=== PATIENT | female | born 1945 | race Caucasian/White ===

== ENCOUNTER 2018-07-09 11:15 | Outpatient (RCR) | payer MEDICARE, SELFPAY ==
--- NOTE | 2018-07-09 09:59 | PTTR_ITS ---
DATE: 07/09/18 OBJECTIVE: This is a co tx with PT Jose Luevano, please refer to his note for specifics. Manual therapy: ([id number]). Pt was seen by me including deep tissue mobilization and trigger point release techniques throughout (B) cervical paraspinals, (B) upper traps, (B) mid thoracic paraspinals, Rhomboids. Direct treatment time: 25 minutes Total treatment time: 25 minutes
--- NOTE | 2018-07-09 10:36 | PTTR_ITS ---
DATE: 07/09/18 SUBJECTIVE: Simi notes some mild improvements in her symptoms compared to her last visit 10-14 days ago. She is sore today because she drove to [place] yesterday so she is a little more symptomatic. She has had a massage since we last saw her and this was pretty painful throughout the trap area but following that it seemed to help her symptoms. OBJECTIVE: Therapeutic procedures ([id number]). She has been battling with the cervical spine pain for a number of months now. She has made steady progress up to 70% improved. She is sleeping through the night now but upon arising in the morning she does have some cervical spine discomfort and limitation. It takes about 1 hour to loosen up and feel more comfortable. And she does this well during the day as long as she doesn't move her head excessively into rotation and side bending. Her active cervical movements are approximately 60* and it causes some end range discomfort throughout the corresponding soft tissue structure stretch , Her side bending is 45-50*. She has some increased tone throughout the pecs as well as the thoracic paraspinals and the infraspinatus fossa. These are cleared by Puja Ibarra PTA refer to her note. I also instruct Simi in some diaphragmatic breathing. We tried some kegel exercises too but this was creating some groin discomfort and I was trying to incorporate some scap stabilization exercises too with the serratus anterior and lower trap again this created some spasms in her mid back. Direct treatment time: 30 minutes Total treatment time: 30 minutes ASSESSMENT: She has some myofascial type pain and this can be elicited into the groin and back area when performing exercises. PLAN: Have Radha try to perform her diaphragmatic breathing and see how she responds to the session with Puja Ibarra PTA today. Will discuss this earlier next week with possibility with starting on a conditioning program. Going to discuss situation with her pharmacist with possible use of magnesium sulfate to help control some of her spasms. She has a follow up appt early next week.
--- NOTE | 2018-07-20 13:06 | NT_ITS ---
07/20/18 Pt no show no called for today's PT appointment.
== END 2018-07-30 23:59 | disposition home or self-care (01) ==
LOC: PT 11:15
PROVIDERS: PCP Family Medicine; Referring Provider Family Medicine; Visit Provider Family Medicine
DX: M54.2 Cervicalgia (principal)
CPT/HCPCS: 97110; 97140

== ENCOUNTER → 2018-08-09 09:53 | Outpatient (BNVA) | payer MEDICARE, SELFPAY | PROVIDERS: PCP Family Medicine; Visit Provider Student in an Organized Health Care Education/Training Program | DX: M16.12 Unilateral primary osteoarthritis, left hip (principal); M25.552 Pain in left hip | CPT/HCPCS: 99213 ==

== ENCOUNTER 2018-08-09 10:30 | Outpatient (CLI) | payer MEDICARE, SELFPAY ==
--- NOTE | 2018-08-09 09:48 | DI.RAD_ITS ---
SYMPTOM/DIAGNOSIS: LEFT HIP PAIN PELVIS AND LEFT HIP: Comparison is made with 11 Aug 2017, The hip joint spaces are well maintained. The SI joints and pubic symphysis are unremarkable. IMPRESSION: Negative pelvis and left hip.
== END 2018-08-09 10:50 ==
PROVIDERS: PCP Family Medicine; Visit Provider Student in an Organized Health Care Education/Training Program
DX: M25.552 Pain in left hip (principal)
CPT/HCPCS: 99213; 73502

== ENCOUNTER 2018-08-12 02:21 | Outpatient (CLI) | payer MEDICARE, SELFPAY ==
[2018-08-12 10:45] LABS: HCT 34.1 % (36.0-46.0); HGB 10.5 g/dL (12.0-15.5); Mean Corp. HGB Concentration 30.8 g/dL (32.0-36.0); Mean Corpuscular Hemoglobin 28.3 pg (27.0-33.0); Mean Corpuscular Volume 91.9 fL (80-95); Mean Platelet Volume 10.6 fL (8.0-11.0); Platelet Count 301 x1000/uL (130-400); RBC 3.71 m/cumm (4.00-5.20); RBC Distribution Width 14.3 % (11.7-14.6)
[2018-08-12 11:20] LABS: COMMENT (LAB VIEW ONLY) 84.55 mg/dL
[2018-08-12 11:26] LABS: ALT 45 U/L (12-78); AST 46 U/L (15-37); Albumin 3.4 g/dL (3.4-5.0); Alkaline Phosphatase 110 U/L (46-116); Anion Gap 9.9 mmol/L (3-11); BUN 21 mg/dL (7-18); Bilirubin, Total 0.3 mg/dL (0.2-1.0); CO2 29.1 mmol/L (21.0-32.0); CREATININE 0.98 mg/dL (0.55-1.02); Calcium 8.5 mg/dL (8.5-10.1); Chloride 103 mmol/L (98-107); Estimated GFR 55.63 (mL/min/1.73m2); Glucose 157 mg/dL (70-100); Potassium 4.6 mmol/L (3.5-5.1); Sodium 142 mmol/L (136-145); TSH (W/Ref FT4) 1.73 uIU/mL (0.358-3.74); Total Protein 6.8 g/dL (6.4-8.2)
[2018-08-12 12:43] LABS: Hemoglobin A1C 7.6 % (4.5-6.2)
== END 2018-08-12 02:41 ==
PROVIDERS: PCP Family Medicine; Visit Provider Family Medicine
DX: E11.9 Type 2 diabetes mellitus without complications (principal); E78.5 Hyperlipidemia, unspecified; E11.8 Type 2 diabetes mellitus with unspecified complications; E55.9 Vitamin D deficiency, unspecified; D64.9 Anemia, unspecified
CPT/HCPCS: 36415; 80053; 85027; 82043; 82570; 83036; 84443

== ENCOUNTER 2018-08-24 09:58 | Outpatient (CLI) | payer MEDICARE, SELFPAY ==
[2018-08-24 11:37] LABS: HCT 34.7 % (36.0-46.0); Mean Corp. HGB Concentration 31.7 g/dL (32.0-36.0); Mean Corpuscular Hemoglobin 28.7 pg (27.0-33.0); Mean Corpuscular Volume 90.6 fL (80-95); Mean Platelet Volume 10.4 fL (8.0-11.0); Platelet Count 333 x1000/uL (130-400); RBC 3.83 m/cumm (4.00-5.20); RBC Distribution Width 14.2 % (11.7-14.6)
[2018-08-24 11:45] LABS: Bilirubin Negative (Negative); Blood Negative (Negative); Clarity Clear; Glucose Negative (Negative); Ketones Negative (Negative); Leukocyte Esterase Negative (Negative); Nitrite Negative (Negative); Specific Gravity 1.015 (1.005-1.025); Urobilinogen 0.2 EU/dL (Up TO 0.2)
[2018-08-24 11:57] LABS: RBC 0-2 (0-2)
[2018-08-24 11:58] LABS: Bacteria Few HPF (Negative); C & S Indicated? No; Casts Negative LPF (Negative); Crystals Negative HPF (Negative); Epithelial Cells Few HPF (Negative); Mucus Negative (Negative)
[2018-08-24 12:17] LABS: Hemoglobin A1C 7.7 % (4.5-6.2)
[2018-08-24 12:18] LABS: Anion Gap 9.6 mmol/L (3-11); BUN 18 mg/dL (7-18); CO2 29.4 mmol/L (21.0-32.0); CREATININE 0.94 mg/dL (0.55-1.02); Calcium 9.4 mg/dL (8.5-10.1); Chloride 100 mmol/L (98-107); Estimated GFR 58.37 (mL/min/1.73m2); Glucose 133 mg/dL (70-100); Potassium 4.3 mmol/L (3.5-5.1); Sodium 139 mmol/L (136-145)
== END 2018-08-24 10:18 ==
PROVIDERS: PCP Family Medicine; Visit Provider Student in an Organized Health Care Education/Training Program
DX: M25.552 Pain in left hip (principal); M16.12 Unilateral primary osteoarthritis, left hip; I25.10 Atherosclerotic heart disease of native coronary artery without angina pectoris; I10 Essential (primary) hypertension; E11.9 Type 2 diabetes mellitus without complications; K21.9 Gastro-esophageal reflux disease without esophagitis; J44.9 Chronic obstructive pulmonary disease, unspecified; Z01.818 Encounter for other preprocedural examination
CPT/HCPCS: 36415; 80048; 85027; 86850; 86900; 86901; 81003; 81015; 83036

== ENCOUNTER 2018-08-31 07:14 | Inpatient (IN) | payer MEDICARE, SELFPAY ==
[2018-08-31] VITALS (18 sets, daily range): BP systolic 60–174; BP diastolic 20–78; PULSE 68–88; RESP 13–21; TEMP 36.1–37.1; O2SAT 92–97
[2018-08-31] MEDS: Acetaminophen 500 MG TAB 1000 MG PO ×4 (06:44→21:50)
[2018-08-31] MEDS: Celecoxib 200 MG CAP 400 MG PO (06:44)
--- NOTE | 2018-08-31 06:45 | DI.RAD_ITS ---
SYMPTOM/DIAGNOSIS: OSTEOARTHRITIS LEFT HIP C-ARM FLUOROSCOPY : 08/31 Fluoroscopy Time: 38 sec C-arm fluoroscopy was utilized by Dr. Burns during placement of left total hip joint replacement. Hard copies show femoral and acetabular components in place.
[2018-08-31] MEDS: Lactated Ringers 1,000 ML 80 ML IV ×3 (07:38→13:28)
[2018-08-31] MEDS: Bupivacaine 0.25% Pres-Free 10 ML VIAL 50 ML IJ (09:36)
[2018-08-31] MEDS: Normal Saline 50 ML (09:36)
[2018-08-31] MEDS: Ketorolac 30 MG/ML VIAL (09:36)
--- NOTE | 2018-08-31 10:47 | DI.RAD_ITS ---
SYMPTOM/DIAGNOSIS: S/P LT NAS PORTABLE PELVIS: 08/31 AP view of the pelvis was obtained and shows placement of total hip joint replacement on the left. The components appear well seated. No other bony abnormality seen.
[2018-08-31] MEDS: fentaNYL 100 MCG/2 ML VIAL IVP ×2 (11:17→11:49)
[2018-08-31] MEDS: Insulin Aspart 300 UNITS/3 ML PEN SC ×2 (13:27→17:00)
[2018-08-31] MEDS: Escitalopram 20 MG TAB PO (13:27)
[2018-08-31] MEDS: traMADol 50 MG TAB PO (14:19)
--- NOTE | 2018-08-31 14:25 | PT.INIE ---
Date of service: 08/31/18 Time of Service: 14:21 PT Notes Inpatient Physical Therapy Evaluation Date: 08/31/18 Referring Doctor: David Burns PT Orders: PT CONSULT: s/p anterior L NAS Precautions: WBAT L LE Patient Profile/Admitting Diagnosis: Pt is a 73yr old female s/p left anterior total hip arthroplasty by Dr. Burns 08/31/18 PMHX: bilateral trochanteric bursitis, osteoporosis, chronic low back pain facet arthropathy L5-S1, obesity, diabetes mellitus, anxiety, vertigo, asthma, hypertension, vitamin D deficiency, gastroesophageal reflux disease, Barretts Esophagus, cataracts, hiatal hernia, hyperlipidemia, breast reduction, Oumar fundoplication, tubal ligation Social History/Home Situation: Lives in a house, 4 steps with railing to enter, flight of steps with railing to 2nd floor, states she can stay on first floor initially. Baseline mobility independent gait no device, independent with ADLS. Has built in seats in the shower with grab bars. Equipment Owned/DME: [facility] [employer] Subjective: Pt lying in bed visiting with family in room. Agreeable to therapy session. Reports her cuello catheter is burning and she is wondering when it can come out. Reports burning/pulling sensation in anterior left hip, nursing notified of patient's complaints. Objective: General Observation: L UE IV, cuello catheter, 2 lites 02 NC, Ice pack L anterior hip Mental Status: A& O x3 Pain: c/o burning pain at catheter site and left anterior hip, not rated. RN notified Bed Mobility/Transfers: Supine-sit: HOB 35 degrees, Laura For L LE Sit-stand: CGA with FWW Stand-sit: SBA Sit-supine: HOB flat Laura for L LE Gait: CGA with FWW 20ftx2 WBAT L LE, slow step to gait pattern with instructions for sequencing. Pt reports burning sensation right anterior hip. Pt returned to bed after gait completed, ice applied to left hip. Therex: Initiated ankle pumps, quad sets, glute sets x 20 reps. Instructed to perform every 2 hours this evening. Pt has issued home exercise program handouts. Balance: Static Sitting: normal Dynamic Sitting: normal Static Standing: fair Dynamic Standing: fair Special Tests: Mobility Limitations Standardized Measure [facility] 6 clicks Basic Mobility Inpatient Short Form: Raw Score: 18 Standardized Score: 43.63 CMS Score: 46.58% CMS Modifier: CK Informed Consent/Education: Patient instructed in purpose of PT consult and plan of care. Assessment: Pt is a 73yr old female s/p left anterior total hip arthroplasty by Dr. Burns 08/31/18 in setting of bilateral trochanteric bursitis, osteoporosis, chronic low back pain facet arthropathy L5-S1, obesity, diabetes mellitus, anxiety, vertigo, asthma. Patient presents with clinical signs and symptoms consistent with diagnosis, as demonstrated by the following impairment level findings: pain left anterior hip, decreased strength left hip, decreased strength and mobility with bed transfers, standing transfers and gait requiring one person assist and FWW for gait stability post operatively, pt with decreased static and dynamic standing balance. Pt would bbenefit from skilled therapy intervention, antipcate return to home setting once goals met. Impairments are contributing to the following functional limitations: AMPAC score CMS Score: 46.58% Patient is assessed as a Moderate 02602 complexity based on the following: History: see above Examination: see above Presentation: evolving Decision Making: AMPAC score CMS Score: 46.58% Goals: Goals X1 week 1. Supine-Sit SBA 2. Sit-Supine SBA 3. Sit-Stand SBA with FWW 4. Stand-Sit supervision 5. Bed-Chair SBA with FWW 6. Chair-Bed SBA with FWW 7. Gait SBA with FWW 50ftx2 WBAT L LE 8. Stairs up/down 4 steps with railing, WBAT L LE, SBA Plan of Care/Treatment Plan: 1-2x/day, 7 days/week x 1 week. Plan of care has been reviewed with the STEEL DIE PRINTER providing the service under Physical Therapy direction. Initiate Physical Therapy intervention for strengthening, bed mobility, transfers, gait, stairs, balance training, use of assistive device. DISCHARGE RECOMMENDATIONS: Home, pt has all DME TREATMENT CODE/TIME: 30 IE 1420 G Codes in the area mobility of walking and moving around: current status [id number] CK; projected status GP [id number]. Discharge status (if discharging) GP [id number] CK based on AMPAC score CMS Score: 46.58% Yessi Linares PT.
--- NOTE | 2018-08-31 14:41 | IN_ITS ---
Date of service: 08/31/18 Time of Service: 14:21 PT Notes Inpatient Physical Therapy Evaluation Date: 08/31/18 Referring Doctor: David Burns PT Orders: PT CONSULT: s/p anterior L NAS Precautions: WBAT L LE Patient Profile/Admitting Diagnosis: Pt is a 73yr old female s/p left anterior total hip arthroplasty by Dr. Burns 08/31/18 PMHX: bilateral trochanteric bursitis, osteoporosis, chronic low back pain facet arthropathy L5-S1, obesity, diabetes mellitus, anxiety, vertigo, asthma, hypertension, vitamin D deficiency, gastroesophageal reflux disease, Barretts Esophagus, cataracts, hiatal hernia, hyperlipidemia, breast reduction, Oumar fundoplication, tubal ligation Social History/Home Situation: Lives in a house, 4 steps with railing to enter, flight of steps with railing to 2nd floor, states she can stay on first floor initially. Baseline mobility independent gait no device, independent with ADLS. Has built in seats in the shower with grab bars. Equipment Owned/DME: ru [employer] Subjective: Pt lying in bed visiting with family in room. Agreeable to therapy session. Reports her cuello catheter is burning and she is wondering when it can come out. Reports burning/pulling sensation in anterior left hip, nursing notified of patient's complaints. Objective: General Observation: L UE IV, cuello catheter, 2 lites 02 NC, Ice pack L anterior hip Mental Status: A& O x3 Pain: c/o burning pain at catheter site and left anterior hip, not rated. RN notified Bed Mobility/Transfers: Supine-sit: HOB 35 degrees, Laura For L LE Sit-stand: CGA with FWW Stand-sit: SBA Sit-supine: HOB flat Laura for L LE Gait: CGA with FWW 20ftx2 WBAT L LE, slow step to gait pattern with instructions for sequencing. Pt reports burning sensation right anterior hip. Pt returned to bed after gait completed, ice applied to left hip. Therex: Initiated ankle pumps, quad sets, glute sets x 20 reps. Instructed to perform every 2 hours this evening. Pt has issued home exercise program handouts. Balance: Static Sitting: normal Dynamic Sitting: normal Static Standing: fair Dynamic Standing: fair Special Tests: Mobility Limitations Standardized Measure [facility] 6 clicks Basic Mobility Inpatient Short Form: Raw Score: 18 Standardized Score: 43.63 CMS Score: 46.58% CMS Modifier: CK Informed Consent/Education: Patient instructed in purpose of PT consult and plan of care. Assessment: Pt is a 73yr old female s/p left anterior total hip arthroplasty by Dr. Burns 08/31/18 in setting of bilateral trochanteric bursitis, osteoporosis, chronic low back pain facet arthropathy L5-S1, obesity, diabetes mellitus, anxiety, vertigo, asthma. Patient presents with clinical signs and symptoms consistent with diagnosis, as demonstrated by the following impairment level findings: pain left anterior hip , decreased strength left hip, decreased strength and mobility with bed transfers, standing transfers and gait requiring one person assist and FWW for gait stability post operatively, pt with decreased static and dynamic standing balance. Pt would bbenefit from skilled therapy intervention, antipcate return to home setting once goals met. Impairments are contributing to the following functional limitations: AMPAC score CMS Score: 46.58% Patient is assessed as a Moderate 85802 complexity based on the following: History: see above Examination: see above Presentation: evolving Decision Making: AMPAC score CMS Score: 46.58% Goals: Goals X1 week 1. Supine-Sit SBA 2. Sit-Supine SBA 3. Sit-Stand SBA with FWW 4. Stand-Sit supervision 5. Bed-Chair SBA with FWW 6. Chair-Bed SBA with FWW 7. Gait SBA with FWW 50ftx2 WBAT L LE 8. Stairs up/down 4 steps with railing, WBAT L LE, SBA Plan of Care/Treatment Plan: 1-2x/day, 7 days/week x 1 week. Plan of care has been reviewed with the PIN MACHINE OPERATOR providing the service under Physical Therapy direction. Initiate Physical Therapy intervention for strengthening, bed mobility, transfers, gait, stairs, balance training, use of assistive device. DISCHARGE RECOMMENDATIONS: Home, pt has all DME TREATMENT CODE/TIME: 30 IE 1420 G Codes in the area mobility of walking and moving around: current status [id number] CK; projected status GP [id number]. Discharge status (if discharging) GP [id number] CK based on AMPAC score CMS Score: 46.58% Yessi Linares PT.
--- NOTE | 2018-08-31 15:00 | CHAPLAIN ---
I checked in with Mitzi shortly after she was in her room following surgery. She was having lunch, and said she is feeling fine. Her Marcelo, is a strong support for her, and has been waiting for her to come out of surgery. Mitzi is an active member of [employer]
--- NOTE | 2018-08-31 16:19 | HOME_ITS ---
Home Ventilator Equipment Home care company [employer] Reason: Obstructive Sleep Apnea Make: ResMed Model: REMStar Mask type: Nasal pillows Mask size: Small Mode: CPAP Settings: AUTO MIN 11 MAX 16 Oxygen bleed in (lpm): 0 Condition: Good Date last checked: 08/31/18 Year of last sleep study: Compliance Comments:
[2018-08-31] MEDS: HYDROmorphone 2 MG TAB PO ×2 (16:59→21:50)
[2018-08-31] MEDS: Insulin Aspart 300 UNITS/3 ML PEN 18 UNITS SC (16:59)
[2018-08-31] MEDS: Esomeprazole 40 MG CAPCR PO (19:52)
[2018-08-31] MEDS: Celecoxib 100 MG CAP 200 MG PO (19:52)
[2018-08-31] MEDS: Budesonide/Formoterol 160/4.5 6 GM 60 PUFF INH IH (19:52)
[2018-08-31] MEDS: Rosuvastatin 10 MG TAB PO (21:50)
[2018-08-31] MEDS: Insulin Glargine 300 UNITS/3 ML PEN 40 UNITS SC (21:52)
[2018-08-31] MEDS: Normal Saline Flush 10 ML SYR IV (21:53)
[2018-09-01 00:07] VITALS: BP 99/61; PULSE 87; RESP 18; TEMP 37.1; O2SAT 93
[2018-09-01] MEDS: HYDROmorphone 2 MG TAB PO ×4 (00:48→11:54)
[2018-09-01] MEDS: Lactated Ringers 1,000 ML 80 ML IV (02:38)
[2018-09-01 03:25] VITALS: BP 104/62; PULSE 82; RESP 18; TEMP 36.6; O2SAT 93
[2018-09-01] MEDS: Albuterol/Ipratropium 3 ML UPD VIAL (03:30)
--- NOTE | 2018-09-01 07:04 | ROE_ITS ---
Date of service: 08/31/18 Time of Service: 09:58 Operative Note DATE OF PROCEDURE: 08/31/18 PRE-OP DIAGNOSIS: Left Hip avascular necrosis POST-OP DIAGNOSIS: same PROCEDURE: Left Anterior Total Hip Arthroplasty SURGEON: David Burns TIMBER WATCHMAN: Neri Cancino ANESTHESIA: spinal ESTIMATED BLOOD LOSS: 400 PATHOLOGY: none sent COMPLICATIONS: None Patient was transported to: PACU Patient's condition: stable Implants: 1. Depuy [place] Acetabular Component, 48 mm 2. Depuy Acetabular Liner, 48x32 mm 3. Depuy Corail coxa vara femoral Stem, Size 12 4. Depuy Altrx Ceramic Femoral Head, Size 32+1 mm Indications: I have seen Yas in clinic for symptoms of focal hip arthritis , confirmed with intra-articular injections. She has exhausted nonoperative methods and was having significant limitations in daily function and desired better function and less pain. I discussed the technical details of a hip replacement. I explained the risks of the procedure to include, but not limited to, bleeding, infection, pain, stiffness, fracture, damage to nerves and vessels, damage to muscles and tendons, loosening, instability, leg length inequality, need for repeat procedure, blood clot and cardiopulmonary demise. Despite these risks, she elected to proceed. Findings: Overall cartilage was maintained throughout the majority of the hip except for an area approximately 1/2 cm x 1 cm over the superior lateral aspect of the femoral head. This area had undermining of the cartilage with loose cartilage flaps and a clear area of avascular necrosis to the superior portion of the femoral head. Procedure Description: Simi was greeted in the preoperative holding area where the correct side was identified and marked. The consent was reviewed with the patient and signed. The history and physical was updated. All questions were answered. She was taken back to the operating room. A spinal anesthestic was then administered. The patient was placed into the supine position on the operating room table. The patient was then positioned onto the ARCH table. Both feet were wrapped with [place]br[place] cotton wrap along with Coban. The feet were placed in specialized boots for the ARCH table, well seated within the boot and secured. SCDs were applied. The patient was then slid down onto a peroneal post and the nonoperative leg was secured in a leg finch attached to the table. The operative side was placed into the ARCH table attachment and bed height and positioning was secured. A preoperative AP pelvis was obtained to serve as a reference for determining leg lengths. Prophylactic antibiotics in the form of cefazolin were administered. 1g of Tranxemic Acid was given intravenously within 30 minutes of incision. The left leg was then prepped with Chloraprep and draped in a standard fashion with a large shower-curtain type drape with Iodine impregnated skin protection. A timeout to confirm correct identity, side and site, procedure, allergies, anesthesia, and medical concerns was performed. An obliquely oriented incision was made starting lateral to the ASIS and running distal over the Tensor Fascia Jaimee (TFL) muscle belly toward the fibular head, approximately 10cm. The skin and soft tissue was dissected sharply, through Luis?s fascia, and to the fascia of the TFL. With the fascia and superior border of the IT band identified, the fascia was incised with a new knife just above any perforators from the IT band. The TFL muscle belly was bluntly dissected away from the fascia and moved laterally. The fat between TFL and rectus was identified to ensure the dissection was not within the TFL. Blunt dissection created space between abductors and the capsule and retractor was placed over the lateral femoral neck. The fibers of the rectus femoris tendon were identified and these were freed from the anterior capsule. A second cobra retractor was placed around the medial femoral neck. The TFL was further retracted laterally to show the deep fascia. Careful dissection through this layer identified three main crossing vessels of the lateral femoral circumflex. These were cauterized in multiple locations and then cut without any noticeable bleeding. The TFL was further released bluntly from the deep fascia to expose anterior hip capsule and fat the Michael orthopaedic retractor was then placed beneath the TFL and against sartorius and medial soft tissues to protect and retract the soft tissues. A T-capsulotomy was then performed starting at the superior lateral acetabulum and moving distally to the intertrochanteric ridge. These capsular flaps were tagged with a No. 1 Ethibond and elevated from within. The capsular flaps were released to the shoulder of the lateral neck and to the lesser trochanter to give excellent visualization of the proximal femur. A neck osteotomy was performed using an oscillating saw based on preoperative templates. This cut started in the shoulder and of the lateral neck and exited medially. The saw was at all times directed medially to avoid injury to the greater trochanter. 6cm of traction was applied to the leg and the osteotomy opened. The femoral head was removed with a corkscrew, making sure to protect the TFL on its exit. The femoral head was inspected and it showed an area of avascular necrosis over the superior lateral aspect of the head. The cartilage was undermined and unstable and the subchondral bone was absent for an area of about 1-1/2 x 1 cm. The femoral head size was measured on the back table to determine the starting reamer size. Portions of the rectus obscuring visualization were minimally elevated off the superior acetabulum. An anterior retractor was placed over the anterior wall between capsule and labrum. A posterior retractor was placed similarly. This provided excellent visualization. The contents of the cotyloid fossa were removed with electrocautery and the labrum was removed with a knife. Acetabular reaming began with a 43 mm reamer. This first reaming was directed anterior to posterior and medial to get down to the true floor. This was inspected and reamed until the true floor was reached. I then reamed sequentially up to a 47 mm reamer where good fit was obtained. The larger reamers were oriented based on anatomical reference of the anterior and lateral vasquez to ensure proper abduction and anteversion. Positioning and size was confirmed with the fluoroscopy. A 48 mm Depuy [place] acetabular component was selected. The acetabulum was reamed around the periphery with the selected acetabular size to prevent a rim fit. The deep tissues were irrigated. The acetabular component was then impacted in a position of about 40-45 degrees of abduction and 15-20 degrees of anteversion, using the patient?s anatomy as the ultimate landmark. Fluoroscopy was used to confirm this. There was excellent linux programmer of the acetabular component and the inserting handle was removed. A primary acetabular screw was placed into the ilium by drilling through one of the holes in the acetabular component. This was measured and an approrpriately sized screw was placed with excellent purchase. It was checked not to be proud. The acetabular liner, Depuy 48x32 mm polyethylene liner, was inserted and lined up with the tines of the acetabular component. There was no soft tissue interposition. The liner was then impacted into position and confirmed to be well-seated. A portion of the cuauhtemoc-articular cocktail was then injected around the acetabulum into the capsule and periosteum. This cocktail consisted of 50cc of 0.25% Bupivicaine and 20cc of Exparel, expanded to a total of 120cc. Traction was released from the femur. The leg was rotated to 120 degrees. Any remaining medial capsule was released until the lesser trochanter was easily palpable. A Street retractor was placed medially. The lateral capsule was further released into the shoulder to allow access to the greater trochanter. A Street retractor was placed over the greater trochanter which allowed the trochanter to flip in front of the capsule for excellent exposure. The leg was brought down into maximal extension and 20 degrees of adduction while ensuring there was no impingement on the acetabulum. Any remnant capsule within the trochanter was released. Piriformis and obturator externis were identified and protected. There was excellent access to the proximal femur. The lateral neck remnant was removed with a rongeur. A blunt canal probe was used to identify the canal and trajectory for later broaching. A box osteotome initiated the broach course. A small curved rasp and a curved curette were used to work laterally. Broaching then began with a size 8 Corail broach. This was inserted manually around the trochanter and into the canal before mallet blows. The broach was seated to the neck cut level based on the neck cut and the preoperative template. Sequential broaching was continued until a tight fit was obtained with good rotational control of the femur. A trial coxa vara neck was inserted along with a +1 trial head. The leg was brought out of extension and adduction and then reduced with traction and internal rotation. The leg was stable anteriorly in a position of 30 degrees of extension and 90 degrees of external rotation. Fluoroscopy was used to ensure there was no fracture and the stem was seated well. Leg lengths were checked with an AP pelvis and pelvic reference points. Once content with the desired offset and leg lengths, the leg was brought back into extension, external rotation and adduction. The periosteum and surrounding tissue was injected with remaining portion of the cuauhtemoc-articular cocktail. The proximal femur was irrigated as well as the deep tissues. The Depuy Corail coxa vara stem, size 12, was then manually inserted into the proximal femur making sure to control rotation. It was then malleted into position with light blows, giving breaks to allow bone expansion and decrease risk of fracture. The selected Depuy Altrx Ceramic Head, size 32+ 1 mm, was then placed onto the clean and dry trunnion and secured with impaction onto the tapered fit. The leg was brought back out of extension and adduction and reduced with traction and internal rotation. Stability was confirmed with no shuck at 90 degrees of external rotation and 30 degrees of extension. No impingement through range of motion arc. Final x-ray images were obtained with fluoroscopy to confirm adequate positioning and no intraoperative fracture. The deep tissues were thoroughly irrigated with a pulse lavage. The second dose of TXA 1g was administered intravenously. The capsule was then reapproximated with the previously placed Ethibond sutures. The TFL fascia was finally closed with a No. 2 Stratafix, barbed suture. Deep tissues were then reapproximated with 0 Vicryl and a running 2-0 Vicryl. The skin was closed with a running 4-0 Monocryl in a subcuticular fashion. This was reinforced with skin glue. A Mepilex silver dressing was applied. At the end of the case, all counts were correct. Simi was transferred to the hospital bed without difficulty and suffering no apparent complication. She has a good prognosis. Physical therapy will start today and without restrictions, weight-bearing as tolerated. Aspirin 81mg BID will be used for DVT prophylaxis.
[2018-09-01 07:23] LABS: HCT 28.1 % (36.0-46.0); HGB 8.7 g/dL (12.0-15.5); Mean Corpuscular Hemoglobin 28.3 pg (27.0-33.0); Mean Corpuscular Volume 91.5 fL (80-95); Mean Platelet Volume 11.1 fL (8.0-11.0); Platelet Count 295 x1000/uL (130-400); RBC 3.07 m/cumm (4.00-5.20); RBC Distribution Width 14.2 % (11.7-14.6); White Blood Cell Count 7.75 k/cumm (4.4-10.8)
[2018-09-01 07:30] VITALS: BP 119/67; PULSE 86; RESP 18; TEMP 36.9; O2SAT 92
[2018-09-01 07:32] LABS: Anion Gap 6.9 mmol/L (3-11); BUN 31 mg/dL (7-18); CO2 31.1 mmol/L (21.0-32.0); CREATININE 1.19 mg/dL (0.55-1.02); Calcium 8.5 mg/dL (8.5-10.1); Chloride 97 mmol/L (98-107); Estimated GFR 44.46 (mL/min/1.73m2); Glucose 149 mg/dL (70-100); Potassium 4.3 mmol/L (3.5-5.1); Sodium 135 mmol/L (136-145)
[2018-09-01] MEDS: Budesonide/Formoterol 160/4.5 6 GM 60 PUFF INH IH (07:36)
[2018-09-01 07:39] VITALS: O2SAT 92
[2018-09-01] MEDS: Celecoxib 100 MG CAP 200 MG PO (08:06)
[2018-09-01] MEDS: Losartan 50 MG TAB 100 MG PO (08:07)
[2018-09-01] MEDS: Hydrochlorothiazide 25 MG TAB PO (08:07)
[2018-09-01] MEDS: Acetaminophen 500 MG TAB 1000 MG PO (08:07)
[2018-09-01] MEDS: Calcium 600mg/Vit D 200U TAB 1 TAB PO (08:07)
[2018-09-01] MEDS: Esomeprazole 40 MG CAPCR PO (08:07)
[2018-09-01] MEDS: Insulin Aspart 300 UNITS/3 ML PEN 18 UNITS SC ×2 (08:07→11:50)
[2018-09-01] MEDS: Insulin Aspart 300 UNITS/3 ML PEN SC ×2 (08:08→11:50)
[2018-09-01] MEDS: Aspirin E.C. 81 MG TABEC PO (08:25)
--- NOTE | 2018-09-01 09:13 | PDOC.CMIN ---
- If Service Date Differs Date of service: 09/01/18 Time of Service: 09:14 Care Management Initial Assess PAST MEDICAL HISTORY/PAST SURGICAL HISTORY:: Type II diabetes, Tubular adenoma, Primary osteoarthritis of (L) hip, Malignant melanoma of skin, Dysphagia, Chronic gastritis, Anemia, Adrenal cyst, ASCVD, Chest pain, Anxiety, Asthma, Barretts esophagus, GERD, Cataract, Hyperlipidemia, Hypertension, Osteoporosis, Vitamin D Deficiency, Hiatal hernia, H/O surgical procedure, Osteoarthritis of (L) hip PREVIOUS FUNCTIONAL STATUS/SOCIAL/FAMILY SUPPORTS:: Simi resides with her Inderjit in [place] ADVANCE DIRECTIVES:: None on file Has patient been provided with information about the portal?: Yes CODE STATUS:: Full Code INSURANCE COVERAGE / FINANCIAL ISSUES:: Medicare, AARP CURRENT HOME/COMMUNITY SERVICES/EQUIPMENT:: Currently Simi has no services in the community. She has a Cane and FWW at home. PRIMARY CARE PHYSICIAN:: Dr. Chand POTENTIAL DISCHARGE NEEDS:: F/U appointment with Dr. Burns PATIENT/FAMILY EDUCATION NEEDS:: Review DC instructions, any limitations, and ongoing DC planning discussion. Discuss Ask Me Three ANTICIPATED BARRIERS TO DISCHARGE:: None identified at this time. TRANSPORTATION:: Via private vehicle with family PLAN:: Simi will return home with no anticipated services. She will F/U with Dr. Burns and plan of care as prescribed. Simi's family will transport when ready.
--- NOTE | 2018-09-01 10:08 | PT.INDS ---
Date of service: 09/01/18 Time of Service: 09:30 PT Notes Inpatient Physical Therapy Discharge Summary Date: 09/01/18 Dates of Service: 08/31/18-09/01/18 SUBJECTIVE: Pt sitting in chair, just finished breakfast, agreeable to PT session. States she would like to be able to go home today to be with her . OBJECTIVE: Bed Mobility/Transfers: Sit-stand: independent with FWW Stand-sit: independent Bed-chair: independent with FWW Chair-bed: independent with FWW Gait: independent with FWW 275ft, WBAT L LE, step through gait with decreased stride length Stairs: instructed in up/down 5 steps with railing WBAT LLE, pt independent in step to step sequence Therex: pt instructed in home exercise handout and program, independent with ankle pumps, quad sets and glute sets x 20 reps Balance: Static Sitting: normal Dynamic Sitting: normal Static Standing: fair Dynamic Standing: fair Assessment: Pt is a 73yr old female s/p left anterior total hip arthroplasty by Dr. Burns 08/31/18 in setting of bilateral trochanteric bursitis, osteoporosis, chronic low back pain facet arthropathy L5-S1, obesity, diabetes mellitus, anxiety, vertigo, asthma. Patient was seen for 2 PT visits. Progressed from CGA standing transfers to independent, from CGA gait with FWW 20ftx2 to independent gait with FWW 275ft, able to ascend/descend 5 steps with railing independent. Pt is at functional level to be able to return to home setting, when medically cleared by MD. Goals: Goals X1 week 1. Supine-Sit SBA 2. Sit-Supine SBA 3. Sit-Stand SBA with FWW 4. Stand-Sit supervision 5. Bed-Chair SBA with FWW 6. Chair-Bed SBA with FWW 7. Gait SBA with FWW 50ftx2 WBAT L LE 8. Stairs up/down 4 steps with railing, WBAT L LE, SBA Pt met goals #3-8 DISCHARGE RECOMMENDATIONS: Home, pt has all DME TREATMENT CODE/TIME: 27min Tax1 TPx1 9:30 G Codes in the area mobility of walking and moving around: projected status GP [id number]. Discharge status (if discharging) GP [id number] CK Yessi Linares PT.
[2018-09-01 11:32] VITALS: BP 110/60; PULSE 90; RESP 22; TEMP 35.9; O2SAT 92
[2018-09-01] MEDS: Metoprolol CR 100 MG TABCR PO (11:50)
[2018-09-01] MEDS: Escitalopram 20 MG TAB PO (11:50)
--- NOTE | 2018-09-01 12:00 | DSE_ITS ---
Date of service: 09/01/18 Time of Service: 11:58 DS: Diagnosis Discharge Diagnosis (1) Primary osteoarthritis of left hip: Status: Acute Discharge Plan Disposition Patient Disposition: HOME Condition: Good Discharge Details Reason For Visit: (L) HIP DJD Admit Date/Time: 08/31/18 06:00 Admit Provider: David Burns Attending Provider: David Burns Primary Care Provider: Janessa Chand [facility] Hospital Course Hospital Course: Patient was admitted to the medical/surgical floor following the procedure. It was tolerated well without any notable medical, surgical, or anesthetic complications. Mobilization began postoperatively. The cuello catheter was removed and voiding spontaneously. Vitals were stable. Physical therapy worked with the patient and was cleared for discharge home. No acute medical issues. Home Meds and New Rx's Prescriptions: New aspirin 81 mg Tablet,Delayed Release (Dr/Ec) 81 mg PO BID Qty: 80 RF: 0 acetaminophen [Mapap Extra Strength] 500 mg Tablet 1,000 mg PO TID Qty: 90 RF: 3 albuterol sulfate [Ventolin HFA] 90 mcg/actuation Hfa Aerosol Inhaler 2 puff Inhalation Q4H PRN PRNQty: 0 RF: 0 budesonide-formoterol [Symbicort] 160-4.5 mcg/actuation Hfa Aerosol Inhaler 2 puff Inhalation BID Qty: 0 RF: 0 calcium carbonate-vitamin D3 [Calcium 600 + D(3)] 600 mg(1,500mg) -200 unit Tablet 1 tab PO DAILY Qty: 0 RF: 0 docusate sodium [Colace] 100 mg Capsule 100 mg PO BID PRN PRN (Reason: Constipation) Qty: 0 RF: 0 escitalopram oxalate [Lexapro] 20 mg Tablet 20 mg PO DAILY@1200 Qty: 0 RF: 0 esomeprazole magnesium [Nexium] 40 mg Capsule,Delayed Release(Dr/Ec) 40 mg PO BID@0730,1999 Qty: 0 RF: 0 losartan 50 mg Tablet 100 mg PO DAILY Qty: 0 RF: 0 metoprolol succinate 100 mg Tablet Extended Release 24 Hr 100 mg PO DAILY@1200 Qty: 0 RF: 0 hydromorphone 2 mg Tablet 2 mg PO Q4H PRN PRNQty: 15 RF: 0 nitroglycerin [Nitrostat] 0.4 mg Tablet, Sublingual 0.4 mg Sublingual Q5 MIN PRN X3 PRNQty: 0 RF: 0 hydrochlorothiazide 25 mg Tablet 25 mg PO QAM Qty: 0 RF: 0 metformin 500 mg Tablet Extended Release 24 Hr 500 mg PO HS Qty: 0 RF: 0 insulin aspart U-100 [Novolog Flexpen U-100 Insulin] 100 unit/mL Insulin Pen 18 units subcut AC Qty: 0 RF: 0 insulin aspart U-100 [Novolog Flexpen U-100 Insulin] 100 unit/mL Insulin Pen subcut 0800,1200,1700 Qty: 0 RF: 0 metformin 750 mg Tablet Extended Release 24 Hr 750 mg PO BID Qty: 0 RF: 0 insulin glargine [Lantus Solostar U-100 Insulin] 100 unit/mL (3 mL) Insulin Pen 40 units subcut HS Qty: 0 RF: 0 polyethylene glycol 3350 17 gram Powder In Packet 17 g PO BID PRN PRN (Reason: Constipation) Qty: 0 RF: 0 rosuvastatin [Crestor] 10 mg Tablet 10 mg PO HS Qty: 0 RF: 0 tiotropium bromide [Spiriva with HandiHaler] 18 mcg Capsule, W/Inhalation Device 1 cap Inhalation DAILY@1600 Qty: 0 RF: 0 cholecalciferol (vitamin D3) 1,000 unit Tablet 1,000 units PO DAILY Qty: 0 RF: 0 ibuprofen 600 mg tablet 600 mg PO TID PRNQty: 90 RF: 3 No Action calcium carbonate-vitamin D3 [Caltrate with Vitamin D3] 1 EACH tablet 1 ea PO DAILY RF: 0 blood-glucose meter 1 EACH misc 1 ea Miscellaneous DAILY Qty: 90 RF: 12 cholecalciferol (vitamin D3) [Vitamin D3] 1,000 UNIT capsule 1,000 unit PO DAILY RF: 0 ACCU-CHEK COMPACT PLUS STRIPS 1 EACH strip 1 strip Miscellaneous TID Qty: 300 RF: 12 esomeprazole magnesium [Nexium] 40 MG capsule,delayed release(DR/EC) 1 tab PO BID Qty: 180 RF: 4 nitroglycerin [Nitrostat] 0.4 MG tablet, sublingual 0.4 mg Sublingual Q5 MIN PRN X3 PRNQty: 25 RF: 0 metformin [Glucophage XR] 500 MG tablet extended release 24 hr 1 tab PO DAILY Qty: 90 RF: 4 insulin lispro [Humalog KwikPen Insulin] 100 UNIT/1 ML insulin pen 18 u Sub-Q AC Qty: 6 RF: 4 pen needle, diabetic [Pen Needle] 1 EACH needle 1 ea Miscellaneous HS Qty: 100 RF: 4 metformin [Glucophage XR] 750 MG tablet extended release 24 hr 1 tab PO BID Qty: 180 RF: 4 pen needle, diabetic [BD Ultra-Fine Amira Pen Needle] 1 EACH needle 1 ea Miscellaneous QID Qty: 4 RF: 3 fluticasone-salmeterol [Advair Diskus] 1 EACH blister with device 1 puff Inhalation BID Qty: 3 RF: 12 metformin 750 mg tablet extended release 24 hr 750 mg PO BID Qty: 180 RF: 5 losartan-hydrochlorothiazide 100-25 mg tablet 1 tab PO DAILY Qty: 90 RF: 5 ibuprofen [Advil Liqui-Gel] 200 MG capsule 600 mg PO BID PRNRF: 0 tiotropium bromide [Spiriva with HandiHaler] 30 CAP/INH capsule, w/inhalation device 2 puffs Inhalation .AFTERNOON RF: 0 metoprolol succinate 100 mg tablet extended release 24 hr 100 mg PO .NOON RF: 0 albuterol sulfate [ProAir HFA] 8.5 GM HFA aerosol inhaler 2 puff Inhalation Q4H PRN PRNRF: 0 metformin 500 mg tablet extended release 24 hr 500 mg PO HS RF: 0 escitalopram oxalate [Lexapro] 20 MG tablet 1 tab PO .NOON RF: 0 rosuvastatin [Crestor] 10 MG tablet 1 tab PO HS RF: 0 insulin glargine [Lantus Solostar U-100 Insulin] 100 UNIT/1 ML insulin pen 40 units SQ HS RF: 0 Discharge Instructions Additional Instructions: Dr. Burns?s Total Hip Discharge Instructions Activity: The most important activity is to walk. You should try to take short walks a few times a day. You have no restrictions on movement or positioning, but do not try to force what you do. You will find some stiffness and weakness with hip flexion (lifting your knee). Do not try to strengthen this too early, continue to practice walking and stairs and this will come. - Outpatient physical therapy can be helpful to help return you to a normal gait and improve your flexibility and strength. This can start around 2 weeks. For some patients, it?s not necessary. Usually this is determined at the time of discharge or at the first post-operative visit. - You should wear the YAMEL hose on both legs for 4 weeks. Dressing: Keep the surgical dressing in place for at least one week. After the first week it may be removed and replace with light gauze and tape or nothing. It may get wet after 3 days but avoid soaking the dressing. If it gets wet, just lightly pat dry. It is important to always keep some gauze between skin folds, especially when you are sitting. Spend some time with the wound exposed when you are lying flat as the incision does wrinkle onto itself. Medications: - You should take Tylenol and an anti-inflammatory Celebrex as your primary pain control medications - You have been prescribed a stronger pain medication hydromorphone for breakthrough pain, take as needed as prescribed. - You should continue your stomach acid reduction agent esomeprazole to help reduce stomach acid and reflux. - You will be taking aspirin 81mg twice a day for DVT prevention unless instructed otherwise. - If you have constipation you should take Colace or Miralax (both over-the- counter). It takes most people 3-4 days to have a bowel movement. Follow-up: 2 weeks Referrals: David Burns MD [ [facility] STAFF PHYSICIAN] - 09/15/18 11:15 am Activity:: Activity as Tolerated Equipment/Supplies:: Walker Diet:: Carb Counting Discharge Orders Discharge Orders: Discharge Order (Routine); Ordered 09/01/18 Ordered By: David Burns DS: Data Vitals/I&O Vitals and I&O: Vital Signs Temperature 35.9 C L 09/01/18 11:32 Temperature Source Temporal Artery Scan 09/01/18 11:32 Pulse 90 09/01/18 11:32 Pulse Rhythm Regular 09/01/18 08:10 Respiratory Rate 22 09/01/18 11:32 Respiratory Effort Non-Labored 09/01/18 08:10 Respiratory Depth Normal 09/01/18 08:10 Respiratory Pattern Normal 09/01/18 08:10 Blood Pressure 110/60 09/01/18 11:32 Pulse Oximetry 92 L 09/01/18 11:32 Oxygen Delivery Method Room Air 09/01/18 11:32 Oxygen Flow Rate 0 09/01/18 11:32 Pain Level 5 09/01/18 11:54 Comment 09/01/18 03:25 Intake & Output 08/31/18 08/31/18 09/01/18 11:59 23:59 11:59 Intake Total 633.445 / 923.649 3863.333 / 0939.468 9230.667 / 1580.667 Output Total 600 / 600 400 / 400 450 / 450 Balance 33.445 / 33.445 821.333 / 855.761 3339.667 / 1130.667 Weight 97.8 kg Intake: IV 633.445 / 633.445 881.333 / 148.652 2994.667 / 1380.667 Oral 340 / 340 200 / 200 Output: Urine 250 / 250 400 / 400 450 / 450 Emesis 0 / 0 0 / 0 Estimated Blood Loss 350 / 350 Other: Urine Color Yellow Yellow Yellow Light Isabela Urine Appearance Clear Clear Clear Urine Odor Normal Comment PACU. Pt void in toilet x1, missed hat. Emesis Description None None Voiding Methods Toilet Toilet Pending studies at discharge: ANAL/PERIAN DX PROC NEC (09/14/02) CARDIAC STRESS TEST NEC (07/08/07) COLONOSCOPY (09/16/06) ELECTROCARDIOGRAM (07/26/03) ENDOSC POLYPECTOMY OF LG INTEST (09/14/02) ESOPHAGEAL DILATION (05/28/00) Endoscopic polypectomy of large intestine (05/07/11) Esophagogastroduodenoscopy [EGD] with closed biopsy (08/22/13) OTHER ENDOSCOPY OF SM INTEST (09/16/06) OTHER NONOP RESPIRATORY MEASURE (03/25/06) UMBIL HERNIA REPAIR NEC (08/01/03) Vital capacity determination (02/26/11) WBC 7.75 k/cumm (4.4-10.8) 09/01/18 06:30 RBC 3.07 m/cumm (4.00-5.20) L 09/01/18 06:30 Hgb 8.7 g/dL (12.0-15.5) L 09/01/18 06:30 Hct 28.1 % (36.0-46.0) L 09/01/18 06:30 MCV 91.5 fL (80-95) 09/01/18 06:30 MCH 28.3 pg (27.0-33.0) 09/01/18 06:30 MCHC 31.0 g/dL (32.0-36.0) L 09/01/18 06:30 RDW 14.2 % (11.7-14.6) 09/01/18 06:30 Plt Count 295 x1000/uL (130-400) 09/01/18 06:30 MPV 11.1 fL (8.0-11.0) H 09/01/18 06:30 Sodium 135 mmol/L (136-145) L 09/01/18 06:30 Potassium 4.3 mmol/L (3.5-5.1) 09/01/18 06:30 Chloride 97 mmol/L (98-107) L 09/01/18 06:30 Carbon Dioxide 31.1 mmol/L (21.0-32.0) 09/01/18 06:30 Anion Gap 6.9 mmol/L (3-11) 09/01/18 06:30 BUN 31 mg/dL (7-18) H 09/01/18 06:30 Creatinine 1.19 mg/dL (0.55-1.02) H 09/01/18 06:30 Estimated GFR/1.73 m2 44.46 (mL/min/1.73m2) 09/01/18 06:30 Glucose 149 mg/dL (70-100) H 09/01/18 06:30 Calcium 8.5 mg/dL (8.5-10.1) 09/01/18 06:30 Labs on day of discharge: Labs from last 24 hours 09/01/18 09/01/18 06:30 06:30 WBC 7.75 RBC 3.07 L Hgb 8.7 L Hct 28.1 L MCV 91.5 MCH 28.3 MCHC 31.0 L RDW 14.2 Plt Count 295 MPV 11.1 H Sodium 135 L Potassium 4.3 Chloride 97 L Carbon Dioxide 31.1 Anion Gap 6.9 BUN 31 H Creatinine 1.19 H Estimated GFR/1.73 m2 44.46 Glucose 149 H Calcium 8.5
--- NOTE | 2018-09-01 12:42 | PDOC.CMDIS ---
- If Service Date Differs Date of service: 09/01/18 Time of Service: 12:42 LACE Index Scoring Tool - Questions: Acuity (Admit via E.D.?): No Care Management Discharge Reason for Hospitalization: Left Hip DJD. Discharge Plan: Simi will discharge home when medically ready per MD. Anticipate patient will discharge with no services and follow up with MD. Simi will transport via private vehicle with family. Patient/Family Education Needs: Discharge education, any limitations and follow up plan of care. Ask Me Three discussion.
== END 2018-09-01 13:18 | disposition home or self-care (01) | DRG 470 ==
LOC: PDS 10:02 → MS 09-01 09:16 → PDS 09-01 14:35
PROVIDERS: Admitting Provider Student in an Organized Health Care Education/Training Program; PCP Family Medicine; Visit Provider Student in an Organized Health Care Education/Training Program
PROC: 0SRB04A Replacement of Left Hip Joint with Ceramic on Polyethylene Synthetic Substitute, Uncemented, Open Approach (ICD-10-PCS; CPT 27130; principal; 2018-08-31 07:30)
DX: M16.12 Unilateral primary osteoarthritis, left hip (principal); M87.9 Osteonecrosis, unspecified; Z96.642 Presence of left artificial hip joint; E11.9 Type 2 diabetes mellitus without complications; E78.5 Hyperlipidemia, unspecified; I10 Essential (primary) hypertension; M81.0 Age-related osteoporosis without current pathological fracture
CPT/HCPCS: 27130; 36415; 80048; 85027; 94640; 97110; 97162; 97530; NC; 72170; 73501; J0690; J1100; J1885; J2250; J2370; J2405; J3010; J7620

== ENCOUNTER → 2018-08-31 07:45 | Outpatient (BNVA) | payer MEDICARE, SELFPAY | PROVIDERS: Visit Provider Student in an Organized Health Care Education/Training Program | DX: R69 Illness, unspecified (principal) ==

== ENCOUNTER 2018-09-15 11:26 | Outpatient (CLI) | payer MEDICARE, SELFPAY ==
--- NOTE | 2018-09-15 11:14 | DI.RAD_ITS ---
SYMPTOM/DIAGNOSIS: POST OP LT NAS LEFT HIP: The patient is status post THR. The prosthesis in good position. Surrounding bone intact with no interval change when compared with prior images.
== END 2018-09-15 11:46 ==
PROVIDERS: PCP Family Medicine; Referring Provider Family Medicine; Visit Provider Student in an Organized Health Care Education/Training Program
DX: Z96.642 Presence of left artificial hip joint (principal); Z47.1 Aftercare following joint replacement surgery; E11.9 Type 2 diabetes mellitus without complications; I10 Essential (primary) hypertension; Z79.4 Long term (current) use of insulin
CPT/HCPCS: 73502

== ENCOUNTER → 2018-10-18 13:43 | Outpatient (BNVA) | payer MEDICARE, SELFPAY | PROVIDERS: PCP Family Medicine; Referring Provider Family Medicine; Visit Provider Student in an Organized Health Care Education/Training Program | DX: Z96.642 Presence of left artificial hip joint (principal); Z47.1 Aftercare following joint replacement surgery; I10 Essential (primary) hypertension; E11.9 Type 2 diabetes mellitus without complications; Z79.4 Long term (current) use of insulin ==

== ENCOUNTER 2018-11-10 10:26 | Outpatient (CLI) | payer MEDICARE, SELFPAY ==
[2018-11-10 12:06] LABS: Hemoglobin A1C 7.7 % (4.5-6.2)
== END 2018-11-10 10:46 ==
PROVIDERS: PCP Family Medicine; Visit Provider Family Medicine
DX: E11.8 Type 2 diabetes mellitus with unspecified complications (principal)
CPT/HCPCS: 36415; 83036

== ENCOUNTER 2018-12-13 13:07 | Outpatient (CLI) | payer MEDICARE, SELFPAY ==
--- NOTE | 2018-12-13 11:30 | DI.RAD_ITS ---
SYMPTOM/DIAGNOSIS: PNEUMONIA, URI, COPD J06.9, J44.9 PA AND LATERAL CHEST: Comparison is made with 24 Apr 2015. The heart size is at the upper limits of normal. There are mildly increased interstitial markings throughout. No focal infiltrate, effusion or pulmonary edema is seen. IMPRESSION: No acute abnormality.
== END 2018-12-13 13:27 ==
PROVIDERS: PCP Family Medicine; Visit Provider Family Medicine
DX: J06.9 Acute upper respiratory infection, unspecified (principal); J44.9 Chronic obstructive pulmonary disease, unspecified; J18.9 Pneumonia, unspecified organism
CPT/HCPCS: 71046

== ENCOUNTER 2019-02-24 08:44 | Outpatient (CLI) | payer MEDICARE, SELFPAY ==
[2019-02-24 16:31] LABS: Hemoglobin A1C 7.1 % (4.5-6.2)
== END 2019-02-24 09:04 ==
PROVIDERS: PCP Family Medicine; Visit Provider Family Medicine
DX: E11.9 Type 2 diabetes mellitus without complications (principal)
CPT/HCPCS: 36415; 83036

== ENCOUNTER 2019-03-02 03:41 | Outpatient (CLI) | payer MEDICARE, SELFPAY ==
[2019-03-02] MEDS: Barium Sulfate 60% W/V 355 ML BTL PO (09:29)
--- NOTE | 2019-03-02 09:43 | DI.RAD_ITS ---
SYMPTOM/DIAGNOSIS: DYSPHAGIA, R13.10 BARIUM SWALLOW: A preliminary PA and lateral examination of the chest and a soft tissue lateral of the neck are unremarkable. The patient swallowed barium without difficulty. No abnormality involving the janeen or hypopharynx is seen. The esophagus is unremarkable. Note is made of a small axial hiatus hernia beneath a non obstructing lower esophageal ring. There is no evidence of gastroesophageal reflux. SUMMARY: The study is unremarkable save for the presence of a small axial hiatus hernia beneath a non obstructing lower esophageal ring.
== END 2019-03-02 04:01 ==
PROVIDERS: PCP Family Medicine; Visit Provider Family Medicine
DX: R13.10 Dysphagia, unspecified (principal); K44.9 Diaphragmatic hernia without obstruction or gangrene
CPT/HCPCS: 74220; J3490

== ENCOUNTER 2019-03-28 01:52 | Outpatient (CLI) | payer MEDICARE, SELFPAY ==
[2019-03-28 07:48] LABS: HCT 31.4 % (36.0-46.0); HGB 9.6 g/dL (12.0-15.5); Mean Corp. HGB Concentration 30.6 g/dL (32.0-36.0); Mean Corpuscular Hemoglobin 27.4 pg (27.0-33.0); Mean Corpuscular Volume 89.7 fL (80-95); Mean Platelet Volume 10.6 fL (8.0-11.0); Platelet Count 392 x1000/uL (130-400); White Blood Cell Count 7.49 k/cumm (4.4-10.8)
[2019-03-28 08:35] LABS: ALT 20 U/L (12-78); AST 19 U/L (15-37); Albumin 3.4 g/dL (3.4-5.0); Alkaline Phosphatase 88 U/L (46-116); Anion Gap 9.1 mmol/L (3-11); BUN 21 mg/dL (7-18); Bilirubin, Total 0.3 mg/dL (0.2-1.0); CO2 29.9 mmol/L (21.0-32.0); CREATININE 0.89 mg/dL (0.55-1.02); Calcium 9.5 mg/dL (8.5-10.1); Chloride 103 mmol/L (98-107); Cholesterol 140 mg/dL (50-200); Glucose 112 mg/dL (70-100); HDL Cholesterol 45 mg/dL (40-60); LDL CHOLESTEROL 67 mg/dL (<100); Potassium 4.4 mmol/L (3.5-5.1); Sodium 142 mmol/L (136-145); Total Protein 6.5 g/dL (6.4-8.2); Triglyceride 187 mg/dL (30-150)
== END 2019-03-28 02:12 ==
PROVIDERS: PCP Family Medicine; Visit Provider Family Medicine
DX: D64.9 Anemia, unspecified (principal); E11.65 Type 2 diabetes mellitus with hyperglycemia
CPT/HCPCS: 36415; 80053; 80061; 83721; 85027

== ENCOUNTER 2019-04-18 03:11 | Outpatient (CLI) | payer MEDICARE, SELFPAY | END 2019-04-18 03:31 | PROVIDERS: PCP Family Medicine | DX: R13.12 Dysphagia, oropharyngeal phase (principal) | CPT/HCPCS: 92610 ==

== ENCOUNTER 2019-08-16 01:22 | Outpatient (CLI) | payer MEDICARE, SELFPAY ==
[2019-08-16 12:02] LABS: HCT 34.6 % (36.0-46.0); HGB 10.3 g/dL (12.0-15.5); Mean Corp. HGB Concentration 29.8 g/dL (32.0-36.0); Mean Corpuscular Hemoglobin 24.8 pg (27.0-33.0); Mean Corpuscular Volume 83.2 fL (80-95); Mean Platelet Volume 9.9 fL (8.0-11.0); Platelet Count 372 x1000/uL (130-400); RBC 4.16 m/cumm (4.00-5.20); RBC Distribution Width 15.8 % (11.7-14.6); White Blood Cell Count 7.41 k/cumm (4.4-10.8)
[2019-08-16 13:26] LABS: ALT 26 U/L (14-59); AST 28 U/L (15-37); Albumin 3.6 g/dL (3.4-5.0); Alkaline Phosphatase 98 U/L (46-116); Anion Gap 7.2 mmol/L (3-11); BUN 21 mg/dL (7-18); Bilirubin, Total 0.4 mg/dL (0.2-1.0); CO2 29.8 mmol/L (21.0-32.0); CREATININE 0.93 mg/dL (0.55-1.02); Calcium 9.1 mg/dL (8.5-10.1); Chloride 102 mmol/L (98-107); Estimated GFR 58.93 (mL/min/1.73m2); Glucose 135 mg/dL (70-100); Potassium 4.4 mmol/L (3.5-5.1); Sodium 139 mmol/L (136-145); Total Protein 6.9 g/dL (6.4-8.2)
[2019-08-16 16:18] LABS: COMMENT (LAB VIEW ONLY) 118.57 mg/dL
[2019-08-16 16:22] LABS: Calculated LDL 55 mg/dL; Cholesterol 163 mg/dL (50-200); HDL Cholesterol 46 mg/dL (40-60); Triglyceride 314 mg/dL (30-150)
[2019-08-17 11:18] LABS: Hemoglobin A1C 6.7 % (4.5-6.2)
== END 2019-08-16 01:42 ==
PROVIDERS: Visit Provider Family Medicine
DX: D64.9 Anemia, unspecified (principal); E11.65 Type 2 diabetes mellitus with hyperglycemia; I10 Essential (primary) hypertension
CPT/HCPCS: 36415; 80053; 80061; 85027; 82043; 82570; 83036

== ENCOUNTER 2019-08-25 01:42 | Outpatient (CLI) | payer MEDICARE, SELFPAY ==
--- NOTE | 2019-08-25 09:35 | MERGE_ITS ---
*[facility]* *[facility]* [address] [place] [address] Date of study: 08/25/2019 Transthoracic Echocardiography M-mode, complete 2D, complete spectral Doppler, and color Doppler *STUDY CONCLUSIONS* Summary: 1. Left ventricle: The cavity size was normal. Systolic function was normal. The estimated ejection fraction was 60-65%. Diastolic parameters were normal. There was no evidence of elevated ventricular filling pressure by Doppler parameters. 2. Right ventricle: The cavity size was normal. Wall thickness was normal. Systolic function was normal. 3. Atrial septum: No defect or patent foramen ovale was identified. 4. Pulmonary arteries: Pulmonary systolic pressure was in the range of 25mm Hg to 35mm Hg. 5. Inferior vena cava: The vessel was normal in size. The respirophasic diameter changes were in the normal range (greater than or equal to 50%), consistent with normal central venous pressure. *PATIENT PRESENTATION* Height: 160cm (63in ) S/D Pressure: 145 / 72 Weight: 89.4kg (196.6lb ) BSA: 2.03m^2 Test start time: 09:35 AM. Test stop time: 10:30 AM. CONSULTING Janessa Chand ORDERING Janessa Chand REFERRING Janessa Chand PERFORMING [facility] SAWMILL SUPERVISOR Jena Mckeon *PROCEDURE DATA* Procedure information: This study was interpreted by [facility]. Pertinent images and digital data are archived for permanent storage and are available for subsequent review. No prior study was available for comparison. Study status: Routine. Transthoracic echocardiography. M-mode, complete 2D, complete spectral Doppler, and color Doppler. A Transthoracic Echocardiogram was performed. Scanning was performed from the parasternal, apical, subcostal, and suprasternal notch acoustic windows. Images were obtained using an [employer] SC 2000 cardiac ultrasound machine. Image quality was adequate. Study completion: The patient tolerated the procedure well. History: PMH: Chest pain, Chronic Cough. *CARDIAC ANATOMY* Left ventricle: The cavity size was normal. Systolic function was normal. The estimated ejection fraction was 60-65%. The tissue Doppler parameters were normal. Diastolic parameters were normal. There was no evidence of elevated ventricular filling pressure by Doppler parameters. Aortic valve: Probably trileaflet. Doppler: There was no stenosis. There was no regurgitation. VTI ratio of LVOT to aortic valve: 0.69. Valve area (VTI): 1.8cm^2. Indexed valve area (VTI): 0.9cm^2/m^2. Peak velocity ratio of LVOT to aortic valve: 0.61. Valve area (Vmax): 1.6cm^2. Indexed valve area (Vmax): 0.8cm^2/m^2. Mean velocity ratio of LVOT to aortic valve: 0.53. Valve area (Vmean): 1.4cm^2. Indexed valve area (Vmean): 0.7cm^2/m^2. Mean gradient (S): 5.7mm Hg. Peak gradient (S): 9.3mm Hg. Aorta: Aortic root: The aortic root was normal in size. Ascending aorta: The ascending aorta was normal in size. Mitral valve: Doppler: There was no evidence for stenosis. There was no significant regurgitation. Valve area by pressure half-time: 3.4cm^2. Indexed valve area by pressure half-time: 1.7cm^2/m^2. Peak gradient (D): 2.6mm Hg. Left atrium: The atrium was normal in size. Atrial septum: No defect or patent foramen ovale was identified. Right ventricle: The cavity size was normal. Wall thickness was normal. Systolic function was normal. Pulmonic valve: Doppler: There was no evidence for stenosis. There was no significant regurgitation. Tricuspid valve: Doppler: There was mild regurgitation. Pulmonary artery: Poorly visualized. Pulmonary systolic pressure was in the range of 25mm Hg to 35mm Hg. Right atrium: The atrium was normal in size. Pericardium: There was no pericardial effusion. Systemic veins: Inferior vena cava: The vessel was normal in size. The respirophasic diameter changes were in the normal range (greater than or equal to 50%), consistent with normal central venous pressure. Measurements Left ventricle Value Reference LV ID, ED, PLAX 4.8 cm 3.5 - 6.0 LV ID, ES, PLAX 3.3 cm 2.1 - 4.0 LV PW thickness, ED, PLAX 0.9 cm LV end-diastolic volume, 1-p A2C 78 ml LV ejection fraction, 1-p A2C 51 % LV end-diastolic volume, 1-p A4C 140 ml LV ejection fraction, 1-p A4C 57 % LV e', lateral 0.097 m/sec LV E/e', lateral 8 LV e', medial 0.09 m/sec LV E/e', medial 9 LV e', average 0.093 m/sec LV E/e', average 9 Ventricular septum Value Reference IVS thickness, ED, PLAX 0.9 cm LVOT Value Reference LVOT ID, A-P 1.8 cm LVOT area 2.7 cm^2 LVOT peak velocity, S 0.94 m/sec LVOT mean velocity, S 0.6 m/sec LVOT VTI, S 21.9 cm LVOT peak gradient, S 3.5 mm Hg LVOT mean gradient, S 1.7 mm Hg Stroke volume (SV), LVOT DP 59 ml Stroke index (SV/bsa), LVOT DP 29 ml/m^2 Aortic valve Value Reference Aortic valve peak velocity, S 1.5 m/sec Aortic valve mean velocity, S 1.1 m/sec Aortic valve VTI, S 32.0 cm Aortic mean gradient, S 5.7 mm Hg Aortic peak gradient, S 9.3 mm Hg VTI ratio, LVOT/AV 0.69 Aortic valve area, VTI 1.8 cm^2 Velocity ratio, peak, LVOT/AV 0.61 Aortic valve area, peak velocity 1.6 cm^2 Velocity ratio, mean, LVOT/AV 0.53 Aortic valve area, mean velocity 1.4 cm^2 Aortic valve area/bsa, mean velocity 0.7 cm^2/m^2 Aorta Value Reference Aortic root ID, ED 2.8 cm Ascending aorta ID, A-P, S 3.0 cm Left atrium Value Reference LA ID, A-P, ES 3.6 cm LA ID/bsa, A-P 1.8 cm/m^2 <=2.2 LA volume, ES, 2-p 47 ml LA volume/bsa, ES, 2-p 23 ml/m^2 LA/aortic root ratio 1.32 Mitral valve Value Reference Mitral E-wave peak velocity 0.8 m/sec Mitral A-wave peak velocity 0.97 m/sec Mitral deceleration time 224 ms 150 - 230 Mitral pressure half-time 65 ms Mitral peak gradient, D 2.6 mm Hg Mitral E/A ratio, peak 0.82 Mitral valve area, PHT, DP 3.4 cm^2 Tricuspid valve Value Reference Tricuspid regurg peak velocity 2.7 m/sec Tricuspid peak RV-RA gradient 28.2 mm Hg Right atrium Value Reference RA area, ES, A4C 13.4 cm^2 8.3 - 19.5 Legend: (L) and (H) yenni values outside specified reference range. I have personally reviewed the images and have reviewed and edited the reported findings. Electronically signed by Sacha Tapia MD 08/25/2019 12:22
== END 2019-08-25 02:02 ==
PROVIDERS: Visit Provider Family Medicine
DX: R07.9 Chest pain, unspecified (principal); R05 Cough; I10 Essential (primary) hypertension
CPT/HCPCS: 93306

== ENCOUNTER 2019-09-15 10:38 | Outpatient (CLI) | payer MEDICARE, SELFPAY ==
--- NOTE | 2019-09-15 09:54 | DI.RAD_ITS ---
EXAM: XR HIP LT COMPLETE AP PELVIS INDICATION: ANNUAL F/U LEFT NAS. COMPARISON: XR hip LT complete AP pelvis from 09/15/2018 TECHNIQUE: 2D digital imaging was performed. FINDINGS: There has been no change in the appearance of the left total hip prosthesis or surrounding bone. Th e right hip is unremarkable. IMPRESSION:
== END 2019-09-15 10:58 ==
PROVIDERS: PCP Family Medicine; Referring Provider Family Medicine; Visit Provider Student in an Organized Health Care Education/Training Program
DX: Z96.642 Presence of left artificial hip joint (principal); Z47.1 Aftercare following joint replacement surgery; I10 Essential (primary) hypertension; E11.9 Type 2 diabetes mellitus without complications; Z79.4 Long term (current) use of insulin; S76.912A Strain of unspecified muscles, fascia and tendons at thigh level, left thigh, initial encounter; X58.XXXA Exposure to other specified factors, initial encounter
CPT/HCPCS: 99213; 73502

== ENCOUNTER 2020-02-27 11:27 | Outpatient (CLI) | payer MEDICARE, SELFPAY ==
[2020-02-29 19:13] LABS: SARS-CoV-2 RNA Undetected (Undetected); SARS-CoV-2 Specimen Source Nasopharynx
== END 2020-02-27 11:47 ==
PROVIDERS: PCP Family Medicine; Visit Provider Family Medicine
DX: Z20.828 Contact with and (suspected) exposure to other viral communicable diseases (principal); Z11.59 Encounter for screening for other viral diseases; R50.9 Fever, unspecified
CPT/HCPCS: 87449; U0003

== ENCOUNTER 2020-08-21 01:49 | Outpatient (CLI) | payer MEDICARE, SELFPAY ==
[2020-08-21 09:24] LABS: ALT 30 U/L (14-59); AST 27 U/L (15-37); Albumin 3.5 g/dL (3.4-5.0); Alkaline Phosphatase 84 U/L (46-116); Anion Gap 6.6 mmol/L (3-11); BUN 16 mg/dL (7-18); Bilirubin, Total 0.3 mg/dL (0.2-1.0); CO2 32.4 mmol/L (21.0-32.0); CREATININE 0.97 mg/dL (0.55-1.02); Calculated LDL 57 mg/dL (<100); Chloride 102 mmol/L (98-107); Cholesterol 159 mg/dL (<200); Estimated GFR 55.98 (mL/min/1.73m2); Glucose 151 mg/dL (74-106); HDL Cholesterol 53 mg/dL (40-60); Potassium 4.2 mmol/L (3.5-5.1); Sodium 141 mmol/L (136-145); TSH (W/Ref FT4) 3.66 uIU/mL (0.36-3.74); Total Protein 6.7 g/dL (6.4-8.2); Triglyceride 245 mg/dL (<150)
== END 2020-08-21 02:09 ==
PROVIDERS: PCP Family Medicine; Visit Provider Family Medicine
DX: E11.9 Type 2 diabetes mellitus without complications (principal); I25.10 Atherosclerotic heart disease of native coronary artery without angina pectoris
CPT/HCPCS: 36415; 80053; 80061; 83036; 84443

== ENCOUNTER → 2020-11-02 09:53 | Outpatient (BNVA) | payer MEDICARE, SELFPAY | PROVIDERS: PCP Family Medicine; Referring Provider Family Medicine; Visit Provider Physical Therapy Assistant | DX: K22.70 Barrett's esophagus without dysplasia (principal); Z86.010 Personal history of colon polyps; E11.9 Type 2 diabetes mellitus without complications; Z79.84 Long term (current) use of oral hypoglycemic drugs; I10 Essential (primary) hypertension; Z80.0 Family history of malignant neoplasm of digestive organs | CPT/HCPCS: 99213 ==

== ENCOUNTER 2020-11-09 03:33 | Outpatient (CLI) | payer MEDICARE, SELFPAY ==
[2020-11-11 16:52] LABS: COVID-19 RT-PCR Result NEGATIVE (Negative)
== END 2020-11-09 03:53 ==
PROVIDERS: PCP Family Medicine; Visit Provider Surgery
DX: Z11.59 Encounter for screening for other viral diseases (principal); Z01.818 Encounter for other preprocedural examination
CPT/HCPCS: U0003

== ENCOUNTER 2020-11-14 09:13 | Day surgery (SDC) | payer MEDICARE, SELFPAY ==
--- NOTE | 2020-11-14 07:13 | ENDO_ITS ---
Date of service: 11/14/20 Time of Service: 13:52 Endoscopy Report DATE OF PROCEDURE: 11/14/20 PRE-OP DIAGNOSIS: Barretts esophagus and Hx of adenomatous colon polyps POST-OP DIAGNOSIS: same (polyps and inflammation) PROCEDURE: 1. EGD with biopsies 2. Colonoscopy with polypectomy SURGEON: Sugar Rojo ANESTHESIA: other (General/ASA 2/Horacio Bowden, JUWAN) ESTIMATED BLOOD LOSS: 5 PATHOLOGY: other (Pylorus, antrum and GE junction bx, Ascending, sigmoid and rectal polyps) COMPLICATIONS: None DISPOSITION: same day INDICATIONS: The patient is here for Colonoscopy pre-op. Her last screening was in 2014 and was remarkable for tubular adenomatous polyps. She has a family history of colon cancer in her paternal grandfather. She has not had any bowel habit changes. -Discussed colonoscopy bowel prep as well as the procedure. Discussed possible complications of the procedure to include bleeding, pain, perforation, missed small lesion/polyp, sore throat, aspiration and adverse reaction to the medications. Questions were answered to patient?s satisfaction. No guarantees were implied or given. History of Baretts esophagus without dysplasia. EGDs performed in 2017 and 2014. -Discussed Upper endoscopy procedure and the need to be NPO after midnight the night prior. Discussed possible complications of the procedure to include bleeding, pain, perforation, missed small lesion/polyp/ulcers, sore throat, aspiration and adverse reaction to the medications or sedation. Questions were answered to patient?s satisfaction. No guarantees were implied or given. PREP: Miralax/Dulcolax PROCEDURE START TIME: 13:52 PROCEDURE END TIME: 14:51 FINDINGS: Chronic inflammation of the stomach and esophagus multiple small polyps throughout the colon PROCEDURE DESCRIPTION: After informed consent was obtained the patient was take to the procedure room and placed in a supine position. Monitors were applied and a time out was done. The patients name, date of , procedure type, allergies to medications and metal in their body was reviewed. A bite block was placed and the patient was sedated. Once sedated and comfortable the gastroscope was advanced through the oropharynx which was grossly normal into the esophagus. The proximal and mid- esophagus were normal. In the distal esophagus there was mild inflammation noted. The scope was advanced into the stomach and through the pylorus into the 3rd portion of the duodenum. The duodenum was noted to be normal. The scope was retracted back into the stomach. There was chronic inflammation noted. Biopsies were done to rule out H. pylori. There were no ulcers. The scope was retro-flexed. The cardia and fundus were noted to be normal. There no hiatal hernia noted. The scope was retracted back into the esophagus and biopsies were done of the GE junction for surveillance of her Sanches's. The Z line was regular. The GE junction was at 35 cm. While the patient was still sedated they were placed in a left decubitous position. A rectal exam was done. External exam was normal. Internal exam revealed a normal sphincter tone and no palpable masses. The scope was then introduced and retro-flexed. No internal hemorrhoids were identified. The scope was then advanced to the cecum with difficulty. The ileocecal valve and appendiceal orifice were identified. The prep was adequate. The scope was then slowly retracted over > 6 minutes back into the rectum. Polyps were removed with cold forceps in the ascending colon x2, sigmoid colon x5 and rectum x1. The scope was removed and the patient was woken up and taken back to Same day surgery in stable condition. The patient tolerated the procedure well and there were no immediate complications. Follow up: 3-5 years
--- NOTE | 2020-11-14 07:15 | PDOC.DSDIS_ITS ---
Discharge Plan Disposition Patient Disposition: HOME Condition: Good Discharge Details Reason For Visit: colonoscopy and EGD Attending Provider: Sugar Rojo Primary Care Provider: Janessa Chand Home Meds and New Rx's Prescriptions: Continued calcium carbonate-vitamin D3 [Calcium 600 + D(3)] 600 mg(1,500mg) -200 unit tablet 1 tab PO DAILY RF: 0 cholecalciferol (vitamin D3) 1,000 unit tablet 1,000 unit PO DAILY RF: 0 amlodipine 10 mg tablet 10 mg PO DAILY Qty: 90 RF: 4 escitalopram oxalate [Lexapro] 20 mg tablet 20 mg PO DAILY@1200 Qty: 90 RF: 4 esomeprazole magnesium [Nexium] 40 mg capsule,delayed release(DR/EC) 40 mg PO BID@729,1999 Qty: 180 RF: 5 Trelegy Ellipta 100-62.5-25 mcg blister with device 1 inh IH DAILY Qty: 90 RF: 4 hydrochlorothiazide 25 mg tablet 25 mg PO QAM Qty: 90 RF: 4 insulin lispro [Humalog KwikPen Insulin] 100 unit/mL insulin pen 18 unit Sub-Q AC Qty: 60 RF: 5 metoprolol succinate 100 mg tablet extended release 24 hr 100 mg PO DAILY@1200 Qty: 90 RF: 5 rosuvastatin [Crestor] 10 mg tablet 10 mg PO HS Qty: 90 RF: 4 (DME) blood-glucose meter 1 EACH misc 1 ea Miscellaneous DAILY Qty: 90 RF: 12 (DME) pen needle, diabetic [Pen Needle] 31 gauge x 5/16 needle 1 ea Miscellaneous HS Qty: 100 RF: 4 (DME) pen needle, diabetic [BD Ultra-Fine Amira Pen Needle] 32 gauge x 5/32 needle 1 ea Miscellaneous QID Qty: 400 RF: 3 albuterol sulfate [ProAir HFA] 90 mcg/actuation HFA aerosol inhaler 2 puff Inhalation Q4H PRN PRN (Reason: bronchospasm) Qty: 25.5 RF: 6 (DME) Blood Glucose Test Strip See Dose Instructions .ROUTE .MEDSUPPLY Qty: 400 RF: 5 ibuprofen 600 mg tablet 600 mg PO TID PRN (Reason: pain) Qty: 90 RF: 3 Lantus Solostar U-100 Insulin 100 unit/mL (3 mL) insulin pen 40 unit subcut HS Qty: 15 RF: 6 metformin 500 mg tablet 500 mg PO BID Qty: 180 RF: 5 Discontinued polyethylene glycol 3350 17 gram/dose powder 238 g PO ONCE Qty: 238 RF: 0 bisacodyl [Dulcolax (bisacodyl)] 5 mg tablet,delayed release (DR/EC) 5 mg PO ONCE Qty: 4 RF: 0 Discharge Instructions Additional Instructions: Findings: polyps Follow up: 3-5 years Please call if you develop: fevers >101.5 Nausea or Vomiting Abdominal pain that is not transient DAY SURGERY UNIT POST ENDOSCOPY INSTRUCTIONS 1. Because there will be medication in your system for the next 24 hours, you may feel a little sleepy. Your coordination will be affected. Therefore: a. Do not drive or operate dangerous equipment for 24 hours. b. Do not drink alcohol beverages for 24 hours (not even beer). c. Plan to go home and rest for the day. 2. Generally there are no restrictions on your activity after a day or so has gone by, but you may feel a bit fatigued for a few days. 3 After you arrive home you may have a light meal and return to a normal diet as you can tolerate it without feeling sick to your stomach. 4. After surgery, you may feel pain or discomfort. This should be only transien t, but if it persists please contact your doctor. 5. If there are any questions regarding the findings of your procedure, please feel free to contact your doctor. 6. If you are unable to contact your doctor with a problem, contact the hospital at [phone]. 7. Continue all your regular medications unless directed otherwise. I understand the above instructions and have no questions. Signature of Patient or Responsible Adult Escort Date/Time Name of Responsible Adult Escort Signature of Nurse Date/Time Referrals: Sugar Rojo MD [ [facility] STAFF PHYSICIAN] - 12/07/20 8:30 am Activity:: Activity as Tolerated Diet:: As Tolerated Discharge Orders Discharge Orders: Discharge Order (Routine); Ordered 11/14/20 Ordered By: Sugar Rojo
[2020-11-14 09:39] VITALS: BP 147/69; PULSE 77; RESP 16; TEMP 36.5; O2SAT 96
[2020-11-14] MEDS: Lactated Ringers 1,000 ML 80 ML IV (10:07)
--- NOTE | 2020-11-14 13:52 | STOM_PTH ---
PATIENT: Simi العلي LOC: [facility] U#:[id number] AGE/SX: 75/F ROOM: RE11/14/[address]: Sugar Rojo MD : 1945 BED: DIS: 11/14/2020 SPEC #: [id number] RECD: 11/14/20 15:33 STATUS: COLTEN RE #: [id number] BETH: 11/14/20 13:[address]: Sugar Rojo DEPT: Surgical Specimen RECD BY: Harleen Baum ENTERED: 11/14/20 15:35 SP TYPE: STOMACH OTHR DR: Janessa Chand MD, [place] Tissues: 1 - STOMACH BIOPSY 2 - STOMACH BIOPSY 3 - ESOPHAGUS BIOPSY 4 - BIOPSY BOWEL 5 - BIOPSY BOWEL 6 - BIOPSY BOWEL Procedures: GROSS AND MICRO LEVEL 4 Comments: [id number]
[2020-11-14 15:29] VITALS: BP 135/67; PULSE 93; RESP 16; TEMP 36.5; O2SAT 94
== END 2020-11-14 15:50 | disposition home or self-care (01) ==
LOC: SUR 09:14
PROVIDERS: PCP Family Medicine; Visit Provider Surgery
PROC: (CPT 45380; principal; 2020-11-14 10:45)
DX: Z12.11 Encounter for screening for malignant neoplasm of colon (principal); Z87.19 Personal history of other diseases of the digestive system; K31.89 Other diseases of stomach and duodenum; D12.2 Benign neoplasm of ascending colon; K62.1 Rectal polyp; Z86.010 Personal history of colon polyps; Z80.0 Family history of malignant neoplasm of digestive organs; K29.50 Unspecified chronic gastritis without bleeding; K21.00 Gastro-esophageal reflux disease with esophagitis, without bleeding; E11.9 Type 2 diabetes mellitus without complications; Z79.4 Long term (current) use of insulin; I10 Essential (primary) hypertension
CPT/HCPCS: 45380; 43239; 88305; J2001; J2704

== ENCOUNTER 2020-11-29 03:39 | Outpatient (CLI) | payer MEDICARE, SELFPAY ==
[2020-11-29 09:41] LABS: COMMENT (LAB VIEW ONLY) 43.79 mg/dL
[2020-11-29 09:59] LABS: Hemoglobin A1C 7.4 % (<5.7)
[2020-11-29 10:00] LABS: ALT 28 U/L (14-59); AST 28 U/L (15-37); Albumin 3.5 g/dL (3.4-5.0); Alkaline Phosphatase 97 U/L (46-116); Anion Gap 5.8 mmol/L (3-11); BUN 18 mg/dL (7-18); Bilirubin, Total 0.3 mg/dL (0.2-1.0); CO2 32.2 mmol/L (21.0-32.0); CREATININE 1.09 mg/dL (0.55-1.02); Calcium 9.2 mg/dL (8.5-10.1); Calculated LDL 64 mg/dL (<100); Chloride 102 mmol/L (98-107); Cholesterol 166 mg/dL (<200); Estimated GFR 48.93 (mL/min/1.73m2); Glucose 133 mg/dL (74-106); HDL Cholesterol 52 mg/dL (40-60); Magnesium 1.6 mg/dL (1.8-2.4); Potassium 4.1 mmol/L (3.5-5.1); Sodium 140 mmol/L (136-145); TSH (W/Ref FT4) 3.11 uIU/mL (0.36-3.74); Total Protein 7.1 g/dL (6.4-8.2); Triglyceride 254 mg/dL (<150)
== END 2020-11-29 03:59 ==
PROVIDERS: PCP Family Medicine; Visit Provider Family Medicine
DX: E11.8 Type 2 diabetes mellitus with unspecified complications (principal); I25.10 Atherosclerotic heart disease of native coronary artery without angina pectoris; I10 Essential (primary) hypertension; R53.83 Other fatigue
CPT/HCPCS: 36415; 80053; 80061; 82043; 82570; 83036; 83735; 84443

== ENCOUNTER → 2020-12-07 08:25 | Outpatient (BNVA) | payer MEDICARE, SELFPAY | PROVIDERS: PCP Family Medicine; Referring Provider Family Medicine; Visit Provider Surgery | DX: K63.5 Polyp of colon (principal); K29.50 Unspecified chronic gastritis without bleeding; K31.89 Other diseases of stomach and duodenum | CPT/HCPCS: 99212 ==

== ENCOUNTER 2021-04-19 03:09 | Outpatient (CLI) | payer MEDICARE, SELFPAY ==
[2021-04-19 09:08] LABS: Hemoglobin A1C 7.6 % (<5.7)
[2021-04-19 10:45] LABS: ALT 26 U/L (14-59); AST 30 U/L (15-37); Albumin 3.4 g/dL (3.4-5.0); Alkaline Phosphatase 101 U/L (46-116); Anion Gap 9.9 mmol/L (3-11); BUN 24 mg/dL (7-18); Bilirubin, Total 0.3 mg/dL (0.2-1.0); CO2 30.1 mmol/L (21.0-32.0); CREATININE 1.2 mg/dL (0.55-1.02); Chloride 102 mmol/L (98-107); Glucose 139 mg/dL (74-106); Potassium 4.2 mmol/L (3.5-5.1); Sodium 142 mmol/L (136-145)
== END 2021-04-19 03:10 | disposition home or self-care (01) ==
LOC: LBO 03:09
PROVIDERS: PCP Family Medicine; Visit Provider Family Medicine
DX: E11.8 Type 2 diabetes mellitus with unspecified complications (principal)
CPT/HCPCS: 36415; 80053; 83036

== ENCOUNTER 2021-06-21 12:13 | Outpatient (CLI) | payer MEDICARE, SELFPAY ==
--- NOTE | 2021-06-21 11:45 | DI.RAD_ITS ---
Exam(s) XR KNEE LT 4V AP,LAT,DRE,PAT XR KNEE RT 4V AP,LAT,DRE,PAT EXAM: XR KNEE RT 4V AP,LAT,DRE,PAT CLINICAL HISTORY: right knee pain. TECHNIQUE: 2D digital imaging was performed. COMPARISON: CR XR KNEE LT 4V AP,LAT,DRE,PAT from 06/21/2021 FINDINGS: BONES: No acute fracture is present. No bony destructive lesion is seen. JOINTS: The knee is normally aligned. No joint effusion is seen. Mild spurring at the patellofemoral joints. Mild narrowing of left medial femoral tibial joint. The left femoral tibial joints are well maintained. SOFT TISSUE: Normal. IMPRESSION: Mild degenerative changes of both patellofemoral joints. Moderate degenerative changes of the left m edial to femoral tibial joint. DATA REPOSITORY: RADIATION DOSE DELIVERED:
== END 2021-06-21 12:14 | disposition home or self-care (01) ==
LOC: DIORS 12:13
PROVIDERS: PCP Family Medicine; Referring Provider Family Medicine; Visit Provider Student in an Organized Health Care Education/Training Program
DX: M25.561 Pain in right knee (principal); M25.562 Pain in left knee; M23.91 Unspecified internal derangement of right knee; M17.12 Unilateral primary osteoarthritis, left knee
CPT/HCPCS: 20610; 99213; 73564; J1040

== ENCOUNTER 2021-08-25 11:45 | Emergency (ER) | payer MEDICARE, SELFPAY ==
[2021-08-25 12:03] VITALS: BP 141/55; PULSE 78; RESP 16; TEMP 36.7; O2SAT 95
--- NOTE | 2021-08-25 12:39 | ED.GENADUL_ITS ---
Discharge Plan Disposition Patient Disposition: HOME Condition: Stable Discharge Details Clinical Impression: Parotid sialolithiasis Primary Care Provider: Janessa Chand ED Provider: Lissett Renteria Home Meds and New Rx's Prescriptions: New cephalexin 500 mg capsule 500 mg PO QID 10 Days Qty: 40 RF: 0 Continued calcium carbonate-vitamin D3 [Calcium 600 + D(3)] 600 mg(1,500mg) -200 unit tablet 1 tab PO DAILY RF: 0 cholecalciferol (vitamin D3) 1,000 unit tablet 1,000 unit PO DAILY RF: 0 escitalopram oxalate [Lexapro] 20 mg tablet 20 mg PO DAILY@1200 Qty: 90 RF: 4 hydrochlorothiazide 25 mg tablet 25 mg PO QAM Qty: 90 RF: 4 insulin lispro [Humalog KwikPen Insulin] 100 unit/mL insulin pen 18 unit Sub-Q AC Qty: 60 RF: 5 metoprolol succinate 100 mg tablet extended release 24 hr 100 mg PO DAILY@1200 Qty: 90 RF: 5 rosuvastatin [Crestor] 10 mg tablet 10 mg PO HS Qty: 90 RF: 4 (DME) blood-glucose meter 1 EACH misc 1 ea Miscellaneous DAILY Qty: 90 RF: 12 (DME) Blood Glucose Test Strip See Dose Instructions .ROUTE .MEDSUPPLY Qty: 400 RF: 5 Lantus Solostar U-100 Insulin 100 unit/mL (3 mL) insulin pen 40 unit subcut HS Qty: 15 RF: 6 (DME) pen needle, diabetic [Pen Needle] 31 gauge x 5/16 needle 1 ea Miscellaneous HS Qty: 100 RF: 4 (DME) pen needle, diabetic [BD Ultra-Fine Amira Pen Needle] 32 gauge x 5/32 needle 1 ea Miscellaneous QID Qty: 400 RF: 3 albuterol sulfate [ProAir HFA] 90 mcg/actuation HFA aerosol inhaler 2 puff Inhalation Q4H PRN PRN (Reason: bronchospasm) Qty: 25.5 RF: 6 esomeprazole magnesium [Nexium] 40 mg capsule,delayed release(DR/EC) 40 mg PO BID@0730,2000 Qty: 180 RF: 5 Trelegy Ellipta 100-62.5-25 mcg blister with device 1 inh IH DAILY Qty: 90 RF: 4 amlodipine 10 mg tablet 10 mg PO DAILY Qty: 90 RF: 4 ibuprofen 600 mg tablet 600 mg PO PRN PRN (Reason: pain) RF: 0 No Action metformin 750 mg tablet extended release 24 hr 750 mg PO BID Qty: 180 RF: 5 metformin 500 mg tablet 500 mg PO DAILY Qty: 90 RF: 5 Discharge Instructions Instructions: Parotid Duct Obstruction (ED) Additional Instructions: Your exam here today is most consistent with recurrence of your blocked parotid gland. Please continue with warm compresses and massage. Encourage hydration. Please use sour candies such as lemon drops with her food such as pickles to help increase salivation do not. Please discuss recurrence with your primary care, call tomorrow to schedule follow-up appointment. If you begin having increased comfort or symptoms are not resolving the next 24 hours, please begin the antibiotics as prescribed. If you begin the antibiotic, please take the entire course. If you develop Fever/chills or other new/worsening symptoms please seek care urgently once again. Referrals: Janessa Chand [place], [place] [Primary Care Provider] - Discharge Data Discharge Date/Time-TO BE ENTERED AT DEPARTURE: 08/25/21 13:15 Medical Decision Making Patient is a pleasant 76-year-old female presents today with complaint of right sided facial swelling. She reports this began yesterday. Describes being very similar when she had swollen parotid gland last year. States that she was seen by her primary care and was started on antibiotics with good resolution. She states that the pain and swelling has been intermittent. She denies any fevers or chills. No pain in the ear. No difficulty swallowing, no distress. Reviewed patient's chart. Patient was diagnosed with parotid sialolithiasis in September 2019. At that time, she was treated with clindamycin and Cipro. Was using warm compresses. She states that she did use a warm compress yesterday which helped with discomfort. Exam is most consistent with recurrent parotid swelling, likely associated with stone blockage. I. do not see evidence of infection at this time. Appears systemically well and comfortable. She and I discussed treatment options. As I do not see evidence of infection, will.begin with conservative approach. and have her continue with warm compresses, hydration and sour candy. I will prescribe abx with watch and wait approach. Advised f/u. with PCP for reevalua tion. I did review her meds, I do not know why she has recurrence of this issue, she may benefit from evaluation by ENT. Discussed when to start abx. Discussed return precautions. All of her questions and concerns were addressed, she is in agreement with this plan. HPI General Mode of arrival: ambulatory . Date/Time Provider Initiated Documentation: 08/25/21 12:38 . Limitations to Documentation: no limitations . Information obtained by: patient, RN notes reviewed and old records reviewed . History of Present Illness 76 year old F presents to the emergency department with the chief complaint of right sided facial swelling and discomfort, described as moderate and similar to prior episodes (had same swelling in the past ), with intensity rated at 6. Quality is described as aching, and is localized to the face. Patient reports no radiation. Patient started exper iencing this day(s) (1) and it has been constant. other things that improve symptom(s), (warm compress) No exacerbating factors reported . Patient notes denies chest pain, cough, fever/chills, headaches, loss of appetite, nausea/vomiting, rash, shortness of breath and weakness. Patient did receive the following treatments prior to arrival, other (warm compress) Related Data Home Medications Medication Instructions Recorded Confirmed blood-glucose meter #90 ea 08/21/14 08/27/21 calcium carbonate 600 mg (1,500 1 tab PO DAILY tab 02/28/19 08/27/21 mg)-vitamin D3 200 unit tablet cholecalciferol (vitamin D3) 25 1,000 unit PO DAILY tab 02/28/19 08/27/21 mcg (1,000 unit) tablet blood sugar diagnostic #400 each 03/02/20 08/27/21 escitalopram oxalate 20 mg tablet 20 mg PO DAILY@1200 #90 tab 08/27/20 08/27/21 hydrochlorothiazide 25 mg tablet 25 mg PO QAM #90 tab 08/27/20 08/27/21 insulin lispro 100 unit/mL 18 unit SUB-Q AC #60 ml 08/27/20 08/27/21 subcutaneous pen metoprolol succinate 100 mg 100 mg PO DAILY@1200 #90 tab 08/27/20 08/27/21 tablet,extended release 24 hr rosuvastatin 10 mg tablet 10 mg PO HS #90 tab 08/27/20 08/27/21 insulin glargine 100 unit/mL (3 40 unit SUBCUT HS #15 ml 10/11/20 08/27/21 mL) subcutaneous pen pen needle, diabetic 31 gauge x #100 ndl 12/11/20 08/27/2104/14 pen needle, diabetic 32 gauge x #400 each 12/11/20 08/27/21 albuterol sulfate 90 mcg/actuation 2 puff INHALATION Q4H PRN PRN 03/16/21 08/27/21 aerosol inhaler #25.5 gm esomeprazole magnesium 40 mg 40 mg PO BID@0730,1999 #180 cap 03/16/21 08/27/21 capsule,delayed release fluticasone fur. 100 mcg-umeclid 1 inh IH DAILY #90 each 03/16/21 08/27/21 62.5 mcg-vilant 25 mcg inhalat.powder amlodipine 10 mg tablet 10 mg PO DAILY #90 tab 05/24/21 08/27/21 cephalexin 500 mg PO QID 10 Days #40 cap 08/25/21 08/27/21 ibuprofen 600 mg PO PRN PRN 08/25/21 08/27/21 metformin 500 mg tablet 500 mg PO DAILY #90 tab 08/26/21 08/27/21 metformin 750 mg tablet,extended 750 mg PO BID #180 tab 08/26/21 08/27/21 release 24 hr Previous Rx's Medication Instructions Recorded blood sugar diagnostic #400 each 03/02/20 escitalopram oxalate 20 mg tablet 20 mg PO DAILY@1200 #90 tab 08/27/20 hydrochlorothiazide 25 mg tablet 25 mg PO QAM #90 tab 08/27/20 insulin lispro 100 unit/mL 18 unit SUB-Q AC #60 ml 08/27/20 subcutaneous pen metoprolol succinate 100 mg 100 mg PO DAILY@1200 #90 tab 08/27/20 tablet,extended release 24 hr rosuvastatin 10 mg tablet 10 mg PO HS #90 tab 08/27/20 insulin glargine 100 unit/mL (3 40 unit SUBCUT HS #15 ml 10/11/20 mL) subcutaneous pen pen needle, diabetic 31 gauge x #100 ndl 12/11/2004/14 pen needle, diabetic 32 gauge x #400 each 12/11/20 albuterol sulfate 90 mcg/actuation 2 puff INHALATION Q4H PRN PRN 03/16/21 aerosol inhaler #25.5 gm esomeprazole magnesium 40 mg 40 mg PO BID@ #180 cap 03/16/21 capsule,delayed release fluticasone fur. 100 mcg-umeclid 1 inh IH DAILY #90 each 03/16/21 62.5 mcg-vilant 25 mcg inhalat.powder amlodipine 10 mg tablet 10 mg PO DAILY #90 tab 05/24/21 cephalexin 500 mg PO QID 10 Days #40 cap 08/25/21 metformin 500 mg tablet 500 mg PO DAILY #90 tab 08/26/21 metformin 750 mg tablet,extended 750 mg PO BID #180 tab 08/26/21 release 24 hr Allergies Allergy/AdvReac Type Severity Reaction Status Date / Time Penicillins Allergy yeast Verified 08/27/21 10:01 infection all over. oxycodone [From Percocet] AdvReac Intermediate Jittery, Verified 08/27/21 10:01 heart races amoxicillin trihydrate AdvReac YEAST Verified 08/27/21 10:01 [From Augmentin] INFECTION ALL OVER codeine AdvReac JITTERY Verified 08/27/21 10:01 milk AdvReac BRONCHITIS Verified 08/27/21 10:01 potassium clavulanate AdvReac YEAST Verified 08/27/21 10:01 [From Augmentin] INFECTION ALL OVER tramadol AdvReac Abnormal Verified 08/27/21 10:01 pulse and nausea General Stated Complaint: FacialProb RADHA: 3 Review of Systems Constitutional Constitutional: Reports as per HPI, Denies chills, Denies fever(s) and Denies headache(s) Eyes Eyes: Reports as per HPI, Denies eye discharge and Denies irritation ENT Ears, Nose, Mouth, and Throat: Reports as per HPI and Denies headache(s) Cardiovascular Cardiovascular: Reports as per HPI, Denies chest pain and Denies dyspnea Respiratory Respiratory: Reports as per HPI and Denies dyspnea Integumentary/Breasts Skin/Breast: Reports as per HPI and Denies rash Neurologic Neurologic: Reports as per HPI and Denies headache(s) [facility] Medical History (Updated 08/27/21 @ 12:58 by Janessa Chand MD, [place]) Adrenal cyst Adrenal cyst (11/16/14) Denies having. Anemia Anemia (05/26/15) Anxiety Anxiety ASCVD (arteriosclerotic cardiovascular disease) ASCVD (arteriosclerotic cardiovascular disease) (03/15/09) NEG. STRESS TEST 2003 ECHO shows a PA pressure of 29% MPI shows positive ischemia; Cardiac Cath shows normal coronaries w/ an ejection fraction of 65% 09/25/14; NEG MPI Asthma Asthma Barretts esophagus Barretts esophagus Calculus of kidney (11/16/14) Cataract Cataract Cataract Chest pain (09/22/14) Cholelithiasis Denies having. Chronic gastritis (07/17/15) Diabetes Dysphagia, unspecified - CXR; - barium swallow (except @ fundiplication) GERD (gastroesophageal reflux disease) Hiatal hernia Hiatal hernia Hip pain History of shingles Hyperlipidemia Hyperlipidemia Hyperplastic colon polyp Hypertension Hypertension Internal derangement of right knee Injection: 06/21/2021 Jaw pain 03/19/16 Jaw pain (03/19/16) Left knee DJD Lumbago Malignant melanoma of skin (10/29/06) melanoma in situ left lateral foot; S/P excision Osteoarthritis of left hip Osteoporosis Denies having. Osteoporosis Renal calculus Smoker Smoker Strain of iliopsoas muscle Tubular adenoma 07/16/15; DR. SWAN Type II diabetes mellitus with complication, uncontrolled (10/02/14) URI (upper respiratory infection) Vertigo 10/29/04 Vertigo (10/29/04) Vitamin D deficiency Vitamin D deficiency Surgical History (Updated 11/14/20 @ 09:31 by Berny Sandoval) Arthroplasty fifth right toe-07/24/16 EGD - MAC (05/17/18) Extraction of cataract 05/15/15 DR. YEPEZ; LEFT EYE 05/26/16 DR. YEPEZ; RIGHT EYE H/O cataract removal with insertion of prosthetic lens H/O surgical procedure a. breast reduction b. Oumar fundoplication c. tubal ligation History of appendectomy History of bilateral ligation of fallopian tubes History of bilateral tubal ligation History of cataract removal with insertion of prosthetic lens History of reduction mammoplasty History of surgical procedure History of tonsillectomy History of total left hip replacement 08/31/2018 Ligation of fallopian tube Oumar Fundoplication (~1994) Reduction mammoplasty S/P total hip arthroplasty 08/31/18 DR. GALLO (LEFT ANTERIOR) Status post Oumar fundoplication 11/30/94 tarsel tunnel release B/L Family History (Updated 07/04/21 @ 10:37 by Rebeca Olmstead) Mother , AGE 71 Heart disease Myocardial infarction Father , AGE 73 Asthma COPD (chronic obstructive pulmonary disease) Sister Essential hypertension Alcohol abuse Breast cancer Brother Essential hypertension Alcohol abuse Maternal Grandfather , age 76 Heart disease Diabetes Paternal Grandfather , AGE 88 Stroke Colon cancer Maternal Grandmother , AGE 71 Heart disease Paternal Grandmother , AGE 54 Diabetes Heart disease Son No problems noted. Daughter No problems noted. Daughter No problems noted. Social History Smoking/Tobacco Use Status: Former Tobacco Use Quit Date: 11/30/02 Tobacco: How many years used: 16 Second Hand Exposure: Yes Smoking risk assessment performed?: Yes Alcohol Intake: current Alcohol Intake frequency: 0-2 drinks per day Alcohol type: wine Drug use: Never Substance use type: does not use Caregiver/Support person: Yes Household members: spouse and other Details: 2 Housing: house Communication Needs: Hard of Hearing Do you need help understanding health information?: Rarely Pets and animals: No Sexually active: No Do you think of yourself as: straight/heterosexual Current gender identity: female What is your relationship status?: How often do you talk on the phone with friends or family?: three or more times per week How often do you get together with friends or relatives?: once per week How often do you attend quaker or taoism services?: 1-3 times per year Do you belong to any clubs or organized social groups?: yes Panel score (0-1 are the most socially isolated patients): 3 What type of physical activity do you participate in: walking Duration: 15-30 minutes/day Frequency: daily Jessica/Restorationist: Mormonism Special jessica needs: No Seatbelt use: always Drive intox or ride w/intox power screwdriver operator: No Do you feel safe at home: Yes Do you feel safe in your relationship?: Yes Exam Const General: cooperative, healthy appearing, comfortable, no acute distress, well developed and well groomed Nutritional Appearance: well nourished and overweight Orientation: alert and awake HENMN Head: normal to inspection, normocephalic and atraumatic Ears: hearing grossly normal bilaterally, external ears normal and TM's normal bilaterally General nose exam: external nose normal and nares normal Face and sinus: sinuses nontender and no fluctuance Face images: 1. Area of swelling. No erythema, warmth. Consistent with parotid gland enlargement. No purulent drainage into mouth. She has area of scaring in the mouth. No stone visualized at ductal opening. No fluctuance. No lymphadenopathy. Mouth: oral mucosae normal, lip normal, tongue normal, oropharynx normal and moist mucous membranes Teeth and gingiva: dentition normal Throat: posterior oropharynx normal, tonsils normal and uvula midline Eyes General: appearance normal, both eyes and all related structures Neck Neck: normal visual inspection, full ROM, no lymphadenopathy and no meningeal signs Resp Effort & Inspection: normal respiratory effort, able to speak in complete sentences and no respiratory distress Auscultation: clear to auscultation bilaterally, no rales, no rhonchi and no wheezes Cardio Rate: regular rate Rhythm: regular rhythm Heart Sounds: S1 normal and S2 normal Skin General skin exam: no rashes or lesions noted Neuro General: patient alert and patient awake Cognition: normal cognition Speech: speech normal Gait: normal gait Psych Appearance: grossly normal and well kempt Mental Status: mental status grossly normal Speech and Movement: speech and movement normal Course Vital Signs Vital signs: Vital Signs Temperature 36.7 C 08/25/21 12:03 Pulse 78 08/25/21 12:03 Respiratory Rate 16 08/25/21 12:03 Blood Pressure 141/55 H 08/25/21 12:03 Pulse Oximetry 95 08/25/21 12:03 Temperature 36.7 C 08/25/21 12:03 Temperature Source Skin 08/25/21 12:03 Pulse 78 08/25/21 12:03 Respiratory Rate 16 08/25/21 12:03 Respiratory Effort 08/25/21 12:27 Blood Pressure 141/55 H 08/25/21 12:03 Pulse Oximetry 95 08/25/21 12:03 Oxygen Delivery Method Room Air 08/25/21 12:03 Oxygen Flow Rate 0 08/25/21 12:03 Pain Level 6 08/25/21 12:03 Comment hot compress last evening 08/25/21 12:03
== END 2021-08-25 13:15 | disposition home or self-care (01) ==
PROVIDERS: Emergency Provider Physician Assistant; PCP Family Medicine
DX: K11.21 Acute sialoadenitis (principal)
CPT/HCPCS: 99283

== ENCOUNTER 2021-08-27 04:28 | Outpatient (CLI) | payer MEDICARE, SELFPAY ==
[2021-08-27 09:28] LABS: HCT 32.2 % (36.0-46.0); HGB 9.7 g/dL (11.2-15.7); MCH 25.7 pg (27.0-33.0); MCHC 30.1 % (32.0-36.0); MCV 85.4 fL (80-95); MPV 10.1 fL (8.0-11.0); Platelet Count 329 10^3/uL (130-400); RBC 3.77 10^6/uL (3.93-5.22); RDW 15.9 % (11.7-14.6); RDW-SD 49.4 fL; WBC 6.75 10^3/uL (4.4-10.8)
[2021-08-27 09:35] LABS: Hemoglobin A1C 7.3 % (<5.7)
[2021-08-27 10:30] LABS: ALT 30 U/L (14-59); AST 34 U/L (15-37); Albumin 3.5 g/dL (3.4-5.0); Alkaline Phosphatase 100 U/L (46-116); Anion Gap 8.2 mmol/L (3-11); BUN 24 mg/dL (7-18); Bilirubin, Total 0.4 mg/dL (0.2-1.0); CO2 30.8 mmol/L (21.0-32.0); CREATININE 1.2 mg/dL (0.55-1.02); Calculated LDL 58 mg/dL (<100); Chloride 102 mmol/L (98-107); Cholesterol 144 mg/dL (<200); Estimated GFR 43.68 (mL/min/1.73m2); Glucose 135 mg/dL (74-106); HDL Cholesterol 45 mg/dL (40-60); Magnesium 1.7 mg/dL (1.8-2.4); Potassium 4.6 mmol/L (3.5-5.1); Sodium 141 mmol/L (136-145); Triglyceride 205 mg/dL (<150)
[2021-08-27 10:31] LABS: COMMENT (LAB VIEW ONLY) 98.46 mg/dL
[2021-08-27 10:32] LABS: Microalb ug/mg Crea 679.1 ug/mg Cr
== END 2021-08-27 04:29 | disposition home or self-care (01) ==
LOC: LBO 04:28
PROVIDERS: PCP Family Medicine; Visit Provider Family Medicine
DX: E11.65 Type 2 diabetes mellitus with hyperglycemia; E78.5 Hyperlipidemia, unspecified; I10 Essential (primary) hypertension; K22.70 Barrett's esophagus without dysplasia; I25.10 Atherosclerotic heart disease of native coronary artery without angina pectoris; D64.9 Anemia, unspecified
CPT/HCPCS: 36415; 80053; 80061; 85027; 82043; 82570; 83036; 83735; 84443

== ENCOUNTER 2021-10-09 02:37 | Outpatient (CLI) | payer MEDICARE, SELFPAY ==
[2021-10-09 10:58] LABS: HCT 34.6 % (36.0-46.0); HGB 10.6 g/dL (11.2-15.7); MCH 26.2 pg (27.0-33.0); MCHC 30.6 % (32.0-36.0); MCV 85.6 fL (80-95); MPV 10.2 fL (8.0-11.0); Platelet Count 417 10^3/uL (130-400); RBC 4.04 10^6/uL (3.93-5.22); RDW 15.8 % (11.7-14.6); RDW-SD 49.3 fL; WBC 7.13 10^3/uL (4.4-10.8)
[2021-10-09 11:11] LABS: Bilirubin Negative (Negative); Blood Negative (Negative); Clarity Clear (Clear); Glucose Negative (Negative); Ketones Negative (Negative); Leukocyte Esterase Trace (Negative); Nitrite Negative (Negative); Specific Gravity >= 1.030 (1.005-1.025); Urobilinogen 0.2 EU/dL (Up TO 0.2); pH 5.5 (5-8)
[2021-10-09 11:12] LABS: Bacteria Moderate HPF (Negative); C & S Indicated? Yes; Crystals Negative HPF (Negative); Epithelial Cells Few HPF (Negative); Mucus Moderate (Negative); Other Cells Few Transitional (Negative)
[2021-10-09 11:14] LABS: Albumin 3.5 g/dL (3.4-5.0); BUN 19 mg/dL (7-18); CREATININE 1.2 mg/dL (0.55-1.02); Estimated GFR 43.68 (mL/min/1.73m2); Glucose 192 mg/dL (74-106); Total Protein 7.7 g/dL (6.4-8.2)
[2021-10-09 11:15] LABS: ALT 66 U/L (14-59); AST 74 U/L (15-37); Alkaline Phosphatase 149 U/L (46-116); Bilirubin, Total 0.4 mg/dL (0.2-1.0); Chloride 100 mmol/L (98-107); Potassium 3.4 mmol/L (3.5-5.1); Sodium 140 mmol/L (136-145)
[2021-10-09 12:49] LABS: ESR 45 mm/hr (0-30)
== END 2021-10-09 02:38 | disposition home or self-care (01) ==
LOC: LBO 02:37
PROVIDERS: PCP Family Medicine; Visit Provider Family Medicine
DX: N28.9 Disorder of kidney and ureter, unspecified (principal); R31.9 Hematuria, unspecified
CPT/HCPCS: 36415; 80053; 85027; 85652; 81003; 81015; 87086

== ENCOUNTER 2021-10-22 04:15 | Outpatient (CLI) | payer MEDICARE, SELFPAY ==
[2021-10-22 09:01] LABS: ESR 20 mm/hr (0-30); HCT 33.4 % (36.0-46.0); HGB 10.1 g/dL (11.2-15.7); MCH 25.9 pg (27.0-33.0); MCHC 30.2 % (32.0-36.0); MCV 85.6 fL (80-95); MPV 10.1 fL (8.0-11.0); Platelet Count 358 10^3/uL (130-400); RDW 15.4 % (11.7-14.6); RDW-SD 48.3 fL
[2021-10-22 10:52] LABS: ALT 31 U/L (14-59); AST 43 U/L (15-37); Albumin 3.6 g/dL (3.4-5.0); Alkaline Phosphatase 99 U/L (46-116); Anion Gap 5.4 mmol/L (3-11); BUN 21 mg/dL (7-18); Bilirubin, Total 0.4 mg/dL (0.2-1.0); CO2 33.6 mmol/L (21.0-32.0); CREATININE 1.1 mg/dL (0.55-1.02); Calcium 9.1 mg/dL (8.5-10.1); Chloride 102 mmol/L (98-107); Estimated GFR 48.29 (mL/min/1.73m2); Glucose 120 mg/dL (74-106); Potassium 4.1 mmol/L (3.5-5.1); Sodium 141 mmol/L (136-145)
== END 2021-10-22 04:16 | disposition home or self-care (01) ==
LOC: LBO 04:15
PROVIDERS: PCP Family Medicine; Visit Provider Family Medicine
DX: E11.29 Type 2 diabetes mellitus with other diabetic kidney complication; N28.9 Disorder of kidney and ureter, unspecified; R79.89 Other specified abnormal findings of blood chemistry; R80.9 Proteinuria, unspecified
CPT/HCPCS: 36415; 80053; 85027; 85652

== ENCOUNTER 2021-12-09 02:53 | Outpatient (CLI) | payer MEDICARE, SELFPAY ==
[2021-12-09 12:43] VITALS: BP 150/70; PULSE 73; RESP 18; TEMP 35.6; O2SAT 95
[2021-12-09 13:20] VITALS: BP 127/73; PULSE 75; RESP 18; TEMP 36.9; O2SAT 95
[2021-12-09 13:43] VITALS: BP 118/72; PULSE 76; RESP 18; TEMP 36; O2SAT 97
[2021-12-09 14:40] VITALS: BP 116/70; PULSE 73; RESP 18; TEMP 36.2; O2SAT 96
== END 2021-12-09 02:54 | disposition home or self-care (01) ==
LOC: INF 02:53
PROVIDERS: PCP Family Medicine; Visit Provider Family Medicine
DX: U07.1 COVID-19 (principal)
CPT/HCPCS: 96365; Q0047

== ENCOUNTER 2021-12-18 03:06 | Outpatient (CLI) | payer MEDICARE, SELFPAY ==
[2021-12-18 11:45] LABS: HCT 31.7 % (36.0-46.0); HGB 9.6 g/dL (11.2-15.7); MCH 25.9 pg (27.0-33.0); MCHC 30.3 % (32.0-36.0); MCV 85.7 fL (80-95); MPV 9.8 fL (8.0-11.0); Platelet Count 303 10^3/uL (130-400); RDW 15.2 % (11.7-14.6); WBC 10.07 10^3/uL (4.4-10.8)
[2021-12-18 13:27] LABS: ALT 26 U/L (14-59); AST 21 U/L (15-37); Albumin 3.4 g/dL (3.4-5.0); Alkaline Phosphatase 90 U/L (46-116); Anion Gap 8.2 mmol/L (3-11); BUN 15 mg/dL (7-18); Bilirubin, Total 0.7 mg/dL (0.2-1.0); CO2 28.8 mmol/L (21.0-32.0); CREATININE 1.2 mg/dL (0.55-1.02); Calcium 8.8 mg/dL (8.5-10.1); Chloride 101 mmol/L (98-107); Estimated GFR 43.68 (mL/min/1.73m2); Glucose 198 mg/dL (74-106); Potassium 4.4 mmol/L (3.5-5.1); Sodium 138 mmol/L (136-145); Total Protein 6.6 g/dL (6.4-8.2)
== END 2021-12-18 03:07 | disposition home or self-care (01) ==
LOC: LBO 03:06
PROVIDERS: PCP Family Medicine; Visit Provider Family Medicine
DX: D64.9 Anemia, unspecified (principal); E11.9 Type 2 diabetes mellitus without complications
CPT/HCPCS: 36415; 80053; 85027; 83036

== ENCOUNTER 2022-05-16 01:51 | Outpatient (CLI) | payer MEDICARE, SELFPAY ==
[2022-05-16 14:00] LABS: HGB 10.9 g/dL (11.2-15.7); MCH 28.3 pg (27.0-33.0); MCHC 32.1 % (32.0-36.0); MCV 88 fL (80-95); MPV 10.3 fL (8.0-11.0); Platelet Count 289 10^3/uL (130-400); RBC 3.85 10^6/uL (3.93-5.22); RDW-SD 48.3 fL; WBC 6.09 10^3/uL (4.4-10.8)
[2022-05-16 14:24] LABS: ALT 37 U/L (14-59); AST 35 U/L (15-37); Albumin 3.6 g/dL (3.4-5.0); Alkaline Phosphatase 120 U/L (46-116); Anion Gap 10.4 mmol/L (3-11); BUN 31 mg/dL (7-18); Bilirubin, Total 0.3 mg/dL (0.2-1.0); CO2 28.6 mmol/L (21.0-32.0); CREATININE 1.4 mg/dL (0.55-1.02); Calcium 9.1 mg/dL (8.5-10.1); Chloride 102 mmol/L (98-107); Estimated GFR 36.56 (mL/min/1.73m2); Glucose 119 mg/dL (74-106); Hemoglobin A1C 7.3 % (<5.7); Potassium 3.5 mmol/L (3.5-5.1); Sodium 141 mmol/L (136-145); Total Protein 7.3 g/dL (6.4-8.2)
== END 2022-05-16 01:52 | disposition home or self-care (01) ==
PROVIDERS: PCP Family Medicine; Visit Provider Family Medicine
DX: E11.9 Type 2 diabetes mellitus without complications (principal); D64.9 Anemia, unspecified
CPT/HCPCS: 36415; 80053; 85027; 83036

== ENCOUNTER 2022-10-28 04:03 | Outpatient (CLI) | payer MEDICARE, SELFPAY ==
[2022-10-28 12:47] LABS: Hemoglobin A1C 6.5 % (<5.7)
[2022-10-28 12:49] LABS: ALT 28 U/L (14-59); AST 36 U/L (15-37); Albumin 3.6 g/dL (3.4-5.0); Alkaline Phosphatase 116 U/L (46-116); Anion Gap 8.6 mmol/L (3-11); BUN 20 mg/dL (7-18); Bilirubin, Total 0.6 mg/dL (0.2-1.0); CO2 28.4 mmol/L (21.0-32.0); CREATININE 1.3 mg/dL (0.55-1.02); Calcium 9.2 mg/dL (8.5-10.1); Chloride 99 mmol/L (98-107); Estimated GFR 42.35 (mL/min/1.73m2); Glucose 137 mg/dL (74-106); Potassium 4.2 mmol/L (3.5-5.1); Sodium 136 mmol/L (136-145); Total Protein 7.4 g/dL (6.4-8.2)
== END 2022-10-28 04:04 | disposition home or self-care (01) ==
LOC: LOS 04:03
PROVIDERS: PCP Family Medicine; Visit Provider Family Medicine
DX: E11.65 Type 2 diabetes mellitus with hyperglycemia (principal); E11.8 Type 2 diabetes mellitus with unspecified complications; N28.9 Disorder of kidney and ureter, unspecified; R79.89 Other specified abnormal findings of blood chemistry
CPT/HCPCS: 36415; 80053; 83036

== ENCOUNTER 2022-11-17 13:41 | Outpatient (CLI) | payer MEDICARE, SELFPAY ==
--- NOTE | 2022-11-17 13:15 | DI.RAD_ITS ---
Exam(s) XR HIP RT COMPLETE AP PELVIS EXAM: XR HIP RT COMPLETE AP PELVIS INDICATION: eval R hip pain. COMPARISON: CR XR HIP LT COMPLETE AP PELVIS from 09/15/2019 TECHNIQUE: 2D digital imaging was performed. Two views. FINDINGS: Stable appearance of left hip prosthesis. No abnormal surrounding bony lucencies. Right hip joint s pace is maintained. Minimal periarticular spurring. Minimal SI joint degenerative changes. IMPRESSION: Minimal degenerative changes of the right hip. Unremarkable left hip prosthesis DATA REPOSITORY: RADIATION DOSE DELIVERED:
== END 2022-11-17 13:42 | disposition home or self-care (01) ==
LOC: DIORS 13:41
PROVIDERS: PCP Family Medicine; Referring Provider Family Medicine; Visit Provider Student in an Organized Health Care Education/Training Program
DX: M16.11 Unilateral primary osteoarthritis, right hip (principal)
CPT/HCPCS: 99213; 73502

== ENCOUNTER 2022-12-04 01:03 | Outpatient (CLI) | payer MEDICARE, SELFPAY ==
--- NOTE | 2022-12-04 07:35 | DI.RAD_ITS ---
Exam(s) RF JOINT INJECTION FLUORO GUID EXAM: RF JOINT INJECTION FLUORO GUID CLINICAL HISTORY: R HIP INJ UNDER FLUORO,arthritis rt hip, m16.11 TECHNIQUE: Fluoroscopy provided. Radiologist not present. CONTRAST MATERIAL: None COMPARISON: No exams were available for comparison FINDINGS: Fluoroscopy was provided for Dr. Burns during hip injection.. Submitted image(s) reveal Please refer to the procedure report for complete details. Cumulative Dose: Ka,r=1.57 mGy IMPRESSION: RADIATION DOSE DELIVERED:
[2022-12-04] MEDS: Omnipaque 300 MG/ML 10 ML BTL IJ (13:37)
[2022-12-04] MEDS: Bupivacaine 0.5% Pres-Free 10 ML VIAL 6 ML IJ (13:38)
[2022-12-04] MEDS: Barium Sulfate 98% W/W 140 ML BTL PO (13:38)
--- NOTE | 2022-12-05 13:46 | W.PROCNOTE ---
Date of service: 12/04/22 Time of Service: 14:20 Procedure Note Date of procedure: 12/04/22 Procedure: Right Hip Injection with Fluoroscopic Guidance Surgeon/Proceduralist/Physician: David Burns Procedure Diagnosis: Right Hip Osteoarthritis Procedure Indications: Mitzi has had persistent pain of the RIGHT hip and groin. Noninvasive measures have been tried. To serve as both diagnostic and therapeutic, an injection under fluoroscopy was recommended. I had discussed the risks of the procedure and the patient elected to proceed. Procedure Description: Mitzi was greeted in the flouroscopy room. The correct side was identified and the consent was reviewed with the patient and signed. The patient was then placed in the supine position on the fluoroscopy table. The RIGHT hip was then prepped with Chloraprep. The anterolateral injection starting point was identiifed by bony landmarks and fluoroscopy. The skin and soft tissue in the tract of the injection was anesthetized with 1% Lidocaine. A spinal needle was then inserted deep into the hip joint at the level of the lateral femoral neck under fluoroscopic guidance. A small amount of Omnipaque solution was injected to confirm intraarticular placement. Once confirmed, the hip was injected with 5cc of 0.5% Bupivicaine and 80mg of Depo-Medrol. A bandaid was placed on the injection site. The patient tolerated the procedure well and noted improvement in pre-injection pain.
== END 2022-12-04 01:23 ==
LOC: DI 01:03
PROVIDERS: PCP Family Medicine; Visit Provider Student in an Organized Health Care Education/Training Program
DX: M16.11 Unilateral primary osteoarthritis, right hip (principal); M25.551 Pain in right hip
CPT/HCPCS: 20610; 20611; 77002; J3490

== ENCOUNTER 2022-12-22 11:29 | Outpatient (REF) | payer MEDICARE, SELFPAY ==
[2022-12-22 12:34] LABS: Abs Immature Grans 0.05 10^3/uL (0.0-0.06); Absolute Basophil Count 0.03 10^3/uL (0.0-0.2); Absolute Eosinophil Count 0.24 10^3/uL (0.0-0.7); Absolute Lymphocyte Count 2.17 10^3/uL (1.2-3.4); Absolute Monocyte Count 0.57 10^3/uL (0.1-0.8); Absolute Neutrophil Count 6.44 10^3/uL (1.2-6.7); Basophils % 0.3; Eosinophils % 2.5; HCT 40.4 % (36.0-46.0); HGB 13.5 g/dL (11.2-15.7); Immature Grans % 0.5; Lymphocytes % 22.8; MCH 31.3 pg (27.0-33.0); MCHC 33.4 % (32.0-36.0); MCV 94 fL (80-95); MPV 11.2 fL (8.0-11.0); Neutrophils % 67.9; Platelet Count 284 10^3/uL (130-400); RBC 4.31 10^6/uL (3.93-5.22); RDW 12.6 % (11.7-14.6); RDW-SD 43.8 fL
== END 2022-12-22 11:30 | disposition home or self-care (01) ==
LOC: LBN 11:29
PROVIDERS: PCP Family Medicine; Visit Provider Physician Assistant Surgical
DX: I10 Essential (primary) hypertension (principal)
CPT/HCPCS: 85025

== ENCOUNTER 2022-12-24 11:42 | Outpatient (CLI) | payer MEDICARE, SELFPAY ==
--- NOTE | 2022-12-24 08:45 | DI.RAD_ITS ---
Exam(s) XR CHEST 2V PA LATERAL EXAM: XR CHEST 2V PA LATERAL CLINICAL HISTORY: worsening symptoms, URI, COPD, J06.9, J44.9 TECHNIQUE: 2D digital imaging was performed. COMPARISON: CR,RF RF barium swallow from 03/02/2019 FINDINGS: HEART: Normal size. Aorta: Not dilated. Calcification at arch. PULMONARY VASCULATURE: Normal. LUNGS: Clear. PLEURAL SPACE: No pleural effusion or pneumothorax. BONE:Unremarkable for age. IMPRESSION: No acute abnormality. DATA REPOSITORY: RADIATION DOSE DELIVERED:
== END 2022-12-24 12:02 ==
LOC: DI 11:42
PROVIDERS: PCP Family Medicine; Visit Provider Physician Assistant Surgical
DX: J06.9 Acute upper respiratory infection, unspecified (principal); J44.9 Chronic obstructive pulmonary disease, unspecified
CPT/HCPCS: 71046

== ENCOUNTER 2023-04-30 03:00 | Outpatient (CLI) | payer MEDICARE, SELFPAY ==
--- NOTE | 2023-04-30 08:45 | DI.RAD_ITS ---
Exam(s) RF JOINT INJECTION FLUORO GUID EXAM: RF JOINT INJECTION FLUORO GUID CLINICAL HISTORY: RIGHT HIP ARTHRITIS,M16.11,FLUORO GUIDED INJECTION TECHNIQUE: Fluoroscopy provided. Radiologist not present. CONTRAST MATERIAL: None COMPARISON: No exams were available for comparison FINDINGS: Fluoroscopy was provided for right hip joint injection Please refer to the procedure report for complete details. Cumulative Dose: Ka,r=0.629 mGy IMPRESSION: RADIATION DOSE DELIVERED:
[2023-04-30] MEDS: Bupivacaine 0.5% Pres-Free 10 ML VIAL 5 ML IJ (14:38)
[2023-04-30] MEDS: methylPREDNISolone ACETATE 80 MG/ML VIAL IM (14:40)
[2023-04-30] MEDS: Omnipaque 300 MG/ML 10 ML BTL 5 ML IJ (14:40)
--- NOTE | 2023-04-30 15:17 | OPPNE_ITS ---
Date of service: 04/30/23 Time of Service: 14:20 Procedure Note Date of procedure: 04/30/23 Procedure: Right Hip Injection with Fluoroscopic Guidance Surgeon/Proceduralist/Physician: David Burns Procedure Diagnosis: Right Hip Osteoarthritis Procedure Indications: Mitzi has had persistent pain of the RIGHT hip and groin. Noninvasive measures have been tried. She had a successful previous injection; therefore , an injection under fluoroscopy was recommended. I had discussed the risks of the procedure and the patient elected to proceed. Procedure Description: Mitzi was greeted in the flouroscopy room. The correct side was identified and the consent was reviewed with the patient and signed. The patient was then zeyad clarissa in the supine position on the fluoroscopy table. The RIGHT hip was then prepped with Chloraprep. The anterolateral injection starting point was identiifed by bony landmarks and fluoroscopy. The skin and soft tissue in the tract of the injection was anesthetized with 1% Lidocaine. A spinal needle was then inserted deep into the hip joint at the level of the lateral femoral neck under fluoroscopic guidance. A small amount of Omnipaque solution was injected to confirm intraarticular placement. Once confirmed, the hip was injected with 5cc of 0.5% Bupivicaine and 80mg of Depo-Medrol. A bandaid was placed on the injection site. The patient tolerated the procedure well and noted improvement in pre-injection pain.
== END 2023-04-30 03:20 ==
LOC: DI 03:01
PROVIDERS: PCP Family Medicine; Visit Provider Student in an Organized Health Care Education/Training Program
DX: M16.11 Unilateral primary osteoarthritis, right hip (principal)
CPT/HCPCS: 20610; 77002; J1040

== ENCOUNTER 2023-05-20 09:20 | Outpatient (CLI) | payer MEDICARE, SELFPAY ==
--- NOTE | 2023-05-20 08:45 | DI.RAD_ITS ---
Exam(s) XR WRIST RT COMPLETE EXAM: XR WRIST RT COMPLETE CLINICAL HISTORY: right wrist pain. TECHNIQUE: 2D digital imaging was performed of the right wrist. Three views were obtained. PA, lat eral and oblique views were obtained. COMPARISON: No exams were available for comparison FINDINGS: BONES: No acute fracture is present. No bony destructive lesion is seen. JOINTS: The carpal bones are normally aligned. There is mild spurring at the 1st CMC joint. The join t spaces are otherwise well maintained. SOFT TISSUE: Normal. 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 Otherwise unremarkable examination. DATA REPOSITORY: RADIATION DOSE DELIVERED:
== END 2023-05-20 09:21 | disposition home or self-care (01) ==
LOC: DIORS 09:20
PROVIDERS: PCP Family Medicine; Referring Provider Family Medicine; Visit Provider Physician Assistant
DX: M65.4 Radial styloid tenosynovitis [de Quervain]
CPT/HCPCS: 99213; 73110

== ENCOUNTER 2023-06-16 03:28 | Outpatient (CLI) | payer MEDICARE, SELFPAY ==
[2023-06-16 12:29] LABS: ALT 34 U/L (14-59); AST 29 U/L (15-37); Albumin 3.4 g/dL (3.4-5.0); Alkaline Phosphatase 109 U/L (46-116); Anion Gap 8.4 mmol/L (3-11); BUN 26 mg/dL (7-18); Bilirubin, Total 0.5 mg/dL (0.2-1.0); CO2 29.6 mmol/L (21.0-32.0); CREATININE 1.2 mg/dL (0.55-1.02); Calcium 9.2 mg/dL (8.5-10.1); Calculated LDL 57 mg/dL (<100); Chloride 103 mmol/L (98-107); Cholesterol 185 mg/dL (<200); Estimated GFR 46.62 (mL/min/1.73m2); Glucose 131 mg/dL (74-106); HDL Cholesterol 55 mg/dL (40-60); Potassium 4.1 mmol/L (3.5-5.1); Sodium 141 mmol/L (136-145); Total Protein 7.2 g/dL (6.4-8.2); Triglyceride 367 mg/dL (<150)
[2023-06-16 12:37] LABS: Hemoglobin A1C 6.8 % (<5.7)
== END 2023-06-16 03:29 | disposition home or self-care (01) ==
LOC: LOS 03:30
PROVIDERS: PCP Family Medicine; Visit Provider Family Medicine
DX: I10 Essential (primary) hypertension (principal); E78.5 Hyperlipidemia, unspecified; E11.65 Type 2 diabetes mellitus with hyperglycemia; D64.9 Anemia, unspecified; F41.8 Other specified anxiety disorders; R79.89 Other specified abnormal findings of blood chemistry
CPT/HCPCS: 36415; 80053; 80061; 83036

== ENCOUNTER → 2023-06-29 08:49 | Outpatient (BNVA) | payer MEDICARE, SELFPAY | PROVIDERS: PCP Family Medicine; Referring Provider Family Medicine; Visit Provider Student in an Organized Health Care Education/Training Program | DX: M65.4 Radial styloid tenosynovitis [de Quervain] (principal); M16.11 Unilateral primary osteoarthritis, right hip | CPT/HCPCS: 20550; J1030 ==

== ENCOUNTER → 2023-08-06 02:13 | Outpatient (CLI) | payer MEDICARE, SELFPAY ==
--- NOTE | 2023-08-06 13:23 | DI.RAD_ITS ---
Exam(s) RF JOINT INJECTION FLUORO GUID EXAM: RF JOINT INJECTION FLUORO GUID CLINICAL HISTORY: R HIP PAIN,fluoro guided injection,arthritis, m16.11 TECHNIQUE: 2D and realtime digital imaging was performed. CONTRAST MATERIAL: Refer to procedure report. COMPARISON: No exams were available for comparison FINDINGS: Fluoroscopy was provided for Dr. Burns during the performance of a right hip injection. Please r efer to the procedure report for complete details. Ka,r=0.42 mGy IMPRESSION: RADIATION DOSE DELIVERED:
[2023-08-06] MEDS: methylPREDNISolone ACETATE 80 MG/ML VIAL IM (14:47)
[2023-08-06] MEDS: Omnipaque 300 MG/ML 10 ML BTL IJ (14:48)
[2023-08-06] MEDS: Bupivacaine 0.5% Pres-Free 10 ML VIAL 5 ML IJ (14:50)
--- NOTE | 2023-08-07 07:41 | W.PROCNOTE ---
Date of service: 08/06/23 Time of Service: 13:10 Procedure Note Procedure: Right Hip Injection with Fluoroscopic Guidance Surgeon/Proceduralist/Physician: David Burns Procedure Diagnosis: Right Hip Osteoarthritis Procedure Indications: Mitzi has had persistent pain of the RIGHT hip and groin. Noninvasive measures have been tried. She had success with previous hip injection. Thus, an injection under fluoroscopy was recommended. I had discussed the risks of the procedure and the patient elected to proceed. Procedure Description: Mitzi was greeted in the flouroscopy room. The correct side was identified and the consent was reviewed with the patient and signed. The patient was then placed in the supine position on the fluoroscopy table. The RIGHT hip was then prepped with Chloraprep. The anterolateral injection starting point was identiifed by bony landmarks and fluoroscopy. The skin and soft tissue in the tract of the injection was anesthetized with 1% Lidocaine. A spinal needle was then inserted deep into the hip joint at the level of the lateral femoral neck under fluoroscopic guidance. A small amount of Omnipaque solution was injected to confirm intraarticular placement. Once confirmed, the hip was injected with 5cc of 0.5% Bupivicaine and 80mg of Depo-Medrol. A bandaid was placed on the injection site. The patient tolerated the procedure well and noted improvement in pre-injection pain.
== END ==
PROVIDERS: PCP Family Medicine; Visit Provider Student in an Organized Health Care Education/Training Program
DX: M16.11 Unilateral primary osteoarthritis, right hip (principal); M25.551 Pain in right hip
CPT/HCPCS: 20610; 77002; J1040

== ENCOUNTER 2023-11-22 14:06 | Emergency (ER) | payer MEDICARE, SELFPAY ==
[2023-11-22 14:12] VITALS: BP 154/65; PULSE 87; RESP 20; TEMP 36.8; O2SAT 96
[2023-11-22 14:28] VITALS: BP 154/65; PULSE 87; RESP 20; TEMP 36.8; O2SAT 96
--- NOTE | 2023-11-22 14:29 | ED.GENADUL_ITS ---
Discharge Plan Disposition Patient Disposition: Home Discharge Details Chief Complaint: RespSymp Clinical Impression: COVID-19, Abnormal kidney function Primary Care Provider: Janessa Chand ED Provider: Sara Stewart Home Meds and New Rx's Prescriptions: No Action triamcinolone acetonide 0.1 % cream 1 applic topical BID Qty: 80 0RF Rx Instructions: apply to foot Saccharomyces boulardii [Daily Probiotic (S. boulardii)] 250 mg capsule 250 mg PO BID Qty: 14 0RF cromolyn 4 % drops 1 drp ophthalmic (eye) QID Qty: 10 0RF calcium carbonate-vitamin D3 [Calcium 600 + D(3)] 600 mg(1,500mg) -200 unit tablet 1 tab PO DAILY Patient Comments: 02/28/19- Per patient, takes occasionally. aj cholecalciferol (vitamin D3) 1,000 unit tablet 1,000 unit PO DAILY Patient Comments: 02/28/19- Per patient, she takes this only while in [place]. aj ofloxacin [Ocuflox] 0.3 % drops 2 drp ophthalmic (eye) QID Qty: 10 0RF (DME) blood-glucose meter 1 EACH misc 1 ea Miscellaneous DAILY Qty: 90 Rx Instructions: METER TYPE ACCU-CHECK COMPACT PLUS DIAGNOSIS CODE 250.02 (DME) Blood Glucose Test Strip See Dose Instructions .ROUTE .MEDSUPPLY Qty: 400 5RF Dose Instruction: AC and HS Rx Instructions: AC and HS. Accucheck test strips.E11.65 (DME) pen needle, diabetic [Pen Needle] 31 gauge x 5/16 needle 1 ea Miscellaneous HS Qty: 100 4RF Rx Instructions: 31G 5mm pen needles Dx E11.6 albuterol sulfate [ProAir HFA] 90 mcg/actuation HFA aerosol inhaler 2 puff Inhalation Q4H PRN PRN (Reason: bronchospasm) Qty: 25.5 6RF esomeprazole magnesium [Nexium] 40 mg capsule,delayed release(DR/EC) 40 mg PO BID@729,1999 Qty: 180 5RF metformin 500 mg tablet 500 mg PO DAILY Qty: 90 5RF Rx Instructions: evening with 750mg (DME) pen needle, diabetic [BD Ultra-Fine Amira Pen Needle] 32 gauge x 5/32 needle 1 ea Miscellaneous QID Qty: 400 3RF Rx Instructions: 31g 5mm . E10.65 ultra fine pen needles AC and HS escitalopram oxalate [Lexapro] 20 mg tablet 20 mg PO DAILY@1200 Qty: 90 4RF metoprolol succinate 100 mg tablet extended release 24 hr 100 mg PO DAILY@1200 Qty: 90 5RF insulin lispro [Humalog KwikPen Insulin] 100 unit/mL insulin pen 18 unit Sub-Q AC Qty: 60 5RF hydrocodone-homatropine [Hydromet] 5-1.5 mg/5 mL syrup 5 ml PO Q6H MDD 25 PRN (Reason: cough) Qty: 473 0RF insulin glargine [Lantus Solostar U-100 Insulin] 100 unit/mL (3 mL) insulin pen 40 unit subcut HS Qty: 45 5RF Trelegy Ellipta 100-62.5-25 mcg blister with device 1 inh IH DAILY Qty: 90 4RF rosuvastatin 20 mg tablet 20 mg PO HS Qty: 90 4RF amlodipine 10 mg tablet 10 mg PO DAILY Qty: 90 4RF Ozempic 0.25 mg or 0.5 mg (2 mg/3 mL) pen injector 0.25 mg subcut QWEEK Qty: 9 5RF Rx Instructions: for 4 weeks then increase to 0.5 mg prednisone 20 mg tablet See Rx Instructions PO DAILY Qty: 11 0RF Rx Instructions: 2 tabs daily for 3 days; 1 tab daily for 3 days; 0.5 tab daily for 4 days doxycycline hyclate 100 mg tablet 100 mg PO BID Qty: 14 0RF hydrochlorothiazide 12.5 mg tablet 12.5 mg PO QAM Qty: 90 4RF losartan 100 mg tablet 100 mg PO DAILY Qty: 90 4RF ibuprofen 600 mg tablet 600 mg PO PRN PRN (Reason: pain) Discharge Instructions Instructions: Viral Syndrome (ED) Additional Instructions: 1. Start Paxlovid the lower dose 1 tablet twice a day for 5 days. Do not take your statin or your cough medicine with homatropine/hydrocodone in it while on Paxlovid. 2. Take your albuterol inhaler with spacer, 1 to 3 puffs 5 minutes apart, every 4 hours as needed for cough, wheezing or shortness of breath. 3. Call your primary care provider on November 24 for follow-up appointment to recheck your kidney function and return to the emergency department for any new or worrisome symptoms. Discharge Data Discharge Physician: Sara Stewart Medical Decision Making This is a 78-year-old female with history of COPD who has been vaccinated against COVID who tested positive today after 1 week of a viral syndrome. When I explained that Paxlovid should be given within 5 days she changed her history and told me that she has only had symptoms for 3 days. She is already on doxycycline and prednisone. At home she had a low O2 sat but here her O2 sat is 96% and she does not appear dyspneic at rest able to speak in full sentences. I will check her renal function before prescribing Paxlovid. I do not see any indication for a chest x-ray since her lungs reveal occasional end expiratory wheezing with a slight prolongation of her expiratory phase but no rhonchi retractions or nasal flaring. I will order a DuoNeb and we will likely discharge her home with outpatient follow-up. Differential Diagnosis Differential Diagnosis: COVID, bronchospasm, diabetes Medical Records Medical records reviewed: Yes I reviewed the patient's medical records. Lab Data Lab results reviewed: Yes I reviewed the patient's lab results. HPI General Mode of arrival: ambulatory . Date/Time Provider Initiated Documentation: 11/22/23 14:29 . Limitations to Documentation: no limitations . Information obtained by: patient, family (Has been) and old records reviewed . HPI Narrative: Time seen was 1430 in the 5. The patient is a 78-year-old female with history of bronchospasm/COPD who gallops frequent URIs, usually treated with antibiotics and steroids by her primary care provider. Initially seen her told me that she had been sick for a week but tested positive for COVID today and came in because her O2 sat at home was 90. Patient does have an albuterol MDI plus spacer at home but has not tried it for her shortness of breath. Initially she told me she had been sick for a week but then when I told her that Paxlovid would only be effective if taking within 5 days she is stated that she has only been symptomatic for 3 days. She is complaining of a mild sore throat and feeling yucky.. She has had a nonproductive cough. A slight sore throat but no fever. She has been fully immunized against COVID and has had a 3 times in the past. She has been taking an antibiotic which she believes is doxycycline plus prednisone for her symptoms. She denies any chest pain or fever. She does have a history of insulin-dependent diabetes. Her shortness of breath is worse with exertion. Related Data Home Medications Medication Instructions Recorded Confirmed blood-glucose meter #90 ea 08/21/14 11/11/23 calcium carbonate 600 mg-vitamin 1 tab PO DAILY 02/28/19 11/22/23 D3 5 mcg (200 unit) tablet (Calcium 600 + D(3)) cholecalciferol (vitamin D3) 25 1,000 unit PO DAILY 02/28/19 11/22/23 mcg (1,000 unit) tablet blood sugar diagnostic (Blood #400 ea 03/02/20 11/11/23 Glucose Test strips) pen needle, diabetic 31 gauge x ##100 12/11/20 11/11/2304/14 (Pen Needle) albuterol sulfate 90 mcg/actuation 2 puff inhalation Q4H PRN PRN 03/16/21 11/22/23 aerosol inhaler (ProAir HFA) bronchospasm #25.5 grams esomeprazole magnesium 40 mg 40 mg PO BID@0730,2000 #180 caps 03/16/21 11/22/23 capsule,delayed release (Nexium) ibuprofen 600 mg tablet 600 mg PO PRN PRN pain 08/25/21 11/22/23 triamcinolone acetonide 0.1 % 1 applic topical BID #80 grams 10/08/21 11/22/23 topical cream metformin 500 mg tablet 500 mg PO DAILY #90 tabs 10/06/22 11/22/23 escitalopram oxalate 20 mg tablet 20 mg PO DAILY@1200 #90 tabs 10/27/22 11/22/23 (Lexapro) insulin lispro 100 unit/mL 18 unit (0.18 mL) subcut AC #60 mL 10/27/22 11/22/23 subcutaneous pen (Humalog KwikPen (U-100) Insulin) metoprolol succinate 100 mg 100 mg PO DAILY@1200 #90 tabs 10/27/22 11/22/23 tablet,extended release 24 hr pen needle, diabetic 32 gauge x #400 ea 10/27/22 11/11/23 (BD Ultra-Fine Amira Pen Needle) Saccharomyces boulardii 250 mg 250 mg PO BID #14 caps 12/22/22 11/22/23 capsule (Daily Probiotic (S. boulardii)) hydrocodone-homatropine 5 mg-1.5 5 ml PO Q6H PRN cough #473 mL 12/23/22 11/22/23 mg/5 mL oral syrup (Hydromet) insulin glargine 100 unit/mL (3 40 unit (0.4 mL) subcut HS #45 mL 04/21/23 11/22/23 mL) subcutaneous pen (Lantus Solostar U-100 Insulin) fluticasone fur. 100 mcg-umeclid 1 inh inhalation DAILY #90 ea 04/28/23 11/22/23 62.5 mcg-vilant 25 mcg inhalat.powder (Trelegy Ellipta) cromolyn 4 % eye drops 1 drp ophthalmic (eye) QID #10 mL 06/08/23 11/22/23 rosuvastatin 20 mg tablet 20 mg PO HS #90 tabs 07/01/23 11/22/23 amlodipine 10 mg tablet 10 mg PO DAILY #90 tabs 07/22/23 11/22/23 ofloxacin 0.3 % eye drops (Ocuflox) 2 drp ophthalmic (eye) QID #10 mL 08/04/23 11/22/23 semaglutide 0.25 mg or 0.5 mg (2 0.25 mg (0.368 mL) subcut QWEEK #9 10/12/23 11/22/23 mg/3 mL) subcutaneous pen injector mL (Ozempic) doxycycline hyclate 100 mg tablet 100 mg PO BID #14 tabs 11/18/23 11/22/23 prednisone 20 mg tablet See Rx Instructions PO DAILY #11 11/18/23 11/22/23 tabs hydrochlorothiazide 12.5 mg tablet 12.5 mg PO QAM #90 tabs 11/19/23 11/22/23 losartan 100 mg tablet 100 mg PO DAILY #90 tabs 11/19/23 11/22/23 nirmatrelvir 300 mg (150 mg See Rx Instructions PO PER PKG DIR 11/22/23 x2)-ritonavir 100 mg tablet,dose #1 pkg pack (Paxlovid) Previous Rx's Medication Instructions Recorded blood sugar diagnostic (Blood #400 ea 03/02/20 Glucose Test strips) pen needle, diabetic 31 gauge x ##100 12/11/2004/14 (Pen Needle) albuterol sulfate 90 mcg/actuation 2 puff inhalation Q4H PRN PRN 03/16/21 aerosol inhaler (ProAir HFA) bronchospasm #25.5 grams esomeprazole magnesium 40 mg 40 mg PO BID@0730,2000 #180 caps 03/16/21 capsule,delayed release (Nexium) triamcinolone acetonide 0.1 % 1 applic topical BID #80 grams 10/08/21 topical cream metformin 500 mg tablet 500 mg PO DAILY #90 tabs 10/06/22 escitalopram oxalate 20 mg tablet 20 mg PO DAILY@1200 #90 tabs 10/27/22 (Lexapro) insulin lispro 100 unit/mL 18 unit (0.18 mL) subcut AC #60 mL 10/27/22 subcutaneous pen (Humalog KwikPen (U-100) Insulin) metoprolol succinate 100 mg 100 mg PO DAILY@1200 #90 tabs 10/27/22 tablet,extended release 24 hr pen needle, diabetic 32 gauge x #400 ea 10/27/22 (BD Ultra-Fine Amira Pen Needle) Saccharomyces boulardii 250 mg 250 mg PO BID #14 caps 12/22/22 capsule (Daily Probiotic (S. boulardii)) hydrocodone-homatropine 5 mg-1.5 5 ml PO Q6H PRN cough #473 mL 12/23/22 mg/5 mL oral syrup (Hydromet) insulin glargine 100 unit/mL (3 40 unit (0.4 mL) subcut HS #45 mL 04/21/23 mL) subcutaneous pen (Lantus Solostar U-100 Insulin) fluticasone fur. 100 mcg-umeclid 1 inh inhalation DAILY #90 ea 04/28/23 62.5 mcg-vilant 25 mcg inhalat.powder (Trelegy Ellipta) cromolyn 4 % eye drops 1 drp ophthalmic (eye) QID #10 mL 06/08/23 rosuvastatin 20 mg tablet 20 mg PO HS #90 tabs 07/01/23 amlodipine 10 mg tablet 10 mg PO DAILY #90 tabs 07/22/23 ofloxacin 0.3 % eye drops (Ocuflox) 2 drp ophthalmic (eye) QID #10 mL 08/04/23 semaglutide 0.25 mg or 0.5 mg (2 0.25 mg (0.368 mL) subcut QWEEK #9 10/12/23 mg/3 mL) subcutaneous pen injector mL (Ozempic) doxycycline hyclate 100 mg tablet 100 mg PO BID #14 tabs 11/18/23 prednisone 20 mg tablet See Rx Instructions PO DAILY #11 11/18/23 tabs hydrochlorothiazide 12.5 mg tablet 12.5 mg PO QAM #90 tabs 11/19/23 losartan 100 mg tablet 100 mg PO DAILY #90 tabs 11/19/23 nirmatrelvir 300 mg (150 mg See Rx Instructions PO PER PKG DIR 11/22/23 x2)-ritonavir 100 mg tablet,dose #1 pkg pack (Paxlovid) Allergies Allergy/AdvReac Type Severity Reaction Status Date / Time Penicillins Allergy yeast Verified 11/22/23 14:17 infection all over. oxycodone [From Percocet] AdvReac Intermediate Jittery, Verified 11/22/23 14:17 heart races amoxicillin trihydrate AdvReac YEAST Verified 11/22/23 14:17 [From Augmentin] INFECTION ALL OVER codeine AdvReac JITTERY Verified 11/22/23 14:17 milk AdvReac BRONCHITIS Verified 11/22/23 14:17 potassium clavulanate AdvReac YEAST Verified 11/22/23 14:17 [From Augmentin] INFECTION ALL OVER tramadol AdvReac Abnormal Verified 11/22/23 14:17 pulse and nausea General Stated Complaint: RespSymp RADHA: 3 Review of Systems Narrative: see hpi PFSH All Active Problems (Updated 11/22/23 @ 16:17 by Sara Stewart MD) Abnormal kidney function (Acute) Impacted cerumen, right ear (Acute) De Quervain's tenosynovitis, right (Acute) Injection: 06/29/2023 Impacted cerumen, bilateral (Acute) Anterior epistaxis (Acute) Anxiety (Chronic) Barretts esophagus (Chronic) Cataract (Chronic) Hyperlipidemia (Chronic) Hypertension (Chronic) Osteoporosis (Chronic) Denies having. Vitamin D deficiency (Chronic) Hiatal hernia (Chronic) H/O surgical procedure (Chronic) a. breast reduction b. Oumar fundoplication c. tubal ligation ASCVD (arteriosclerotic cardiovascular disease) (Chronic 03/15/09) NEG. STRESS TEST 2003 ECHO shows a PA pressure of 29% MPI shows positive ischemia; Cardiac Cath shows normal coronaries w/ an ejection fraction of 65% 09/25/14; NEG MPI Adrenal cyst (Chronic 11/16/14) Denies having. Anemia (Chronic 04/24/15) Chronic gastritis (Chronic 07/17/15) Dysphagia, unspecified (Chronic) - CXR; - barium swallow (except @ fundiplication) Malignant melanoma of skin (Chronic 10/29/06) melanoma in situ left lateral foot; S/P excision Tubular adenoma (Chronic) 07/16/15; DR. SWAN Type II diabetes mellitus with complication, uncontrolled (Chronic 10/02/14) History of total left hip replacement (Chronic) 08/31/2018 Hearing loss (Acute) Asymmetrical sensorineural hearing loss (Chronic) Status post Oumar fundoplication (Acute) Conductive hearing loss, external ear (Acute) Fatigue (Acute) Tubular adenoma (Acute ~06/2015) Sanches's esophagus (Acute ~04/2018) Tubular adenoma of colon (Acute) Right knee pain (Acute) Internal derangement of right knee (Acute) Injection: 06/21/2021 Left knee DJD (Acute) Sleep apnea, obstructive (Chronic) Restless legs syndrome (Acute) COPD (chronic obstructive pulmonary disease) (Chronic) Parotid sialolithiasis (Acute) Proteinuria due to type 2 diabetes mellitus (Acute) Renal insufficiency (Chronic) URI (upper respiratory infection) (Acute) Hematuria (Acute) Elevated LFTs (Acute) COVID-19 (Acute) 12/04/21 Impacted cerumen, left ear (Acute) Skin lesions (Acute) Arthritis of right hip (Acute) Medical History Hyperplastic colon polyp Strain of iliopsoas muscle Calculus of kidney (11/16/14) Cataract Jaw pain (03/19/16) Smoker Vertigo (10/29/04) History of shingles URI (upper respiratory infection) Smoker Vertigo 10/29/04 Jaw pain 03/19/16 Osteoarthritis of left hip Cholelithiasis Denies having. Hiatal hernia Vitamin D deficiency Hypertension Cataract Barretts esophagus GERD (gastroesophageal reflux disease) Hip pain Adrenal cyst Renal calculus Hyperlipidemia ASCVD (arteriosclerotic cardiovascular disease) Anxiety Anemia Osteoporosis Diabetes Lumbago Chest pain (09/22/14) Surgical History History of cholecystectomy History of tonsillectomy History of appendectomy History of bilateral ligation of fallopian tubes History of cataract removal with insertion of prosthetic lens History of reduction mammoplasty History of surgical procedure H/O cataract removal with insertion of prosthetic lens History of bilateral tubal ligation Status post Oumar fundoplication 11/30/94 S/P total hip arthroplasty 08/31/18 DR. GALLO (LEFT ANTERIOR) tarsel tunnel release B/L Ligation of fallopian tube Oumar Fundoplication (~1994) EGD - MAC (05/17/18) Extraction of cataract 05/15/15 DR. YEPEZ; LEFT EYE 05/26/16 DR. YEPEZ; RIGHT EYE Reduction mammoplasty Arthroplasty fifth right toe-07/24/16 Family History Mother , AGE 71 Heart disease Myocardial infarction Father , AGE 73 Asthma COPD (chronic obstructive pulmonary disease) Sister Essential hypertension Alcohol abuse Breast cancer Brother Essential hypertension Alcohol abuse Maternal Grandfather , age 76 Heart disease Diabetes Paternal Grandfather , AGE 88 Stroke Colon cancer Maternal Grandmother , AGE 71 Heart disease Paternal Grandmother , AGE 54 Diabetes Heart disease Son No problems noted. Daughter No problems noted. Daughter No problems noted. Social History Smoking/Tobacco Use Status: Former Tobacco Use tobacco type: cigarettes Quit Date: 11/30/02 Tobacco: How many years used: 42 Second Hand Exposure: Yes Smoking risk assessment performed?: Yes Alcohol Intake: current Alcohol Intake frequency: 0-2 drinks per day Alcohol type: wine Drug use: Never Substance use type: does not use Caregiver/Support person: Yes Household members: spouse and other Details: 2 Housing: house Communication Needs: None Do you need help understanding health information?: Rarely Pets and animals: No Do you think of yourself as: straight/heterosexual Current gender identity: female What is your relationship status?: How often do you talk on the phone with friends or family?: three or more times per week How often do you get together with friends or relatives?: once per week How often do you attend zoroastrianism or hinduism services?: 1-3 times per year Do you belong to any clubs or organized social groups?: yes Panel score (0-1 are the most socially isolated patients): 3 What type of physical activity do you participate in: walking and other Details: stairs Duration: 30-45 minutes/day Frequency: daily Special emmett needs: No Seatbelt use: always Drive intox or ride w/intox sweeper driver: No Do you feel safe at home: Yes Do you feel safe in your relationship?: Yes Exam Narrative Exam Narrative: The patient is well-developed well-nourished female who is alert and oriented in no acute distress. She is mildly hypertensive with a blood pressure 154/65. She is not tachycardic tachypneic or febrile. Room air O2 sat is normal at 96%. She is able to speak in full sentences and does not appear in any respiratory distress Const General: cooperative, healthy appearing, comfortable, no acute distress, well developed, well groomed and well hydrated Nutritional Appearance: well nourished and overweight Orientation: alert, awake and oriented x3 HENMT Head: normal to inspection, normocephalic and atraumatic Ears: hearing grossly normal bilaterally and external ears normal General nose exam: external nose normal, nares normal and no nasal discharge Face and sinus: normal facial exam, sinuses nontender and face symmetric Mouth: oral mucosae normal, lip normal, tongue normal, oropharynx normal, moist mucous membranes and other (Normal phonation. The patient is handling secretions.) Throat: posterior oropharynx normal and uvula midline Eyes General: appearance normal, both eyes and all related structures Eyelids: eyelids normal Conjunctivae: conjunctivae normal Sclera: sclerae normal Cornea: corneas normal Pupils: PERRL EOM: EOM intact bilaterally and No nystagmus Neck Neck: normal visual inspection, full ROM, no lymphadenopathy, no meningeal signs, trachea midline and supple Lymphatic: no lymphadenopathy noted Chest Chest: normal inspection of the chest Other: No retractions Resp Effort & Inspection: normal respiratory effort, able to speak in complete sente nces, no audible wheezes, no nasal flaring, no respiratory distress, no retractions, no stridor, not tachypneic, no tracheal deviation, no use of accessory muscles and other (Normal inspiratory to expiratory ratio.) Auscultation: clear to auscultation bilaterally, no rales and no rhonchi Other: Slight prolongation of the respiratory phase. Occasional end expiratory wheezing. No nasal flaring or retractions. Cardio Jugular venous pressure: no JVD Palpation: normal PMI Rate: regular rate Rhythm: regular rhythm Heart Sounds: S1 normal, S2 normal, no gallops, no murmurs and no rubs GI Inspection: normal to inspection and non-distended Palpation: soft, no hepatosplenomegaly, no guarding and nontender Percussion: normal to percussion Auscultation: normal bowel sounds General: No CVA tenderness Back/Spine/Pelvis Back: no CVA tenderness and No back tenderness Cervical Spine: normal cervical lordosis, cervical ROM normal, No cervical muscular tenderness, No pain with cervical ROM, No cervical spinal tenderness and No step off deformity Thoracic/Lumbar Spine: thoracic and lumbar spine normal to inspection, No thoracic spinal tenderness and No lumbar spinal tenderness Skin General skin exam: no rashes or lesions noted, turgor normal, no petechiae, no p urpura and other (Skin is normal for ethnicity.) Lesions: no lesions Rashes: no rashes Trauma: no lacerations or abrasions Neuro General: patient alert, patient awake, patient oriented x3, moves all extremities, no meningeal signs, no focal motor deficits and CN's II-XI intact b ilaterally Cranial Nerves: CN's II-XI intact bilaterally, PERRL, accommodation normal, EOM intact bilaterally, no nystagmus, facial strength normal, tongue midline, hearing normal and no nystagmus Cognition: normal cognition Speech: speech normal Gait: normal gait Motor: muscle tone normal throughout and strength 5/5 throughout Sensory Exam: no sensory deficits noted Pupils: Normal pupillary reactivity/response: bilateral Extrem General: normal to inspection, full ROM, capillary refill normal, no clubbing, cyanosis or edema and no calf tenderness Psych Appearance: grossly normal Affect: normal affect Attitude: cooperative Thought Process: normal Thought Content: normal Insight: insight good Judgment: judgment good Other: The patient appears to have capacity make medical decisions. Course 1455 PM. I have explained to the patient that antibiotics do not help with viral infections and there are side effects including possible allergic reactions, GI side effects and resistance to antibiotics. 16:19 PM I have notified the patient of her mild renal insufficiency and at the lower dose of Paxlovid. I have advised her not to take her cough medicine with homatropine for her statin while on Paxlovid. I have advised her to follow-up with her primary care provider next week and to use her albuterol MDI plus spacer. I have advised her to return here for any new or worrisome symptoms. The patient voiced understanding and agreement with the discharge plan. All her questions and concerns were addressed prior to discharge Vital Signs Vital signs: Vital Signs Temperature 36.8 C 11/22/23 14:12 Pulse 87 11/22/23 14:12 Respiratory Rate 20 11/22/23 14:12 Blood Pressure 154/65 H 11/22/23 14:12 Pulse Oximetry 96 11/22/23 14:12 Temperature 36.8 C 11/22/23 14:12 Temperature Source Temporal Artery Scan 11/22/23 14:12 Pulse 87 11/22/23 14:12 Respiratory Rate 20 11/22/23 14:12 Respiratory Effort Short of Breath 11/22/23 14:19 Blood Pressure 154/65 H 11/22/23 14:12 Blood Pressure Position Sitting 11/22/23 14:12 Pulse Oximetry 96 11/22/23 14:12 Oxygen Delivery Method Room Air 11/22/23 14:12 Oxygen Flow Rate 0 11/22/23 14:12 Lab/Test Results Lab/Test Results: Mild renal insufficiency with a GFR of 32.8 and a creatinine of 1.6. Blood sugar is elevated at 368. Critical Care Time Critical Care Time Critical Care Time: Yes Total Critical Care Time: 42 Attestation: This includes time at the bedside, review of patient's lab work, review of drug interactions and reevaluation. PAWSS Have you Been Recently Intoxicated or Drunk Within the Last 30 days?: No Have you Ever Experienced Previous Episodes of Alcohol Withdrawal?: No Have you ever Experienced Withdrawal Seizures?: No Have you ever Experienced Delirium Tremens(DT)s?: No Have you ever undergone Alcohol Rehabilitation Treatment (i.e, inpt ot outpatient treatment programs)?: No Have you ever Experienced Blackouts?: No Have you ever Combined Alcohol with other Downers within the last 90 days?: No Have you ever Combined Alcohol with any other Substance of Abuse during the last 90 days?: No Positive Blood Alcohol level on Presentation? [PCS.BAL]: No Evidence of Increased Autonomic Activity (i.e. HR>120, tremor, sweating, agitation, nausea)?: No Result: 0
[2023-11-22] MEDS: Albuterol/Ipratropium 3 ML UPD VIAL UPD (14:58)
[2023-11-22 14:59] LABS: Abs Immature Grans 0.05 10^3/uL (0.0-0.06); Absolute Basophil Count 0.04 10^3/uL (0.0-0.2); Absolute Eosinophil Count 0.01 10^3/uL (0.0-0.7); Absolute Lymphocyte Count 0.96 10^3/uL (1.2-3.4); Absolute Monocyte Count 0.16 10^3/uL (0.1-0.8); Absolute Neutrophil Count 6.24 10^3/uL (1.2-6.7); Basophils % 0.5; Eosinophils % 0.1; HCT 36.6 % (36.0-46.0); HGB 12.2 g/dL (11.2-15.7); Immature Grans % 0.7; Lymphocytes % 12.9; MCH 31.2 pg (27.0-33.0); MCHC 33.3 % (32.0-36.0); MCV 94 fL (80-95); MPV 9.8 fL (8.0-11.0); Monocytes % 2.1; Neutrophils % 83.7; Platelet Count 258 10^3/uL (130-400); RBC 3.91 10^6/uL (3.93-5.22); RDW 12.4 % (11.7-14.6); RDW-SD 42.5 fL; WBC 7.46 10^3/uL (4.4-10.8)
[2023-11-22 15:12] LABS: Anion Gap 10.5 mmol/L (3-11); BUN 44 mg/dL (7-18); CO2 25.5 mmol/L (21.0-32.0); CREATININE 1.6 mg/dL (0.55-1.02); Calcium 9.3 mg/dL (8.5-10.1); Chloride 101 mmol/L (98-107); Estimated GFR 32.81 (mL/min/1.73m2); Glucose 368 mg/dL (74-106); Potassium 4.3 mmol/L (3.5-5.1); Sodium 137 mmol/L (136-145)
[2023-11-22 16:34] VITALS: BP 126/54; PULSE 78; RESP 18; O2SAT 95
== END 2023-11-22 16:36 | disposition home or self-care (01) ==
PROVIDERS: Emergency Provider Emergency Medicine Emergency Medical Services; PCP Family Medicine
DX: U07.1 COVID-19 (principal); R94.4 Abnormal results of kidney function studies; I10 Essential (primary) hypertension; E11.9 Type 2 diabetes mellitus without complications; J44.9 Chronic obstructive pulmonary disease, unspecified; I25.10 Atherosclerotic heart disease of native coronary artery without angina pectoris; E78.5 Hyperlipidemia, unspecified; Z79.4 Long term (current) use of insulin; Z87.891 Personal history of nicotine dependence
CPT/HCPCS: 80048; 99283; 85025; J7620

== ENCOUNTER 2023-12-10 03:51 | Outpatient (CLI) | payer MEDICARE, SELFPAY ==
[2023-12-10 11:26] LABS: Anion Gap 7.2 mmol/L (3-11); BUN 20 mg/dL (7-18); CO2 29.8 mmol/L (21.0-32.0); CREATININE 1.5 mg/dL (0.55-1.02); Calcium 9.4 mg/dL (8.5-10.1); Chloride 103 mmol/L (98-107); Estimated GFR 35.45 (mL/min/1.73m2); Glucose 137 mg/dL (74-106); Potassium 3.8 mmol/L (3.5-5.1); Sodium 140 mmol/L (136-145)
[2023-12-10 11:46] LABS: Hemoglobin A1C 6.4 % (<5.7)
== END 2023-12-10 03:52 | disposition home or self-care (01) ==
LOC: LBO 03:52
PROVIDERS: PCP Family Medicine; Visit Provider Family Medicine
DX: E11.9 Type 2 diabetes mellitus without complications (principal); N28.9 Disorder of kidney and ureter, unspecified
CPT/HCPCS: 36415; 80048; 83036

== ENCOUNTER 2023-12-28 18:10 | Outpatient (REF) | payer MEDICARE, SELFPAY ==
[2023-12-28 22:25] LABS: COMMENT (LAB VIEW ONLY) 77.82 mg/dL
[2023-12-28 22:27] LABS: Microalb ug/mg Crea 895.8 ug/mg Cr
== END 2023-12-28 18:11 | disposition home or self-care (01) ==
LOC: LBN 18:10
PROVIDERS: PCP Family Medicine; Visit Provider Family Medicine
DX: E11.9 Type 2 diabetes mellitus without complications (principal)
CPT/HCPCS: 82043; 82570

== ENCOUNTER → 2023-12-30 00:20 | Outpatient (CLI) | payer MEDICARE, SELFPAY ==
--- NOTE | 2023-12-30 07:30 | DI.RAD_ITS ---
Exam(s) XR HAND RT COMPLETE EXAM: XR HAND RT COMPLETE CLINICAL HISTORY: hand pain,m79.641. TECHNIQUE: 2D digital imaging was performed of the right hand. Three images were obtained. AP, late ral and oblique views were obtained. COMPARISON: No exams were available for comparison FINDINGS: BONES: No acute fracture is present. No bony destructive lesion is seen. JOINTS: No dislocation present. Mild degenerative changes are seen in the interphalangeal joints of t he hand. SOFT TISSUE: Normal. IMPRESSION: Mild degenerative changes of the right hand. DATA REPOSITORY: RADIATION DOSE DELIVERED:
--- NOTE | 2023-12-30 07:30 | DI.RAD_ITS ---
Exam(s) XR HAND LT COMPLETE EXAM: XR HAND LT COMPLETE CLINICAL HISTORY: hand pain,m79.642. TECHNIQUE: 2D digital imaging was performed of the left hand. Three views were obtained. AP, later al and oblique views were obtained. COMPARISON: No exams were available for comparison FINDINGS: BONES: No acute fracture is present. No bony destructive lesion is seen. JOINTS: No dislocation present. There are mild degenerative changes seen in the hand characterized by joint space narrowing and osteophytes. The findings can be seen at the 1st CMC joint and the interp halangeal joints of the fingers, particularly the thumb. SOFT TISSUE: Normal. IMPRESSION: Degenerative changes of the left hand. DATA REPOSITORY: RADIATION DOSE DELIVERED:
== END ==
PROVIDERS: PCP Family Medicine; Visit Provider Family Medicine
DX: M18.0 Bilateral primary osteoarthritis of first carpometacarpal joints (principal)
CPT/HCPCS: 73130

== ENCOUNTER 2024-02-07 14:59 | Emergency (ER) | payer MEDICARE, SELFPAY ==
[2024-02-07 15:07] VITALS: BP 135/60; PULSE 86; RESP 16; TEMP 36.5; O2SAT 97
--- NOTE | 2024-02-07 15:19 | ED.GENADUL_ITS ---
Discharge Plan Disposition Patient Disposition: Home Condition: Stable Discharge Details Clinical Impression: Diabetic foot ulcer, Sialoadenitis Primary Care Provider: Janessa Chand ED Provider: Nuno Gilbert Home Meds and New Rx's Prescriptions: New clindamycin HCl 150 mg capsule 450 mg PO TID 10 Days Qty: 90 0RF No Action triamcinolone acetonide 0.1 % cream 1 applic topical BID Qty: 80 0RF Rx Instructions: apply to foot Saccharomyces boulardii [Daily Probiotic (S. boulardii)] 250 mg capsule 250 mg PO BID Qty: 14 0RF calcium carbonate-vitamin D3 [Calcium 600 + D(3)] 600 mg(1,500mg) -200 unit tablet 1 tab PO DAILY Patient Comments: 02/28/19- Per patient, takes occasionally. aj cholecalciferol (vitamin D3) 1,000 unit tablet 1,000 unit PO DAILY Patient Comments: 02/28/19- Per patient, she takes this only while in [place]. aj escitalopram oxalate [Lexapro] 20 mg tablet 20 mg PO DAILY@1200 Qty: 90 4RF insulin lispro [Humalog KwikPen Insulin] 100 unit/mL insulin pen 18 unit Sub-Q AC Qty: 60 5RF metformin 500 mg tablet 500 mg PO DAILY Qty: 90 5RF Rx Instructions: evening with 750mg metoprolol succinate 100 mg tablet extended release 24 hr 100 mg PO DAILY@1200 Qty: 90 5RF (DME) blood-glucose meter 1 EACH misc 1 ea Miscellaneous DAILY Qty: 90 Rx Instructions: METER TYPE ACCU-CHECK COMPACT PLUS DIAGNOSIS CODE 250.02 (DME) Blood Glucose Test Strip See Dose Instructions .ROUTE .MEDSUPPLY Qty: 400 5RF Dose Instruction: AC and HS Rx Instructions: AC and HS. Accucheck test strips.E11.65 (DME) pen needle, diabetic [Pen Needle] 31 gauge x 5/16 needle 1 ea Miscellaneous HS Qty: 100 4RF Rx Instructions: 31G 5mm pen needles Dx E11.6 albuterol sulfate [ProAir HFA] 90 mcg/actuation HFA aerosol inhaler 2 puff Inhalation Q4H PRN PRN (Reason: bronchospasm) Qty: 25.5 6RF esomeprazole magnesium [Nexium] 40 mg capsule,delayed release(DR/EC) 40 mg PO BID@ Qty: 180 5RF (DME) pen needle, diabetic [BD Ultra-Fine Amira Pen Needle] 32 gauge x 5/32 needle 1 ea Miscellaneous QID Qty: 400 3RF Rx Instructions: 31g 5mm . E10.65 ultra fine pen needles AC and HS hydrocodone-homatropine [Hydromet] 5-1.5 mg/5 mL syrup 5 ml PO Q6H MDD 25 PRN (Reason: cough) Qty: 473 0RF insulin glargine [Lantus Solostar U-100 Insulin] 100 unit/mL (3 mL) insulin pen 40 unit subcut HS Qty: 45 5RF Trelegy Ellipta 100-62.5-25 mcg blister with device 1 inh IH DAILY Qty: 90 4RF rosuvastatin 20 mg tablet 20 mg PO HS Qty: 90 4RF amlodipine 10 mg tablet 10 mg PO DAILY Qty: 90 4RF Ozempic 0.25 mg or 0.5 mg (2 mg/3 mL) pen injector 0.25 mg subcut QWEEK Qty: 9 5RF Rx Instructions: for 4 weeks then increase to 0.5 mg hydrochlorothiazide 12.5 mg tablet 12.5 mg PO QAM Qty: 90 4RF losartan 100 mg tablet 100 mg PO DAILY Qty: 90 4RF ibuprofen 600 mg tablet 600 mg PO PRN PRN (Reason: pain) Discharge Instructions Instructions: Diabetic Foot Ulcers (ED), Sialoadenitis (ED) Additional Instructions: You were seen in the emergency department for your very superficial and shallow mild diabetic foot ulcer of the left great toe. We provided you with a topical antibiotic ointment and a new dressing, you also have a submandibular right- sided salivary gland infection seen on CT without any evidence of parotid gland stone. This should be treated also with the same antibiotic that will cover any foot infection, clindamycin sent to [facility] in [place]. Please take Tylenol and ibuprofen as needed for pain, continue to take sialagogues like lemon head candies, pickles other things to help clear the salivary gland, continue salivary massage. Please return to the ED for any severe increase in pain in your foot, fever, inability to open or move your jaw, vocal changes. Follow-up with podiatry and ENT for each of your complaints today. Referrals: [facility] [Provider Group] [facility] [Provider Group] Janessa Chand MD, [place] [Primary Care Provider] - [facility] General Date/Time Provider Initiated Documentation: 02/07/24 15:01 . [facility] Narrative: 78 year-old female presents to ED today by POV/ambulating with a chief complaint of diabetic foot ulcer to L great toe plantar aspect, and R parotid swelling she believes is a salivary stone as she has had them before with onset of ulcer >1 week, salivary swelling about one week, progressing. Quality described as tenderness over parotid area, and some serous/pus-like drainage from toe ulcer, no radiation to fever, dysphagia, vocal changes, excessive drooling, abdominal pain, nausea/vomiting, headache, facial paralysis. Severity is described as 5- 6/10. Palliating factors include has been using sialogues, and simple dressings to toe. Provoking factors include nothing specific. Patient not anticoagulated. Related Data Home Medications Medication Instructions Recorded Confirmed blood-glucose meter #90 ea 08/21/14 12/28/23 calcium carbonate 600 mg-vitamin 1 tab PO DAILY 02/28/19 12/28/23 D3 5 mcg (200 unit) tablet (Calcium 600 + D(3)) cholecalciferol (vitamin D3) 25 1,000 unit PO DAILY 02/28/19 12/28/23 mcg (1,000 unit) tablet blood sugar diagnostic (Blood #400 ea 03/02/20 12/28/23 Glucose Test strips) pen needle, diabetic 31 gauge x ##100 12/11/20 12/28/23/16 (Pen Needle) albuterol sulfate 90 mcg/actuation 2 puff inhalation Q4H PRN PRN 03/16/21 12/28/23 aerosol inhaler (ProAir HFA) bronchospasm #25.5 grams esomeprazole magnesium 40 mg 40 mg PO BID@0730,2000 #180 caps 03/16/21 12/28/23 capsule,delayed release (Nexium) ibuprofen 600 mg tablet 600 mg PO PRN PRN pain 08/25/21 12/28/23 triamcinolone acetonide 0.1 % 1 applic topical BID #80 grams 10/08/21 12/28/23 topical cream pen needle, diabetic 32 gauge x #400 ea 10/27/22 12/28/23 5/32 (BD Ultra-Fine Amira Pen Needle) Saccharomyces boulardii 250 mg 250 mg PO BID #14 caps 12/22/22 12/28/23 capsule (Daily Probiotic (S. boulardii)) hydrocodone-homatropine 5 mg-1.5 5 ml PO Q6H PRN cough #473 mL 12/23/22 12/28/23 mg/5 mL oral syrup (Hydromet) insulin glargine 100 unit/mL (3 40 unit (0.4 mL) subcut HS #45 mL 04/21/23 12/28/23 mL) subcutaneous pen (Lantus Solostar U-100 Insulin) fluticasone fur. 100 mcg-umeclid 1 inh inhalation DAILY #90 ea 04/28/23 12/28/23 62.5 mcg-vilant 25 mcg inhalat.powder (Trelegy Ellipta) rosuvastatin 20 mg tablet 20 mg PO HS #90 tabs 07/01/23 12/28/23 amlodipine 10 mg tablet 10 mg PO DAILY #90 tabs 07/22/23 12/28/23 semaglutide 0.25 mg or 0.5 mg (2 0.25 mg (0.368 mL) subcut QWEEK #9 10/12/23 12/28/23 mg/3 mL) subcutaneous pen injector mL (Ozempic) hydrochlorothiazide 12.5 mg tablet 12.5 mg PO QAM #90 tabs 11/19/23 12/28/23 losartan 100 mg tablet 100 mg PO DAILY #90 tabs 11/19/23 12/28/23 escitalopram oxalate 20 mg tablet 20 mg PO DAILY@1200 #90 tabs 12/28/23 12/28/23 (Lexapro) insulin lispro 100 unit/mL 18 unit (0.18 mL) subcut AC #60 mL 12/28/23 12/28/23 subcutaneous pen (Humalog KwikPen (U-100) Insulin) metformin 500 mg tablet 500 mg PO DAILY #90 tabs 12/28/23 12/28/23 metoprolol succinate 100 mg 100 mg PO DAILY@1200 #90 tabs 12/28/23 12/28/23 tablet,extended release 24 hr clindamycin HCl 150 mg capsule 450 mg (3 x 150 mg) PO TID 10 days 02/07/24 #90 caps Previous Rx's Medication Instructions Recorded blood sugar diagnostic (Blood #400 ea 03/02/20 Glucose Test strips) pen needle, diabetic 31 gauge x ##100 12/11/2004/14 (Pen Needle) albuterol sulfate 90 mcg/actuation 2 puff inhalation Q4H PRN PRN 03/16/21 aerosol inhaler (ProAir HFA) bronchospasm #25.5 grams esomeprazole magnesium 40 mg 40 mg PO BID@0730,1999 #180 caps 03/16/21 capsule,delayed release (Nexium) triamcinolone acetonide 0.1 % 1 applic topical BID #80 grams 10/08/21 topical cream pen needle, diabetic 32 gauge x #400 ea 10/27/22 (BD Ultra-Fine Amira Pen Needle) Saccharomyces boulardii 250 mg 250 mg PO BID #14 caps 12/22/22 capsule (Daily Probiotic (S. boulardii)) hydrocodone-homatropine 5 mg-1.5 5 ml PO Q6H PRN cough #473 mL 12/23/22 mg/5 mL oral syrup (Hydromet) insulin glargine 100 unit/mL (3 40 unit (0.4 mL) subcut HS #45 mL 04/21/23 mL) subcutaneous pen (Lantus Solostar U-100 Insulin) fluticasone fur. 100 mcg-umeclid 1 inh inhalation DAILY #90 ea 04/28/23 62.5 mcg-vilant 25 mcg inhalat.powder (Trelegy Ellipta) rosuvastatin 20 mg tablet 20 mg PO HS #90 tabs 07/01/23 amlodipine 10 mg tablet 10 mg PO DAILY #90 tabs 07/22/23 semaglutide 0.25 mg or 0.5 mg (2 0.25 mg (0.368 mL) subcut QWEEK #9 10/12/23 mg/3 mL) subcutaneous pen injector mL (Ozempic) hydrochlorothiazide 12.5 mg tablet 12.5 mg PO QAM #90 tabs 11/19/23 losartan 100 mg tablet 100 mg PO DAILY #90 tabs 11/19/23 escitalopram oxalate 20 mg tablet 20 mg PO DAILY@1200 #90 tabs 01/29/24 (Lexapro) insulin lispro 100 unit/mL 18 unit (0.18 mL) subcut AC #60 mL 12/28/23 subcutaneous pen (Humalog KwikPen (U-100) Insulin) metformin 500 mg tablet 500 mg PO DAILY #90 tabs 12/28/23 metoprolol succinate 100 mg 100 mg PO DAILY@1200 #90 tabs 12/28/23 tablet,extended release 24 hr clindamycin HCl 150 mg capsule 450 mg (3 x 150 mg) PO TID 10 days 02/07/24 #90 caps Allergies Allergy/AdvReac Type Severity Reaction Status Date / Time Penicillins Allergy yeast Verified 02/07/24 15:07 infection all over. oxycodone [From Percocet] AdvReac Intermediate Jittery, Verified 02/07/24 15:07 heart races amoxicillin trihydrate AdvReac YEAST Verified 02/07/24 15:07 [From Augmentin] INFECTION ALL OVER codeine AdvReac JITTERY Verified 02/07/24 15:07 milk AdvReac BRONCHITIS Verified 02/07/24 15:07 potassium clavulanate AdvReac YEAST Verified 02/07/24 15:07 [From Augmentin] INFECTION ALL OVER tramadol AdvReac Abnormal Verified 02/07/24 15:07 pulse and nausea General Stated Complaint: GenMedical RADHA: 3 Review of Systems All systems reviewed & are unremarkable except as noted in HPI and below Exam Narrative Exam Narrative: GENERAL APPEARANCE: Well-nourished, non-toxic, awake and alert, atraumatic, no acute distress. SKIN: Warm, pink, dry, shallow superficial plantar L great toe ulcer <0.5cm, no active drainage of purulent material, mild erythema, no abscess, no visible deep structures HEAD: Normocephalic, atraumatic, normal hair distribution for gender/age. EYES: Pupils PERRLA, EOMs intact without nystagmus, normal conjunctiva, no exudates on lids/lashes. ENT: Nares patent, no circumoral cyanosis, R parotid/tonsillar swelling & lymphadenopathy, no palpable salivary stone, uvula midline, no trismus, no vocal changes NECK: Supple, trachea midline, painless cervical ROM. LUNGS/CHEST: Non-labored respirations, normal A/P diameter, symmetrical expansion, no chest wall deformity HEART (CV/PV): Regular rate, L dorsalis pedis 2+, no peripheral edema, no JVD. ABDOMEN: Soft, non-distended, no guarding. MSK: Normal ROM, no swelling/deformity to bilateral UEs or LEs, moving all extremities without weakness, no cyanosis, spine midline without tenderness, normal curvature. NEURO: Mental Status AAOx4 - alert to person, place, time, events No facial droop, no forehead involvement. Motor: No focal weakness - strength 5/5 in bilateral UEs and LEs, proximal and distal, symmetric. Sensory: sensation intact to light touch globally. Gait normal: patient ambulated without ataxia into ED room. PSYCH: euthymic, cooperative, pleasant, appropriate speech Course Vital Signs Vital signs: Vital Signs Temperature 36.5 C 02/07/24 15:07 Pulse 86 02/07/24 15:07 Respiratory Rate 16 02/07/24 15:07 Blood Pressure 135/60 02/07/24 15:07 Pulse Oximetry 97 02/07/24 15:07 Temperature 36.5 C 02/07/24 15:07 Temperature Source Temporal Artery Scan 02/07/24 15:07 Pulse 86 02/07/24 15:07 Respiratory Rate 16 02/07/24 15:07 Respiratory Effort Normal, Non-Labored 02/07/24 15:09 Blood Pressure 135/60 02/07/24 15:07 Blood Pressure Position Sitting 02/07/24 15:07 Pulse Oximetry 97 02/07/24 15:07 Oxygen Delivery Method Room Air 02/07/24 15:07 Oxygen Flow Rate 0 02/07/24 15:07 Pain Level 5 02/07/24 15:07 Comment right neck 02/07/24 15:07 Medical Decision Making This dictation utilizes [id number] dictation software and may contain unedited grammatical errors. 78 y/o F presents to ED today with a chief complaint of L great toe diabetic foot ulcer, and salivary gland stone on R. Patient has been using sialogues without relief, denies trismus, vocal changes, inability to swallow, excessive drooling. Denies fever. Endorses some yellowish liquid drainage from toe ulcer on simple bandage. Patients' medical history: History of shingles, tobacco use, Sanches's esophagus, GERD, hyperlipidemia, type 2 diabetes, CKD, peripheral neuropathy, anemia, status post Oumar fundoplication, COPD, parotid sialolithiasis. Family and social history: lives independently with . Pertinent exam findings / vital signs include R tonsillar/parotid lymph adenopathy, L superficial great toe ulcer without purulent drainage, NV intact, nontoxic vitals. Differential / pathologies of concern include sialoadenitis, salivary stone/obstruction, cellultis, diabetic foot ulcer, unlikely sepsis. Diagnostic studies of: -CBC, CMP, Lactate, Procalcitonin, CT Neck w Contrast -CBC no leukocytosis -Lactate & procal negative -CMP benign Interventions of: -Mupirocin & Clindamycin for cellulitis/foot ulcer, clindamycin dual coverage for possible bacterial sialoadenitis. ED Course/Assessment/Plan: 78-year-old female has a minor left great toe diabetic foot ulceration as well as likely recurrence of sialoadenitis. There is no stone visualized on CT I am starting empiric antibiotics, recommend she follow-up with podiatry and ENT, she is already performing sialagogues, recommend strict return criteria for trismus or vocal changes or failure to improve, recommend therapeutic dosing of Tylenol and ibuprofen. 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 Disposition of Diabetic Foot Ulcer, Sialoadenitis. Patient verbalized understanding of the plan and return to ED criteria and engaged in shared decision making. Medical Records Medical records reviewed: Yes I reviewed the patient's medical records. Imaging Data Radiologic Study: Attestation: I personally reviewed and interpreted this imaging study as follows: Imaging: CT Scan Radiologist's impression: Addendum created by Oliverio Laurent MD on 02/07/2024 5:46:41 PM EDT: ADDENDUM: There is enlargement of the right submandibular gland measuring 3.3 x 2.7 cm, with surrounding fat stranding. No submandibular gland stone or submandibular duct stone. No collections. Impression: Findings consistent with right submandibular gland sialoadenitis. No abscess formation. THIS REPORT CONTAINS FINDINGS THAT MAY BE CRITICAL TO PATIENT CARE. The findings were verbally communicated via telephone conference with NUNO EUGENE at 5:45 PM EDT on 02/07/2024. The findings were acknowledged and understood. Initial report created on 02/07/2024 5:26:06 PM EDT: PROCEDURE INFORMATION: Exam: CT Neck With Contrast Exam date and time: 02/07/2024 4:23 PM Age: 78 years old Clinical indication: Mass, lump, or swelling in neck; Right; Patient HX: R tonsillar/parotid swelling; Per PT: About 4 days TECHNIQUE: Imaging protocol: Computed tomography of the neck with contrast. COMPARISON: CR CERV SP.WITH OBL OR FLEX/EXT 04/01/2018 10:55 AM FINDINGS: Orbital cavities: Post bilateral cataract surgery. Pharynx: Unremarkable. No significant tonsillar enlargement. Larynx: Unremarkable. Epiglottis is normal. Prevertebral and retropharyngeal spaces: Unremarkable. Salivary glands: Normal. Glands are normal in size. Thyroid: Normal. No enlarged or calcified nodules. Lymph nodes: Unremarkable. No lymphadenopathy. Trachea: Visualized trachea is unremarkable. Lungs: Mild fibrotic changes of both lung apices. Bones/joints: Straightening of the cervical lordosis. Mild anterolisthesis of C3 over and over C5. Mild multilevel degenerative disease of the visualized spine. Vasculature: Aortic arch calcifications. Bilateral carotid calcifications. Soft tissues: Unremarkable. No significant soft tissue swelling. Other findings: Moderate coronary calcifications. IMPRESSION: No neck mass or abscess formation. Dictated and Authenticated by: Oliverio Laurent MD. Ordering:MARBELLA Reina MD Lab Data Lab results reviewed: Yes I reviewed the patient's lab results. Labs: Laboratory Tests Range/Units 02/07/24 15:42 WBC (4.4-10.8) 10^3/uL 8.95 RBC (3.93-5.22) 10^6/uL 3.78 L Hgb (11.2-15.7) g/dL 12.2 Hct (36.0-46.0) % 35.8 L MCV (80-95) fL 95 MCH (27.0-33.0) pg 32.3 MCHC (32.0-36.0) % 34.1 RDW (11.7-14.6) % 12.5 Plt Count (130-400) 10^3/uL 257 MPV (8.0-11.0) fL 10.3 Immature Gran % 0.3 Neutrophils % 63.5 Lymphocytes % 23.7 Monocytes % 8.0 Eosinophils % 3.8 Basophils % 0.7 Nucleated RBC % (0.0-0.3) % 0.0 Absolute Neutrophils (1.2-6.7) 10^3/uL 5.68 Absolute Lymphocytes (1.2-3.4) 10^3/uL 2.12 Absolute Monocytes (0.1-0.8) 10^3/uL 0.72 Absolute Eosinophils (0.0-0.7) 10^3/uL 0.34 Absolute Basophils (0.0-0.2) 10^3/uL 0.06 VBG Lactate (0.6-1.4) mmol/L 0.9 Sodium (136-145) mmol/L 141 Potassium (3.5-5.1) mmol/L 4.3 Chloride (98-107) mmol/L 100 Carbon Dioxide (21.0-32.0) mmol/L 30.3 Anion Gap (3-11) mmol/L 10.7 BUN (7-18) mg/dL 26 H Creatinine (0.55-1.02) mg/dL 1.3 H Est GFR (CKD-EPI 2020) (mL/min/1.73m2) 42.09 Glucose (74-106) mg/dL 146 H Calcium (8.5-10.1) mg/dL 9.5 Total Bilirubin (0.2-1.0) mg/dL 0.6 AST (15-37) U/L 18 ALT (14-59) U/L 21 Alkaline Phosphatase (46-116) U/L 116 Total Protein (6.4-8.2) g/dL 7.8 Albumin (3.4-5.0) g/dL 3.4 Procalcitonin ng/mL < 0.1 Quality:SDOH Health Related Social Needs: No Data to Display PFSH All Active Problems (Updated 02/07/24 @ 17:50 by RJ Zhou) Sialoadenitis (Acute) Diabetic foot ulcer (Acute) CKD stage G3b/A2, GFR 30-44 and albumin creatinine ratio 30-299 mg/g (Acute) Peripheral neuropathy (Acute) Bilateral hand pain (Acute) Impacted cerumen, right ear (Acute) De Quervain's tenosynovitis, right (Acute) Injection: 06/29/2023 Impacted cerumen, bilateral (Acute) Anterior epistaxis (Acute) Anxiety (Chronic) Barretts esophagus (Chronic) Cataract (Chronic) Hyperlipidemia (Chronic) Hypertension (Chronic) Osteoporosis (Chronic) Denies having. Vitamin D deficiency (Chronic) Hiatal hernia (Chronic) H/O surgical procedure (Chronic) a. breast reduction b. Oumar fundoplication c. tubal ligation ASCVD (arteriosclerotic cardiovascular disease) (Chronic 03/15/09) NEG. STRESS TEST 2003 ECHO shows a PA pressure of 29% MPI shows positive ischemia; Cardiac Cath shows normal coronaries w/ an ejection fraction of 65% 09/25/14; NEG MPI Adrenal cyst (Chronic 11/16/14) Denies having. Anemia (Chronic 04/24/15) Chronic gastritis (Chronic 07/17/15) Dysphagia, unspecified (Chronic) - CXR; - barium swallow (except @ fundiplication) Malignant melanoma of skin (Chronic 10/29/06) melanoma in situ left lateral foot; S/P excision Tubular adenoma (Chronic) 07/16/15; DR. SWAN Type II diabetes mellitus with complication, uncontrolled (Chronic 10/02/14) History of total left hip replacement (Chronic) 08/31/2018 Hearing loss (Acute) Asymmetrical sensorineural hearing loss (Chronic) Status post Oumar fundoplication (Acute) Conductive hearing loss, external ear (Acute) Fatigue (Acute) Tubular adenoma (Acute ~06/2015) Sanches's esophagus (Acute ~04/2018) Tubular adenoma of colon (Acute) Right knee pain (Acute) Internal derangement of right knee (Acute) Injection: 06/21/2021 Left knee DJD (Acute) Sleep apnea, obstructive (Chronic) Restless legs syndrome (Acute) COPD (chronic obstructive pulmonary disease) (Chronic) Parotid sialolithiasis (Acute) Proteinuria due to type 2 diabetes mellitus (Acute) Renal insufficiency (Chronic) URI (upper respiratory infection) (Acute) Hematuria (Acute) Elevated LFTs (Acute) COVID-19 (Acute) 12/04/21 Impacted cerumen, left ear (Acute) Skin lesions (Acute) Arthritis of right hip (Acute) Medical History Hyperplastic colon polyp Strain of iliopsoas muscle Calculus of kidney (11/16/14) Cataract Jaw pain (03/19/16) Smoker Vertigo (10/29/04) History of shingles URI (upper respiratory infection) Smoker Vertigo 10/29/04 Jaw pain 03/19/16 Osteoarthritis of left hip Cholelithiasis Denies having. Hiatal hernia Vitamin D deficiency Hypertension Cataract Barretts esophagus GERD (gastroesophageal reflux disease) Hip pain Adrenal cyst Renal calculus Hyperlipidemia ASCVD (arteriosclerotic cardiovascular disease) Anxiety Anemia Osteoporosis Diabetes Lumbago Chest pain (09/22/14) Surgical History History of cholecystectomy History of tonsillectomy History of appendectomy History of bilateral ligation of fallopian tubes History of cataract removal with insertion of prosthetic lens History of reduction mammoplasty History of surgical procedure H/O cataract removal with insertion of prosthetic lens History of bilateral tubal ligation Status post Oumar fundoplication 11/30/94 S/P total hip arthroplasty 08/31/18 DR. GALLO (LEFT ANTERIOR) tarsel tunnel release B/L Ligation of fallopian tube Oumar Fundoplication (~1994) EGD - MAC (05/17/18) Extraction of cataract 05/15/15 DR. YEPEZ; LEFT EYE 05/26/16 DR. YEPEZ; RIGHT EYE Reduction mammoplasty Arthroplasty fifth right toe-07/24/16 Family History Mother , AGE 71 Heart disease Myocardial infarction Father , AGE 73 Asthma COPD (chronic obstructive pulmonary disease) Sister Essential hypertension Alcohol abuse Breast cancer Brother Essential hypertension Alcohol abuse Maternal Grandfather , age 76 Heart disease Diabetes Paternal Grandfather , AGE 88 Stroke Colon cancer Maternal Grandmother , AGE 71 Heart disease Paternal Grandmother , AGE 54 Diabetes Heart disease Son No problems noted. Daughter No problems noted. Daughter No problems noted. Social History Smoking/Tobacco Use Status: Former Tobacco Use tobacco type: cigarettes Quit Date: 11/30/02 Tobacco: How many years used: 42 Second Hand Exposure: Yes Smoking risk assessment performed?: Yes Alcohol Intake: current Alcohol Intake frequency: 0-2 drinks per day Alcohol type: wine Drug use: Never Substance use type: does not use Caregiver/Support person: Yes Household members: spouse and other Details: 2 Housing: house Communication Needs: None Do you need help understanding health information?: Rarely Pets and animals: No Do you think of yourself as: straight/heterosexual Current gender identity: female What is your relationship status?: How often do you talk on the phone with friends or family?: three or more times per week How often do you get together with friends or relatives?: once per week How often do you attend buddhist or gnosticist services?: 1-3 times per year Do you belong to any clubs or organized social groups?: yes Panel score (0-1 are the most socially isolated patients): 3 What type of physical activity do you participate in: walking and other Details: stairs Duration: 30-45 minutes/day Frequency: daily Special emmett needs: No Seatbelt use: always Drive intox or ride w/intox utility driver: No Do you feel safe at home: Yes Do you feel safe in your relationship?: Yes
[2024-02-07 15:51] LABS: Lactate 0.9 mmol/L (0.6-1.4)
[2024-02-07 15:52] LABS: Abs Immature Grans 0.03 10^3/uL (0.0-0.06); Absolute Basophil Count 0.06 10^3/uL (0.0-0.2); Absolute Eosinophil Count 0.34 10^3/uL (0.0-0.7); Absolute Lymphocyte Count 2.12 10^3/uL (1.2-3.4); Absolute Monocyte Count 0.72 10^3/uL (0.1-0.8); Absolute Neutrophil Count 5.68 10^3/uL (1.2-6.7); Basophils % 0.7; Eosinophils % 3.8; HCT 35.8 % (36.0-46.0); HGB 12.2 g/dL (11.2-15.7); Immature Grans % 0.3; Lymphocytes % 23.7; MCH 32.3 pg (27.0-33.0); MCHC 34.1 % (32.0-36.0); MCV 95 fL (80-95); MPV 10.3 fL (8.0-11.0); Neutrophils % 63.5; Platelet Count 257 10^3/uL (130-400); RBC 3.78 10^6/uL (3.93-5.22); RDW 12.5 % (11.7-14.6); RDW-SD 43.5 fL; WBC 8.95 10^3/uL (4.4-10.8)
--- NOTE | 2024-02-07 16:00 | DI.CT_ITS ---
Exam(s) CT NECK W EXAM: CT NECK W CLINICAL HISTORY: R tonsillar/parotid swelling. TECHNIQUE: Imaging Protocol: Axial computed tomography images with coronal and sagittal reformatted images were created and reviewed. CONTRAST MATERIAL: Intravenous: Omnipaque 350 Contrast volume:100mL COMPARISON: No exams were available for comparison FINDINGS: Orbits and orbital soft tissues: Within normal limits. Visualized paranasal sinuses: Within normal limits. Nasopharynx: Within normal limits. Oropharynx: Within normal limits. Hypopharynx: Within normal limits. Larynx: Within normal limits. Retropharyngeal space: Within normal limits. Parotids/submandibular: The right submandibular gland is enlarged relative to the left submandibular gland. There is also mild stranding around the right submandibular gland. No calcification is seen associated with the gland. The parotid glands and left submandibular gland are unremarkable. Thyroid gland: Within normal limits. Lymphadenopathy: There is scattered lymph nodes seen along the level one to level three all measurin g less than 8 mm in short axis diameter which are physiologic in nature. There are mild reactive lymp h nodes seen in the right submandibular region. Trachea: Within normal limits. Lung apices: Within normal limits. Bones: Within normal limits for the patient's age. There is straightening of the normal cervical blaine dosis. Age-appropriate degenerative changes are present. Carotids/Jugular: Within normal limits. Soft tissues: No focal fluid collection is seen to suggest an abscess. There is mild infiltration in the soft tissues of the right submandibular region. IMPRESSION: Enlargement of the right submandibular gland with reactive mildly enlarged lymph nodes and infiltrati on of the surrounding soft tissues concerning for sialoadenitis. No abscess or calcification is seen . RADIATION DOSE DELIVERED: Total DLP Total DLP DATA REPOSITORY: All CT scans at this facility are submitted to the National Radiology Data Registry (NRDR) Dose Index Registry (DIR) with the [employer] (A[employer]). RADIATION OPTIMIZATION: All CT scans at this facility use at least one of these dose optimization te chniques: automated exposure control; mA and/or kV adjustment per patient size (includes targeted exa ms where dose is matched to clinical indication); or iterative reconstruction.
[2024-02-07 16:08] LABS: ALT 21 U/L (14-59); AST 18 U/L (15-37); Albumin 3.4 g/dL (3.4-5.0); Alkaline Phosphatase 116 U/L (46-116); Anion Gap 10.7 mmol/L (3-11); BUN 26 mg/dL (7-18); Bilirubin, Total 0.6 mg/dL (0.2-1.0); CO2 30.3 mmol/L (21.0-32.0); CREATININE 1.3 mg/dL (0.55-1.02); Calcium 9.5 mg/dL (8.5-10.1); Chloride 100 mmol/L (98-107); Estimated GFR 42.09 (mL/min/1.73m2); Glucose 146 mg/dL (74-106); Potassium 4.3 mmol/L (3.5-5.1); Sodium 141 mmol/L (136-145); Total Protein 7.8 g/dL (6.4-8.2)
[2024-02-07] MEDS: Omnipaque 350 MG/ML 100 ML BTL IJ (16:24)
[2024-02-07] MEDS: Normal Saline - Diluent 50 ML VIAL IJ (16:25)
[2024-02-07 16:28] LABS: Procalcitonin < 0.1 ng/mL
--- NOTE | 2024-02-07 17:26 | DI.VRAD_ITS ---
Addendum created by Oliverio Laurent MD on 02/07/2024 5:46:41 PM EDT: ADDENDUM: There is enlargement of the right submandibular gland measuring 3.3 x 2.7 cm, with surrounding fat stranding. No submandibular gland stone or submandibular duct stone. No collections. Impression: Findings consistent with right submandibular gland sialoadenitis. No abscess formation. THIS REPORT CONTAINS FINDINGS THAT MAY BE CRITICAL TO PATIENT CARE. The findings were verbally communicated via telephone conference with GOGO EUGENE at 5:45 PM EDT on 02/07/2024. The findings were acknowledged and understood. Initial report created on 02/07/2024 5:26:06 PM EDT: PROCEDURE INFORMATION: Exam: CT Neck With Contrast Exam date and time: 02/07/2024 4:23 PM Age: 78 years old Clinical indication: Mass, lump, or swelling in neck; Right; Patient HX: R tonsillar/parotid swelling; Per PT: About 4 days TECHNIQUE: Imaging protocol: Computed tomography of the neck with contrast. COMPARISON: CR CERV SP.WITH OBL OR FLEX/EXT 04/01/2018 10:55 AM FINDINGS: Orbital cavities: Post bilateral cataract surgery. Pharynx: Unremarkable. No significant tonsillar enlargement. Larynx: Unremarkable. Epiglottis is normal. Prevertebral and retropharyngeal spaces: Unremarkable. Salivary glands: Normal. Glands are normal in size. Thyroid: Normal. No enlarged or calcified nodules. Lymph nodes: Unremarkable. No lymphadenopathy. Trachea: Visualized trachea is unremarkable. Lungs: Mild fibrotic changes of both lung apices. Bones/joints: Straightening of the cervical lordosis. Mild anterolisthesis of C3 over and over C5. Mild multilevel degenerative disease of the visualized spine. Vasculature: Aortic arch calcifications. Bilateral carotid calcifications. Soft tissues: Unremarkable. No significant soft tissue swelling. Other findings: Moderate coronary calcifications. IMPRESSION: No neck mass or abscess formation. Dictated and Authenticated by: Oliverio Laurent MD. Ordering:MARBELLA Reina MD
[2024-02-07] MEDS: Mupirocin 2% Oint. 22 GM TUBE TP (18:19)
[2024-02-07] MEDS: Clindamycin 150 MG CAP, 12 CAPS/BTL 450 MG PO (18:20)
== END 2024-02-07 18:19 | disposition home or self-care (01) ==
PROVIDERS: Emergency Provider Physician Assistant; PCP Family Medicine
DX: E11.621 Type 2 diabetes mellitus with foot ulcer (principal); L97.528 Non-pressure chronic ulcer of other part of left foot with other specified severity; K11.20 Sialoadenitis, unspecified; I12.9 Hypertensive chronic kidney disease with stage 1 through stage 4 chronic kidney disease, or unspecified chronic kidney disease; E11.22 Type 2 diabetes mellitus with diabetic chronic kidney disease; N18.32 Chronic kidney disease, stage 3b; E78.5 Hyperlipidemia, unspecified; Z79.4 Long term (current) use of insulin; Z87.891 Personal history of nicotine dependence
CPT/HCPCS: 70491; 80053; 84145; 99284; 83605; 85025; J3490

== ENCOUNTER → 2024-02-22 10:01 | Outpatient (BNVA) | payer MEDICARE, SELFPAY | PROVIDERS: PCP Family Medicine; Referring Provider Family Medicine; Visit Provider Student in an Organized Health Care Education/Training Program | DX: J44.9 Chronic obstructive pulmonary disease, unspecified (principal); G47.33 Obstructive sleep apnea (adult) (pediatric) | CPT/HCPCS: 99214 ==

== ENCOUNTER → 2024-03-07 09:31 | Outpatient (BNVA) | payer MEDICARE, SELFPAY | PROVIDERS: PCP Family Medicine; Referring Provider Family Medicine; Visit Provider Student in an Organized Health Care Education/Training Program | DX: M65.4 Radial styloid tenosynovitis [de Quervain] (principal); M16.11 Unilateral primary osteoarthritis, right hip | CPT/HCPCS: 99213 ==

== ENCOUNTER 2024-04-05 08:55 | Day surgery (SDC) | payer MEDICARE, SELFPAY ==
--- NOTE | 2024-04-05 07:25 | W.PM.DSUDISC ---
Date of service: 04/05/24 Time of Service: 07:26 Discharge Plan Disposition Patient Disposition: Home Condition: Good Discharge Details Reason For Visit: Prater's Kraig R Attending Provider: David Burns Primary Care Provider: Janessa Chand Home Meds and New Rx's Prescriptions: New hydrocodone-acetaminophen 5-325 mg tablet 1 tab PO Q6H PRN (Reason: pain) Qty: 6 0RF acetaminophen 500 mg tablet 1,000 mg PO TID Qty: 90 0RF ibuprofen 600 mg tablet 600 mg PO TID PRN (Reason: pain) Qty: 90 0RF Continued calcium carbonate-vitamin D3 [Calcium 600 + D(3)] 600 mg(1,500mg) -200 unit tablet 1 tab PO DAILY Patient Comments: 02/28/19- Per patient, takes occasionally. aj cholecalciferol (vitamin D3) 1,000 unit tablet 1,000 unit PO DAILY Patient Comments: 02/28/19- Per patient, she takes this only while in [place]. aj escitalopram oxalate [Lexapro] 20 mg tablet 20 mg PO DAILY@1200 Qty: 90 4RF insulin lispro [Humalog KwikPen Insulin] 100 unit/mL insulin pen 18 unit Sub-Q AC Qty: 60 5RF metformin 500 mg tablet 500 mg PO DAILY Qty: 90 5RF Rx Instructions: evening with 750mg metoprolol succinate 100 mg tablet extended release 24 hr 100 mg PO DAILY@1200 Qty: 90 5RF (DME) blood-glucose meter 1 EACH misc 1 ea Miscellaneous DAILY Qty: 90 Rx Instructions: METER TYPE ACCU-CHECK COMPACT PLUS DIAGNOSIS CODE 250.02 (DME) Blood Glucose Test Strip See Dose Instructions .ROUTE .MEDSUPPLY Qty: 400 5RF Dose Instruction: AC and HS Rx Instructions: AC and HS. Accucheck test strips.E11.65 (DME) pen needle, diabetic [Pen Needle] 31 gauge x 5/16 needle 1 ea Miscellaneous HS Qty: 100 4RF Rx Instructions: 31G 5mm pen needles Dx E11.6 albuterol sulfate [ProAir HFA] 90 mcg/actuation HFA aerosol inhaler 2 puff Inhalation Q4H PRN PRN (Reason: bronchospasm) Qty: 25.5 6RF esomeprazole magnesium [Nexium] 40 mg capsule,delayed release(DR/EC) 40 mg PO BID@ Qty: 180 5RF (DME) pen needle, diabetic [BD Ultra-Fine Amira Pen Needle] 32 gauge x 5/32 needle 1 ea Miscellaneous QID Qty: 400 3RF Rx Instructions: 31g 5mm . E10.65 ultra fine pen needles AC and HS insulin glargine [Lantus Solostar U-100 Insulin] 100 unit/mL (3 mL) insulin pen 40 unit subcut HS Qty: 45 5RF Trelegy Ellipta 100-62.5-25 mcg blister with device 1 inh IH DAILY Qty: 90 4RF rosuvastatin 20 mg tablet 20 mg PO HS Qty: 90 4RF Ozempic 0.25 mg or 0.5 mg (2 mg/3 mL) pen injector 0.25 mg subcut QWEEK Qty: 9 5RF Rx Instructions: for 4 weeks then increase to 0.5 mg hydrochlorothiazide 12.5 mg tablet 12.5 mg PO QAM Qty: 90 4RF losartan 100 mg tablet 100 mg PO DAILY Qty: 90 4RF Discharge Instructions Additional Instructions: Vinicio's Discharge Instructions Activity: You should keep the hand elevated as much as possible for the first few days. You may use the other fingers as tolerated but avoid trying to do too much too soon. You may perform light activities with the splint in place. Dressing/Cast: Your splint should stay in place at all times. Do NOT get it wet. You may loosen the RAI wrap if you feel it is too tight and then rewrap more loosely. Medications: - You should take Tylenol and Ibuprofen for baseline pain control. - You have Hydrocodone for breakthrough pain. - You may apply ice over the thumb. Follow-up: 7-10 days Referrals: David Burns MD [ [facility] STAFF PHYSICIAN] - Activity:: Elevate Remove Dressings/Wound Care:: Do Not Remove Shower/Bathe:: Cover Diet:: As Tolerated Discharge Orders Discharge Orders: Discharge Order (Routine); Ordered 04/05/24 Ordered By: Neri Cancino DS: Diagnosis Discharge Diagnosis (1) De Quervain's tenosynovitis, right: Status: Acute
[2024-04-05 09:02] VITALS: BP 140/60; PULSE 84; RESP 20; TEMP 36.5; O2SAT 94
--- NOTE | 2024-04-05 09:07 | W.ANESPRE ---
General Info Date of Service Date Performed: 04/05/24 Height: 5 ft 3.5 in Weight: 93.894 kg Body Mass Index (BMI): 36.1 Surgical Procedure: Operation Date: 04/05/24 10:55 Proposed Procedure Side Surgeon p Wrist Dequervains Release Right David Burns MD Meds Allergies and Home Medications Allergies Allergy/AdvReac Type Severity Reaction Status Date / Time Penicillins Allergy yeast Verified 04/05/24 09:33 infection all over. oxycodone [From Percocet] AdvReac Intermediate Jittery, Verified 04/05/24 09:33 heart races amoxicillin trihydrate AdvReac YEAST Verified 04/05/24 09:33 [From Augmentin] INFECTION ALL OVER codeine AdvReac JITTERY Verified 04/05/24 09:33 milk AdvReac BRONCHITIS Verified 04/05/24 09:33 potassium clavulanate AdvReac YEAST Verified 04/05/24 09:33 [From Augmentin] INFECTION ALL OVER tramadol AdvReac Abnormal Verified 04/05/24 09:33 pulse and nausea Home Medication Medication Instructions Recorded blood-glucose meter #90 ea 08/21/14 calcium carbonate 600 mg-vitamin 1 tab PO DAILY 02/28/19 D3 5 mcg (200 unit) tablet (Calcium 600 + D(3)) cholecalciferol (vitamin D3) 25 1,000 unit PO DAILY 02/28/19 mcg (1,000 unit) tablet blood sugar diagnostic (Blood #400 ea 03/02/20 Glucose Test strips) pen needle, diabetic 31 gauge x ##100 12/11/2004/14 (Pen Needle) albuterol sulfate 90 mcg/actuation 2 puff inhalation Q4H PRN PRN 03/16/21 aerosol inhaler (ProAir HFA) bronchospasm #25.5 grams esomeprazole magnesium 40 mg 40 mg PO BID@ #180 caps 03/16/21 capsule,delayed release (Nexium) pen needle, diabetic 32 gauge x #400 ea 10/27/22 (BD Ultra-Fine Amira Pen Needle) insulin glargine 100 unit/mL (3 40 unit (0.4 mL) subcut HS #45 mL 04/21/23 mL) subcutaneous pen (Lantus Solostar U-100 Insulin) fluticasone fur. 100 mcg-umeclid 1 inh inhalation DAILY #90 ea 04/28/23 62.5 mcg-vilant 25 mcg inhalat.powder (Trelegy Ellipta) rosuvastatin 20 mg tablet 20 mg PO HS #90 tabs 07/01/23 semaglutide 0.25 mg or 0.5 mg (2 0.25 mg (0.368 mL) subcut QWEEK #9 10/12/23 mg/3 mL) subcutaneous pen injector mL (Ozempic) losartan 100 mg tablet 100 mg PO DAILY #90 tabs 11/19/23 escitalopram oxalate 20 mg tablet 20 mg PO DAILY@1200 #90 tabs 12/28/23 (Lexapro) insulin lispro 100 unit/mL 18 unit (0.18 mL) subcut AC #60 mL 12/28/23 subcutaneous pen (Humalog KwikPen (U-100) Insulin) metoprolol succinate 100 mg 100 mg PO DAILY@1200 #90 tabs 12/28/23 tablet,extended release 24 hr acetaminophen 500 mg tablet 1,000 mg (2 x 500 mg) PO TID #90 04/05/24 tabs amlodipine 10 mg tablet 10 mg PO QAM 04/05/24 hydrochlorothiazide 12.5 mg tablet 25 mg PO .noon 04/05/24 hydrocodone 5 mg-acetaminophen 325 1 tab PO Q6H PRN pain #6 tabs 04/05/24 mg tablet ibuprofen 600 mg tablet 600 mg PO TID PRN pain #90 tabs 04/05/24 metformin 500 mg tablet 500 mg PO DAILY 04/05/24 Current Visit Medications: Current Medications Generic Name Dose Route Start Last Admin Trade Name Freq PRN Reason Stop Dose Admin Acetaminophen 650 mg 04/05/24 07:23 Acetaminophen 325 Mg Tab PO 05/05/24 07:22 Q4H PRN PRN Hydrocodone Bitart/Acetaminophen 0 tab 04/05/24 07:23 Hydrocodone 5/Acetaminophen 325 Tab PO 05/05/24 07:22 Q3H PRN PRN Pain Ringer's Solution 1,000 mls @ 80 mls/hr 04/05/24 06:00 IV 05/04/24 23:59 INFUSION DAYSI Cefazolin Sodium/Dextrose 2 gm in 50 mls @ 100 mls/hr 04/05/24 06:00 Ancef Duplex IVPB 04/05/24 16:00 PREOP DAYSI IV Miscellaneous Supplies 1 each 04/05/24 06:00 Iv Access IV 05/04/24 23:59 DIRECTED DAYSI Sodium Chloride 0 ml 04/05/24 06:00 Normal Saline Flush 10 Ml Syr IV 05/04/24 23:59 PRN PRN Sodium Chloride 0 ml 04/05/24 06:00 Normal Saline 10 Ml Vial IJ 05/04/24 23:59 DIRECTED PRN Sterile Water 0 ml 04/05/24 06:00 Water,Injection,Sterile 10 Ml Vial IJ 05/04/24 23:59 DIRECTED PRN PFSH Active Problems Active Problems: Problem Status Onset Code CKD stage G3b/A2, GFR 30-44 and albumin creatinine ratio 30-299 mg/g N18.32 Peripheral neuropathy G62.9 Bilateral hand pain M79.641, M79.642 Impacted cerumen, right ear H61.21 De Quervain's tenosynovitis, right M65.4 Impacted cerumen, bilateral H61.23 Anterior epistaxis R04.0 Arthritis of right hip M16.11 Skin lesions L98.9 Impacted cerumen, left ear H61.22 COVID-19 U07.1 Elevated LFTs R79.89 Hematuria R31.9 URI (upper respiratory infection) J06.9 Renal insufficiency N28.9 Proteinuria due to type 2 diabetes mellitus E11.29, R80.9 Parotid sialolithiasis K11.5 COPD (chronic obstructive pulmonary disease) J44.9 Restless legs syndrome G25.81 Sleep apnea, obstructive G47.33 Left knee DJD M17.12 Internal derangement of right knee M23.91 Right knee pain M25.561 Tubular adenoma of colon D12.6 Sanches's esophagus ~04/2018 K22.70 Tubular adenoma ~06/2015 D36.9 Fatigue R53.83 Conductive hearing loss, external ear H90.2 Status post Oumar fundoplication Z98.890 Asymmetrical sensorineural hearing loss H90.5 Hearing loss H91.90 History of total left hip replacement Z96.642 Type II diabetes mellitus with complication, uncontrolled 10/02/14 E11.8, E11.65 Tubular adenoma D36.9 Malignant melanoma of skin 10/29/06 C43.9 Dysphagia, unspecified R13.10 Chronic gastritis 08/18/15 K29.50 Anemia 04/24/15 D64.9 Adrenal cyst 11/16/14 E27.8 ASCVD (arteriosclerotic cardiovascular disease) 03/15/09 I25.10 H/O surgical procedure Z98.89 Hiatal hernia K44.9 Vitamin D deficiency E55.9 Osteoporosis M81.0 Hypertension I10 Hyperlipidemia E78.5 Cataract H26.9 Barretts esophagus K22.70 Anxiety F41.9 Medical History Medical History Hyperplastic colon polyp Strain of iliopsoas muscle Calculus of kidney (11/16/14) Cataract Jaw pain (03/19/16) Smoker Vertigo (10/29/04) History of shingles URI (upper respiratory infection) Smoker Vertigo 10/29/04 Jaw pain 03/19/16 Osteoarthritis of left hip Cholelithiasis Denies having. Hiatal hernia Vitamin D deficiency Hypertension Cataract Barretts esophagus GERD (gastroesophageal reflux disease) Hip pain Adrenal cyst Renal calculus Hyperlipidemia ASCVD (arteriosclerotic cardiovascular disease) Anxiety Anemia Osteoporosis Diabetes Lumbago Chest pain (09/22/14) Pt. states she does not have any issues with her heart Surgical History Surgical History History of cholecystectomy History of tonsillectomy History of appendectomy History of bilateral ligation of fallopian tubes History of cataract removal with insertion of prosthetic lens History of reduction mammoplasty History of surgical procedure H/O cataract removal with insertion of prosthetic lens History of bilateral tubal ligation Status post Oumar fundoplication 11/30/94 S/P total hip arthroplasty 08/31/18 DR. BURNS (LEFT ANTERIOR) tarsel tunnel release B/L Ligation of fallopian tube Oumar Fundoplication (~1994) EGD - MAC (05/17/18) Extraction of cataract 05/15/15 DR. YEPEZ; LEFT EYE 05/26/16 DR. YEPEZ; RIGHT EYE Reduction mammoplasty Arthroplasty fifth right toe-07/24/16 Tobacco Smoking/Tobacco Use Status: Former Tobacco Use Passive smoking exposure: Yes Second hand exposure: Yes Alcohol Alcohol Intake: current Alcohol intake frequency: 0-2 drinks per day Alcohol type: wine Substance Use Substance use: Never Substance use type: does not use Vital Signs and Lab Results Lab Results Blood Type / Crossmatch: No Data to Display Complete Blood Count: No Data to Display Complete Metabolic Panel: No Data to Display Liver Function Panel: No Data to Display Coagulation Panel: No Data to Display Cardiac Panel: No Data to Display Arterial Blood Gas: No Data to Display Venous Blood Gas: No Data to Display Pancreas Panel: No Data to Display Thyroid Panel: No Data to Display Infectious Disease: No Data to Display Blood Cultures: No Data to Display Toxicology Panel: No Data to Display Anesthesia Assessment and Plan Anesthesia History Personal History: No History of Anesthesia Complications Family History: No Family History of Anesthesia Complications Exercise Tolerance Exercise Tolerance: Metabolic Equivalents>4 Pertinent Negatives Pertinent Negatives: No Symptoms of GERD Cardiac & Pulmonary Exam Cardiac Exam: Normal S1/S2 Heart Sounds Pulmonary Exam: Clear Bilateral Breath Sounds Implantable Cardiac Device Does patient have a Pacemaker or an ICD?: No Airway Exam Known Difficult Airway: No Mallampati Class: 3 Mouth Opening: Normal (> 3cm) Thyromental Distance: Greater than 3 cm Neck Range of Motion: Full ROM Neck Circumference: Thick Teeth Condition: Normal Dentition ASA Classification ASA Score: ASA 3 Emergency Case?: No NPO Status NPO Status: NPO Clears >2 hours, Solids >8 hours Anesthesia Plan Resuscitation Status: Full Code Anesthesia Technique: MAC Anesthesia Airway Planned: Natural Airway Monitors Used: Standard Monitors Preoperative Comments:: Patient Name: TAMARA GARCES Unit #: [id number] Loc: DI Ordering Provider: Janessa Chand M.D., DC Status: REG CLI Primary Care Provider: Date of Exam: 08/25/19 Sex: F : 1945 Age: 74 Exam(s) a US:US echocardiogram *[facility]* *[facility]* [address] [place] [address] Date of study: 08/25/2019 Transthoracic Echocardiography M-mode, complete 2D, complete spectral Doppler, and color Doppler *STUDY CONCLUSIONS* Summary: 1. Left ventricle: The cavity size was normal. Systolic function was normal. The estimated ejection fraction was 60-65%. Diastolic parameters were normal. There was no evidence of elevated ventricular filling pressure by Doppler parameters. 2. Right ventricle: The cavity size was normal. Wall thickness was normal. Systolic function was normal. 3. Atrial septum: No defect or patent foramen ovale was identified. 4. Pulmonary arteries: Pulmonary systolic pressure was in the range of 25mm Hg to 35mm Hg. 5. Inferior vena cava: The vessel was normal in size. The respirophasic diameter changes were in the normal range (greater than or equal to 50%), consistent with normal central venous pressure. *PATIENT PRESENTATION* Height: 160cm (63in ) S/D Pressure: 145 / 72 Weight: 89.4kg (196.6lb ) BSA: 2.03m^2 Test start time: 09:35 AM. Test stop time: 10:30 AM. CONSULTING Janessa Chand ORDERING Janessa Chand REFERRING Janessa Chand PERFORMING [facility] [employer] TECHNICIAN Jena Mckeon *PROCEDURE DATA* Procedure information: This study was interpreted by [facility]. Pertinent images and digital data are archived for permanent storage and are available for subsequent review. No prior study was available for comparison. Study status: Routine. Transthoracic echocardiography. M-mode, complete 2D, complete spectral Doppler, and color Doppler. A Transthoracic Echocardiogram was performed. Scanning was performed from the parasternal, apical, subcostal, and suprasternal notch acoustic windows. Images were obtained using an [employer] SC 2000 cardiac ultrasound machine. Image quality was adequate. Study completion: The patient tolerated the procedure well. History: PMH: Chest pain, Chronic Cough. *CARDIAC ANATOMY* Left ventricle: The cavity size was normal. Systolic function was normal. The estimated ejection fraction was 60-65%. The tissue Doppler parameters were normal. Diastolic parameters were normal. There was no evidence of elevated ventricular filling pressure by Doppler parameters. Aortic valve: Probably trileaflet. Doppler: There was no stenosis. There was no regurgitation. VTI ratio of LVOT to aortic valve: 0.69. Valve area (VTI): 1.8cm^2. Indexed valve area (VTI): 0.9cm^2/m^2. Peak velocity ratio of LVOT to aortic valve: 0.61. Valve area (Vmax): 1.6cm^2. Indexed valve area (Vmax): 0.8cm^2/m^2. Mean velocity ratio of LVOT to aortic valve: 0.53. Valve area (Vmean): 1.4cm^2. Indexed valve area (Vmean): 0.7cm^2/m^2. Mean gradient (S): 5.7mm Hg. Peak gradient (S): 9.3mm Hg. Aorta: Aortic root: The aortic root was normal in size. Ascending aorta: The ascending aorta was normal in size. Mitral valve: Doppler: There was no evidence for stenosis. There was no significant regurgitation. Valve area by pressure half-time: 3.4cm^2. Indexed valve area by pressure half-time: 1.7cm^2/m^2. Peak gradient (D): 2.6mm Hg. Left atrium: The atrium was normal in size. Atrial septum: No defect or patent foramen ovale was identified. Right ventricle: The cavity size was normal. Wall thickness was normal. Systolic function was normal. Pulmonic valve: Doppler: There was no evidence for stenosis. There was no significant regurgitation. Tricuspid valve: Doppler: There was mild regurgitation. Pulmonary artery: Poorly visualized. Pulmonary systolic pressure was in the range of 25mm Hg to 35mm Hg. Right atrium: The atrium was normal in size. Pericardium: There was no pericardial effusion. Systemic veins: Inferior vena cava: The vessel was normal in size. The respirophasic diameter changes were in the normal range (greater than or equal to 50%), consistent with normal central venous pressure. Measurements Left ventricle Value Reference LV ID, ED, PLAX 4.8 cm 3.5 - 6.0 LV ID, ES, PLAX 3.3 cm 2.1 - 4.0 LV PW thickness, ED, PLAX 0.9 cm LV end-diastolic volume, 1-p A2C 78 ml LV ejection fraction, 1-p A2C 51 % LV end-diastolic volume, 1-p A4C 140 ml LV ejection fraction, 1-p A4C 57 % LV e', lateral 0.097 m/sec LV E/e', lateral 8 LV e', medial 0.09 m/sec LV E/e', medial 9 LV e', average 0.093 m/sec LV E/e', average 9 Ventricular septum Value Reference IVS thickness, ED, PLAX 0.9 cm LVOT Value Reference LVOT ID, A-P 1.8 cm LVOT area 2.7 cm^2 LVOT peak velocity, S 0.94 m/sec LVOT mean velocity, S 0.6 m/sec LVOT VTI, S 21.9 cm LVOT peak gradient, S 3.5 mm Hg LVOT mean gradient, S 1.7 mm Hg Stroke volume (SV), LVOT DP 59 ml Stroke index (SV/bsa), LVOT DP 29 ml/m^2 Aortic valve Value Reference Aortic valve peak velocity, S 1.5 m/sec Aortic valve mean velocity, S 1.1 m/sec Aortic valve VTI, S 32.0 cm Aortic mean gradient, S 5.7 mm Hg Aortic peak gradient, S 9.3 mm Hg VTI ratio, LVOT/AV 0.69 Aortic valve area, VTI 1.8 cm^2 Velocity ratio, peak, LVOT/AV 0.61 Aortic valve area, peak velocity 1.6 cm^2 Velocity ratio, mean, LVOT/AV 0.53 Aortic valve area, mean velocity 1.4 cm^2 Aortic valve area/bsa, mean velocity 0.7 cm^2/m^2 Aorta Value Reference Aortic root ID, ED 2.8 cm Ascending aorta ID, A-P, S 3.0 cm Left atrium Value Reference LA ID, A-P, ES 3.6 cm LA ID/bsa, A-P 1.8 cm/m^2 <=2.2 LA volume, ES, 2-p 47 ml LA volume/bsa, ES, 2-p 23 ml/m^2 LA/aortic root ratio
[2024-04-05] MEDS: Lactated Ringers 1,000 ML 80 ML IV (10:17)
[2024-04-05 10:25] VITALS: BMI 36.1
[2024-04-05] MEDS: ceFAZolin 2 GM/50 ML BAG IVPB (10:40)
[2024-04-05] MEDS: Sodium Bicarbonate 50 MEQ/50 ML VIAL (10:53)
[2024-04-05] MEDS: Lidocaine 1% Pres-Free 30 ML VIAL (10:53)
[2024-04-05 11:30] VITALS: BP 143/77; PULSE 93; RESP 20; TEMP 36.4; O2SAT 96
[2024-04-05 12:05] VITALS: BP 144/70; PULSE 90; RESP 18; TEMP 36.4; O2SAT 95
--- NOTE | 2024-04-05 12:19 | W.PM.OP ---
Date of service: 04/05/24 Time of Service: 10:45 Operative Note Operative Note DATE OF PROCEDURE: 04/05/24 PRE-OP DIAGNOSIS: Right Dequervain's Tenosynovitis POST-OP DIAGNOSIS: same PROCEDURE: Right First Extensor Compartment Release SURGEON: David Burns ANESTHESIA TYPE: General:No Airway Refer to Anesthesia Record ESTIMATED BLOOD LOSS: 0 PATHOLOGY: none sent TOURNIQUET TIME: 0 COMPLICATIONS: None Patient was transported to: same day Patient's condition: stable Indications: Mitzi is a 78 year old female who has had symptoms of Dequervain's tenosynovitis. Nonoperative treatment options had been trialed. Given their failure, I offered operative intervention. I reviewed the technical details of a first extensor compartment release. I reviewed the risk of the procedure to include bleeding, infection, pain, stiffness, tendon instability, damage to the superficial radial nerve, and complete release. Despite these risks, the patient elected to proceed. Findings: There was a tightened first excessive compartment. No subcompartments were seen encasing the EPB tendon. There was significant inflammatory changes. Procedure Description: Mitzi was greeted in the preoperative holding area. Name and surgical site were confirmed. The history and physical was completed. The consent was reviewed the patient and signed. She was taken back to the operating room. The patient was placed in the supine position and monitored anesthesia care was initiated. The right was then prepped with ChloraPrep and draped in a standard fashion after a nonsterile tourniquet was placed high up onto the arm. Prophylactic antibiotics in the form of cefazolin were administered. A timeout was performed for safe surgery. The surgical site was drawn on the skin. The planned surgical field was anesthetized with 0.25% bupivacaine with epinephrine. A 2 cm incision was made longitudinally over the radial styloid. The skin was incised only. The deep tissue subcutaneous fat was dissected with a tenotomy scissors trying to protect bridge of the superficial radial nerve. Any branches that were identified were retracted out of the way. The first compartment extensor tendons were then identified. The distal aspect of the first compartment was noted and were released. This release was performed more on the dorsal side to prevent tendon subluxation. The entirety of the first extensor compartment was then released. The slips of the abductor pollicis longus tendon were inspected. They removed to confirm the appropriate motion of the thumb. The extensor pollicis brevis tendon was then identified. No subcompartments were identified. Traction on the tendon was also used to confirm appropriate extension of the thumb confirming the release of the appropriate tendon. The dorsal radial surface of the radius was once again inspected to make sure there is no other sub-compartments or other restrictions to tendon motion. The wound was then thoroughly irrigated. The deep tissue was closed with a 3-0 Vicryl. The skin was closed with a running subcuticular 4-0 Monocryl. Skin glue was applied. The tourniquet is released without significant bleeding. The hand was dressed with 4 x 4's, Kerlix and RAI wrap into a soft thumb spica splint. All counts were correct. Patient was transferred back to same day surgery area in stable condition.
--- NOTE | 2024-04-05 12:34 | W.ANESPOSTOP ---
Postoperative Evaluation Date, Time and Location Date Performed: 04/05/24 Time Performed: 12:34 Patient Location: Day Surgery Unit Vital Signs Most Recent Imported Vital Signs: Most Recent Vital Signs Temp Pulse Resp BP Pulse Ox 36.4 C L 90 18 144/70 H 95 04/05/24 12:05 04/05/24 12:05 04/05/24 12:05 04/05/24 12:05 04/05/24 12:05 Pain Score Most Recent Pain Score: Most Recent Pain Score Pain Level 0 04/05/24 12:05 Assessment Mental Status: Awake (Alert & Oriented to Patient Baseline) Airway and Respiratory Function: Patent airway with normal (patient baseline) respiratory exam Cardiovascular Function: Hemodynamically Stable Hydration Status: Adequately Hydrated Nausea & Vomiting: No Nausea or Vomiting Pain: Pt. Denies Any Pain Peripheral Nerve Block: Patient did not receive a nerve block
== END 2024-04-05 12:45 | disposition home or self-care (01) ==
LOC: SUR 08:55
PROVIDERS: PCP Family Medicine; Visit Provider Student in an Organized Health Care Education/Training Program
PROC: (CPT 25000; principal; 2024-04-05 10:45)
DX: M65.4 Radial styloid tenosynovitis [de Quervain] (principal)
CPT/HCPCS: 25000; J0690; J1100; J2001; J2405; J2704

== ENCOUNTER → 2024-04-15 10:11 | Outpatient (BNVA) | payer MEDICARE, SELFPAY | PROVIDERS: PCP Family Medicine; Referring Provider Family Medicine | DX: Z47.89 Encounter for other orthopedic aftercare (principal); M65.4 Radial styloid tenosynovitis [de Quervain] ==

== ENCOUNTER → 2024-05-09 09:59 | Outpatient (BNVA) | payer MEDICARE, SELFPAY | PROVIDERS: PCP Family Medicine; Visit Provider Student in an Organized Health Care Education/Training Program | DX: Z47.89 Encounter for other orthopedic aftercare (principal); M65.4 Radial styloid tenosynovitis [de Quervain] ==

== ENCOUNTER 2024-06-06 12:50 | Outpatient (CLI) | payer MEDICARE, SELFPAY ==
--- NOTE | 2024-06-06 10:00 | DI.RAD_ITS ---
Exam(s) XR WRIST RT COMPLETE EXAM: XR WRIST RT COMPLETE CLINICAL HISTORY: R arm injury. TECHNIQUE: 2D digital imaging was performed of the right wrist. Three views were obtained. PA, lat eral and oblique views were obtained. COMPARISON: CR XR WRIST RT COMPLETE from 05/20/2023 CR XR HAND RT COMPLETE from 12/30/2023 FINDINGS: BONES: No acute fracture is present. No bony destructive lesion is seen. JOINTS: The carpal bones are normally aligned. The joint spaces are well maintained. SOFT TISSUE: Normal. IMPRESSION: No acute abnormality. DATA REPOSITORY: RADIATION DOSE DELIVERED:
--- NOTE | 2024-06-06 10:00 | DI.RAD_ITS ---
Exam(s) XR ELBOW RT COMPLETE EXAM: XR ELBOW RT COMPLETE CLINICAL HISTORY: R arm injury. TECHNIQUE: 2D digital imaging was performed. Three views. COMPARISON: No exams were available for comparison FINDINGS: BONES: No acute fracture is present. No bony destructive lesion is seen. JOINTS: The elbow is normally aligned. No joint effusion is seen. Joint spaces are maintained. SOFT TISSUE: Normal. IMPRESSION: Unremarkable radiographs of the right elbow. DATA REPOSITORY: RADIATION DOSE DELIVERED:
== END 2024-06-06 12:51 | disposition home or self-care (01) ==
LOC: DIORS 12:53
PROVIDERS: PCP Family Medicine; Visit Provider Student in an Organized Health Care Education/Training Program
DX: S69.91XA Unspecified injury of right wrist, hand and finger(s), initial encounter; W19.XXXA Unspecified fall, initial encounter
CPT/HCPCS: 99213; 73080; 73110

== ENCOUNTER → 2024-07-04 09:30 | Outpatient (BNVA) | payer MEDICARE, SELFPAY | PROVIDERS: PCP Family Medicine; Referring Provider Family Medicine; Visit Provider Student in an Organized Health Care Education/Training Program | DX: M18.11 Unilateral primary osteoarthritis of first carpometacarpal joint, right hand (principal) | CPT/HCPCS: 20600; J1010 ==

== ENCOUNTER 2024-08-04 03:24 | Outpatient (CLI) | payer MEDICARE, SELFPAY ==
[2024-08-04 12:24] LABS: HCT 36.2 % (36.0-46.0); HGB 12.2 g/dL (11.2-15.7); MCH 32.4 pg (27.0-33.0); MCHC 33.7 % (32.0-36.0); MCV 96 fL (80-95); MPV 10.5 fL (8.0-11.0); Platelet Count 284 10^3/uL (130-400); RBC 3.76 10^6/uL (3.93-5.22); RDW 12.8 % (11.7-14.6); RDW-SD 45.1 fL; WBC 6.13 10^3/uL (4.4-10.8)
[2024-08-04 12:38] LABS: Anion Gap 7.8 mmol/L (3-11); BUN 26 mg/dL (7-18); CO2 30.2 mmol/L (21.0-32.0); CREATININE 1.1 mg/dL (0.55-1.02); Chloride 101 mmol/L (98-107); Estimated GFR 51.11 (mL/min/1.73m2); Glucose 144 mg/dL (74-106); Potassium 4.3 mmol/L (3.5-5.1); Sodium 139 mmol/L (136-145)
== END 2024-08-04 03:25 | disposition home or self-care (01) ==
LOC: LBO 03:24
PROVIDERS: PCP Family Medicine; Visit Provider Student in an Organized Health Care Education/Training Program
DX: M16.11 Unilateral primary osteoarthritis, right hip (principal)
CPT/HCPCS: 36415; 80048; 85027; 99024

== ENCOUNTER 2024-08-04 15:51 | Outpatient (CLI) | payer MEDICARE, SELFPAY ==
--- NOTE | 2024-08-04 11:00 | DI.RAD_ITS ---
Exam(s) XR PELVIS AP EXAM: XR PELVIS AP CLINICAL HISTORY: OA R HIP--PRE OP. TECHNIQUE: 2D digital imaging was performed.One images were obtained. COMPARISON: CR XR pelvis AP from 08/31/2018 CR XR HIP RT COMPLETE AP PELVIS from 11/17/2022 FINDINGS: BONES: No acute fracture is present. No bony destructive lesion is seen. JOINTS: No dislocation present. The patient has a left total hip replacement which appears unremarkab le on the single image. There is mild narrowing of the right hip joint space which is otherwise well maintained. SOFT TISSUE: Normal. IMPRESSION: Mild narrowing of the right hip joint. DATA REPOSITORY: RADIATION DOSE DELIVERED:
== END 2024-08-04 15:52 | disposition home or self-care (01) ==
LOC: DIORS 15:51
PROVIDERS: PCP Family Medicine; Visit Provider Physician Assistant
DX: M16.11 Unilateral primary osteoarthritis, right hip (principal); Z01.818 Encounter for other preprocedural examination
CPT/HCPCS: 36415; 80048; 85027; 99024; 72170

== ENCOUNTER 2024-08-17 07:58 | Day surgery (SDC) | payer MEDICARE, SELFPAY ==
[2024-08-17] VITALS (22 sets, daily range): BP systolic 105–171; BP diastolic 40–74; PULSE 72–85; RESP 9–26; TEMP 36–36.5; O2SAT 91–97; BMI 35.9
[2024-08-17] MEDS: Lactated Ringers 1,000 ML 80 ML IV (08:35)
[2024-08-17] MEDS: Acetaminophen 500 MG TAB 1000 MG PO (08:43)
[2024-08-17] MEDS: Gabapentin 300 MG CAP PO (08:44)
[2024-08-17] MEDS: Celecoxib 200 MG CAP 400 MG PO (08:44)
--- NOTE | 2024-08-17 09:23 | PDOC.DSDIS_ITS ---
Date of service: 08/17/24 Time of Service: 09:23 Discharge Plan Disposition Patient Disposition: Home Condition: Good Discharge Details Reason For Visit: R THR Attending Provider: David Burns Primary Care Provider: Janessa Chand Home Meds and New Rx's Prescriptions: New acetaminophen 500 mg tablet 1,000 mg PO TID Qty: 90 3RF aspirin 81 mg tablet,delayed release (DR/EC) 81 mg PO BID Qty: 60 0RF celecoxib 200 mg capsule 200 mg PO BID Qty: 60 0RF hydromorphone 2 mg tablet 2 mg PO Q4H PRN (Reason: pain) Qty: 20 0RF dexamethasone 4 mg tablet 4 mg PO DAILY Qty: 2 0RF Continued calcium carbonate-vitamin D3 [Calcium 600 + D(3)] 600 mg(1,500mg) -200 unit tablet 1 tab PO DAILY Patient Comments: 02/28/19- Per patient, takes occasionally. aj cholecalciferol (vitamin D3) 1,000 unit tablet 1,000 unit PO DAILY Patient Comments: 02/28/19- Per patient, she takes this only while in [place]. aj escitalopram oxalate [Lexapro] 20 mg tablet 20 mg PO DAILY@1200 Qty: 90 4RF insulin lispro [Humalog KwikPen Insulin] 100 unit/mL insulin pen 18 unit Sub-Q AC Qty: 60 5RF metoprolol succinate 100 mg tablet extended release 24 hr 100 mg PO DAILY@1200 Qty: 90 5RF (DME) blood-glucose meter 1 EACH misc 1 ea Miscellaneous DAILY Qty: 90 Rx Instructions: METER TYPE ACCU-CHECK COMPACT PLUS DIAGNOSIS CODE 250.02 (DME) pen needle, diabetic [Pen Needle] 31 gauge x 5/16 needle 1 ea Miscellaneous HS Qty: 100 4RF Rx Instructions: 31G 5mm pen needles Dx E11.6 albuterol sulfate [ProAir HFA] 90 mcg/actuation HFA aerosol inhaler 2 puff Inhalation Q4H PRN PRN (Reason: bronchospasm) Qty: 25.5 6RF esomeprazole magnesium [Nexium] 40 mg capsule,delayed release(DR/EC) 40 mg PO BID@0730,1999 Qty: 180 5RF Ozempic 0.25 mg or 0.5 mg (2 mg/3 mL) pen injector 0.25 mg subcut QWEEK Qty: 9 5RF Rx Instructions: for 4 weeks then increase to 0.5 mg losartan 100 mg tablet 100 mg PO DAILY Qty: 90 4RF (DME) pen needle, diabetic [BD Ultra-Fine Amira Pen Needle] 32 gauge x 5/32 needle See Rx Instructions .ROUTE .COMPLEX Qty: 360 3RF Dose Instruction: USE BEFORE MEALS AND AT BEDTIME Rx Instructions: USE BEFORE MEALS AND AT BEDTIME (DME) Blood Glucose Test Strip See Dose Instructions .ROUTE .MEDSUPPLY Qty: 400 5RF Dose Instruction: AC and HS Rx Instructions: AC and HS. Accucheck test strips.E11.65/E11.8. 4 times day testing insulin glargine [Lantus Solostar U-100 Insulin] 100 unit/mL (3 mL) insulin pen 40 unit subcut HS Qty: 45 5RF Patient Comments: 30 mg HS Trelegy Ellipta 100-62.5-25 mcg blister with device 1 inh IH DAILY Qty: 90 4RF rosuvastatin 20 mg tablet 20 mg PO HS Qty: 90 4RF amlodipine 10 mg tablet 10 mg PO QAM Qty: 90 4RF metformin 500 mg tablet 500 mg PO DAILY hydrochlorothiazide 12.5 mg tablet 25 mg PO .noon Discharge Instructions Additional Instructions: Total Hip Discharge Instructions Activity: The most important activity is to walk. You should try to take short walks a few times a day. You have no restrictions on movement or positioning, but do not try to force what you do. You will find some stiffness and weakness with hip flexion (lifting your knee). Do not try to strengthen this too early, continue to practice walking and stairs and this will come. - Outpatient physical therapy can be helpful to help return you to a normal gait and improve your flexibility and strength. This can start around 2 weeks. For some patients, it?s not necessary. Usually this is determined at the time of discharge or at the first post-operative visit. - You should wear the YAMEL hose on both legs for 2 weeks. Dressing: Keep the surgical dressing in place for at least one week. After the first week it may be removed and replace with light gauze and tape or nothing. It may get wet after 3 days but avoid soaking the dressing. If it gets wet, just lightly pat dry. It is important to always keep some gauze between skin folds, especially when you are sitting. Spend some time with the wound exposed when you are lying flat as the incision does wrinkle onto itself. Medications: - You should take Tylenol and an anti-inflammatory Celebrex as your primary pain control medications. If the Celebrex is too expensive or not covered, please call the office for another alternative (Advil/Ibuprofen or Naproxen/Aleve). - You have been prescribed a stronger pain medication hydromorphone for breakthrough pain, take as needed as prescribed. - You will continue your Nexium to help reduce stomach acid and reflux. - You have also been prescribed Decadron to help with post-operative nausea and pain. You will take this for two days starting tomorrow. - You will be taking Aspirin 81mg twice a day for DVT prevention unless instructed otherwise. - If you have constipation you should take Colace or Miralax (both [id number]). It takes most people 3-4 days to have a bowel movement. Follow-up: 2 weeks If you have any acute concerns or questions, please do not hesitate to contact the office at [phone]. You may contact Dr. Burns with any questions after hours through the hospital at [phone] or on his cell phone at [phone]. Stand Alone Forms: Anesthesia Discharge Inst., Adama Dick ([facility]) Referrals: David Burns MD [ [facility]] - 09/01/24 10:00 am Equipment/Supplies: Walker Activity:: Activity as Tolerated Shower/Bathe:: 72 hours Diet:: As Tolerated Discharge Orders Discharge Orders: Discharge Order (Routine); Ordered 08/17/24 Ordered By: Neri Cancino DS: Diagnosis Discharge Diagnosis (1) Arthritis of right hip: Status: Acute
--- NOTE | 2024-08-17 09:31 | W.ANESPRE ---
General Info Date of Service Date Performed: 08/17/24 Height: 5 ft 3 in Weight: 92.079 kg Body Mass Index (BMI): 35.9 Surgical Procedure: Operation Date: 08/17/24 10:20 Proposed Procedure Side Surgeon p Hip Total Hip Anterior, ACTIS Right David Burns MD Meds Allergies and Home Medications Allergies Allergy/AdvReac Type Severity Reaction Status Date / Time Penicillins Allergy yeast Verified 08/17/24 08:34 infection all over. oxycodone (From Percocet) AdvReac Intermediate Jittery, Verified 08/17/24 08:34 heart races amoxicillin trihydrate (From AdvReac YEAST Verified 08/17/24 08:34 Augmentin) INFECTION ALL OVER codeine AdvReac JITTERY Verified 08/17/24 08:34 milk AdvReac BRONCHITIS Verified 08/17/24 08:34 potassium clavulanate (From AdvReac YEAST Verified 08/17/24 08:34 Augmentin) INFECTION ALL OVER tramadol AdvReac Abnormal Verified 08/17/24 08:34 pulse and nausea Home Medication ?Medication ?Instructions ?Recorded blood-glucose meter #90 ea 08/21/14 calcium carbonate 600 mg-vitamin 1 tab PO DAILY 02/28/19 D3 5 mcg (200 unit) tablet (Calcium 600 + D(3)) cholecalciferol (vitamin D3) 25 1,000 unit PO DAILY 02/28/19 mcg (1,000 unit) tablet pen needle, diabetic 31 gauge x ##100 12/11/20 5/16 (Pen Needle) albuterol sulfate 90 mcg/actuation 2 puff inhalation Q4H PRN PRN 03/16/21 aerosol inhaler (ProAir HFA) bronchospasm #25.5 grams esomeprazole magnesium 40 mg 40 mg PO BID@0730,2000 #180 caps 03/16/21 capsule,delayed release (Nexium) semaglutide 0.25 mg or 0.5 mg (2 0.25 mg (0.368 mL) subcut QWEEK #9 10/12/23 mg/3 mL) subcutaneous pen injector mL (Ozempic) losartan 100 mg tablet 100 mg PO DAILY #90 tabs 11/19/23 escitalopram oxalate 20 mg tablet 20 mg PO DAILY@1200 #90 tabs 12/28/23 (Lexapro) insulin lispro 100 unit/mL 18 unit (0.18 mL) subcut AC #60 mL 12/28/23 subcutaneous pen (Humalog KwikPen (U-100) Insulin) metoprolol succinate 100 mg 100 mg PO DAILY@1200 #90 tabs 12/28/23 tablet,extended release 24 hr hydrochlorothiazide 12.5 mg tablet 25 mg PO .noon 04/05/24 metformin 500 mg tablet 500 mg PO DAILY 04/05/24 pen needle, diabetic 32 gauge x #360 ea 04/19/24 (BD Ultra-Fine Amira Pen Needle) blood sugar diagnostic (Blood #400 ea 04/20/24 Glucose Test strips) fluticasone fur. 100 mcg-umeclid 1 inh inhalation DAILY #90 ea 06/14/24 62.5 mcg-vilant 25 mcg inhalat.powder (Trelegy Ellipta) insulin glargine 100 unit/mL (3 40 unit (0.4 mL) subcut HS #45 mL 06/14/24 mL) subcutaneous pen (Lantus Solostar U-100 Insulin) rosuvastatin 20 mg tablet 20 mg PO HS #90 tabs 06/14/24 amlodipine 10 mg tablet 10 mg PO QAM #90 tabs 07/23/24 acetaminophen 500 mg tablet 1,000 mg (2 x 500 mg) PO TID #90 08/17/24 tabs aspirin 81 mg tablet,delayed 81 mg PO BID #60 tabs 08/17/24 release celecoxib 200 mg capsule 200 mg PO BID #60 caps 08/17/24 dexamethasone 4 mg tablet 4 mg PO DAILY #2 tabs 08/17/24 hydromorphone 2 mg tablet 2 mg PO Q4H PRN pain #20 tabs 08/17/24 Current Visit Medications: Current Medications Generic Name Dose Route Start Last Admin Trade Name Freq PRN Reason Stop Dose Admin Acetaminophen 1,000 mg 08/17/24 06:00 08/17/24 08:43 Acetaminophen 500 Mg Tab PO 08/17/24 23:59 1,000 mg PREOP DAYSI Administration Acetaminophen 1,000 mg 08/17/24 09:19 Acetaminophen 500 Mg Tab PO 09/16/24 13:59 TID PRN Analgesia Celecoxib 400 mg 08/17/24 06:00 08/17/24 08:44 Celecoxib 200 Mg Cap PO 08/17/24 23:59 400 mg PREOP DAYSI Administration Docusate Sodium 100 mg 08/17/24 09:19 Docusate Sodium 100 Mg Cap PO 09/16/24 09:18 BID PRN PRN Constipation Droperidol 0.625 mg 08/17/24 08:31 Droperidol 5 Mg/2 Ml Vial IVP 09/16/24 08:30 DIRECTED PRN Nausea Ephedrine Sulfate 0 mg 08/17/24 08:31 Ephedrine 25 Mg/5 Ml Syringe IVP 09/16/24 08:30 DIRECTED PRN Fentanyl 0 mcg 08/17/24 08:31 Fentanyl 100 Mcg/2 Ml Vial IVP 09/16/24 08:30 DIRECTED PRN Gabapentin 300 mg 08/17/24 06:00 08/17/24 08:44 Gabapentin 300 Mg Cap PO 08/17/24 23:59 300 mg PREOP DAYSI Administration Hydromorphone HCl 0 mg 08/17/24 08:31 Hydromorphone 2 Mg/Ml Syr IVP 09/16/24 08:30 DIRECTED PRN Hydromorphone HCl 0 mg 08/17/24 09:19 Hydromorphone 2 Mg Tab PO 09/16/24 09:18 Q3H PRN PRN Pain Ringer's Solution 1,000 mls @ 80 mls/hr 08/17/24 06:00 08/17/24 08:35 IV 08/17/24 23:59 80 mls/hr INFUSION DAYSI Administration Cefazolin Sodium/Dextrose 2 gm in 50 mls @ 100 mls/hr 08/17/24 06:00 Ancef Duplex IVPB 08/17/24 23:59 PREOP DAYSI Tranexamic Acid/Sodium Chloride 1,000 mg in 100 mls @ 600 mls/hr 08/17/24 06:00 IVPB 08/17/24 23:59 PREOP DAYSI IV Miscellaneous Supplies 1 each 08/17/24 06:00 Iv Access IV 08/17/24 23:59 DIRECTED DAYSI Naloxone HCl 0 mg 08/17/24 08:31 Naloxone 0.4 Mg/Ml Vial IVP 09/16/24 08:30 PRN PRN Polyethylene Glycol 17 gm 08/17/24 09:19 Polyethylene Glycol 3350 17 Gm Packet PO 10/18/24 09:18 BID PRN PRN Constipation Sodium Chloride 0 ml 08/17/24 06:00 Normal Saline Flush 10 Ml Syr IV 08/17/24 23:59 PRN PRN Sodium Chloride 0 ml 08/17/24 06:00 Normal Saline 10 Ml Vial IJ 08/17/24 23:59 DIRECTED PRN Sterile Water 0 ml 08/17/24 06:00 Water,Injection,Sterile 10 Ml Vial IJ 08/17/24 23:59 DIRECTED PRN PFSH Active Problems Active Problems: Problem Status Onset Code Osteoarthritis of carpometacarpal (CMC) joint of right thumb Acute M18.11 Sleep apnea Acute G47.30 Right wrist injury Acute S69.91XA CKD stage G3b/A2, GFR 30-44 and albumin creatinine ratio 30-299 mg/g Acute N18.32 Peripheral neuropathy Acute G62.9 Bilateral hand pain Acute M79.641, M79.642 Impacted cerumen, right ear Acute H61.21 Impacted cerumen, bilateral Acute H61.23 Anterior epistaxis Acute R04.0 Arthritis of right hip Acute M16.11 Skin lesions Acute L98.9 Impacted cerumen, left ear Acute H61.22 COVID-19 Acute U07.1 Elevated LFTs Acute R79.89 Hematuria Acute R31.9 URI (upper respiratory infection) Acute J06.9 Renal insufficiency Chronic N28.9 Proteinuria due to type 2 diabetes mellitus Acute E11.29, R80.9 Parotid sialolithiasis Acute K11.5 COPD (chronic obstructive pulmonary disease) Chronic J44.9 Restless legs syndrome Acute G25.81 Sleep apnea, obstructive Chronic G47.33 Left knee DJD Acute M17.12 Internal derangement of right knee Acute M23.91 Right knee pain Acute M25.561 Tubular adenoma of colon Acute D12.6 Sanches's esophagus Acute ~04/2018 K22.70 Tubular adenoma Acute ~06/2015 D36.9 Fatigue Acute R53.83 Conductive hearing loss, external ear Acute H90.2 Status post Oumar fundoplication Acute Z98.890 Asymmetrical sensorineural hearing loss Chronic H90.5 Hearing loss Acute H91.90 History of total left hip replacement Chronic Z96.642 Type II diabetes mellitus with complication, uncontrolled Chronic 10/02/14 E11.8, E11.65 Tubular adenoma Chronic D36.9 Malignant melanoma of skin Chronic 11/30/06 C43.9 Dysphagia, unspecified Chronic R13.10 Chronic gastritis Chronic 07/17/15 K29.50 Anemia Chronic 04/24/15 D64.9 Adrenal cyst Chronic 11/16/14 E27.8 ASCVD (arteriosclerotic cardiovascular disease) Chronic 03/15/09 I25.10 H/O surgical procedure Chronic Z98.89 Hiatal hernia Chronic K44.9 Vitamin D deficiency Chronic E55.9 Osteoporosis Chronic M81.0 Hypertension Chronic I10 Hyperlipidemia Chronic E78.5 Cataract Chronic H26.9 Barretts esophagus Chronic K22.70 Anxiety Chronic F41.9 Medical History Medical History Hyperplastic colon polyp Strain of iliopsoas muscle Calculus of kidney (11/16/14) Cataract Jaw pain (03/19/16) Smoker Vertigo (10/29/04) History of shingles URI (upper respiratory infection) Smoker Vertigo 10/29/04 Jaw pain 03/19/16 Osteoarthritis of left hip Cholelithiasis Denies having. Hiatal hernia Vitamin D deficiency Hypertension Cataract Barretts esophagus GERD (gastroesophageal reflux disease) Hip pain Adrenal cyst Renal calculus Hyperlipidemia ASCVD (arteriosclerotic cardiovascular disease) Anxiety Anemia Osteoporosis Diabetes Lumbago Chest pain (09/22/14) Pt. states she does not have any issues with her heart Surgical History Surgical History De Quervain's tenosynovitis, right Injection: 06/29/2023 S/P Release: 04/05/2024 History of cholecystectomy History of tonsillectomy History of appendectomy History of bilateral ligation of fallopian tubes History of cataract removal with insertion of prosthetic lens History of reduction mammoplasty History of surgical procedure H/O cataract removal with insertion of prosthetic lens History of bilateral tubal ligation Status post Oumar fundoplication 11/30/94 S/P total hip arthroplasty 08/31/18 DR. BURNS (LEFT ANTERIOR) tarsel tunnel release B/L Ligation of fallopian tube Oumar Fundoplication (~1994) EGD - MAC (05/17/18) Extraction of cataract 05/15/15 DR. YEPEZ; LEFT EYE 05/26/16 DR. YEPEZ; RIGHT EYE Reduction mammoplasty Arthroplasty fifth right toe-07/24/16 Tobacco Smoking/Tobacco Use Status: Former Tobacco Use Passive smoking exposure: Yes Second hand exposure: Yes Alcohol Alcohol Intake: current Alcohol intake frequency: 0-2 drinks per day Alcohol type: wine Substance Use Substance use: Daily Substance use type: marijuana Details: edible, gummie 5mg. Last ate 08/16/24 Vital Signs and Lab Results Vital Signs Most Recent Vital Signs in EMR: Most Recent Vital Signs Temp Pulse Resp BP Pulse Ox 36 C L 79 16 171/63 H 96 08/17/24 08:18 08/17/24 08:18 08/17/24 08:18 08/17/24 08:18 08/17/24 08:18 Point of Care Results Point of Care Results: Finger Stick Blood Glucose 100 08/17/24 08:23 Lab Results Blood Type / Crossmatch: No Data to Display Complete Blood Count: White Blood Count 6.13 10^3/uL (4.4-10.8) 08/04/24 11:53 Red Blood Count 3.76 10^6/uL (3.93-5.22) L 08/04/24 11:53 Hemoglobin 12.2 g/dL (11.2-15.7) 08/04/24 11:53 Hematocrit 36.2 % (36.0-46.0) 08/04/24 11:53 Platelet Count 284 10^3/uL (130-400) 08/04/24 11:53 Complete Metabolic Panel: Sodium 139 mmol/L (136-145) 08/04/24 11:53 Potassium 4.3 mmol/L (3.5-5.1) 08/04/24 11:53 Chloride 101 mmol/L (98-107) 08/04/24 11:53 Carbon Dioxide 30.2 mmol/L (21.0-32.0) 08/04/24 11:53 BUN 26 mg/dL (7-18) H 08/04/24 11:53 Creatinine 1.1 mg/dL (0.55-1.02) H 08/04/24 11:53 Est GFR (CKD-EPI 2020) 51.11 (mL/min/1.73m2) 08/04/24 11:53 Calcium 9.0 mg/dL (8.5-10.1) 08/04/24 11:53 Glucose 144 mg/dL (74-106) H 08/04/24 11:53 Hemoglobin A1c 5.6 % (4.5-5.7) 07/28/24 11:04 Liver Function Panel: No Data to Display Coagulation Panel: No Data to Display Cardiac Panel: No Data to Display Arterial Blood Gas: No Data to Display Venous Blood Gas: No Data to Display Pancreas Panel: No Data to Display Thyroid Panel: No Data to Display Infectious Disease: No Data to Display Blood Cultures: No Data to Display Toxicology Panel: No Data to Display Anesthesia Assessment and Plan Anesthesia History Personal History: No History of Anesthesia Complications Family History: No Family History of Anesthesia Complications Exercise Tolerance Exercise Tolerance: Metabolic Equivalents>4 Pertinent Negatives Pertinent Negatives: No Symptoms of GERD (RX: Nexium) Cardiac & Pulmonary Exam Cardiac Exam: Normal S1/S2 Heart Sounds Pulmonary Exam: Clear Bilateral Breath Sounds Implantable Cardiac Device Does patient have a Pacemaker or an ICD?: No Airway Exam Known Difficult Airway: No Mallampati Class: 3 Mouth Opening: Normal (> 3cm) Thyromental Distance: Greater than 3 cm Neck Range of Motion: Full ROM Neck Circumference: Thick Teeth Condition: Normal Dentition ASA Classification ASA Score: ASA 3 Emergency Case?: No NPO Status NPO Status: NPO Clears >2 hours, Solids >8 hours Anesthesia Plan Resuscitation Status: Full Code Anesthesia Technique: Spinal Anesthesia Airway Planned: Natural Airway Monitors Used: Standard Monitors
--- NOTE | 2024-08-17 10:17 | W.PM.OP ---
Date of service: 08/17/24 Time of Service: 10:17 Operative Note Operative Note DATE OF PROCEDURE: 08/17/24 PRE-OP DIAGNOSIS: Right Hip Osteoarthritis POST-OP DIAGNOSIS: same PROCEDURE: Right Anterior Total Hip Arthroplasty with Intraoperative Navigation SURGEON: David Burns NUTRITION FACULTY MEMBER: Neri Cancino ANESTHESIA TYPE: Spinal Refer to Anesthesia Record ESTIMATED BLOOD LOSS: 150 PATHOLOGY: none sent TOURNIQUET TIME: 0 COMPLICATIONS: None Patient was transported to: PACU Patient's condition: stable Implants: 1. Depuy [place] Acetabular Component, 52mm 2. Depuy Acetabular Liner, [id number] 3. Depuy Actis Standard Collared Femoral Stem, Size 5 4. Depuy Altrx Ceramic Femoral Head, Size 36+8.5mm Indications: I have seen Mitzi in clinic for symptoms of hip arthritis, confirmed with radiographic findings. Mitzi has exhausted nonoperative methods and was having significant limitations in daily function and desired better function and less pain. She had a previously successful left hip replacement. I discussed the technical details of a hip replacement. I explained the risks of the procedure to include, but not limited to, bleeding, infection, pain, stiffness, fracture, damage to nerves and vessels, damage to muscles and tendons, loosening, instability, leg length inequality, need for repeat procedure, blood clot and cardiopulmonary demise. Despite these risks, [NAME] elected to proceed. Findings: There was focal chondromalacia over the central and superior sections of the femoral head along with some chondromalacia of the superior acetabulum. Procedure Description: Mitzi was greeted in the preoperative holding area where the correct side was identified and marked. The consent was reviewed with the patient and signed. The history and physical was updated. All questions were answered. She was taken back to the operating room. A spinal anesthestic was then administered. The feet were wrapped with cast padding and Coban and then placed into the boot liners and then into the boots. Care was taken to protect the skin and make sure the heels were fully down and the boots were stable. The patient was then positioned onto the HANA table. Both legs were held in a neutral position. SCDs were applied. The patient was then slid down onto a peroneal post. Prophylactic antibiotics in the form of Cefazolin were administered. 1g of Tranxemic Acid was given intravenously within 30 minutes of incision. The right leg was then prepped with Chloraprep and draped in a standard fashion. A second prep with Chloraprep was performed prior to placement of a shower-curtain type drape with Iodine impregnated skin protection. A timeout to confirm correct identity, side and site, procedure, allergies, anesthesia, and medical concerns was performed. An obliquely oriented incision was made starting lateral to the ASIS and running distal over the Tensor Fascia Jaimee (TFL) muscle belly toward the fibular head, approximately 10cm. The skin and soft tissue was dissected sharply, through Luis?s fascia, and to the fascia of the TFL. With the fascia and superior border of the IT band identified, the fascia was incised with a new knife just above any perforators from the IT band. The TFL muscle belly was bluntly dissected away from the fascia and moved laterally. The fat between TFL and rectus was identified to ensure the dissection was not within the TFL. Blunt dissection created space between abductors and the capsule and retractor was placed over the lateral femoral neck. The fibers of the rectus femoris tendon were identified and these were freed from the anterior capsule. A second cobra retractor was placed around the medial femoral neck. The TFL was further retracted laterally to show the deep fascia. Careful dissection through this layer identified three main crossing vessels of the lateral femoral circumflex. These were cauterized in multiple locations and then cut without any noticeable bleeding. The TFL was further released bluntly from the deep fascia to expose anterior hip capsule and fat The soft tissue orthopaedic retractor was then placed beneath the TFL and against sartorius and medial soft tissues to protect and retract the soft tissues. A T-capsulotomy was then performed starting at the superior lateral acetabulum and moving distally to the intertrochanteric ridge. These capsular flaps were tagged with a No. 1 Ethibond and elevated from within. The capsular flaps were released to the shoulder of the lateral neck and to the lesser trochanter to give excellent visualization of the proximal femur. A neck osteotomy was performed using an oscillating saw based on preoperative templates. This cut started in the shoulder and of the lateral neck and exited medially. The saw was at all times directed medially to avoid injury to the greater trochanter. Gross traction was applied to the leg and the osteotomy opened. The femoral head was removed with a corkscrew, making sure to protect the TFL on its exit. Traction was released after head removal. This was measured on the back table to determine the starting reamer size. Portions of the rectus obscuring visualization were minimally elevated off the superior acetabulum. An anterior retractor was placed over the anterior wall between capsule and labrum and attached to the Gripper retraction system. The femur was rotated to 90 degrees and medial capsule was fully released until the lesser trochanter was palpable and visible; the femur was returned to 30 degrees. A posterior retractor was placed similarly between capsule and labrum. This provided excellent visualization. The contents of the cotyloid fossa were removed with electrocautery and the labrum was removed with a knife. There was a notable floor osteophyte. There was some notable chondromalacia of the superior acetabulum. Acetabular reaming began with a 46mm reamer. This first reaming was directed anterior to posterior and medial to get down to the true floor. This was inspected and reamed until the true floor was reached. The anterior retractor was then released and entry and exit was provided by traction on the capsular flaps. I then reamed sequentially up to a 52mm reamer where good fit was obtained. The larger reamers were oriented based on anatomical reference of the anterior and lateral vasquez to ensure proper abduction and anteversion. Positioning and size was confirmed with the fluoroscopy. A 52mm Depuy [place] acetabular component was selected. The acetabulum was reamed around the periphery with the selected acetabular size to prevent a rim fit. The deep tissues were irrigated. The acetabular component was then impacted in a position of about 40-45 degrees of abduction and 15-20 degrees of anteversion, using the patient?s anatomy as the ultimate landmark. Fluoroscopy was used to confirm this. There was excellent machine plaster mixer of the acetabular component and the inserting handle was removed. The acetabular liner, Depuy [id number] polyethylene liner, was inserted and lined up with the tines of the acetabular component. There was no soft tissue interposition. The liner was then impacted into position and confirmed to be well-seated. A portion of the cuauhtemoc-articular cocktail was then injected around the acetabulum into the capsule and periosteum. This cocktail consisted of 123mg of Ropivacaine, 0.25mg of Epinephrine, 0.04mg of Clonidine, and 15mg of Ketorolac, diluted to 50cc. The leg was rotated to 120 degrees. Any remaining medial capsule was released until the lesser trochanter was easily palpable. A retractor was placed medially. The lateral capsule was further released into the shoulder to allow access to the greater trochanter. A Street retractor was placed over the greater trochanter which allowed the trochanter to flip in front of the capsule for excellent exposure. The leg was brought down into maximal extension and 20 degrees of adduction while ensuring there was no impingement on the acetabulum. Any remnant capsule within the trochanter was released. Piriformis and obturator externis were identified and protected. There was excellent access to the proximal femur. The lateral neck remnant was removed with a rongeur. A blunt canal probe was used to identify the canal and trajectory for later broaching. A box osteotome initiated the broach course. A small curved rasp and a curved curette were used to work laterally. Broaching then began with a starter Actis broach. This was inserted manually around the trochanter and into the canal before mallet blows. The broach was seated to a few millimeters below the cut level based on the neck cut and the preoperative template. Sequential broaching was continued with the [employer] pneumatic broaching device until a tight fit was obtained with good rotational control of the femur. A trial standard neck was inserted along with a +5 trial head. The leg was brought out of extension and adduction and then reduced with traction and internal rotation. The leg was stable anteriorly in a position of 30 degrees of extension and 90 degrees of external rotation. Fluoroscopy was used to ensure there was no fracture and the stem was seated well. Leg lengths were checked with an AP pelvis and pelvic reference points. [employer] navigation system was used to confirm appropriate positioning and leg length and offset. There was slight under correction with leg length and offset, improved with +8.5mm head. Once content with the desired offset and leg lengths, the leg was brought back into extension, external rotation and adduction. The periosteum and surrounding tissue was injected with remaining portion of the cuauhtemoc-articular cocktail. The proximal femur was irrigated as well as the deep tissues. The [employer] Actis standard collared stem, size 5, was then manually inserted into the proximal femur making sure to control rotation. It was then malleted into position with light blows, giving breaks to allow bone expansion and decrease risk of fracture. The selected Depuy Altrx Ceramic Head, size 36+8.5mm, was then placed onto the clean and dry trunnion and secured with impaction onto the tapered fit. The leg was brought back out of extension and adduction and reduced with traction and internal rotation. Stability was confirmed with no shuck at 90 degrees of external rotation and 30 degrees of extension. No impingement through range of motion arc. Final x-ray images were obtained with fluoroscopy to confirm adequate positioning and no intraoperative fracture. The deep tissues were thoroughly irrigated with Surgiphor, betadine solution. This was allowed to sit in the wound for 3 minutes before being thoroughly irrigated out with normal saline. The capsule was then reapproximated with the previously placed Ethibond sutures. The TFL fascia was finally closed with a No. 2 Stratafix, barbed suture. Deep tissues were then reapproximated with 0 Vicryl and a running 2-0 Vicryl. The skin was closed with a running 4-0 Monocryl in a subcuticular fashion. This was reinforced with skin glue. A Mepilex silver dressing was applied. At the end of the case, all counts were correct. Mitzi was transferred to the hospital bed without difficulty and suffering no apparent complication. Mitzi has a good prognosis. Physical therapy will start today and without restrictions, weight-bearing as tolerated. Aspirin 81mg BID will be used for DVT prophylaxis.
[2024-08-17] MEDS: ceFAZolin 2 GM/50 ML BAG IVPB (10:25)
[2024-08-17] MEDS: TRANEXAMIC ACID/SOD. CHL. 1,000 MG/100 ML BAG 600 MG IVPB (10:30)
[2024-08-17] MEDS: fentaNYL 100 MCG/2 ML VIAL IVP ×2 (11:47→11:59)
--- NOTE | 2024-08-17 12:35 | DI.RAD_ITS ---
Exam(s) XR HIP RT IN OR EXAM: XR HIP RT IN OR CLINICAL HISTORY: Arthritis of right hip. TECHNIQUE: 2D and realtime digital imaging was performed. COMPARISON: No exams were available for comparison FINDINGS: Please see procedure note for details. Fluoro time: 25.7seconds RADIATION DOSE DELIVERED: ariel Murcia=6.25 mGy
[2024-08-17] MEDS: HYDROcodone 5/Acetaminophen 325 TAB PO (13:44)
--- NOTE | 2024-08-17 13:58 | IN_ITS ---
PT Notes Visit Reasons: R THR Physical Therapy Day Surgery Initial Evaluation Date: 08/17/2024 Referring Doctor: RJ Brock PT Orders: PT CONSULT: S/P Ortho Surgery Precautions: WBAT on the right LE with AD. Patient Profile/Admitting Diagnosis: This is a 79-year-old female with degenerative joint disease of the right hip and is status post anterior total hip arthroplasty on postoperative day 0. PMHX: Medical History (Updated 07/04/24 @ 10:09 by RJ Brock) Hyperplastic colon polyp Strain of iliopsoas muscle Calculus of kidney (11/16/14) Cataract Jaw pain (03/19/16) Smoker Vertigo (10/29/04) History of shingles URI (upper respiratory infection) Smoker Vertigo 10/29/04 Jaw pain 03/19/16 Osteoarthritis of left hip Cholelithiasis Denies having.Hiatal hernia Vitamin D deficiency Hypertension Cataract Barretts esophagus GERD (gastroesophageal reflux disease) Hip pain Adrenal cyst Renal calculus Hyperlipidemia ASCVD (arteriosclerotic cardiovascular disease) Anxiety Anemia Osteoporosis Diabetes Lumbago Chest pain (09/22/14) Pt. states she does not have any issues with her heart Surgical History (Updated 06/06/24 @ 10:29 by RJ Brock) De Quervain's tenosynovitis, right Injection: 06/29/2023 S/P Release: 04/05/2024 History of cholecystectomy History of tonsillectomy History of appendectomy History of bilateral ligation of fallopian tubes History of cataract removal with insertion of prosthetic lens History of reduction mammoplasty History of surgical procedure H/O cataract removal with insertion of prosthetic lens History of bilateral tubal ligation Status post Oumar fundoplication 11/30/94 S/P total hip arthroplasty 08/31/18 DR. GALLO (LEFT ANTERIOR) Tarsel tunnel release B/L Ligation of fallopian tube Oumar Fundoplication (~1994) EGD - MAC (05/17/18) Extraction of cataract 05/15/15 DR. YEPEZ; LEFT EYE 05/26/16 DR. YEPEZ; RIGHT EYE Reduction mammoplasty Arthroplasty fifth right toe-07/24/16 Social History/Home Situation: Lives with in a private home with 3 steps to enter side. Bedroom is on the second with a flight of steps has been emphasized that patient has option to stay on the main floor of the house as needed. Equipment Owned/DME: [facility] Subjective: Pain in the right hip at 2-3/10. Denied headache, chest pain, and lightheadedness throughout session. Per nurse Sarah patient received pain medication 15 minutes before PT visit.. Objective: General Observation: Cold pack to t hip. Mepilex Ag over surgical incision. TEDS to B Legs. Mental Status: A and O x 4 Pain: 2-3/10 on the r hip at rest and with movement. ROM: Right Lower Extremity: Hip flexion WFL. Hip abduction WFL. Knee flexion WFL. Ankle dorsiflexion WFL. Ankle plantarflexion WFL. Left Lower Extremity: Hip flexion WFL. Hip abduction WFL. Knee flexion WFL. Ankle dorsiflexion WFL. Ankle plantarflexion WFL. Strength: Right Lower Extremity: Hip flexors 4-/5. Hip abductors 4-/5. Knee flexors 4/5. Knee extensors 4-/5. Ankle dorsiflexors 5/5. Ankle plantarflexors 5/5. Left Lower Extremity:Hip flexors 5/5. Hip abductors 5/5. Knee flexors 5/5. Knee extensors 5/5. Ankle dorsiflexors 5/5. Ankle plantarflexors 5/5. Sensation: Intact as to pain and light pressure in bilateral lower extremities Bed Mobility/Transfers: Minimal cueing provided for use of B hands as needed for support, movement sequence, AD management, and posture to reduce fall risk and minimize pain report Sit to stand stand by assist using FWW Stand to sit stand by assist using FWW Gait: Facilitate safe and correct performance of level surface ambulation covering a distance of 150 feet using front wheeled walker with reciprocal swing through heel-toe gait pattern requiring only standby assist and minimal verbal cueing for gait sequence, AD management, posture and weight distribution. Stairs: Safe negotiation of all 3 x 4 inch steps and 2 x 6 inch steps while holding onto bilateral rails with step to pattern requiring minimal verbal cueing for safe and correct technique, hand placement, and movement sequence. Balance: Static Sitting: Normal Dynamic Sitting: Normal Static Standing: Fair Dynamic Standing: Fair Special Tests: Mobility Limitations Standardized Measure [facility] [place] 6 clicks Basic Mobility Inpatient Short Form: Raw Score: 23 CMS Score: 11% deficit Informed Consent/Education: Patient instructed in purpose of PT consult. Packet containing NAS trained patient with correct performance of exercises below to maximize motor control, joint flexibility, soft tissue extensibility of the [] hip musculature to facilitate return to independent functional mobility performance. Access Code: [email or web address] URL: [email or web address] Date: 08/18/2024 Prepared by: Mirta Pérez Exercises - Gluteal Sets - 1 x daily - 7 x weekly - 1 sets - 10 reps - 5 hold - Supine Heel Slide - 1 x daily - 7 x weekly - 1 sets - 10 reps - 5 hold - Supine Ankle Pumps - 1 x daily - 7 x weekly - 1 sets - 10 reps - 5 hold - Seated March - 1 x daily - 7 x weekly - 1 sets - 10 reps - 5 hold - Seated Long Arc Quad - 1 x daily - 7 x weekly - 1 sets - 10 reps - 5 hold exercise protocol has been given to patient. Education and training on initial set of exercises that can be done at home have been completed with patient. Assessment: Patient requires the use of front-wheeled walker for all mobility ADL performance to maximize independence and reduce fall risk. Minimal pain in the right hip did not limit mobility performance nor did it cause LOB. Patient presents with clinical signs and symptoms consistent with current/admitting diagnoses that have resulted to mobility limitations, gait instability, generalized weakness, and impairment of motor control as demonstrated by the following impairment level findings: 1. Decreased strength to right hip major muscle groups 2. Impaired standing balance Impairments are contributing to the following functional limitations: 1. Inability to safely ambulate without assistive device 2. Increase completion time for mobility ADL performance 3. Increased fall risk Patient is assessed as a 44384 moderate complexity based on the following: History: 79-year-old female with impairment level findings, functional limitations, and past medical history as indicated above Examination: Demonstrable impairment in strength, balance, and mobility level with underlying impairments and functional limitations as documented above Presentation: Evolving Decision Makin moderate complexity Goals: N/A. PT evaluation and 1-2 treatment sessions only for functional mobility training using recommended AD and for HEP instruction. Plan of Care/Treatment Plan: N/A. PT evaluation and 1-2 treatment session only for functional mobility training using recommended AD and for HEP instruction. DISCHARGE RECOMMENDATIONS: Home when medically cleared by orthopedic surgeon. Recommend outpatient PT services in order to optimize functional mobility outcomes and facilitate return to independent community ambulation without an assistive device. TREATMENT CODE/TIME: 23662 x 27 minutes for 1 unit (13:58-14:25). Thank you for the opportunity to participate in the care of this patient. Please sign an return this page within 30 days if you agree with the above POC. Thank you! Physician Signature Date [facility] Mirta Pérez PT, DPT, CLT [facility] [place], [place]
--- NOTE | 2024-08-17 14:57 | W.ANESPOSTOP ---
Postoperative Evaluation Date, Time and Location Date Performed: 08/17/24 Time Performed: 14:57 Patient Location: Day Surgery Unit Vital Signs Most Recent Imported Vital Signs: Most Recent Vital Signs Temp Pulse Resp BP Pulse Ox 36 C L 78 12 111/53 L 92 08/17/24 13:25 08/17/24 13:25 08/17/24 13:25 08/17/24 13:25 08/17/24 13:25 Pain Score Most Recent Pain Score: Most Recent Pain Score Pain Level 6 08/17/24 13:25 Assessment Mental Status: Awake (Alert & Oriented to Patient Baseline) Airway and Respiratory Function: Patent airway with normal (patient baseline) respiratory exam Cardiovascular Function: Hemodynamically Stable Hydration Status: Adequately Hydrated Nausea & Vomiting: No Nausea or Vomiting Pain: Pain is tolerable per patient (4/10) Peripheral Nerve Block: Patient did not receive a nerve block
== END 2024-08-17 14:55 | disposition home or self-care (01) ==
PROVIDERS: PCP Family Medicine; Visit Provider Student in an Organized Health Care Education/Training Program
PROC: (CPT 27130; principal; 2024-08-17 10:00)
DX: M16.11 Unilateral primary osteoarthritis, right hip (principal); E11.22 Type 2 diabetes mellitus with diabetic chronic kidney disease; E11.42 Type 2 diabetes mellitus with diabetic polyneuropathy; N18.32 Chronic kidney disease, stage 3b; J44.9 Chronic obstructive pulmonary disease, unspecified; I12.9 Hypertensive chronic kidney disease with stage 1 through stage 4 chronic kidney disease, or unspecified chronic kidney disease
CPT/HCPCS: 20985; 27130; 97162; 73501; C1776; J0690; J1100; J2250; J2371; J2401; J2405; J2704; J3010

== ENCOUNTER 2024-09-01 10:16 | Outpatient (CLI) | payer MEDICARE, SELFPAY ==
--- NOTE | 2024-09-01 09:45 | DI.RAD_ITS ---
Exam(s) XR HIP RT COMPLETE AP PELVIS EXAM: XR HIP RT COMPLETE AP PELVIS CLINICAL HISTORY: 1ST POST OP S/P R NAS. TECHNIQUE: 2D digital imaging was performed. Three images were obtained. AP pelvis and AP and later al right hip views were obtained. COMPARISON: CR XR PELVIS AP from 08/04/2024 XA XR HIP RT IN OR from 08/17/2024 FINDINGS: BONES: There are stable post operative changes of a right total hip replacement present. No fracture or dislocation. JOINTS: The orthopedic hardware is in good position. No evidence of hardware loosening. The patient had a prior left total hip replacement. SOFT TISSUE: Normal. IMPRESSION: Stable right total hip replacement. DATA REPOSITORY: RADIATION DOSE DELIVERED:
== END 2024-09-01 10:17 | disposition home or self-care (01) ==
LOC: DIORS 10:16
PROVIDERS: PCP Family Medicine; Visit Provider Student in an Organized Health Care Education/Training Program
DX: Z96.641 Presence of right artificial hip joint (principal); Z47.1 Aftercare following joint replacement surgery
CPT/HCPCS: 99024; 73502

== ENCOUNTER 2024-09-22 01:33 | Outpatient (CLI) | payer MEDICARE, SELFPAY ==
--- NOTE | 2024-09-22 07:45 | DI.DEXA_ITS ---
Exam(s) XR DEXA BONE DENSITY W/WO HE EXAM: XR DEXA BONE DENSITY W/WO HE CLINICAL HISTORY: menopausal disorder, n95.9 screening in postmenopausal woman TECHNIQUE: COMPARISON: DX DEXA BONE DENSITY WITH HE from 10/30/2009 CR LUMBAR SPINE COMPLETE from 06/30/2013 FINDINGS: Lateral Spine Image: Unremarkable. No compression deformities identified. Left forearm: Total T-Score: -2.2. This compares to -1.2 on the prior examination. Total Z-Score: 0.7 T- and Z-scores: Findings are consistent with osteopenia. There is osteoporosis in the mid left fore arm with a T-score of -2.7. Lumbar Spine: Total T-Score: -1.8. This compares to -2.3 on the prior examination. Total Z-Score: 0.9 T- and Z-scores: Findings are consistent with osteopenia. There is no evidence of osteoporosis. IMPRESSION: Osteoporosis is seen in the mid left forearm.
== END 2024-09-22 01:53 ==
LOC: DI 01:33
PROVIDERS: PCP Family Medicine; Visit Provider Family Medicine
DX: N95.9 Unspecified menopausal and perimenopausal disorder (principal); Z13.820 Encounter for screening for osteoporosis; M81.0 Age-related osteoporosis without current pathological fracture
CPT/HCPCS: 77080

== ENCOUNTER → 2024-09-29 10:02 | Outpatient (BNVA) | payer MEDICARE, SELFPAY | PROVIDERS: PCP Family Medicine; Referring Provider Family Medicine; Visit Provider Student in an Organized Health Care Education/Training Program | DX: Z47.1 Aftercare following joint replacement surgery (principal); M70.61 Trochanteric bursitis, right hip; M76.31 Iliotibial band syndrome, right leg; Z96.641 Presence of right artificial hip joint | CPT/HCPCS: 20610; J1010 ==

== ENCOUNTER 2024-10-31 16:00 | Outpatient (CLI) | payer MEDICARE, SELFPAY ==
--- NOTE | 2024-10-31 11:00 | DI.RAD_ITS ---
Exam(s) XR KNEE RT 3V AP,LAT,DRE EXAM: XR KNEE RT 3V AP,LAT,DRE CLINICAL HISTORY: right knee pain. TECHNIQUE: 2D digital imaging was performed. Three views. COMPARISON: CR XR KNEE RT 4V AP,LAT,DRE,PAT from 06/21/2021 FINDINGS: BONES: No acute fracture is present. No bony destructive lesion is seen. JOINTS: The knee is normally aligned. No joint effusion is seen. Mild narrowing at the lateral femo ral tibial joint. Minimal periarticular spurring. SOFT TISSUE: Normal. IMPRESSION: Mild degenerative changes. DATA REPOSITORY: RADIATION DOSE DELIVERED:
== END 2024-10-31 16:01 | disposition home or self-care (01) ==
LOC: DIORS 16:01
PROVIDERS: PCP Family Medicine; Visit Provider Physician Assistant
DX: M17.11 Unilateral primary osteoarthritis, right knee; M76.31 Iliotibial band syndrome, right leg; M70.61 Trochanteric bursitis, right hip; Z96.641 Presence of right artificial hip joint
CPT/HCPCS: 20610; 73562; 99213; J1010

== ENCOUNTER 2024-12-12 11:25 | Outpatient (CLI) | payer MEDICARE, SELFPAY ==
--- NOTE | 2024-12-12 10:30 | DI.RAD_ITS ---
Exam(s) XR HIP RT COMPLETE AP PELVIS EXAM: XR HIP RT COMPLETE AP PELVIS INDICATION: right hip pain. COMPARISON: No exams were available for comparison TECHNIQUE: 2D digital imaging was performed. Two views. FINDINGS: Stable alignment of bilateral hip prostheses. No abnormal bony lucencies. IMPRESSION: Stable postsurgical appearance. DATA REPOSITORY: RADIATION DOSE DELIVERED:
== END 2024-12-12 11:26 | disposition home or self-care (01) ==
LOC: DIORS 15:16
PROVIDERS: PCP Family Medicine; Referring Provider Family Medicine; Visit Provider Physician Assistant
DX: M17.11 Unilateral primary osteoarthritis, right knee (principal); M76.31 Iliotibial band syndrome, right leg; M70.61 Trochanteric bursitis, right hip; R22.41 Localized swelling, mass and lump, right lower limb; Z96.641 Presence of right artificial hip joint
CPT/HCPCS: 99214; 73502

== ENCOUNTER 2024-12-21 00:35 | Outpatient (CLI) | payer MEDICARE, SELFPAY ==
--- NOTE | 2024-12-21 08:20 | DI.MRI_ITS ---
Exam(s) MR LOWER JOINT RT WO EXAM: MR LOWER JOINT RT WO CLINICAL HISTORY: PAIN,DJD RT KNEE, OA, M17.11 TECHNIQUE: Multiplanar multisequence MRI of the knee was performed. COMPARISON: CR XR KNEE RT 3V AP,LAT,DRE from 10/31/2024 FINDINGS: EFFUSION: There is a minimal amount of increased fluid in the joint. There is no large joint effusio n. However, posteriorly there is a E slightly lobulated fluid collection intimately associated with the musculotendinous junction of the popliteus muscle, this measuring 2.5 cm craniocaudal by 1.6 cm A P by 1.5 cm wide. It is also intimately associated with the proximal tibial fibular joint. There do es not appear to be obvious degenerative change in this articulation. There is also moderate subcutaneous edema anteriorly on both sides of the knee. MARROW:There is no evidence of fracture, bone contusion, nor osteochondral defects.. There are no si gnificant osseous lesions. PATELLOFEMORAL COMPARTMENT: The quadriceps tendon is intact. The patellar ligament is intact. There is cartilage thinning of the retropatellar cartilage, more prominent over the medial facet. Th ere are also surface irregularities of the remaining cartilage over both medial and lateral facets at this level. There is no prominent intraosseous signal in the subjacent patella. There is no intrao sseous signal to suggest recent patellar dislocation. There are no patellar retinacular tears. CRUCIATE LIGAMENTS: The anterior cruciate ligament is intact.The posterior cruciate ligament is intac t. MEDIAL COMPARTMENT/MEDIAL MENISCUS: There are no tears of the medial meniscus evident.. There is mild cartilage thinning the medial femoral condyle. No large chondral defects nor osteochon dral defects. No subarticular edema in the medial femoral condyle. There are no marginal osteophyte s medial compartment. MEDIAL COLLATERAL LIGAMENT: Intact LATERAL COMPARTMENT/LATERAL MENISCUS: There is no evidence of lateral meniscal tear. Mild uniform ca rtilage thinning over the lateral condyle. There are no distinct chondral defects, osteochondral def ects, subarticular marrow edema, nor osteophytes evident. ILIOTIBIAL BAND: Intact LATERAL COLLATERAL LIGAMENT COMPLEX: The fibular collateral ligament is intact. The biceps femoris t endon is intact.The popliteus tendon component is intact but there is the above described lobular flu id collection having the appearance of an intra-articular ganglion cyst with in the popliteus muscle adjacent to the inner aspect of the tibial fibular joint. IMPRESSION: 1. No evidence of meniscal tears, cruciate ligament tears, nor medial collateral ligament tear. 2. Advanced malacia/cartilage thinning of the retropatellar cartilage, most prominent over the medial facet. No abnormal subarticular signal within the posterior patella. 3. Only minimal osteoarthritic degenerative changes in the medial lateral compartments. 4. In the posterior-lateral aspect of the knee there is a lobulated well-defined 2.5 cm by 1.6 cm x 1 .5 cm fluid collection with in the musculotendinous junction of the popliteus muscle. There is no te ar of the popliteus tendon. This finding is either secondary to prior tear in this muscle or may pos sibly represent a para-articular ganglia on from the adjacent tibiofibular articulation extending int o the popliteus. DATA REPOSITORY:
== END 2024-12-21 00:55 ==
LOC: DI 00:36
PROVIDERS: PCP Family Medicine; Visit Provider Student in an Organized Health Care Education/Training Program
DX: M17.11 Unilateral primary osteoarthritis, right knee (principal)
CPT/HCPCS: 73721

== ENCOUNTER → 2024-12-29 11:00 | Outpatient (BNVA) | payer MEDICARE, SELFPAY | PROVIDERS: PCP Family Medicine; Referring Provider Family Medicine; Visit Provider Student in an Organized Health Care Education/Training Program | DX: M17.11 Unilateral primary osteoarthritis, right knee (principal); M76.31 Iliotibial band syndrome, right leg; M70.61 Trochanteric bursitis, right hip; T84.84XA Pain due to internal orthopedic prosthetic devices, implants and grafts, initial encounter; Z96.641 Presence of right artificial hip joint | CPT/HCPCS: 20611; J1010 ==

== ENCOUNTER 2024-12-29 17:26 | Outpatient (REF) | payer MEDICARE, SELFPAY ==
[2024-12-29 14:25] LABS: Clarity Cloudy; Mononuclear Cells 27 %; Polynuclear Cells 73 %
--- OUTSIDE RECORDS SUMMARY | 2024-12-29 17:30 | XMS_ITS | Encounter Summary ---
Author Organization [facility] Address [address] [place] [address] Care Team Providers Care Meat Department Manager Name Role Phone Unavailable Primary Care Provider Unavailabl e Encounter Details Date Type Department Care Team (Late st Contact Info) Description 06/29/2000 Results Only [facility] [address] [place] [address] Aamir Grajeda MD [address] [place] [address] Social History Tobacco Use Types Packs/Day Years Used Date Smoking Tobacco: Never Assessed Comments Unknown Sex and Gender Information Value Date Recorded Sex Assigned at Not on file Legal Sex Female 17:38 EST Gender Identity Not on file Sexual Orientation Not on file documented as of this encounter Plan of Treatment Not on file documented as of this encounter Procedures Procedure Name Priority Date/Time Associated Diagnosis Comments SURGICAL PATHOLOGY Routine 06/29/2000 0:00 EDT documented in this encounter Results * SURGICAL PATHOLOGY (06/29/2000 0:00 EDT) Pathology Report: SURGICAL PATHOLOGY REPORT Reports generated via electronic interface contain original data; however they are lacking the format of the original report. Caution should be taken when reading/interpreti ng unformatted reports. Name: ? SIMI العلي ? Accession #: ? [id number] ? : ? 1945 (Age: 54) ??F ? Collect Date: ? 06/29/2000 ? Location: ? [facility] ? Receive Date: ? 07/01/2000 ? Provider: ALISTAIR GRAJEDA MD Copy to: WILLOW FREEDMAN MD ? Final Pathologic Diagnosis: A. ?Skin of face, right, excision: 1. ?Follicular cyst, infundibular type. B. ?Skin of earlobe, left, excision: 1. ?Follicular cyst, infundibular type. Document reviewed and electronically signed by: JOSIAS LAUGHLIN MD Report ??Date: 07/02/2000 20:22 By the signature above, the attending physician certifies that he/she has personally conducted a gross and/or microscopic examination of the described specimens and rendered or confirmed the above diagnosis. Specimen(s) Received: A. ?Lump right face (#1) B. ?Lump left earlobe (#2) Clinical History: ? 1 ??sourav cyst; 2 ??sourav cyst; enlarging lumps R face, L earlobe Gross Description: ? Received in formalin labelled Begin and #1 lump R face is a simmons-white cystic structure measuring 1.0 x 0.8 x 0.6 cm with an attached overlying ellipse of simmons-waite skin and subcutis measuring 1.5 x 0.4 x 0.4 cm. ??Sections through the specimen reveal a thin walled cyst filled with pasty white material. ??A single medical billing representative section is submitted as (A). Received in formalin labelled Begin and #2 lump left earlobe is a partially collapsed cystic structure measuring 1.0 x 0.7 x 0.5 cm. ??At one edge is a 0.4 cm in diameter defect. ??The cyst contents are exuding from the defect. ??The cyst is filled with a pasty yellow-white material. ??The bisected specimen is submitted entirely as (B). ??(SEUN Dennis-CHAVA)/jo End of Report [facility] 06/29/2000 07/01/2000 7:5 7 EDT us Aamir Grajeda MD PATHOLOGY ORDERABLES Final Res ult [facility] [address] [place] [address] documented in this encounter Visit Diagnoses Not on filedocumented in this encounter
--- OUTSIDE RECORDS SUMMARY | 2024-12-29 17:30 | XMS_ITS | Encounter Summary ---
Author Organization [facility] Address [address] [facility] [place] [address] Care Team Providers Care Box Worker Name Role Phone Janessa Chand MD Primary Care Provider [phone] Reason for Referral * Diagnostic Test (Routine) - Closed Specialty Diagnoses / Procedures Referred By Contac t Referred To Contact Radiology Diagnoses History of Sanches's esophagus Chronic cough Choking, initial encounter Chest pain, unspecified type Throat tightness History of pneumonia Procedures XR Fluoro Barium Swallow (Single Contrast) Kenny Regan APRN [facility] [place] [place] [address] [facility] ? Xray [address] [place] [address] [place] [address] Referral ID Status Reason Start Date Expiration Date V isits Requested Visits Authorized [id number] Closed Specialty Service Requested 01/31/2021 08/03/2022 1 1 Reason for Visit * Diagnostic Test (Routine) - Closed Specialty Diagnoses / Procedures Referred By Contac t Referred To Contact Radiology Diagnoses History of Sanches's esophagus Chronic cough Choking, initial encounter Chest pain, unspecified type Throat tightness History of pneumonia Procedures XR Fluoro Barium Swallow (Single Contrast) Kenny Regan APRN [facility] [place] [place] [address] [facility] [address] [place] [address] [place] [address] Referral ID Status Reason Start Date Expiration Date V isits Requested Visits Authorized [id number] Closed Specialty Service Requested 01/31/2021 08/03/2022 1 1 Encounter Details Date Type Department Care Team (Latest Contact Info) Description 05/13/2021 8:52 AM EDT - 05/13/2021 11:59 PM EDT Hospital Encounter XRay at [address] [place] [id number] Kenny Regan, T[employer] REFINISHER [facility] [place] [address] History of Sanches's esophagus; Chronic cough; Choking, initial encounter; Chest pain, unspecified type; Throat tightness; History of pneumonia Discharge Disposition: Home Social History Tobacco Use Types Packs/Day Years Used Date Smoking Tobacco: Former Cigarettes Q uit: 02/17/2003 Smokeless Tobacco: Never Alcohol Use Standard Drinks/Week Comments Yes 14 (1 standard drink = 0.6 oz pu re alcohol) 2 glasses of wine a night Sex and Gender Information Value Date Recorded Sex Assigned at Female 01/28/2021 8:41 AM EST Gender Identity Not on file Sexual Orientation Straight 01/28/2021 8: 41 AM EST documented as of this encounter Medications at Time of Discharge Medication Sig Dispensed Refills Start Date End Date calcium-vitamin D3 600 mg-5 mcg (200 unit) Tablet Take 1 tablet by mouth. 02/28/2019 esomeprazole (NexIUM) 40 mg Capsule, Delayed Release(E.C.) Take by mouth. 03/16/2021 ascorbic acid, Vitamin C, (Vitamin C) 500 mg Tablet Take 500 mg by mouth daily. albuterol 90 mcg/actuation HFA Aerosol Inhaler Inhale 2 puffs into the lungs as needed. 12/30/2016 cholecalciferol, Vitamin D3, 25 mcg (1,000 unit) Capsule Take 1,000 Units by mouth. TRELEGY ELLIPTA 100-62.5-25 mcg Disk with Device 09/15/2019 LANTUS SOLOSTAR U-100 INSULIN pen Inject 40 Units subcutaneously nightly. 09/15/2019 bzyrzlxt-ysklyuaor-cqja methasone (DEXACINE) 3.5 mg/g-10,000 unit/g-0.1 % Ointment APPLY A SMALL AMOUNT INTO BOTH EYES HS 1 09/29/2019 nitroGLYcerin (NITROSTAT) 0.4 mg Tablet, Sublingual 08/09/2019 SHINGRIX, PF, 50 mcg/0.5 mL Suspension for Reconstitution injection ADM 0.5ML IM UTD 0 10/25/2019 metFORMIN (GLUCOPHAGE) 500 mg tablet Take 500 mg by mouth daily. metoprolol tartrate (LOPRESSOR) 50 mg tablet Take 50 mg by mouth daily. CALCIUM CITRATE/VITAMIN D3 (CITRACAL + D ORAL) Take by mouth. ibuprofen (Advil) 200 mg Tablet Take 400 mg by mouth as needed. losartan-hydrochlorothi azide (HYZAAR) 50-12.5 mg per tablet Take by mouth. 02/19/2011 glipiZIDE (GLUCOTROL) 2.5 mg 24 hr tablet Take by mouth. 02/19/2011 Brompheniramine-Pseudoe ph-DM (Bromfed DM) 2-30-10 mg/5 mL Syrup Take 10 mLs by mouth 4 times daily as needed. 12/30/2016 4 amLODIPine (NORVASC) 10 mg Tablet TK 1 T PO D 4 09/05/2019 09/24/2023 gabapentin (NEURONTIN) 100 mg Capsule TAKE 1 CAPSULE BY MOUTH THREE TIMES A DAY IF NEEDED FOR PAIN 2 08/09/2019 2 hydroCHLOROthiazide (HYDRODIURIL) 25 mg Tablet 10/13/2019 09/24/2023 insulin lispro (HUMALOG) Solution Inject 18 Units subcutaneously 3 times daily (with meals). 06/27/2022 losartan (COZAAR) 50 mg Tablet 09/15/2019 06/27/2022 metoprolol succinate XL (TOPROL-XL) 100 mg Tablet Sustained Release 24 hr 10/13/2019 06/27/2022 predniSONE (DELTASONE) 20 mg Tablet TK 2 TS PO QD FOR 3 DAYS THEN 1 DAILY FOR 3 DAYS THEN 1/2 DAILY FOR 4 DAYS 0 09/16/2019 06/27/2022 escitalopram (LEXAPRO) 20 mg tablet Take 20 mg by mouth daily. 06/27/2022 fluticasone-salmeterol (ADVAIR) 250-50 mcg/dose diskus inhaler Inhale 1 puff into the lungs daily. 06/27/2022 aspirin (ECOTRIN LOW STRENGTH) 81 mg EC tablet 02/19/2011 06/27/2022 rosuvastatin (CRESTOR) 10 mg tablet 10mg, PO, Once daily 02/19/2011 023 esomeprazole (NEXIUM) 40 mg capsule 40M Capsule(s), PO, Twice daily 02/19/2011 06/27/2022 metFORMIN (GLUCOPHAGE-XR) 750 mg 24 hr tablet 750MG = 1 Tablet(s), PO, Twice daily 02/19/2011 06/27/2022 documented as of this encounter Plan of Treatment Upcoming Encounters Date Type Department Care Team (Late st Contact Info) Description 11/06/2025 10:30 AM EST Office Visit [facility] [place] [address] [place] [address] Ishaan Miguel MD [address], [place] [address] documented as of this encounter Procedures Procedure Name Priority Date/Time Associated Diagnosis Comments XR FLUORO BARIUM SWALLOW (5 MINUTE TIMED) Routine 05/13/2021 9:47 AM EDT History of Sanches's esophagus Chronic cough Choking, initial encounter Chest pain, unspecified type Throat tightness History of pneumonia XR FLUORO BARIUM SWALLOW (SINGLE CONTRAST) Routine 05/13/2021 9:47 AM EDT History of Sanches's esophagus Chronic cough Choking, initial encounter Chest pain, unspecified type Throat tightness History of pneumonia XR FLUORO BARIUM SWALLOW (MODIFIED/VIDEO SWALLOW PHARYNX) Routine 05/13/2021 9:47 AM EDT History of Sanches's esophagus Chronic cough Choking, initial encounter Chest pain, unspecified type Throat tightness History of pneumonia documented in this encounter Results * XR Fluoro Barium Swallow (5 Minute Timed) (05/13/2021 9:47 AM EDT) Anatomical Region Laterality Modality N/A Radio Fluoroscop y Impressions 05/13/2021 10:27 AM EDT No retained barium in the esophagus with the patient in an upright position at one minute. Thank you for letting us participate in the care of this patient. ??If you are a health care provider and have any questions regarding this report, please contact the number below. ??For patients who have questions please contact the health laboratory animal care veterinarian that requested your imaging first. ? Narrative 05/13/2021 10:27 AM EDT EXAMINATION: XR FLUORO BARIUM SWALLOW (5 MINUTE TIMED) CLINICAL HISTORY: esophagram for choking episodes, throat tightness, chest pain, h/ Oumar, requesting 5 minute timed, double contrast esophagram, and barium tablet. please change to both [id number] and [id number] (which are not visible in our system) TECHNIQUE: A five minute timed barium swallow was performed with the patient in an upright position. Fluoroscopy time: 0.3 minutes. COMPARISON: None FINDINGS: At one minute, there was no residual in the esophagus. Procedure Note Shun Vogel MD - 05/13/2021 EXAMINATION: XR FLUORO BARIUM SWALLOW (5 MINUTE TIMED) CLINICAL HISTORY: esophagram for choking episodes, throat tightness, chestpain, h/ Oumar, requesting 5 minute timed, double contrast esophagram, andbarium tablet. please change to both [id number] and [id number] (which are not visiblein our system) TECHNIQUE: A five minute timed barium swallow was performed with the patient in anupright position. Fluoroscopy time: 0.3 minutes. COMPARISON: None FINDINGS: At one minute, there was no residual in the esophagus. IMPRESSION No retained barium in the esophagus with the patient in an uprightposition at one minute. Thank you for letting us participate in the care of this patient. If youare a health care provider and have any questions regarding this report,please contact the number below. For patients who have questions please contactthe health laboratory animal care veterinarian that requested your imaging first. Kenny Regan APRN IMG FLUORO ORDERABL ES * XR Fluoro Barium Swallow (Single Contrast) (05/13/2021 9:47 AM EDT) Anatomical Region Laterality Modality N/A Radio Fluoroscop y Impressions 05/13/2021 10:34 AM EDT 1. Small hiatal hernia with gastroesophageal reflux. 2. Considerable esophageal dysmotility. The patient's symptoms seem to be arising from residual barium pooling in the esophagus. Thank you for letting us participate in the care of this patient. ??If you are a health care provider and have any questions regarding this report, please contact the number below. ??For patients who have questions please contact the health laboratory animal care veterinarian that requested your imaging first. ? Narrative 05/13/2021 10:34 AM EDT EXAMINATION: XR FLUORO BARIUM SWALLOW (SINGLE CONTRAST) CLINICAL HISTORY: esophagram for choking episodes, throat tightness, chest pain, h/ Oumar, requesting 5 minute timed, double contrast esophagram, and barium tablet. please change to both [id number] and [id number] (which are not visible in our system) TECHNIQUE: Double contrast esophagram was performed. Fluoroscopic spot films were obtained. Fluoro time: 1.7 minutes. COMPARISON: None FINDINGS: The esophagus is normal in caliber. No mucosal thickening, nodularity, mass or stricture. There is decreased primary and secondary peristalsis with poor emptying of the esophagus when the patient is recumbent. This reproduced the patient's pharyngeal symptoms even though there was no residual barium in the pharynx. There is a small hiatal hernia with the GE junction entering the hernia above the diaphragm. There was gastroesophageal reflux up to the level of the aortic arch. A 13 mm barium tablet hung up at the GE junction but passed readily into the stomach with an additional swallow of barium. Procedure Note Shun Vogel MD - 05/13/2021 EXAMINATION: XR FLUORO BARIUM SWALLOW (SINGLE CONTRAST) CLINICAL HISTORY: esophagram for choking episodes, throat tightness, chestpain, h/ Oumar, requesting 5 minute timed, double contrast esophagram, andbarium tablet. please change to both [id number] and [id number] (which are not visiblein our system) TECHNIQUE: Double contrast esophagram was performed. Fluoroscopic spot films wereobtained. Fluoro time: 1.7 minutes. COMPARISON: None FINDINGS: The esophagus is normal in caliber. No mucosal thickening, nodularity,mass or stricture. There is decreased primary and secondary peristalsis with poor emptying ofthe esophagus when the patient is recumbent. This reproduced the patient's pharyngeal symptoms even though there was no residual barium in thepharynx. There is a small hiatal hernia with the GE junction entering the herniaabove the diaphragm. There was gastroesophageal reflux up to the level of theaortic arch. A 13 mm barium tablet hung up at the GE junction but passed readily intothe stomach with an additional swallow of barium. IMPRESSION 1. Small hiatal hernia with gastroesophageal reflux. 2. Considerable esophageal dysmotility. The patient's symptoms seem naun arising from residual barium pooling in the esophagus. Thank you for letting us participate in the care of this patient. If youare a health care provider and have any questions regarding this report,please contact the number below. For patients who have questions please contactthe health laboratory animal care veterinarian that requested your imaging first. Kenny Vincent Jass ESCALERA IMG FLUORO ORDERABL ES * XR Fluoro Barium Swallow (Modified/Video Swallow Pharynx) (05/13/2021 9:47 AM EDT) Anatomical Region Laterality Modality N/A Radio Fluoroscop y Impressions 05/13/2021 10:01 AM EDT Normal modified barium swallow. Thank you for letting us participate in the care of this patient. ??If you are a health care provider and have any questions regarding this report, please contact the number below. ??For patients who have questions please contact the health laboratory animal care veterinarian that requested your imaging first. ? Narrative 05/13/2021 10:01 AM EDT EXAMINATION: XR FLUORO BARIUM SWALLOW (MODIFIED/VIDEO SWALLOW PHARYNX) CLINICAL HISTORY: Chronic cough, choking episodes, h/o pneumonia suspect oropharyngeal dysphagia TECHNIQUE: The examination was performed in conjunction with speech pathology. ??Varying consistencies of barium were administered under lateral fluoroscopic observation. Fluoro time: 0.32 minutes. COMPARISON: None FINDINGS: The swallow triggers after material has reached the vallecula which is normal for patient of this age. There is normal elevation of the larynx and normal epiglottic inversion with swallowing. No penetration of the airway or aspiration occurred with any consistency. No residual pooling within the valleculae or piriform sinuses. Procedure Note Shun Vogel MD - 05/13/2021 EXAMINATION: XR FLUORO BARIUM SWALLOW (MODIFIED/VIDEO SWALLOW PHARYNX) CLINICAL HISTORY: Chronic cough, choking episodes, h/o pneumonia suspect oropharyngeal dysphagia TECHNIQUE: The examination was performed in conjunction with speech pathology.Varying consistencies of barium were administered under lateral fluoroscopic observation. Fluoro time: 0.32 minutes. COMPARISON: None FINDINGS: The swallow triggers after material has reached the vallecula which isnormal for patient of this age. There is normal elevation of the larynx and normal epiglottic inversionwith swallowing. No penetration of the airway or aspiration occurred with anyconsistency. No residual pooling within the valleculae or piriform sinuses. IMPRESSION Normal modified barium swallow. Thank you for letting us participate in the care of this patient. If youare a health care provider and have any questions regarding this report,please contact the number below. For patients who have questions please contactthe health laboratory animal care veterinarian that requested your imaging first. Kenny Regan APRN IMG FLUORO ORDERABL ES documented in this encounter Visit Diagnoses Diagnosis History of Sanches's esophagus Chronic cough Cough Choking, initial encounter Chest pain, unspecified type Throat tightness Other symptoms involving head and neck History of pneumonia Personal history of pneumonia (recurrent) documented in this encounter Administered Medications Inactive Administered Medications - up to 3 most recent administrations Medication Order MAR Action Action Date Dose Rate Site barium sulfate (E-Z Disk) tablet 700 mg 700 mg, Oral, ONCE, 1 dose, On Thu05/13/21 at 0945, Routine Given 05/13/2021 9:45 AM EDT 700 mg barium sulfate (E-Z-HD) 98% oral liquid 140 mL 140 mL, Oral, ONCE, 1 dose, On Thu05/13/21 at 0945, Routine Given 05/13/2021 9:45 AM EDT 140 mLs barium sulfate (Ezpaque) 60% (w/v) oral liquid 355 mL 355 mL, Oral, ONCE, 1 dose, On Thu05/13/21 at 0945, Routine Given 05/13/2021 9:45 AM EDT 155 mLs barium sulfate (Varibar [place]) 40% (w/v) oral liquid 480 mL 480 mL, Oral, ONCE, 1 dose, On Thu05/13/21 at 0945, Routine Given 05/13/2021 9:45 AM EDT 240 mLs barium sulfate (VARIBAR [place]) oral paste 230 mL 230 mL, Oral, ONCE, 1 dose, On Thu05/13/21 at 0945, Routine Given 05/13/2021 9:45 AM EDT 10 mLs barium sulfate (Varibar Thin Liquid) oral powder 148 g 148 g, Oral, ONCE, 1 dose, On Thu05/13/21 at 0945, Routine Given 05/13/2021 9:45 AM EDT 20 mLs documented in this encounter Care Teams Box Worker Relationship Specialty Start Date End Date Janessa Chand MD [address] [place] [address] PCP - General 10/22/10 documented as of this encounter
--- OUTSIDE RECORDS SUMMARY | 2024-12-29 17:30 | XMS_ITS | Encounter Summary ---
Author Organization [facility] Address [address] [place] [address] Care Team Providers Care Behavioral Health Clinician Name Role Phone Janessa Chand MD Primary Care Provider [phone] Encounter Details Date Type Department Care Team (Late st Contact Info) Description 05/17/2018 Results Only [facility] [phone] Jeffrey Swan MD [address] [place] [address] [address] [place], [place] [address] Social History Tobacco Use Types Packs/Day Years [...] Date/Time Associated Diagnosis Comments SURGICAL PATHOLOGY Routine 05/17/2018 19 :33 EDT documented in this encounter Results * SURGICAL PATHOLOGY (05/17/2018 19:33 EDT) Pathology Report: SURGICAL PATHOLOGY REPORT Reports generated via electronic interface contain original data; however they are lacking the format of the original report. Caution should be taken when reading/interpretin g unformatted reports. Name: ? SIMI العلي ? Accession #: ? [id number] ? : ? 1945 (Age: 72) ??F ? Collect Date: ? 05/17/2018 ? Location: ? [facility] ? Receive Date: ? 05/17/2018 ? Provider: JEFFREY SWAN MD Copy to: JANESSA CHAND MD ? Final Pathologic Diagnosis: A. STOMACH, POLYPS, BIOPSY: - Hyperplastic polyp. - Polypoid gastric body mucosa with regenerative/repara tive change. B. STOMACH, ANTRUM, BIOPSY: - Erosive gastritis in background reactive (chemical) gastropathy. C. GASTROESOPHAGEAL JUNCTION, BIOPSY: - Squamous mucosa with mild reactive changes. - Fundic type mucosa with no specific pathologic features. - Negative for intestinal metaplasia; negative for dysplasia. ?? Document reviewed and electronically signed by: JEFFERY GALLEGOS MD Report ??Date: 05/19/2018 14:11 By the signature above, the attending physician certifies that he/she has personally conducted a gross and/or microscopic examination of the described specimens and rendered or confirmed the above diagnosis. Specimen(s) Received: A. ??Gastric polyps B. ??Antrum biopsies C. ??GE junction biopsies Clinical History: Hx of Sanches's Gross Description: A. ?Received in formalin labelled with proper patient identification (initials B, V) and gastric polyps are two light simmons biopsies measuring 0.2 x 0.2 x 0.2 cm and 0.4 x 0.3 x 0.2 cm. The specimens are submitted intact in block A1. B. ?Received in formalin labelled with proper patient identification (initials B, V) and antrum biopsies are three light simmons biopsies ranging in size from 0.2 x 0.2 x 0.1 cm up to 0.4 x 0.3 x 0.2 cm. The specimen is submitted intact in block B1. C. ?Received in formalin labelled with proper patient identification (initials B, V) and GE junction biopsies are two pink-simmons tissues (0.2 x 0.2 x 0.1 cm and 0.3 x 0.3 x 0.2 cm). Entirely submitted in block C1. RJ Gonzales (ASCP) 05/18/2018 8:08 AM End of Report [facility] 05/17/2018 19:3 3 EDT 05/17/2018 19:33 EDT us Jeffrey Swan MD PATHOLOGY ORDERABLES Fin al Result [facility] [address] [place] [address] documented in this encounter Visit Diagnoses Not on filedocumented in this encounter Care Teams Behavioral Health Clinician Relationship Specialty Start Date End Date Janessa Chand MD [address] [place] [address] [address] [place] [address] PCP - General 05/09/11 documented as of this encounter
--- OUTSIDE RECORDS SUMMARY | 2024-12-29 17:30 | XMS_ITS | Encounter Summary ---
[place] [address] Care Team Providers Care Glove Sewer Name Role Phone Janessa Chand MD Primary Care Provider [phone] Encounter Details Date Type Department Care Team (Latest Contact Info) Description 11/01/2024 Travel Social History Tobacco Use Types Packs/Day Years [...] AM EST documented as of this encounter Plan of Treatment Upcoming Encounters Date Type Department Care Team (Late st Contact Info) Description 11/06/2025 10:30 AM EST Office Visit Dermatology at [place] [address] [facility] [place] [address] Ishaan Miguel MD [address] [facility] [place] [address] documented as of this encounter Visit Diagnoses Not on filedocumented in this encounter Care Teams Glove Sewer Relationship Specialty Start Date End Date Janessa Chand MD [address] [place] [address] PCP - General 10/22/10 documented as of this encounter
--- OUTSIDE RECORDS SUMMARY | 2024-12-29 17:30 | XMS_ITS | Patient Health Record ---
Author Organization [facility] Billing Info Address [address] [place] [address] Support Name Relationship Address Phone Marcelo العيل Emergency Contact [address] [place] [address] Simi العلي Guarantor Unknown [phone] Allergies Allergen (clinical drug ingredient) Drug/Non Drug Allergy documented on EMR Reaction Allergy Type Onset Date Status amoxicillin Amoxicillin Unknown Drug Allergy Act gricelda MILK Unknown Drug Allergy Active codeine Codeine Unknown Drug Allergy Active Reason For Referral No Information Medications Medication SIG (Take, Route, Frequency, Duration) Notes Start Date End Date Status Nexium 20 MG 1 capsule Orally fou r times a day Active Calcium 1 tablet Orally Once a day Not-Taking Gabapentin 300 MG 1 capsule Orally TID for 14 day(s) 01/18/2019 Active Terconazole 0.8 % 1 applicatorful at bedtime Vaginal Once each night for 3 day(s) 01/18/2019 Active Rosuvastatin Calcium 10 MG 1 tablet Orally Once a day for 30 day(s) Active Humalog KwikPen 100 UNIT/ML 10 units every meal Subcutaneous Active Clotrimazole 10 MG 1 julia Mouth/Throa t Five times a day for 14 day(s) Active Metformin HCl 500 MG 1 tablet Orally Onc e in am Active Acyclovir 800 MG 1 tablet Orally ever y 4 hrs for 7 days Active Losartan Potassium-HCTZ 100-25 MG 1 tablet Orally Once a day Active MetFORMIN HCl ER 750 MG 1 tablet Orally twice a day Active Trelegy Ellipta 100-62.5-25 MCG/INH 1 puff Inhalation Once a day Active Escitalopram Oxalate 20 MG 1 tablet Orally Once a day Active Azithromycin 250 MG 2 tablets day 1 then 1 tablet daily for 4 days Orally Once a day for 5 day(s) 01/04/2019 Not-Taking Metoprolol Succinate ER 100 MG 1 tablet Orally Once a day Active Vitamin D 1 tablet Orally Once a day Active Lantus 100 UNIT/ML 40 units Subcutaneou s once a day Active Amlodipine Besylate 2.5 MG 1 tablet Orally Once a day for 30 day(s) 01/04/2019 Not-Taking Immunizations Vaccine Route Administration Date Status Comme nts zFLU 3V (FLUZONE HIGH DOSE), 65 YRS+, NO PRES - ALL PAYORS Unknown 08/30/2018 Administered Social History Tobacco Use: Social History Observation Description Date Details (start date - stop date) Former Smoker NA - NA Tobacco Status: Question Answer Notes Patient is a former smoker non tobacco user Problems Problem Type SNOMED Code ICD Code Onset Dates Problem Status W/U Status Risk Notes Problem 57410090 Diabetes type 2, 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 Problem 99064273 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 Problem 52316906 Hypertension, unspecified type (I10) Active confirmed Problem 90890701 Pseudophakia (Z96.1) Active confirmed Problem 354417547 Posterior vitreous detachment, unspecified laterality (H43.819) Active confirmed Plan Of Treatment No Information Insurance Providers Payer Name Payer Address Payer Phone Subscriber Number Group Number Insured Name Patient Relationship to Insured Coverage Start Date Coverage End Date MEDICARE [place] PART B [address] [facility] RJ SHAW [id number] [phone] [id number] Simi العلي Self - patient is the insured 9 9 [employer]ARP UHC MEDICARE SUPP [facility] [address] [place], [place] [id number] Simi العلي Self - patient is the insured 9 Medical (General) History Medical History History ICD Code HTN asthma sleep apnea heartburn DM type 2 neuropathy anemia Sanches's esophagus Hiatal hernia Surgical History Surgery Date(Month/Year) hip replacement cataracts breast reduction Hospitalization History Reason Date(Month/Year) [facility]- shingles in Left ear 12/2018
--- OUTSIDE RECORDS SUMMARY | 2024-12-29 17:30 | XMS_ITS | Encounter Summary ---
Author Organization [facility] [place] [address] Care Team Providers Care Gas Leak Tester Name Role Phone Janessa Chand MD Primary Care Provider [phone] Encounter Details Date Type Department Care Team (Late st Contact Info) Description 11/02/2024 Refill Dermatology at [address] [address] Nneka Travis LPN Social History Tobacco Use Types Packs/Day Years [...] AM EST documented as of this encounter Miscellaneous Notes * Telephone Encounter - Nneka Travis LPN - 11/02/2024 3:17 PM EST Pt reports applying Triamcinolone to her face twice daily. Dr. Miguel recommends stopping the Triamcinolone and start using hydrocortisone cream 2.5% 1-2 times daily applying to the face. The triamcinolone cream can thin the skin over time. Reviewed Dr. Gamble recommendation with patient. Request prescription be sent to [facility]. Encouraged her to call the pharmacy prior to leaving to get the prescription to be surethe prescription and product are available. She voiced understanding. documented in this encounter Plan of Treatment Upcoming Encounters Date Type Department Care Team (Late st Contact Info) Description 11/06/2025 10:30 AM EST Office Visit Dermatology at [place] [address] [facility] [place] [address] Ishaan Miguel MD [address] [place] [address] documented as of this encounter Visit Diagnoses Not on filedocumented in this encounter Care Teams Gas Leak Tester Relationship Specialty Start Date End Date Janessa Chand MD [address] [facility] [address] [place] [address] PCP - General 10/22/10 documented as of this encounter
--- OUTSIDE RECORDS SUMMARY | 2024-12-29 17:30 | XMS_ITS | Encounter Summary ---
[place] [address] Care Team Providers Care Internist Medical Doctor Md Name Role Phone Janessa Chand MD Primary Care Provider [phone] Reason for Visit * Reason Comments Follow-up Encounter Details Date Type Department Care Team (Late st Contact Info) Description 10/27/2023 9:45 AM EST Office Visit Dermatology at [address] [phone] Ishaan Miguel MD [address] [place] [place] [address], [facility] [place] [address] Seborrheic keratosis; Inflamed acrochordon Social History Tobacco Use Types Packs/Day Years [...] AM EST documented as of this encounter Progress Notes * Ishaan Miguel MD - 10/27/2023 9:45 AM EST Problem: 1. Follow-up 5-FU/subcu treatments 2. History of malignant melanoma in situ, left lateral foot, November 2006, status post excision with close margins treated with 3 months of Aldara therapy Mitzi follows up stating that after she used the 5-FU twice daily for 7 days to her presternal chest, she had an excessive erythematous rash with bleeding and redness. She used only 1 cycle. She wonders what can be done for the residual redness because been 3 weeks in the presternal chest sites are still red. She is pleased with the results of the LN2 therapy. Physical examination reveals patchy erythema still present on the upper presternal chest. She has good resolution of the seborrheic keratoses. Assessment plan: Status post treatment of actinic keratoses upper V of chest with twice daily applications of 5-FU x1 week, 1 course only 1. Continue to hold further use of 5-FU 2. Recommend triamcinolone 0.1% cream applying twice daily for the next 2 weeks to reddened areas of presternal chest and then may discontinue. Dispense 15 g with 0 refills. Seborrheic keratoses 1. 1 new site is pointed out to me on her left dorsal hand. Could consider LN2 for this site 2. Other treated sites from last visit have responded well CC: Janessa Chand MD documented in this encounter Plan of Treatment Upcoming Encounters Date Type Department Care Team (Late st Contact Info) Description 11/06/2025 10:30 AM EST Office Visit Dermatology at [address] [phone] Ishaan Miguel MD [address] [facility] [place] [address] documented as of this encounter Visit Diagnoses Diagnosis Seborrheic keratosis Other seborrheic keratosis Inflamed acrochordon Unspecified hypertrophic and atrophic condition of skin documented in this encounter Care Teams Internist Medical Doctor Md Relationship Specialty Start Date End Date Janessa Chand MD [address] [place] [address] PCP - General 10/22/10 documented as of this encounter
--- OUTSIDE RECORDS SUMMARY | 2024-12-29 17:30 | XMS_ITS | Encounter Summary ---
Author Organization [facility] Address [address] [place] [address] Care Team Providers Care Platen Drier Operator Name Role Phone Unavailable Primary Care Provider Unavailabl e Encounter Details Date Type Department Care Team (Late st Contact Info) Description 03/15/2009 Orders Only [facility] - [facility] ([facility]) [address] [place], [place] [id number] Janessa Chand MD [facility] [address] [place] [phone] Social History Tobacco Use Types Packs/Day Years [...] Procedure Name Priority Date/Time Associated Diagnosis Comments HPV DETECTION, HIGH RISK TYPES Routine 03/15/2009 7:15 EDT CYTOPATHOLOGY Routine 03/15/2009 0:00 EDT documented in this encounter Results * HUMAN PAPILLOMA VIRUS DNA TEST (03/15/2009 7:15 EDT) Specimen Description Cervix, ThinPrep vial [facility] Result Negative for HPV types 16, 18, 31, 33, 35, 39, 45, 51, 52, 56, 58, 59, and 68. [facility] Report Status Final 03/27/2009 [facility] 03/15/2009 7:15 EDT 03/22/2009 7:15 EDT us Janessa Chand MD MICROBIOLOGY - GENERAL [place]y QUEZADA Final Result [facility] [address] [place] [address] * CYTOPATHOLOGY (03/15/2009 0:00 EDT) Pathology Report: CYTOPATHOLOGY REPORT ? Reports generated via electronic interface contain original data; ? however they are lacking the format of the original report. ? Caution should be taken when reading/interpreti ng unformatted reports. ? Name: ? BEGIN, SIMI ? Accession #: ? [id number] ? : ? 1945 (Age: 63) ??F ?Collect Date: ? 03/15/2009 ? Location: ? [facility] ? Receive Date: ? 03/16/2009 ? Provider: ?JANESSA M DOBBERTIN MD ? Copy to: ? Specimen/Source: ?Pap Test, Endocervix, ThinPrep Imaging System with ? manual evaluation ? Last Menstrual Period: ? TRANSMITTER CHIEF ? Hormonal/Contracep tive Status: ? Yes: Vagifem PRN ? Other: ? HPVDX - HPV testing requested regardless of diagnosis on current ThinPrep Pap ?? test. ? SPECIMEN ADEQUACY ? Satisfactory for Evaluation ? - transformation zone component present ? GENERAL CATEGORIZATION ? Negative for Intraepithelial Lesion or Malignancy ? Document reviewed and electronically signed by: ? Ulises Rangel, CT(ASCP) ? Report Date: ??03/21/2009 10:41 ? End of Report ? [facility] 03/15/2009 03/16/2009 us Janessa Chand MD PATHOLOGY ORDERABLES Final Result Performing Organization Address City/State/[facility] Co de Phone Number [facility] [address] [place] [address] documented in this encounter Visit Diagnoses Not on filedocumented in this encounter
--- OUTSIDE RECORDS SUMMARY | 2024-12-29 17:30 | XMS_ITS | Encounter Summary ---
Author Organization [facility] [place] [address] Care Team Providers Care Vp Packaging Name Role Phone Janessa Chand MD Primary Care Provider [phone] Encounter Details Date Type Department Care Team (Late st Contact Info) Description 10/27/2023 Refill Dermatology at [address] [phone] Nneka Travis LPN Social History [...] 10:30 AM EST Office Visit Dermatology at [address] [phone] Ishaan Miguel MD [address] [place] [address], [facility] D[facility] [place], [place] [id number] documented as of this encounter Visit Diagnoses Not on filedocumented in this encounter Care Teams Vp Packaging Relationship Specialty Start Date End Date Janessa Chand MD [address] [facility] [address] [place] [address] PCP - General 10/22/10 documented as of this encounter
--- OUTSIDE RECORDS SUMMARY | 2024-12-29 17:30 | XMS_ITS | Encounter Summary ---
Author Organization [facility] Address [address] [place] [address] Care Team Providers Care Folding Machine Tender Name Role Phone Janessa Chand MD Primary Care Provider [phone] Encounter Details Date Type Department Care Team (Late st Contact Info) Description 02/23/2012 Results Only [facility] - [facility] ([facility]) [address] [place], [place] [address] Janessa Chand MD [facility] [address] [place] [address] Social History Tobacco Use Types Packs/Day Years [...] Procedure Name Priority Date/Time Associated Diagnosis Comments PAP TEST- RESULT ONLY Routine 02/23/2012 0:00 EDT documented in this encounter Results * PAP TEST- RESULT ONLY (02/23/2012 0:00 EDT) Pathology Report: CYTOPATHOLOGY REPORT Reports generated via electronic interface contain original data; however they are lacking the format of the original report. Caution should be taken when reading/interpreti ng unformatted reports. Name: ? SIMI العلي Himanshu ? Accession #: ? [id number] ? : ? 1945 (Age: 66) ??F ?Collect Date: ? 02/23/2012 ? Location: ? [facility] ? Receive Date: ? 02/24/2012 ? Provider: JANESSA CHAND MD Copy to: ? Final Report SPECIMEN ADEQUACY ? Satisfactory for Evaluation - assessment of transformation zone component not applicable ( e.g. atrophy, vaginal sample, hysterectomy) GENERAL CATEGORIZATION ? Negative for Intraepithelial Lesion or Malignancy ?? Menstural/Pregnanc y Status: ??Post Menopausal Specimen/Source: ??Pap Test, Cervix/Endocervix, ThinPrep Imaging System with manual evaluation Document reviewed and electronically signed by: ? FLORENTIN Wagner(ASCP) ? Report ??Date: 02/25/2012 14:48 HPV with Pap Test ? Date Ordered: ? 02/25/2012 ? Status: ?? Signed Out ?Date Complete: ? 03/01/2012 ? By: ??System Interface ? Date Reported: ? 03/01/2012 ? Interpretation RESULT: Negative for HPV types 16, 18, 31, 33, 35, 39, 45, 51, 52, 56, 58, 59, and 68. Comments Document reviewed and electronically signed by: ? System Interface ? Report date: 03/01/2012 By the signature above, the attending physician certifies that he/she has personally conducted a gross and/or microscopic examination of the described specimens and rendered or confirmed the above diagnosis. End of Report [facility] 02/23/2012 02/24/2012 us Janessa Chand MD PATHOLOGY ORDERABLES Final Result Performing Organization Address City/State/[facility] Co de Phone Number [facility] [address] [place] [address] documented in this encounter Visit Diagnoses Not on filedocumented in this encounter Care Teams Folding Machine Tender Relationship Specialty Start Date End Date Janessa Chand MD [address] [facility] [address] [place] [phone] PCP - General 05/09/11 documented as of this encounter
--- OUTSIDE RECORDS SUMMARY | 2024-12-29 17:30 | XMS_ITS | Encounter Summary ---
Author Organization [facility] Address [address] [place] [address] Care Team Providers Care Army Officer Name Role Phone Unavailable Primary Care Provider Unavailabl e Encounter Details Date Type Department Care Team (Late st Contact Info) Description 07/07/2002 Results Only [facility] [address] [place] [address] Liliana Collado, CRM DYNAMICS DEVELOPER [facility] [address] [place] [address] Social History Tobacco Use Types Packs/Day Years [...] Procedure Name Priority Date/Time Associated Diagnosis Comments CYTOPATHOLOGY Routine 07/07/2002 0:00 EDT documented in this encounter Results * CYTOPATHOLOGY (07/07/2002 0:00 EDT) Pathology Report: CYTOPATHOLOGY REPORT Reports generated via electronic interface contain original data; however they are lacking the format of the original report. Caution should be taken when reading/interpreti ng unformatted reports. Name: ? SIMI العلي ? Accession #: ? [id number] : ? 1945 (Age: 56) ??F ?Collect Date: ? 07/07/2002 Location: ? [facility] ? Receive Date: ? 07/11/2002 Provider: ?LILIANA COLLADO CRM DYNAMICS DEVELOPER Copy to: ? Specimen/Source: ?ThinPrep Pap Test, Cervix/Endocervix Last Menstrual Period: ? 4 yrs ago ? SPECIMEN ADEQUACY ? Satisfactory for Evaluation - transformation zone component present GENERAL CATEGORIZATION ? Negative for Intraepithelial Lesion or Malignancy ? Document reviewed and electronically signed by: ? FLORENTIN Giordano(ASCP) ? Report Date: ??07/12/2002 14:31 End of Report [facility] 07/07/2002 07/11/2002 us Liliana Collado NP PATHOLOGY ORDERABLES Final Result [facility] [address] [place] [address] documented in this encounter Visit Diagnoses Not on filedocumented in this encounter
--- OUTSIDE RECORDS SUMMARY | 2024-12-29 17:30 | XMS_ITS | Encounter Summary ---
[place] [address] Care Team Providers Care Customer Service Coordinator Name Role Phone Janessa Chand MD Primary Care Provider [phone] Reason for Visit * Reason Comments Skin Check * Consultation (Routine) - Closed Specialty Diagnoses / Procedures Referred By Contmichael michaud Referred To Contact Dermatology Diagnoses Disorder of the skin and subcutaneous tissue, unspecified Skin Lesion; Est. Patient-Notes Received Procedures Consult Janessa Chand MD [address] [facility] [address] [place] [address] Ishaan Miguel MD [address] [place] [address], [facility] [place] [address] Referral ID Status Reason Start Date Expiration Date Visits Re quested Visits Authorized [id number] Closed 05/22/2022 05/22/2023 1 1 Encounter Details Date Type Department Care Team (Late st Contact Info) Description 06/27/2022 3:00 PM EDT Office Visit Dermatology at [address] [address] Ishaan Miguel MD [address] [place] [address], [facility] [place], [place] [id number] Pruritus Social History Tobacco Use Types Packs/Day Years [...] Progress Notes * Ishaan Miguel MD - 06/27/2022 3:00 PM EDT Problem: 1. ??New skin lesion of concern 2. ??History of malignant melanoma in situ, left lateral foot, November 2006, status post excision with close margins, treated with 3 months of Aldara therapy Mitzi follows up because of significant itching has been a problem for a number of months. It was exacerbated by sun exposure recently at a grandsons wedding when she is outside for 3 hours. Has been present ever since the winter. She digs and scratches much of the day and is particularly bad at night. She is followed by Dr. Janessa Chand and states that she has regular lab testing done and thatotherwise she has been doing well feeling well. She denies any weight loss decrease in appetite significant change in her energy level. There is been no change in her medications. Although she has had 2 medications added following the initiation of her head itching. Physical examination reveals mild xerosis cutis diffusely and numerous small stucco keratoses and seborrheic keratoses present on the back extremities. Several areas show actual ecchymosis formation from her vigorous scratching. There is no active dermatitis. Assessment plan: Generalized pruritus in a 76-year-old woman 1. We will review recent labs, but I assume these will be normal 2. Patient asked to stop her oral Veley products and fragrance detergent shampoo etc. instead use Dove or Ivory bar soap, use fragrance free detergent fabric softener and dryer sheets. 3. I am going to discuss their progress in 2 weeks time with these changes, via a telehealth telephone visit, and if no improvement is forthcoming may suggest: 4. Consider holding hydrochlorothiazide on a trial basis. Consider chest x-ray PA and lateral. 5. Continue use of CeraVe cream on a daily basis. 6. We will call in prescription for hydroxyzine 25 mg take 1 p.o. nightly for pruritus. If no improvement with 1 may take 2 at night dispense #30 with 1 refill CC: Janessa Chand MD. documented in this encounter Plan of Treatment Upcoming Encounters Date Type Department Care Team (Late st Contact Info) Description 11/06/2025 10:30 AM EST Office Visit Dermatology at [place] [address] [facility] [place] [phone] Ishaan Miguel MD [address] [facility], [place] [address] documented as of this encounter Visit Diagnoses Diagnosis Pruritus Unspecified pruritic disorder documented in this encounter Care Teams Customer Service Coordinator Relationship Specialty Start Date End Date Janessa Chand MD [address] [place] [address] PCP - General 10/22/10 documented as of this encounter
--- OUTSIDE RECORDS SUMMARY | 2024-12-29 17:30 | XMS_ITS | Encounter Summary ---
Author Organization [facility] Address [address] [place] [address] Care Team Providers Care Orthopedic Rn Name Role Phone Unavailable Primary Care Provider Unavailabl e Encounter Details Date Type Department Care Team (Late st Contact Info) Description 05/07/2011 Results Only [facility] [place] ([facility] [address] [place], [place] [id number] Jorge Echavarria MD [address] [place], [place] [id number] Social History Tobacco Use Types Packs/Day Years [...] Date/Time Associated Diagnosis Comments SURGICAL PATHOLOGY Routine 05/07/2011 0:00 EDT documented in this encounter Results * SURGICAL PATHOLOGY (05/07/2011 0:00 EDT) Pathology Report: SURGICAL PATHOLOGY REPORT ? Reports generated via electronic interface contain original data; ? however they are lacking the format of the original report. ? Caution should be taken when reading/interpreti ng unformatted reports. ? Name: ? BEGIN, SIMI Downs ? Accession #: ? [id number] ? : ? 1945 (Age: 65) ??F ?Collect Date: ? 05/07/2011 ? Location: ? [facility] ? Receive Date: ? 05/07/2011 ? Provider: JORGE WALKO MD ? Copy to: KENDRICK M DOBBERTIN MD ? Addendum ? Date Ordered: ? 05/12/2011 ? Status: Signed Out ? Date Complete: ? 05/12/2011 ? By: Carol Ann Jaimes ? Date Reported: ? 05/12/2011 ? Addendum Comment ? This addendum is being issued to document the gross description, which was inadvertently omitted from the original report. ??The diagnosis remains ? unchanged. ??(Dr. Guillen)/jo ? Addendum Gross Description ? Received in formalin labelled Simi العلي and #1 gastric body and ?? fundic gland polyp are three light simmons biopsies which vary in size from 0.4 x ?? 0.2 x 0.2 cm up to 0.4 x 0.4 x 0.1 cm. ??The specimens are submitted intact as ?? (A). ? Received in formalin labelled Simi العلي and #2 lower esophagus, 35 cm are five light simmons biopsies which vary in size from 0.2 x 0.2 x 0.1 cm up to 0.5 x 0.4 x 0.3 cm. ??The specimens are submitted intact as (B1) and (B2). ? Received in formalin labelled Simi العلي and #3 splenic flexure ? polyp is a 0.4 x 0.2 x 0.2 cm light simmons biopsy. ??The specimen is submitted ? intact as (C). ? Received in formalin labelled Simi العلي and #4 descending/sigmoid polyps x2 are two light simmons polyps measuring 0.6 x 0.4 x 0.4 cm and 1.2 x 0.4 x 0.3 cm. ??The specimens are inked at the resection margin, sectioned, and ? submitted entirely as (D1) and (D2). ? Received in formalin labeled Simi العلي and #5 sigmoid polyps x4 ?? are four light simmons biopsies which vary in size from 0.2 x 0.2 x 0.2 cm up to 0.4 x 0.2 x 0.2 cm. ??The specimens are submitted intact as (E1) and (E2). ??(SEUN ? Tessitore)/abhijitn ? Document reviewed and electronically signed by: ? TIANA GUILLEN MD ? Report date: 05/12/2011 ? By the signature above, the attending physician certifies that he/she has ? personally conducted a gross and/or microscopic examination of the described ? specimens and rendered or confirmed the above diagnosis. ? Final Report ? Final Pathologic Diagnosis: ? A. ?Stomach, polyp and gastric body, biopsies: ? 1. ?Fundic gland polyp with focal acute and chronic inflammation. ? 2. ? Oxyntic-type mucosa with no specific pathologic features. ?3. ?No Helicobacter pylori-like microorganisms identified on ? H&E-stained sections. ? B. ?Esophagus, lower, 35 cm, biopsies: ? 1. ?Columnar mucosa with acute and chronic inflammation. ? 2. ? Negative for goblet cell metaplasia. ? 3. ? Negative for dysplasia. ? C. ?Colon, splenic flexure, polyp, biopsy: ? 1. ?Polypoid colonic mucosa with no specific pathologic features. ??See ?? comment. ? D. ?Colon, descending/sigmoid , polyps, polypectomies: ? 1. ?Tubular adenoma(s). ? E. ?Colon, sigmoid, polyps, biopsies: ? 1. ?Fragments of hyperplastic polyp(s). ? Comment: ? Deeper levels were examined on specimen (C). ??(Dr. Carrasquillo)/ljn ? Clinical History: ? GERD, H/O Sanches's esophagus, H/O colon adenoma ? Specimens Received: ? EGD ? A. Gastric body and fundic gland polyp (#1) ? B. Lower esophagus 35 cm (#2) ? Colonoscopy ? C. Splenic flexure polyp (#3) ? D. Descending/sigmoid polyps x2 (#4) ? E. Sigmoid polyps x4 (#5) ? Document reviewed and electronically signed by: ? TIANA N KALOF MD ? Report ??Date: 05/11/2011 11:27 ? By the signature above, the attending physician certifies that he/she has ? personally conducted a gross and/or microscopic examination of the described ? specimens and rendered or confirmed the above diagnosis. ? End of Report ? [facility] 05/07/2011 05/07/2011 18: 27 EDT us Jorge Echavarria MD PATHOLOGY ORDERABLES Final Resul t [facility] [address] [place] [address] documented in this encounter Visit Diagnoses Not on filedocumented in this encounter
--- OUTSIDE RECORDS SUMMARY | 2024-12-29 17:30 | XMS_ITS | Encounter Summary ---
Author Organization [facility] Address [address] [place] [address] Care Team Providers Care Pharmacist Manager Name Role Phone Unavailable Primary Care Provider Unavailabl e Encounter Details Date Type Department Care Team (Late st Contact Info) Description 10/04/2007 Results Only [facility] [address] [place] [address] Janessa Chand MD [address] [place] [phone] Social History Tobacco Use Types Packs/Day Years [...] Priority Date/Time Associated Diagnosis Comments CYTOPATHOLOGY Routine 10/04/2007 0:00 EST documented in this encounter Results * CYTOPATHOLOGY (10/04/2007 0:00 EST) Pathology Report: CYTOPATHOLOGY REPORT Reports generated via electronic interface contain original data; however they are lacking the format of the original report. Caution should be taken when reading/interpreti ng unformatted reports. Name: ? SIMI العلي ? Accession #: ? [id number] : ? 1945 (Age: 62) ??F ?Collect Date: ? 10/04/2007 Location: ? [facility] ? Receive Date: ? 10/05/2007 Provider: ?JANESSA CHAND MD Copy to: ? Specimen/Source: ?ThinPrep Pap Test, Endocervix, processed on Adstrix ThinPrep Imaging System, with manual evaluation Last Menstrual Period: ? Menstrual/Pregnanc y Status: ? Post Menopausal Hormonal/Contracep tive Status: ? Yes: Estradiol Other: ? HPVA - HPV testing requested if ASC-US on the current ThinPrep Pap test. ? SPECIMEN ADEQUACY ? Satisfactory for Evaluation - transformation zone component present GENERAL CATEGORIZATION ? Negative for Intraepithelial Lesion or Malignancy ? Document reviewed and electronically signed by: ? SIMEON Plummer(ASCP) ? Report Date: ??10/08/2007 11:29 End of Report [facility] 10/04/2007 10/05/2007 us Janessa Chand MD PATHOLOGY ORDERABLES Final Result [facility] [address] [place] [address] documented in this encounter Visit Diagnoses Not on filedocumented in this encounter
--- OUTSIDE RECORDS SUMMARY | 2024-12-29 17:30 | XMS_ITS | Clinical Summary ---
Author Organization [facility] [place] [address] Care Team Providers Care Tank Pumper Name Role Phone Janessa Chand MD Primary Care Provider [phone] Allergies Active Allergy Reactions Criticality Noted Date Comments Amoxicillin Other (See Comments) 12/30/2016 THRUSH Other Reaction(s): Unknown, YEAST INFECTION ALL OVER Clavulanic Acid 12/07/2020 Other Reaction(s): Unknown, YEAST INFECTION ALL OVER Codeine Phosphate Medium CIS - restlessness, CIS - restlessness Codeine Sulfate 09/24/2023 Other Reaction(s): Unknown Homatropine CIS - headache, CIS - headache Hydrocodone Bitartrate CIS - headache, CIS - headache Milk Medium CIS - Bronchitis, CIS - Bronchitis Milk Based Formulas Medium CIS - Bronchitis, CIS - Bronchitis Oxycodone Medium 12/07/2020 Other Reaction(s): Jittery, heart races Tramadol 12/07/2020 Other Reaction(s): Abnormal pulse and nausea Unclassified Drug Other (See Comments) 09/24/2023 Medications Medication Sig Dispensed Refills Start Date End Date Status losartan-hydrochloro thiazide (HYZAAR) 50-12.5 mg per tablet Take by mouth. 02/19/2011 Active glipiZIDE (GLUCOTROL) 2.5 mg 24 hr tablet Take by mouth. 02/19/2011 Active metFORMIN (GLUCOPHAGE) 500 mg tablet Take 500 mg by mouth daily. Active metoprolol tartrate (LOPRESSOR) 50 mg tablet Take 50 mg by mouth daily. Active CALCIUM CITRATE/VITAMIN D3 (CITRACAL + D ORAL) Take by mouth. A ctive ibuprofen (Advil) 200 mg Tablet Take 400 mg by mouth as needed. Active albuterol 90 mcg/actuation HFA Aerosol Inhaler Inhale 2 puffs into the lungs as needed. 12/30/2016 Active cholecalciferol, Vitamin D3, 25 mcg (1,000 unit) Capsule Take 1,000 Units by mouth. Active TRELEGY ELLIPTA 100-62.5-25 mcg Disk with Device 09/15/2019 Active LANTUS SOLOSTAR U-100 INSULIN pen Inject 40 Units subcutaneously nightly. 09/15/2019 Active elzvblql-dtzbylvbb-b examethasone (DEXACINE) 3.5 mg/g-10,000 unit/g-0.1 % Ointment APPLY A SMALL AMOUNT INTO BOTH EYES HS 1 09/29/2019 Active nitroGLYcerin (NITROSTAT) 0.4 mg Tablet, Sublingual 08/09/2019 Active SHINGRIX, PF, 50 mcg/0.5 mL Suspension for Reconstitution injection ADM 0.5ML IM UTD 0 10/25/2019 Active ascorbic acid, Vitamin C, (Vitamin C) 500 mg Tablet Take 500 mg by mouth daily. Active escitalopram (Lexapro) 20 mg Tablet every 24 hours. Active esomeprazole (NexIUM) 40 mg Capsule, Delayed Release(E.C.) Take by mouth. 03/16/2021 Active humaLOG KwikPen 100 unit/mL Insulin Pen 06/24/2022 Activ e hydrOXYzine (Atarax) 25 mg Tablet Take 1-2 tablets by mouth at night for pruritus 30 tablet 1 06/27/2022 Active calcium-vitamin D3 600 mg-5 mcg (200 unit) Tablet Take 1 tablet by mouth. 02/28/2019 Active levoFLOXacin (Levaquin) 750 mg tablet Take 750 mg by mouth daily. 04/17/2023 Active hydroCHLOROthiazide (Hydrodiuril) 12.5 mg tablet 09/18/2023 Active losartan (Cozaar) 100 mg tablet 09/18/2023 Active metoprolol succinate XL (Toprol-XL) 100 mg ER 24 hr tablet 09/18/2023 Active Crestor 20 mg tablet 1 tab(s) orally once a day (at bedtime) Active Ozempic 0.25 mg or 0.5 mg (2 mg/3 mL) Pen Injector INJECT 0.25MG UNDER THE SKIN ONCE WEEKLY FOR 4 WEEKS; THEN INCREASE TO 0.5MG 09/12/2023 Active amLODIPine (Norvasc) 10 mg tablet Take 1 tablet by mouth Daily at Noon. 10/19/2023 Active triamcinolone (Kenalog) 0.1 % Cream Apply twice daily for the next 2 weeks to reddened areas of presternal chest and then may discontinue 15 g 10/27/2023 Active hydrocortisone 2.5 % Cream Apply to face dermatitis 1-2 times daily, as needed 30 g 3 11/02/2024 Active Active Problems Problem Noted Date Diagnosed Date History of Sanches's esophagus 01/31/2021 Overview (01/31/2021): Added automatically from request for surgery [id number] Chronic cough 01/31/2021 Overview (01/31/2021): Added automatically from request for surgery [id number] Choking 01/31/2021 Overview (01/31/2021): Added automatically from request for surgery [id number] Chest pain 01/31/2021 Overview (01/31/2021): Added automatically from request for surgery [id number] Throat tightness 01/31/2021 Overview (01/31/2021): Added automatically from request for surgery [id number] History of pneumonia 01/31/2021 Overview (01/31/2021): Added automatically from request for surgery [id number] Seborrheic keratosis, inflamed 11/28/2013 History of malignant melanoma 03/02/2012 Seborrheic keratosis 03/02/2012 CIS - gerd, s/p eulalia 02/19/2011 CIS - hbp 02/19/2011 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 Encounters Date Type Department Care Team Description 11/02/2024 Refill Dermatology at [address] [place] [address] Nneka Travis, DAYSI 11/01/2024 10:30 AM EST Office Visit Dermatology at [address] [place] [phone] Ishaan Miguel MD Seborrheic keratosis; Inflamed acrochordon; History of malignant melanoma 11/01/2024 Travel from Last 3 Months Immunizations Name Administration Dates Next Due Influenza Vaccine, Whole 12/04/2006 Pneumococcal 23-Valent Polysaccharide (Pneumovax 23) 11/30/2004 Td Adult (not absorbed) 11/30/1999 Family History Medical History Relation Comments Celiac Disease Paternal Grandfather Colorectal Cancer Paternal Grandfather Esophageal Cancer Paternal Grandfather Inflammatory Bowel Disease Paternal Grandfather Relation Status Comments Paternal Grandfather Social History Tobacco Use Types Packs/Day Years [...] Orientation Straight 01/28/2021 8: 41 AM EST Last Filed Vital Signs Vital Sign Reading Time Taken Comments Blood Pressure 128/101 02/28/2021 11:03 AM EDT Pulse 93 02/28/2021 11:03 AM EDT Temperature 36.8 ??C (98.3 ??F) 02/28/2021 9:15 AM ED T Respiratory Rate 16 02/28/2021 11:03 AM EDT Oxygen Saturation 96% 02/28/2021 11:03 AM EDT Inhaled Oxygen Concentration - - Weight 91.6 kg (202 lb) 02/28/2021 9:15 AM EDT Height 161.3 cm (5' 3.5) 02/28/2021 9:15 AM EDT Body Mass Index 35.22 02/28/2021 9:15 AM EDT Plan of Treatment Upcoming Encounters Date Type Department Care Team (Late st Contact Info) Description 11/06/2025 10:30 AM EST Office Visit Dermatology at [address] [place] [address] Ishaan Miguel MD [address] [place] [address], [place] [address] Health Maintenance Due Date Last Done Comments Hepatitis C Screening 1963 Zoster vaccine (1 of 2) 1995 Tetanus/Diphtheria/Pertussis Vaccines (1 - Tdap) 12/0111/30/1999 Advance Directive 2000 Pneumoccocal Vaccine: 50+ (2 of 2 - PCV) 11/30/2005 11/30/2004 Bone Density Scan 2010 RSV Vaccine (1 - 1-dose 75+ series) 2020 Covid-19 Vaccine (1 - 2023- season) 2024 Influenza (Flu) vaccine (1 o f 1 - Influenza standard series) 07/31/2024 12/04/2006 Care Teams Tank Pumper Relationship Specialty Start Date End Date Janessa Chand MD [address] [place] [address] PCP - General 10/22/10
--- OUTSIDE RECORDS SUMMARY | 2024-12-29 17:30 | XMS_ITS | Encounter Summary ---
[place] [address] Care Team Providers Care Websphere Commerce Architect Name Role Phone Janessa Chand MD Primary Care Provider [phone] Encounter Details Date Type Department Care Team (Latest Contact Info) Description 09/24/2023 Travel Social History Tobacco Use Types Packs/Day [...] 10:30 AM EST Office Visit Dermatology at [place] [address] [facility] [place] [address] Ishaan Miguel MD [address] [facility], [place] [address] documented as of this encounter Visit Diagnoses Not on filedocumented in this encounter Care Teams Websphere Commerce Architect Relationship Specialty Start Date End Date Janessa Chand MD [address] [place] [address] PCP - General 10/22/10 documented as of this encounter
--- OUTSIDE RECORDS SUMMARY | 2024-12-29 17:30 | XMS_ITS | Encounter Summary ---
Author Organization [facility] [place] [address] Care Team Providers Care Crew Leader Gluing Name Role Phone Janessa Chand MD Primary Care Provider [phone] Encounter Details Date Type Department Care Team (Late Contact Info) Description 06/27/2022 Refill Dermatology at [address] [address] Nneka Travis LPN Social History [...] 10:30 AM EST Office Visit Dermatology at [address] [address] Ishaan Miguel MD [address] [place] [address], [facility] DER[facility] [place], [place] [id number] documented as of this encounter Visit Diagnoses Not on filedocumented in this encounter Care Teams Crew Leader Gluing Relationship Specialty Start Date End Date Janessa Chand MD [address] [place] [address] [place] [address] PCP - General 10/22/10 documented as of this encounter
--- OUTSIDE RECORDS SUMMARY | 2024-12-29 17:30 | XMS_ITS | Encounter Summary ---
[place] [address] Care Team Providers Care Hydraulic Rock Drill Operator Name Role Phone Janessa Chand MD Primary Care Provider [phone] Reason for Visit * Reason Comments Annual Exam Encounter Details Date Type Department Care Team (Late st Contact Info) Description 11/01/2024 10:30 AM EST Office Visit Dermatology at [address] [phone] Ishaan Miguel MD [address] [place] [address], [facility] [place] [address] Seborrheic keratosis; Inflamed acrochordon; History of malignant melanoma Social History Tobacco Use Types Packs/Day Years [...] Progress Notes * Ishaan Miguel MD - 11/01/2024 10:30 AM EST Problem: 1. Annual skin checkup 2. History of malignant melanoma in situ, left lateral foot, November 2006, status post excision with close margins treated with 3 months of Aldara therapy 2. Status post 5-FU upper V of chest once daily for 2 weeks on x 1 cycle August 2023 Mitzi follows up for an annual skin checkup. She is pleased with the results of the 5-FU therapy forher presternal chest. She has not noted any particular lesions of concern. She is using a prescription cream on an almost daily basis for seborrheic Derm on her face but is not sure of the name. Physical examination reveals a benign examination today of the head and the neck the chest the backthe hands on forearms thighs and calves. There is no evidence of recurrent malignant melanoma on the left lateral foot. She continues to have several seborrheic keratoses present on her back. She hasmild seborrheic dermatitis on the medial cheeks bilaterally. Assessment plan: Benign skin examination 1. Patient reassured about her benign skin examination 2. Recommend I see her again in a year for repeat check. Seborrheic keratoses 1. Patient reassured about benign seborrheic keratoses 2. Could consider LN2 for irritated sites Seborrheic dermatitis, facial 1. Patient will call me from home with the name of the cream that she is currently using. 2. Because she is using it on an almost daily basis she should not use triamcinolone cream for thispurpose 3. Would instead recommend 2.5% hydrocortisone cream CC: Janessa Chand MD documented in this encounter Plan of Treatment Upcoming Encounters Date Type Department Care Team (Late st Contact Info) Description 11/06/2025 10:30 AM EST Office Visit Dermatology at [place] [address] [facility] [place] [address] Ishaan Miguel MD [address] [facility], [place] [address] documented as of this encounter Visit Diagnoses Diagnosis Seborrheic keratosis Other seborrheic keratosis Inflamed acrochordon Unspecified hypertrophic and atrophic condition of skin History of malignant melanoma Personal history of malignant melanoma of skin documented in this encounter Care Teams Hydraulic Rock Drill Operator Relationship Specialty Start Date End Date Janessa Chand MD [address] [place] [address] PCP - General 10/22/10 documented as of this encounter
--- OUTSIDE RECORDS SUMMARY | 2024-12-29 17:30 | XMS_ITS | Encounter Summary ---
Author Organization [facility] Address [address] [place] [address] Care Team Providers Care Founder And Ceo Name Role Phone Janessa Chand MD Primary Care Provider [phone] Encounter Details Date Type Department Care Team (Latest Contact Info) Description 05/17/2018 11:07 EDT - 05/17/2018 23:59 EDT Hospital Encounter [address] [address] Unknown, Provider, MD Discharge Disposition: Home or Self Care Social History Tobacco Use Types Packs/Day Years Used Date Smoking Tobacco: Never Assessed Comments Unknown Sex and Gender Information Value Date Recorded Sex Assigned at Not on file Legal Sex Female 17:38 EST Gender Identity Not on file Sexual Orientation Not on file documented as of this encounter Discharge Disposition Disposition Code Departure Means Destination Home or Self Retirement documented in this encounter Plan of Treatment Not on file documented as of this encounter Visit Diagnoses Not on filedocumented in this encounter Care Teams Founder And Ceo Relationship Specialty Start Date End Date Janessa Chand MD [address] [place] [phone] PCP - General 05/09/11 documented as of this encounter
--- OUTSIDE RECORDS SUMMARY | 2024-12-29 17:30 | XMS_ITS | Encounter Summary ---
Author Organization [facility] Address [address] [place] [address] Care Team Providers Care Paper Roller Name Role Phone Unavailable Primary Care Provider Unavailabl e Encounter Details Date Type Department Care Team (Late st Contact Info) Description 09/23/2005 Results Only [facility] - Maple conversion [address] [place] [address] Puja Calvin, [facility] [address] [place] [address] [place] [address] Social History Tobacco Use Types Packs/Day Years [...] Priority Date/Time Associated Diagnosis Comments CYTOPATHOLOGY Routine 09/23/2005 0:00 EDT documented in this encounter Results * CYTOPATHOLOGY (09/23/2005 0:00 EDT) Pathology Report: CYTOPATHOLOGY REPORT Reports generated via electronic interface contain original data; however they are lacking the format of the original report. Caution should be taken when reading/interpreti ng unformatted reports. Name: ? SIMI العلي ? Accession #: ? [id number] : ? 1945 (Age: 60) ??F ?Collect Date: ? 09/23/2005 Location: ? [facility] ? Receive Date: ? 09/24/2005 Provider: ?PUJA CALVIN TOPSTITCHER ZIGZAG Copy to: ? Specimen/Source: ?ThinPrep Pap Test, Cervix/Endocervix Last Menstrual Period: ? age 53 Other: ? HPVA - HPV testing requested if ASC-US on the current ThinPrep Pap test. ? SPECIMEN ADEQUACY ? Satisfactory for Evaluation - transformation zone component present GENERAL CATEGORIZATION ? Negative for Intraepithelial Lesion or Malignancy ? Document reviewed and electronically signed by: ? FLORENTIN Wagner(ASCP) ? Report Date: ??09/26/2005 07:45 End of Report [facility] 09/23/2005 09/24/2005 us Puja Calvin TOPSTITCHER ZIGZAG PATHOLOGY ORDERABLES Final R esult [facility] [address] [place] [address] documented in this encounter Visit Diagnoses Not on filedocumented in this encounter
--- OUTSIDE RECORDS SUMMARY | 2024-12-29 17:30 | XMS_ITS | Encounter Summary ---
Author Organization [facility] Address [address] [place] [address] Care Team Providers Care Life Sciences Teacher Name Role Phone Janessa Chand MD Primary Care Provider [phone] Encounter Details Date Type Department Care Team (Latest Contact Info) Description 07/16/2015 16:51 EDT - 07/16/2015 23:59 EDT Hospital Encounter [address] [address] Unknown, Provider, MD Discharge Disposition: Home or [...] Code Departure Means Destination Home or Self Residential documented in this encounter Plan of Treatment Not on file documented as of this encounter Visit Diagnoses Not on filedocumented in this encounter Care Teams Life Sciences Teacher Relationship Specialty Start Date End Date Janessa Chand MD [address] [place] [id number] PCP - General 05/09/11 documented as of this encounter
--- OUTSIDE RECORDS SUMMARY | 2024-12-29 17:30 | XMS_ITS | Encounter Summary ---
Author Organization [facility] Address [address] [place] [address] Care Team Providers Care Hooker Inspector Name Role Phone Unavailable Primary Care Provider Unavailabl e Encounter Details Date Type Department Care Team (Late st Contact Info) Description 05/03/2003 Results Only [facility] - Maple conversion [address] [place] [address] Aamir Grajeda MD [address] [place] [address] Social History Tobacco Use Types Packs/Day Years [...] Date/Time Associated Diagnosis Comments SURGICAL PATHOLOGY Routine 05/03/2003 0:00 EDT documented in this encounter Results * SURGICAL PATHOLOGY (05/03/2003 0:00 EDT) Pathology Report: SURGICAL PATHOLOGY REPORT Reports generated via electronic interface contain original data; however they are lacking the format of the original report. Caution should be taken when reading/interpreti ng unformatted reports. Name: ? SIMI العلي ? Accession #: ? [id number] ? : ? 1945 (Age: 57) ??F ? Collect Date: ? 05/03/2003 ? Location: ? [facility] ? Receive Date: ? 05/04/2003 ? Provider: ALITSAIR GRAJEDA MD Copy to: ERICH MENDEZ MD ? Final Pathologic Diagnosis: ? Skin of arm, left, excision: 1. ?Basal cell carcinoma with aggressive growth pattern (infiltrative). ? - Margins negative for basal cell carcinoma (basal cell carcinoma present approximately 2.0 mm from closest (ulnar) margin). 2. ?Incidental seborrheic keratosis, pigmented. Document reviewed and electronically signed by: Betty Aponte MD Report ??Date: 05/05/2003 16:49 By the signature above, the attending physician certifies that he/she has personally conducted a gross and/or microscopic examination of the described specimens and rendered or confirmed the above diagnosis. Specimen(s) Received: ? Lesion left arm Clinical History: ? Lesion left forearm ??suture is proximal, R/O basal cell Gross Description: ? Received in formalin labelled Begin and lesion L arm is an oriented ellipse of skin with a suture designating the proximal aspect, which will be designated as 12 o' clock. ??The specimen measures 2.5 cm from 12 ??6 o' clock, 1.3 cm from 6 ??9 o' clock, and is excised to a depth of 0.2 cm. ??The cutaneous surface is remarkable for a central, ovoid, 0.9 x 0.6 x 0.1 cm simmons-white to simmons-light brown papule. ??The specimen is inked as follows: ??3 o' clock aspect blue and 9 o' clock aspect black. ??The specimen is serially sectioned from 12 ??6 o' clock, and entirely submitted as follows: BLOCK WATSON A1 ?12 o' clock tip, reverse en face A2 ?Central sections A3 ?6 o' clock tip, reverse en face (Dr. Amaya-EJ)/kmm ?? End of Report [facility] 05/03/2003 05/04/2003 15: 26 EDT us Aamir Grajeda MD PATHOLOGY ORDERABLES Final Res ult [facility] [address] [place] [address] documented in this encounter Visit Diagnoses Not on filedocumented in this encounter
--- OUTSIDE RECORDS SUMMARY | 2024-12-29 17:30 | XMS_ITS | Encounter Summary ---
[facility] [place] [address] Care Team Providers Care Lead Technologist In Cytogenetics Name Role Phone Janessa Chand MD Primary Care Provider [phone] Encounter Details Date Type Department Care Team (Late st Contact Info) Description 09/28/2023 Refill Dermatology at [address] [address] Mee Jeffrey RN Social History Tobacco Use Types Packs/Day Years [...] 10:30 AM EST Office Visit Dermatology at [address] [address] Ishaan Miguel MD [address] [place] [address], [facility] DERMATOLOGY [place], [place] [id number] documented as of this encounter Visit Diagnoses Not on filedocumented in this encounter Care Teams Lead Technologist In Cytogenetics Relationship Specialty Start Date End Date Janessa Chand MD [address] [place] [address] PCP - General 10/22/10 documented as of this encounter
--- OUTSIDE RECORDS SUMMARY | 2024-12-29 17:30 | XMS_ITS | Clinical Summary ---
Author Organization [facility] Address [address] [place] [address] Care Team Providers Care Rn Lactation Consultant Name Role Phone Janessa Chand MD Primary Care Provider [phone] Social History Tobacco Use Types Packs/Day Years Used Date Smoking Tobacco: Never Assessed Interpersonal Safety Answer Date Record ed Physically Hurt Never 07/01/2020 Verbally Threaten Not on file 07/01/2020 Comments Unknown Sex and Gender Information Value Date Recorded Sex Assigned at Not on file Legal Sex Female 17:38 EST Gender Identity Not on file Sexual Orientation Not on file Plan of Treatment Health Maintenance Due Date Last Done Comments Hepatitis C Screen 1945 Fall Risk Screening 2010 RSV Immunization ( o r 60+ Years) (1 - 1-dose 75+ series) 2020 COVID-19 Vaccine ( season) 20[place] [address] Care Teams Rn Lactation Consultant Relationship Specialty Start Date End Date Janessa Chand MD [address] [place] [address] [address] [place] [address] PCP - General 05/09/11
--- OUTSIDE RECORDS SUMMARY | 2024-12-29 17:30 | XMS_ITS | Encounter Summary ---
Author Organization [facility] Address [address] [place] [address] Care Team Providers Care Director Of Catering Name Role Phone Janessa Chand MD Primary Care Provider [phone] Encounter Details Date Type Department Care Team (Late st Contact Info) Description 07/16/2015 Results Only [facility] [phone] Jeffrey Swan MD [address] [place] [address] [address] [place], [place] [address] Social History Tobacco Use Types Packs/Day Years [...] Date/Time Associated Diagnosis Comments SURGICAL PATHOLOGY Routine 07/16/2015 17 :19 EDT documented in this encounter Results * SURGICAL PATHOLOGY (07/16/2015 17:19 EDT) Pathology Report: SURGICAL PATHOLOGY REPORT Reports generated via electronic interface contain original data; however they are lacking the format of the original report. Caution should be taken when reading/interpret ing unformatted reports. Name: ? SIMI العلي Himanshu ? Accession #: ? [id number] ? : ? 1945 (Age: 69) ??F ? Collect Date: ? 07/16/2015 ? Location: ? [facility] ? Receive Date: ? 07/16/2015 ? Provider: JEFFREY SWAN MD Copy to: JANESSA CHAND MD ? Final Pathologic Diagnosis: A. STOMACH, POLYP, BIOPSY: - ??Fundic gland polyp. B. STOMACH, GASTRIC ULCER, BIOPSY: - ??Gastric body/fundic mucosa with parietal cell hyperplasia. C. 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 - ??Negative for dysplasia. D.: COLON, ASCENDING, POLYP, BIOPSY: - ??Fragments of tubular adenoma(s). Document reviewed and electronically signed by: PRADEEP WHEELER MD Report ??Date: 07/18/2015 11:34 By the signature above, the attending physician certifies that he/she has personally conducted a gross and/or microscopic examination of the described specimens and rendered or confirmed the above diagnosis. Specimen(s) Received: A. ?Gastric polyp (#1) B. ? Gastric ulcer (#2) C. ? GE junction (#3) D. ? Ascending colon polyps x2 (#4) Clinical History: Anemia, GERD, h/o colon polyps, h/o Sanches's esophagus Gross Description: A. ?Received in formalin labelled with proper patient identification (initials B, V) and gastric polyp is a single pink-simmons tissue fragment (0.3 x 0.3 x 0.2 cm). Submitted intact in A1. B. ?Received in formalin labelled with proper patient identification (initials B, V) and gastric ulcer is a single pink-simmons tissue fragment (0.4 x 0.2 x 0.1 cm). Submitted intact in B1. C. ?Received in formalin labelled with proper patient identification (initials B, V) and GE junction are two yellow-white tissues (0.3 x 0.2 x 0.1 cm and 0.4 x 0.2 x 0.2 cm). Entirely submitted in C1. D. ?Received in formalin labelled with proper patient identification (initials B, V) and ascending colon polyps x2 are three pink-simmons tissues (0.2 x 0.2 x 0.1 cm to 0.3 x 0.2 x 0.2 cm). Entirely submitted in D1. Charlene Kingston 07/16/2015 9:08 PM End of Report [facility] 07/16/2015 17:1 9 EDT 07/16/2015 17:19 EDT us Jeffrey Swan MD PATHOLOGY ORDERABLES Fin al Result Performing Organization Address City/State/[facility] Co de Phone Number [facility] [address] [place] [address] documented in this encounter Visit Diagnoses Not on filedocumented in this encounter Care Teams Director Of Catering Relationship Specialty Start Date End Date Janessa Chand MD [address] [place] [address] PCP - General 05/09/11 documented as of this encounter
--- OUTSIDE RECORDS SUMMARY | 2024-12-29 17:30 | XMS_ITS | Encounter Summary ---
Author Organization [facility] Address [address] [place] [address] Care Team Providers Care Colorer Hides And Skins Name Role Phone Unavailable Primary Care Provider Unavailabl e Encounter Details Date Type Department Care Team (Late st Contact Info) Description 07/13/2001 Results Only [facility] - Maple conversion [address] [place] [address] Liliana Collado, PNEUMATIC JACK OPERATOR [facility] [address] [place] [address] Social History Tobacco Use Types [...] Priority Date/Time Associated Diagnosis Comments CYTOPATHOLOGY Routine 07/13/2001 0:00 EDT documented in this encounter Results * CYTOPATHOLOGY (07/13/2001 0:00 EDT) Pathology Report: CYTOPATHOLOGY REPORT Reports generated via electronic interface contain original data; however they are lacking the format of the original report. Caution should be taken when reading/interpreti ng unformatted reports. Name: ? SIMI العلي ? Accession #: ? [id number] : ? 1945 (Age: 55) ??F ?Collect Date: ? 07/13/2001 Location: ? [facility] ? Receive Date: ? 07/15/2001 Provider: ?LILIANA COLLADO PNEUMATIC JACK OPERATOR Copy to: ? Specimen/Source: ?ThinPrep Pap Test, Cervix/Endocervix Last Menstrual Period: ? 3 years ? SPECIMEN ADEQUACY ? Satisfactory for evaluation. GENERAL CATEGORIZATION ? Within Normal Limits ? Document reviewed and electronically signed by: ? FLORENTIN Hayes(ASCP) ? Report Date: ??07/20/2001 13:12 End of Report [facility] 07/13/2001 07/15/2001 us Liliana Collado NP PATHOLOGY ORDERABLES Final Result [facility] [address] [place] [address] documented in this encounter Visit Diagnoses Not on filedocumented in this encounter
--- OUTSIDE RECORDS SUMMARY | 2024-12-29 17:30 | XMS_ITS | Encounter Summary ---
Author Organization [facility] Address [address] [place] [address] Care Team Providers Care Mold Machine Operator Name Role Phone Janessa Chand MD Primary Care Provider [phone] Encounter Details Date Type Department Care Team (Late st Contact Info) Description 11/09/2020 Lab Requisition [facility] Pathology & Laboratory Medicine - [address] [address] Outr Resulting Lab, Provider Social History Tobacco Use Types Packs/Day Years [...] Procedure Name Priority Date/Time Associated Diagnosis Comments DO NOT ORDER STANDALONE - BROAD COVID TEST Today 11/09/2020 9:26 EST COVID-19 TESTING Routine 11/09/2020 9:26 EST documented in this encounter Results * DO NOT ORDER STANDALONE - BROAD COVID TEST (11/09/2020 9:26 EST) COVID-19 rt-PCR Result NEGATIVE Negative 11/11/2020 14:18 EST [facility] Comment: 2019-novel Coronavirus (2019-nCoV) not detected by the qRT-PCR assay. Consider testing for other respiratory viruses or re-collecting for 2019-nCoV testing. Note: Optimum timing for peak viral levels during infections caused by 2019-nCoV have not been determined. Collection of multiple specimens from the same patient may be necessary to detect the virus. Limitations Positive results are indicative of active infection with SARS-CoV-2 but do not rule out bacterial infection or co-infection with other viruses. The agent detected may not be the definite cause of disease. In addition, detection of viral RNA may not indicate the presence of infectious virus or that SARS-CoV-2 is the causative agent for clinical symptoms. Negative results do not preclude SARS-CoV-2 infection and should not be used as the sole basis for patient management decisions. Negative results must be combined with clinical observations, patient history, and epidemiological information. False negative results may also occur if amplification inhibitors are present in the specimen or if inadequate numbers of organisms are present in the specimen. Optimum specimen types and timing for peak viral levels during infections caused by SARS-CoV-2 have not been fully determined. Collection of multiple specimens (types and time points) from the same patient may be necessary to detect the virus. The test was validated for use with upper respiratory specimens obtained via nasopharyngeal or oropharyngeal swabs in VTM, UTM, M4, M5, M6, saline, and MTM media. The performance of this test has not been established for other specimens. Specimens collected using other FDA recommended Specimen Collection Materials listed in the FDA COVID-19 Diagnostic [employer] communication (February 23, 2020) are processed with the caveat that they were not all validated for use with this test and the result must be interpreted in this context. Furthermore, a false negative results may occur if a specimen is improperly collected, transported or handled. If the virus mutates in the RT-PCR target region, SARS-CoV-2 may not be detected or may be detected less predictably. Inhibitors or other types of interference may produce a false negative result. An interference study evaluating the effect of common cold medications was not performed. This test is not FDA-cleared but its performance characteristics were established by our CLIA-certified, CAP-accredited, high complexity laboratory in accordance with CLIA regulations, College [employer] (CAP) guidelines (Feb 16, 2020), and FDA guidance (Jan 28, 2020). This test is only for use under the Food and Drug Administration's Emergency Use Authorization. Swab ENTIRE NASOPHARYNX / Unknown 11/09/2020 9:26 EST 11/09/2020 16:11 EST us Provider Outr Resulting Lab MICROBIOLOGY - GENER AL ORDERABLES Final Result [facility] [place], [place] * COVID-19 TESTING (11/09/2020 9:26 EST) COVID-19 rt-PCR Result NEGATIVE Negative 11/11/2020 16:47 EST [facility] Comment: 2019-novel Coronavirus (2019-nCoV) not detected by the qRT-PCR assay. Consider testing for other respiratory viruses or re-collecting for 2019-nCoV testing. Note: Optimum timing for peak viral levels during infections caused by 2019-nCoV have not been determined. Collection of multiple specimens from the same patient may be necessary to detect the virus. Limitations Positive results are indicative of active infection with SARS-CoV-2 but do not rule out bacterial infection or co-infection with other viruses. The agent detected may not be the definite cause of disease. In addition, detection of viral RNA may not indicate the presence of infectious virus or that SARS-CoV-2 is the causative agent for clinical symptoms. Negative results do not preclude SARS-CoV-2 infection and should not be used as the sole basis for patient management decisions. Negative results must be combined with clinical observations, patient history, and epidemiological information. False negative results may also occur if amplification inhibitors are present in the specimen or if inadequate numbers of organisms are present in the specimen. Optimum specimen types and timing for peak viral levels during infections caused by SARS-CoV-2 have not been fully determined. Collection of multiple specimens (types and time points) from the same patient may be necessary to detect the virus. The test was validated for use with upper respiratory specimens obtained via nasopharyngeal or oropharyngeal swabs in VTM, UTM, M4, M5, M6, saline, and MTM media. The performance of this test has not been established for other specimens. Specimens collected using other FDA recommended Specimen Collection Materials listed in the FDA COVID-19 [employer] communication (February 23, 2020) are processed with the caveat that they were not all validated for use with this test and the result must be interpreted in this context. Furthermore, a false negative results may occur if a specimen is improperly collected, transported or handled. If the virus mutates in the RT-PCR target region, SARS-CoV-2 may not be detected or may be detected less predictably. Inhibitors or other types of interference may produce a false negative result. An interference study evaluating the effect of common cold medications was not performed. This test is not FDA-cleared but its performance characteristics were established by our CLIA-certified, CAP-accredited, high complexity laboratory in accordance with CLIA regulations, College of [employer] (CAP) guidelines (Feb 16, 2020), and FDA guidance (Jan 28, 2020). This test is only for use under the Food and Drug Administration's Emergency Use Authorization. Performing Lab [facility] 11/11/2020 16:47 EST [facility] Swab 11/09/2020 9:26 EST 11/09/2020 16:11 EST us Provider Outr Resulting Lab MICROBIOLOGY - GENER AL ORDERABLES Final Result [facility] [address] [place] [address] [facility] [place], [place] documented in this encounter Visit Diagnoses Not on filedocumented in this encounter Care Teams Mold Machine Operator Relationship Specialty Start Date End Date Janessa Chand MD [address] [place] [address] PCP - General 05/09/11 documented as of this encounter
--- OUTSIDE RECORDS SUMMARY | 2024-12-29 17:30 | XMS_ITS | Encounter Summary ---
[place] [address] Care Team Providers Care Pilot Manager Name Role Phone Janessa Chand MD Primary Care Provider [phone] Encounter Details Date Type Department Care Team (Late st Contact Info) Description 07/15/2022 8:00 AM EDT TH Visit (TeleHealth) Dermatology at [place] [address] [facility] [place] [address] Ishaan Miguel MD [address] [facility], [address] [place] [address] Pruritus Social History Tobacco Use Types Packs/Day [...] Progress Notes * Ishaan Miguel MD - 07/15/2022 8:00 AM EDT Problem: 1. Follow-up pruritus 2. History of malignant melanoma in situ, left lateral foot, November 2006, status post excision with close margins treated with 3 months of Aldara therapy 3. telehealth telephone visit Mitzi is contacted today utilizing the telehealth telephone platform. She states that her itchingwhich was 9 out of 10 previously is now down to 5 out of 10, which she has achieved with avoiding the fragranced soaps oil of Olay products detergents fabric softeners. She still has itching to some degree and notes that when she is in the sun that the sun seems to set this off as well. The bumps that she has noticed on her arms and sun exposed skin seems to be less prominent. She reminds me thatrenard has been on hydrochlorothiazide for at least 10 years. Assessment and plan: Generalized pruritus in the 76-year-old woman 1. Some improvement with avoidance of fragrance products use of Dove soap detergent fabric softener dryer sheets etc. Continue use of CeraVe cream on a daily basis 2. While this itching did begin last winter, she notices a definite worsening with sun exposure. Avoid sun and see if there is further improvement 3. Still consider holding hydrochlorothiazide if there is not further improvement. Could consider chest x-ray PA and lateral 4. Continue to consider prescriptions for antihistamines in slightly higher doses than previously, such as hydroxyzine 25 mg instead of 10 mg dosing we will not prescribe any today 5. I have asked the patient to contact me in 2 weeks with her progress. CC: Janessa Chand MD documented in this encounter Plan of Treatment Upcoming Encounters Date Type Department Care Team (Late st Contact Info) Description 11/06/2025 10:30 AM EST Office Visit Dermatology at [place] [address] [facility] [place] [id number] Ishaan Miguel MD [address], [place] [address] documented as of this encounter Visit Diagnoses Diagnosis Pruritus Unspecified pruritic disorder documented in this encounter Care Teams Pilot Manager Relationship Specialty Start Date End Date Janessa Chand MD [address] [place] [address] PCP - General 10/22/10 documented as of this encounter
--- OUTSIDE RECORDS SUMMARY | 2024-12-29 17:30 | XMS_ITS | Encounter Summary ---
[place] [address] Care Team Providers Care Game Designer Name Role Phone Janessa Chand MD Primary Care Provider [phone] Encounter Details Date Type Department Care Team (Latest Contact Info) Description 10/27/2023 Travel Social History Tobacco Use Types Packs/Day [...] 10:30 AM EST Office Visit Dermatology at [place] [address] [facility] [place] [address] Ishaan Miguel MD [address] [facility], [place] [address] documented as of this encounter Visit Diagnoses Not on filedocumented in this encounter Care Teams Game Designer Relationship Specialty Start Date End Date Janessa Chand MD [address] [place] [address] PCP - General 10/22/10 documented as of this encounter
--- OUTSIDE RECORDS SUMMARY | 2024-12-29 17:30 | XMS_ITS | Referral Summary ---
Author Organization [facility] Address [address] [place] [address] Care Team Providers Care Ground Operations Crew Member Name Role Phone Janessa Chand MD Primary Care Provider [phone] Social History Tobacco Use Types Packs/Day Years Used Date Smoking Tobacco: Never Assessed Interpersonal Safety Answer Date Record ed Physically Hurt Never 07/01/2020 Verbally Threaten Not on file 07/01/2020 Comments Unknown Sex and Gender Information Value Date Recorded Sex Assigned at Not on file Legal Sex Female 17:38 EST Gender Identity Not on file Sexual Orientation Not on file Plan of Treatment Not on file Insurance MEDICARE [employer] [place] Care Teams Ground Operations Crew Member Relationship Specialty Start Date End Date Janessa Chand MD [address] [place] [address] PCP - General 05/09/11
--- OUTSIDE RECORDS SUMMARY | 2024-12-29 17:30 | XMS_ITS | Encounter Summary ---
Author Organization [facility] Address [address] [place] [address] Care Team Providers Care Responder Name Role Phone Janessa Marquez MD Primary Care Provider [phone] Encounter Details Date Type Department Care Team (Late st Contact Info) Description 08/22/2013 Results Only [facility] Services - [facility] [address] [place], [place] [id number] [place] [address] [place] [id number] Social History Tobacco Use Types Packs/Day Years [...] Date/Time Associated Diagnosis Comments SURGICAL PATHOLOGY Routine 08/22/2013 21 :37 EDT documented in this encounter Results * SURGICAL PATHOLOGY (08/22/2013 21:37 EDT) Pathology Report: SURGICAL PATHOLOGY REPORT Reports generated via electronic interface contain original data; however they are lacking the format of the original report. Caution should be taken when reading/interpreti ng unformatted reports. Name: ? SIMI العلي ? Accession #: ? [id number] ? : ? 1945 (Age: 68) ??F ? Collect Date: ? 08/22/2013 ? Location: ? [facility] ? Receive Date: ? 08/22/2013 ? Provider: JORGE ECHAVARRIA MD Copy to: JANESSA MARQUEZ MD ? Final Pathologic Diagnosis: A. STOMACH, FUNDIC NODULE, BIOPSY: - ??Hyperplastic polyp. ?? B. ESOPHAGUS, BIOPSY: - ??Sanches's esophagus. ??Negative for dysplasia. - ??Fragments of oxyntic mucosa with focal reactive gastropathy. Comment: Deeper sections have been examined. ?? Document reviewed and electronically signed by: AARON RICHTER MD Report ??Date: 08/25/2013 16:15 By the signature above, the attending physician certifies that he/she has personally conducted a gross and/or microscopic examination of the described specimens and rendered or confirmed the above diagnosis. Specimen(s) Received: A. ??Fundic nodule (#1) B. ??? short segment Sanches's (#2) Clinical History: H/O Sanches's esophagus Gross Description: A. ? Received in formalin labelled with proper patient identification (initials B, V) and 1- fundic nodule is a single pink-simmons tissue fragment (0.3 x 0.2 x 0.1 cm). Submitted intact in A1. B. ?Received in formalin labelled with proper patient identification (initials B, V) and 2- ? short segment Sanches's are four pink-simmons tissues (0.4 x 0.2 x 0 point to 0.4 x 0.3 x 0.2 cm). Entirely submitted in B1 and B2. Maru Culver 08/23/2013 09:32 AM End of Report [facility] 08/22/2013 21:3 7 EDT 08/22/2013 21:37 EDT us Jorge Echavarria MD PATHOLOGY ORDERABLES Final Resul t [facility] [address] [place] [address] documented in this encounter Visit Diagnoses Not on filedocumented in this encounter Care Teams Responder Relationship Specialty Start Date End Date Janessa Marquez MD [address] [place] [phone] PCP - General 05/09/11 documented as of this encounter
--- OUTSIDE RECORDS SUMMARY | 2024-12-29 17:30 | XMS_ITS | Encounter Summary ---
[place] [address] Care Team Providers Care Requirements Engineer Name Role Phone Janessa Chand MD Primary Care Provider [phone] Reason for Visit * Reason Comments Skin Check Encounter Details Date Type Department Care Team (Late st Contact Info) Description 09/24/2023 4:00 PM EDT Office Visit Dermatology at [address] [address] Ishaan Miguel MD [address] [place] [address], [facility] [place] [address] [place] (actinic keratosis); Seborrheic keratosis; Inflamed acrochordon Social History Tobacco [...] Progress Notes * Ishaan Miguel MD - 09/24/2023 4:00 PM EDT Problem: 1. Skin lesions of concern 2. History of malignant melanoma in situ, left lateral foot, November 2006, status post excision with close margins treated with 3 months of Aldara therapy Mitzi follows up for a repeat skin checkup. She states that she has numerous spots that need attention. We did our last brae-cz-ddmo visit in May 2022. In June of this year we did a telephone visitfor pruritus. The pruritus has resolved. Complains of discomfort on the upper V of her chest when she rubs the area or showers. Physical examination reveals a pleasant 78-year-old woman who has 2 tags present on the anterior base of her neck. She has an actinic keratosis on the right medial canthus and a an 8 mm seborrheic keratosis on the left medial canthus. She has 2 recurrent seborrheic keratoses of the left upper forehead. She has a number of milia/cyst over the right and left nasal sidewalls. Otherwise she has a benign examination of the head and the neck the chest the back and forearms. She does have diffuse actinic damage and diffuse flat seborrheic keratoses of the upper V of her chest Assessment plan: Actinic keratoses of the upper V of her chest 1. Begin 5-fluorouracil 5% cream apply twice daily to upper V of chest for 7 days on then stop for 3 weeks. Repeat for total of 3 cycles. Dispense 40 g with 0 refills. Tags anterior base of neck 1. Today sites were anesthetized and removed with electrodesiccation Seborrheic keratoses facial sites 1. Could consider treatment of facial seborrheic keratosis of the left upper forehead/mu-ism and the left medial canthus with LN2 2. If these do not resolve return to clinic in 1 month for light C&D removal of these CC: Janessa Chand MD documented in this encounter Plan of Treatment Upcoming Encounters Date Type Department Care Team (Late st Contact Info) Description 11/06/2025 10:30 AM EST Office Visit Dermatology at [place] [address] [facility] [place] [phone] Ishaan Miguel MD [address] [facility], [place] [address] documented as of this encounter Visit Diagnoses Diagnosis AK (actinic keratosis) Actinic keratosis Seborrheic keratosis Other seborrheic keratosis Inflamed acrochordon Unspecified hypertrophic and atrophic condition of skin documented in this encounter Care Teams Requirements Engineer Relationship Specialty Start Date End Date Janessa Chand MD [address] [place] [address] PCP - General 10/22/10 documented as of this encounter
--- OUTSIDE RECORDS SUMMARY | 2024-12-29 17:30 | XMS_ITS | Encounter Summary ---
[place] [address] Care Team Providers Care Detailer Name Role Phone Janessa Chand MD Primary Care Provider [phone] Encounter Details Date Type Department Care Team (Late st Contact Info) Description 06/11/2021 Telephone [place] [address] Percy Szymanski Social History Tobacco Use Types Packs/Day Years [...] encounter Miscellaneous Notes * Telephone Encounter - Percy Szymanski - 06/11/2021 3:59 PM EDT Inbound/Outbound: Outbound Spoke to Patient/Left Message: Left message Notes: Outbound call to patient to schedule motility lab testing from referral. Left message askingfor callback to schedule. Return calls can be handled by: Motility Lab Nurse Practitioner Physicians Assistant documented in this encounter Plan of Treatment Upcoming Encounters Date Type Department Care Team (Late st Contact Info) Description 11/06/2025 10:30 AM EST Office Visit Dermatology at [place] [address] [place] [address] Ishaan Miguel MD [address] [facility] [facility] [address], [place] [address] documented as of this encounter Visit Diagnoses Not on filedocumented in this encounter Care Teams Detailer Relationship Specialty Start Date End Date Janessa Chand MD [address] [facility] 1 [place] [address] PCP - General 10/22/10 documented as of this encounter
--- OUTSIDE RECORDS SUMMARY | 2024-12-29 17:30 | XMS_ITS | Encounter Summary ---
Author Organization [facility] Address [address] [place] [address] Care Team Providers Care Prosthetic Aides Teacher Name Role Phone Unavailable Primary Care Provider Unavailabl e Encounter Details Date Type Department Care Team (Late st Contact Info) Description 09/14/2002 Results Only [facility] [address] [place] [address] Aamir Grajeda MD [address] [place] [address] Social History Tobacco Use Types Packs/Day Years [...] Date/Time Associated Diagnosis Comments SURGICAL PATHOLOGY Routine 09/14/2002 0:00 EDT documented in this encounter Results * SURGICAL PATHOLOGY (09/14/2002 0:00 EDT) Pathology Report: SURGICAL PATHOLOGY REPORT Reports generated via electronic interface contain original data; however they are lacking the format of the original report. Caution should be taken when reading/interpreti ng unformatted reports. Name: ? SIMI العلي ? Accession #: ? [id number] ? : ? 1945 (Age: 57) ??F ? Collect Date: ? 09/14/2002 ? Location: ? [facility] ? Receive Date: ? 09/14/2002 ? Provider: ALISTAIR GRAJEDA MD Copy to: ERICH MENDEZ MD ? Final Pathologic Diagnosis: ? Colon, sigmoid, 25.0 cm, polyp, biopsy: - ??Tubular adenoma. Document reviewed and electronically signed by: Iron Hamilton MD Report ??Date: 09/16/2002 15:55 By the signature above, the attending physician certifies that he/she has personally conducted a gross and/or microscopic examination of the described specimens and rendered or confirmed the above diagnosis. Specimen(s) Received: ? Polyp @ 25.0 cm (sigmoid) Clinical History: ? Screen colonoscopy, polyp @ 25.0 cm Gross Description: ? Received in Hollande's fixative labelled Begin and polyp 25.0 cm are three simmons-pink, irregular soft tissue fragments ranging from 0.2 x 0.2 x 0.2 cm to 0.6 x 0.3 x 0.2 cm. ??The specimen is entirely submitted in one cassette. ??(Lenard Sanabria)/[facility] End of Report [facility] 09/14/2002 09/14/2002 15: 02 EDT us Aamir Grajeda MD PATHOLOGY ORDERABLES Final Res ult [facility] [address] [place] [address] documented in this encounter Visit Diagnoses Not on filedocumented in this encounter
--- OUTSIDE RECORDS SUMMARY | 2024-12-29 17:30 | XMS_ITS | Encounter Summary ---
Author Organization [facility] Address [address] [place] [address] Care Team Providers Care Isotope Hydrologist Name Role Phone Janessa Chand MD Primary Care Provider [phone] Encounter Details Date Type Department Care Team (Late st Contact Info) Description 11/14/2020 Lab Requisition [facility] Pathology & Laboratory Medicine - [address] [address] Babita Rojo MD [address] [place] [address] [address] [place], [place] [address] Encounter for other general examination Social History Tobacco Use Types Packs/Day Years [...] Priority Date/Time Associated Diagnosis Comments SURGICAL PATHOLOGY Today 11/14/2020 13 :52 EST Encounter for other general examination documented in this encounter Results * SURGICAL PATHOLOGY (11/14/2020 13:52 EST) Final Diagnosis A. STOMACH, PYLORUS, BIOPSY: - Antral mucosa with reactive (chemical) gastropathy. - Focal intestinal metaplasia noted. - Negative for Helicobacter pylori on H&E stained sections. B. STOMACH, ANTRUM, BIOPSY: - Antral and fundic mucosa with reactive (chemical) gastropathy. - Negative for Helicobacter pylori on H&E stained sections. C. ESOPHAGUS, GE JUNCTION, BIOPSY: - Squamocolumnar mucosa with mild reactive changes. - Negative for intestinal metaplasia and dysplasia. D. COLON, ASCENDING, POLYPS X2, BIOPSY: - Tubular adenomas. E. COLON, SIGMOID, POLYPS X5, BIOPSY: - Hyperplastic polyps. F. RECTUM, BIOPSY: - Colonic mucosa with focal hyperplastic change. 11/15/2020 17:08 [facility] Attestation By the signature below, the attending physician certifies that they have 1) personally conducted a gross and/or microscopic examination of the described specimen(s), and/or personally interpreted the results of laboratory testing of the described specimen(s), and 2) personally rendered or confirmed the above diagnosis. 11/15/2020 17:08 [facility] at 1708 Clinical History Polyps; Sanches's esophagus 11/15/2020 17:08 [facility] Gross Description A. Received in formalin labelled with proper patient identification (initials B, V) and pylorus biopsy are 2 fragments of simmons soft tissue (each averaging 0.3 x 0.3 x 0.2 cm). The specimen is entirely submitted in A1. B. Received in formalin labelled with proper patient identification (initials B, V) and antrum Bx are 5 fragments of simmons soft tissue (ranging from 0.2 cm to 0.6 cm in greatest dimension). The specimen is entirely submitted in B1. C. Received in formalin labelled with proper patient identification (initials B, V) and GE junction are 2 fragments of simmons-blount soft tissue (each averaging 0.4 x 0.2 x 0.2 cm). The specimen is entirely submitted in C1. D. Received in formalin labelled with proper patient identification (initials B, V) and ascending colon polyp x2 are 3 fragments of simmons-yellow soft tissue (ranging from 0.2 cm to 0.4 cm in greatest dimension). The specimen is entirely submitted in D1. E. Received in formalin labelled with proper patient identification (initials B, V) and sigmoid polyp x5 are 4 fragments of simmons soft tissue (ranging from 0.2 cm to 0.4 cm in greatest dimension). The specimen is entirely submitted in E1. F. Received in formalin labelled with proper patient identification (initials B, V) and rectum is a single fragment of simmons soft tissue (0.4 x 0.3 x 0.2 cm). The specimen is entirely submitted in F1. RJ ZEPEDA(ASCP) 11/15/2020 8:04 11/15/2020 17:08 EST [facility] Performing Lab [facility] 11/15/2020 17:08 EST [facility] Scanned Images 11/15/2020 17:08 EST [facility] Tissue SPECIMEN FROM RECTUM / Unknown 11/14/2020 13:52 EST 11/14/2020 22:34 EST Tissue specimen (specimen) STOMACH STRUCTURE / Unknown 11/14/2020 13:52 EST 11/14/2020 22:34 EST Tissue specimen (specimen) ESOPHAGEAL STRUCTURE / Unknown 11/14/2020 13:52 EST 11/14/2020 22:34 EST Tissue specimen (specimen) ASCENDING COLON STRUCTURE / Unknown 11/14/2020 13:52 EST 11/14/2020 22:34 EST Tissue specimen (specimen) SIGMOID COLON STRUCTURE / Unknown 11/14/2020 13:52 EST 11/14/2020 22:34 EST Tissue specimen (specimen) SPECIMEN FROM RECTUM / Unknown 11/14/2020 13:52 EST 11/14/2020 22:34 EST us Babita Rojo MD PATHOLOGY ORDERABLES Fin al Result [facility] [address] [place] [address] documented in this encounter Visit Diagnoses Diagnosis Encounter for other general examination documented in this encounter Care Teams Isotope Hydrologist Relationship Specialty Start Date End Date Janessa Chand MD [address] [place] [address] [address] [place] [phone] PCP - General 05/09/11 documented as of this encounter
--- OUTSIDE RECORDS SUMMARY | 2024-12-29 17:31 | XMS_ITS | Encounter Summary ---
Author Organization [facility] [place] [address] Care Team Providers Care Rigger Apprentice Name Role Phone Janessa Chand MD Primary Care Provider [phone] Encounter Details Date Type Department Care Team (Late st Contact Info) Description 04/03/2021 Orders [place] [address] Sebastián Hernandez MD [facility] [place] [address] Gastritis with intestinal metaplasia of stomach Social History Tobacco Use Types Packs/Day Years [...] 10:30 AM EST Office Visit Dermatology at [place] [address] [facility] [place] [address] Ishaan Miguel MD [address] [facility], [place] [address] documented as of this encounter Visit Diagnoses Diagnosis Gastritis with intestinal metaplasia of stomach documented in this encounter Care Teams Rigger Apprentice Relationship Specialty Start Date End Date Janessa Chand MD [address] [place] [address] PCP - General 10/22/10 documented as of this encounter
--- OUTSIDE RECORDS SUMMARY | 2024-12-29 17:31 | XMS_ITS | Encounter Summary ---
[place] [address] Care Team Providers Care Gripper Machine Operator Name Role Phone Janessa Chand MD Primary Care Provider [phone] Encounter Details Date Type Department Care Team (Late st Contact Info) Description 02/15/2021 [place] [phone] Jeff Nixon Social History Tobacco Use Types Packs/Day Years [...] encounter Miscellaneous Notes * Telephone Encounter - Jeff Nixon - 02/15/2021 2:22 PM EDT Placed outgoing phone call to patient in order to schedule a procedure. Phone Call Outcome: Left voicemail asking for return call. This was the 1st attempt Time held on 02/28 @ 1015 If the call is returned, it can be handled by: [facility] Aide documented in this encounter Plan of Treatment Upcoming Encounters Date Type Department Care Team (Late st Contact Info) Description 11/06/2025 10:30 AM EST Office Visit Dermatology at [place] [address] [place] [address] Ishaan Miguel MD [address], [place] [address] documented as of this encounter Visit Diagnoses Not on filedocumented in this encounter Care Teams Gripper Machine Operator Relationship Specialty Start Date End Date Janessa Chand MD [facility] [address] [facility] 1 [place] [address] PCP - General 10/22/10 documented as of this encounter
--- OUTSIDE RECORDS SUMMARY | 2024-12-29 17:31 | XMS_ITS | Encounter Summary ---
Author Organization [facility] [place] [address] Care Team Providers Care Fire Alarm Operator Name Role Phone Janessa Chand MD Primary Care Provider [phone] Encounter Details Date Type Department Care Team (Late st Contact Info) Description 11/26/2006 Orders Only Dermatology at [address] [address] Ishaan Miguel MD [address] [place] [address], [place] [address] Social History Tobacco Use Types Packs/Day Years Used Date Smoking Tobacco: Never Assessed Sex and Gender Information Value Date Recorded Sex Assigned at Female 01/28/2021 8:41 AM EST Gender Identity Not on file Sexual Orientation Straight 01/28/2021 8: 41 AM EST documented as of this encounter Plan of Treatment Upcoming Encounters Date Type Department Care Team (Late st Contact Info) Description 11/06/2025 10:30 AM EST Office Visit Dermatology at [address] [phone] Ishaan Miguel MD [address] [place] [phone] documented as of this encounter Procedures Procedure Name Priority Date/Time Associated Diagnosis Comments SURGICAL PATHOLOGY REPORT Routine 11/26/2006 6:10 PM EST documented in this encounter Results * Surgical Pathology Report (11/26/2006 6:10 PM EST) Surgical Pathology Report [id number] ? Location: The signing pathologist has (i) examined the relevant preparation(s) for the specimen(s) and (ii) rendered or confirmed the diagnosis(es). . ?Pathology Surgical Pathology Final Report Clinical Information Specimen Submitted: A - Lt lateral foot: ??excision. Clinical History: Atypical mole. Ishaan Miguel MD, III [facility] [place], [place] [address] Clinical Diagnosis: Atypical nevus. Gross Description Labeled/Fixative: ? Left foot, formalin. Qty/Size/Weight: ?Single, 1.0 x 0.5 x 0.3 cm. Tissue Description: ?? Ellipse of simmons skin with central, pigmented macule. Sections/Processi ng: ??The specimen is inked and serially sectioned. ??The ?ends are submitted in (1); the remainder of the ?specimen submitted in (2). ??(T2) ??aje/RHB Microscopic Description Slides reviewed, microscopic description not recorded. Diagnosis Skin of left lateral foot, excision: Melanoma in situ, arising in association with a nevus. Atypical melanocytes extend within 0.5 mm of the peripheral margin. (see Comment). CR-0 12/03/06 JOANNA 12/03/06 Verified by: ? Patrizia Isaacs MD ?Dermatopatholog ist ?(Electronic Signature) The attending pathologist whose signature appears on this report has reviewed all diagnostic slides and has edited the gross and/or microscopic portion of the report in rendering the final pathologic diagnosis. Comment This lesion has a nevus component and a poorly circumscribed intra-epidermal component of single severely atypical melanocytes in a disorderly pattern. ??This intra-epidermal component is consistent with evolving melanoma in situ in a pre- existing nevus. CHAR [facility] 11/26/2006 6:10 PM EST Ishaan Miguel MD PATHOLOGY/CYTOLOGY O RDERABLES [facility] documented in this encounter Visit Diagnoses Not on filedocumented in this encounter Care Teams Fire Alarm Operator Relationship Specialty Start Date End Date Janessa Chand MD [address] [place] [address] PCP - General 10/22/10 documented as of this encounter
--- OUTSIDE RECORDS SUMMARY | 2024-12-29 17:31 | XMS_ITS | Encounter Summary ---
Author Organization [facility] [place] [address] Care Team Providers Care Surface Room Shop Optician Name Role Phone Janessa Chand MD Primary Care Provider [phone] Reason for Visit * Reason Comments Diabetes Encounter Details Date Type Department Care Team (Late st Contact Info) Description 02/18/2012 1:00 PM EDT Office Visit [place] [address] Akash Thacker MD [facility] [place] [address] Diabetes mellitus (Primary Dx); Diabetes Discharge Disposition: Home Social History Tobacco Use Types Packs/Day Years Used Date Smoking Tobacco: Former Cigarettes Q uit: 02/17/2003 Sex and Gender Information Value Date Recorded Sex Assigned at Female 01/28/2021 8:41 AM EST Gender Identity Not on file Sexual Orientation Straight 01/28/2021 8: 41 AM EST documented as of this encounter Last Filed Vital Signs Vital Sign Reading Time Taken Comments Blood Pressure 159/75 02/18/2012 1:48 PM EDT Pulse 83 02/18/2012 1:48 PM EDT Temperature - - Respiratory Rate - - Oxygen Saturation - - Inhaled Oxygen Concentration - - Weight 82.8 kg (182 lb 8 oz) 02/18/2012 1:48 PM EDT Height 161.3 cm (5' 3.5) 02/18/2012 1:48 PM EDT Body Mass Index 31.82 02/18/2012 1:48 PM EDT documented in this encounter Patient Instructions * Patient Instructions* Akash Thacker MD - 02/18/2012 2:28 PM EDT Recent Results (from the past 24 hour(s)) HEMOGLOBIN A1C Component Value Range ??? Hemoglobin A1C 6.7 (*) 4.3 - 6.1 (%) ??? Est Avg Gluc 146 (mg/dL) BUN Component Value Range ??? BUN 15 8 - 18 (mg/dL) CREATININE, SERUM Component Value Range ??? Creatinine 0.77 0.70 - 1.20 (mg/dL) ? ? Estimated GFR >60 >=60 MICROALBUMIN, URINE, RANDOM Component Value Range ??? U Creatinine 30 (mg/dL) ??? U Ran Malb Conc 45.0 (mg/L) ??? U Ran Malb Calc 150 (mcg/mg Cr) The blood sugar looks very good. The blood pressure is higher than we would like at 147/87 - I recommended increasing the losartan-hydrochlorothiazide (Hyzaar) to twice a day.. documented in this encounter Progress Notes * Akash Thacker MD - 02/18/2012 2:08 PM EDT Subjective: Patient ID: Simi العلي is a 66 y.o. female. HPI We are consulted by to evaluate and treat Regimen Oral Metformin 500 qhs, 750 bid Glipizide 2.5 hbgm fbs is often high - over 160 Hypo None severe - gets shakey at 90 Diet B wholegrain toast Sugarless jello Tomato juice Sn banana L Salad + chicken Sn D Steak Potato beans Sn Apple Exercise In [place] for 2 mo - did a lot of walking complications eyes none feet sensitive kidneys none autonomic: no gastroparesis But has heartburn bladder hypo unaware tachycardia cardiac no chest pain on exertion ++ shortness of breath on 1 flight of stairs -= history of stent cabg chf prevention: last eye exam: within the year last microalbumin : last Cr: last lipid panel: regular ui programmer: yes special shoes: flu shot : yes pneumovax: 2004, 2010 acei yes Asa Yes statin yes Review of Systems Objective: Physical Exam Appearance: looks well, relaxed wt Change No change in 1 year Skin: blanching circular lesions, 0.2 to 0.8 cm diameter, with some peeling (not scale), thin layerbelow/friable, scattered over lower legs,, arms and chest (sun areas) but not back and lower abdomen. eyes: no retinopathy seen by green light ext: no pitting edema feet: shape is normal skin is normal nails are not mycotic pulses in feet : dorsalis pedis-yes posterior tibial-yes neuro: gait is normal appreciation of 10 g of pressure is absent abd - ventral hernia on head raise in epigastrum Recent Results (from the past 24 hour(s)) HEMOGLOBIN A1C Component Value Range ??? Hemoglobin A1C 6.7 (*) 4.3 - 6.1 (%) ??? Est Avg Gluc 146 (mg/dL) BUN Component Value Range ??? BUN 15 8 - 18 (mg/dL) CREATININE, SERUM Component Value Range ??? Creatinine 0.77 0.70 - 1.20 (mg/dL) ? ? Estimated GFR >60 >=60 MICROALBUMIN, URINE, RANDOM Component Value Range ??? U Creatinine 30 (mg/dL) ??? U Ran Malb Conc 45.0 (mg/L) ??? U Ran Malb Calc 150 (mcg/mg Cr) Assessment and Plan: 1) DM2- excellent control on current regimen. Her challenge, as emphasized by her PCP, is to lose weight 2) Microalb - This is a borderline level - both here and with her PCP. Her BP is also slightly above the upper limit of desirable, so I recommended to double losartan 3) Rash- this is an unusual rash , with small (0.3-0.8 cm) round blanching thin skinned macules, with some peeling. It is generalized enough to be a drug rash - the leading offender would be HCTZ. However, it is blanching, whereas HCTZ usually causes vasculitis non blanching lesions. I recommended that she see a lockstitch cup setter. 4) HBP - needs to lose weight and I increased the losartan-hctz 5) hypertriglyceridemia - it is mildly elevated (325) And I do not think there is much evidence that there is benefit to adding a medication to control this, versus dietary effort to lose weight. 6) neuropathy - I discussed the need to examine her feet since her sense of fine pressure is diminished 7) ventral hernia- wide based No problem-specific visit notes found for this encounter. documented in this encounter Plan of Treatment Upcoming Encounters Date Type Department Care Team (Late st Contact Info) Description 11/06/2025 10:30 AM EST Office Visit Dermatology at [place] [address] [place] [id number] Ishaan Miguel MD [address], [place] [address] documented as of this encounter Procedures Procedure Name Priority Date/Time Associated Diagnosis Comments U ALBUMIN/CRE RATIO Routine 02/18/2012 1 2:47 PM EDT Diabetes CREATININE Routine 02/18/2012 12:41 PM EDT Diabetes BUN Routine 02/18/2012 12:41 PM EDT Diabetes HEMOGLOBIN A1C Routine 02/18/2012 12:41 PM EDT Diabetes documented in this encounter Results * Microalbumin, urine, random (02/18/2012 12:47 PM EDT) Creatinine, Urine 30 mg/dL CE RNER MILLENNIUM Albumin, Urine 45.0 mg/L MÓNICA Brandt MILLENNIUM Albumin / Creatinin Ratio, Urine 150 mcg/mg Cr [facility]NI[facility] Comment: Reference Range* Random collection (mcg/mg creatinine) Normal ?<30 Microalbuminuria ?? 30 - 300 Clinical Albuminuria ?? >300 *[place] [employer]. Diabetic Nephropathy. Diabetes Care 1997;(Suppl 1):S24-S27 Exercise within 24 hour, infection, fever, CHF, marked hyperglycemia, and marked hypertension may elevate urinary albumin excretion over baseline values. Urine specimen (specimen) 02/18/2012 12:47 PM EDT 02/18/2012 12:53 PM EDT Narrative Resulting Agency Comment Spec In Lab Akash Thacker MD URINE ORDERABLES Performing Organization Address [facility]/ZIP Co de Phone Number [facility] * Creatinine, serum (02/18/2012 12:41 PM EDT) Creatinine 0.77 0.70 - 1.20 mg/dL [facility] Est Glomerular Filtration Rate >60 >=60 [facility] Comment: The National Kidney Disease Education Program (NKDEP) has recommended all laboratories report estimated GFR (eGFR) along with plasma creatinine measurements to assist you with recognition of early kidney disease. Caveats: ??Plasma creatinine should be at steady-state (unchanged within the past week). For patients multiply eGFR by 1.2. The MDRD equation has not been validated for pediatric patients and is only valid for patients with age >= 18 years. At present, NKDEP does NOT recommend using the MDRD equation for drug dosing purposes and pharmacists should continue to use their current dosing methods. In addition, numerical eGFR values greater than 60 ml/min/1.73 square meters should be treated as > 60, and not an exact number due to greater inaccuracies at these higher values. Per NKDEP, they classify normal renal function as any GFR >60ml/min/1.73 square meters; chronic kidney disease when GFR <60, and renal failure when GFR <15. ??This calculation may not be valid for patients with atypical muscle mass (very lean or obese), acute renal failure, and in patients with diabetic kidney disease. References: http://nkdep.nih.gov/resources/NKDEP_Suggestn4Labs_0606_508.pdf http://www.kidney.org/professionals/kls/pdf/faq_gfr.pdf Blood specimen (specimen) 02/18/2012 12:41 PM EDT 02/18/2012 12:53 PM EDT Narrative Resulting Agency Comment Spec In Lab Akash Thacker MD CHEMISTRY ORDERABLES Performing Organization Address City/[facility]/ZIP Co de Phone Number [facility] * BUN (02/18/2012 12:41 PM EDT) Blood Urea Nitrogen 15 8 - 18 mg/dL [facility] Blood specimen (specimen) 02/18/2012 12:41 PM EDT 02/18/2012 12:53 PM EDT Narrative Resulting Agency Comment Spec In Lab Akash Thacker MD CHEMISTRY ORDERABLES [facility] * (ABNORMAL) Hemoglobin A1c (02/18/2012 12:41 PM EDT) Hemoglobin A1c 6.7(H) 4.3 - 6.1 % [facility] Estimated Average Glucose 146 mg/dL [facility] Comment: eAG equivalents for HbA1c percentages: HbA1c(%) ?eAG(mg/dL) 6.0 ?126 6.5 ?140 7.0 ?154 7.5 ?169 8.0 ?183 8.5 ?197 9.0 ?212 9.5 ?226 10.0 ? 240 Limitations: The eAG calculation has not been validated on women, individuals below 18 years old and above 70 years old, and individuals with hemoglobinopathies. Additional resources are available on the ADA website: ??http://professional.diabetes.org/glucosecalculator.aspx Reference: Abram RIOS, Staci Greco, Bethany R, et al. ??Translating the A1C assay into estimated average glucose values. ??Diabetes Care 2008:31(8):3738-6467. Blood specimen (specimen) 02/18/2012 12:41 PM EDT 02/18/2012 12:53 PM EDT Narrative Resulting Agency Comment Spec In Lab Akash Thacker MD CHEMISTRY ORDERABLES Performing Organization Address City/State/ZIP [place] Phone Number [facility] documented in this encounter Visit Diagnoses Diagnosis Diabetes mellitus- Primary Type II or unspecified type diabetes mellitus without mention of complication, not stated as uncontrolled Diabetes Type II or unspecified type diabetes mellitus without mention of complication, not stated as uncontrolled documented in this encounter Care Teams Surface Room Shop Optician Relationship Specialty Start Date End Date Janessa Chand MD [address] [place] [address] PCP - General 10/22/10 documented as of this encounter
--- OUTSIDE RECORDS SUMMARY | 2024-12-29 17:31 | XMS_ITS | Encounter Summary ---
Author Organization [facility] Address [facility] [place] [address] Care Team Providers Care Supervisor Production Name Role Phone Janessa Chand MD Primary Care Provider [phone] Encounter Details Date Type Department Care Team (Latest Contact Info) Description 02/28/2021 8:55 AM EDT - 02/28/2021 11:45 AM EDT Hospital En[place] [address] Sebastián Hernandez MD [facility] [place] [address] History of Sanches's esophagus; Chronic cough; Chest pain; Throat tightness; History of pneumonia Discharge Disposition: [...] Mass Index 35.22 02/28/2021 9:15 AM EDT documented in this encounter Discharge Instructions * Discharge Instructions* Betty Machado RN - 02/28/2021 11:06 AM EDT Upper GI Endoscopy: What to Expect at Home Your Recovery You will be able to go home after your doctor or nurse checks to make sure you are not having any problems. You may have to stay overnight if you had treatment during the test. You may have a sore throat fora day or two after the test. This care sheet gives you a general idea about what to expect after the test. How can you care for yourself at home? Activity Rest when you feel tired. ?? You can do your normal activities when it feels okay to do so. Diet ?? Follow your doctor's directions for eating. ?? Unless your doctor has told you not to, drink plenty of fluids. This helps to replace the fluidsthat were lost during the prep. ?? Do not drink alcohol. Medicines ?? Your doctor will tell you if and when you can restart your medicines. He or she will also give you instructions about taking any new medicines. ?? If you take blood thinners, such as warfarin (Coumadin), clopidogrel (Plavix), or aspirin, be sure to talk to your doctor. He or she will tell you if and when to start taking those medicines again. Make sure that you understand exactly what your doctor wants you to do. ?? If polyps were removed or a biopsy was done during the test, your doctor may tell you not to take aspirin or other anti-inflammatory medicines for a few days. These include ibuprofen (Advil, Motrin) and naproxen (Aleve). ?? If you have a sore throat the day after the procedure, use an pkqm-saa-upjhmsn spray to numb your throat. Sucking on throat lozenges and gargling with warm salt water may also help relieve your symptoms. Other instructions ?? For your safety, do not drive or operate machinery until the medicine wears off and you can think clearly. Your doctor may tell you not to drive or operate machinery until the day after your test. ?? Do not sign legal documents or make major decisions until the medicine wears off and you can think clearly. The anesthesia can make it hard for you to fully understand what you are agreeing to. Additional Information for Sedation Patients For patients who received sedation: ?? You may have received medications before and/or during your procedure which effects your judgement and reaction time. ?? Do not drive, operate machinery, drink alcoholic beverages or make important decisions for 24 hours. ?? Be careful on stairs as you may be unsteady on your feet. ?? You may eat a regular diet as tolerated. ?? Do not smoke if you are alone. ?? IV site: Slight redness or tenderness is normal, you can use a warm compress if you would like. If tenderness and/or redness increase or if foul drainage occurs, please contact your Doctor. Please call [phone] before 8pm Mon-Fri with problems, questions or concerns. If you call after 8pm or on weekends, call the Hospital at [phone] and ask to speak to the Surgical Resident email production consultant and the logging equipment operator will contact that person for you. When should you call for help? Call [phone] anytime you think you may need emergency care. For example, call if: ?? You passed out (lost consciousness). ?? You pass maroon or bloody stools. ?? You have trouble breathing. Call your doctor now or seek immediate medical care if: ?? You have pain that does not get better after you take pain medicine. ?? You are sick to your stomach or cannot drink fluids. ?? You have new or worse belly pain. ?? You have blood in your stools. ?? You have a fever. ?? You cannot pass stools or gas. Watch closely for changes in your health, and be sure to contact your doctor if you have any problems. Where can you learn more? [facility] View your After Visit Summary and more online at [email or web address] If you would like to provide feedback about your hospital experience, please call the Office of Patient and Family Relations at . If you have received this After Visit Summary in error, please immediately return it in person to the department, or notify the [facility] Privacy Office by calling toll free at between the hours of 8AM and 5PM to arrange for our retrieval of the documents at no cost to you. Content Version: 12.2 ?? 5923-7710 [employer]. Care instructions adapted under license by [facility]. If you have questions about a medical condition or this instruction, always ask your healthcare professional. [employer] disclaims any warranty or liability for your use of this information. documented in this encounter Medications at Time of Discharge Medication Sig Dispensed Refills Start Date End Date calcium-vitamin D3 600 mg-5 mcg (200 unit) Tablet Take 1 tablet by mouth. 02/28/2019 ascorbic acid, Vitamin C, (Vitamin C) 500 mg Tablet Take 500 mg by mouth daily. albuterol 90 mcg/actuation HFA Aerosol Inhaler Inhale 2 puffs into the lungs as needed. 12/30/2016 cholecalciferol, Vitamin D3, 25 mcg (1,000 unit) Capsule Take 1,000 Units by mouth. TRELEGY ELLIPTA 100-62.5-25 mcg Disk with Device 09/15/2019 LANTUS SOLOSTAR U-100 INSULIN pen Inject 40 Units subcutaneously nightly. 09/15/2019 sptdbyza-vtynacnab-brga methasone (DEXACINE) 3.5 mg/g-10,000 unit/g-0.1 % Ointment [...] DAY IF NEEDED FOR PAIN 2 08/09/2019 hydroCHLOROthiazide (HYDRODIURIL) 25 mg Tablet 10/13/2019 09/24/2023 [...] 02/19/2011 06/27/2022 documented as of this encounter H&P Notes * Hernandez, Sebastián A, MD - 02/28/2021 10:12 AM EDT Patient Name: Simi العلي Patient Age: 75 y.o. Birthdate: 1945 Admit date: 02/28/2021 Attending Physician: Sebastián Hernandez MD Gastroenterology and Hepatology Pre-Procedure History and Physical Exam Procedure: EGD: Indication: h/o Sanches's esophagus Patient Active Problem List Diagnosis Code ??? CIS - gerd, s/p eulalia ??? CIS - hbp ??? CIS - type 2 dm ??? History of malignant melanoma Z85.820 ??? Seborrheic keratosis L82.1 ??? Seborrheic keratosis, inflamed L82.0 ??? History of Sanches's esophagus Z87.19 ??? Chronic cough R05 ??? Choking T17.308A ??? Chest pain R07.9 ??? Throat tightness R68.89 ??? History of pneumonia Z87.01 EXAM: HEENT: Airway examined, oropharynx clear Mallampati Score: II (soft palate, uvula, fauces visible) LUNGS: Clear to auscultation HEART: Regular rate and rhythm, normal S1, S2 ABDOMEN: Normal bowel sounds, soft, non tender, non distended, A/P Proceed with the planned endoscopic procedure. ASA 2 - Patient with mild systemic disease with no functional limitations Sedation Plan: anesthesia Risks and benefits of the procedure explained to the patient. Consent signed. documented in this encounter Miscellaneous Notes * Op Note - Sebastián Hernandez MD - 02/28/2021 10:38 AM EDT [facility] Operative Note Patient Name: Simi العلي : [id number] MR#: [id number] Case Date: 02/28/2021 Surgeon: Surgeon(s) and Role: * Sebastián Hernandez MD - Primary Preoperative diagnosis: chronic cough, choking, chest pain, throat tightness, history of Sanches's esophagus. Please obtain biopsies for surveillance of Sanches's esophagus. (Question of intestinal metaplasia of pyloric biopsy from last EGD pathology?) Postoperative diagnosis: * No post-op diagnosis entered * Procedure(s): EGD WITH BIOPSY (WRVU 2.49) Please see Provation report for details. documented in this encounter Plan of Treatment Upcoming Encounters Date Type Department Care Team (Late st Contact Info) Description 11/06/2025 10:30 AM EST Office Visit Dermatology at [place] [address] [facility] [place] [address] Ishaan Miguel MD [address] [facility] [address] [place] [address] documented as of this encounter Procedures Procedure Name Priority Date/Time Associated Diagnosis Comments SURGICAL PATHOLOGY REPORT Routine 02/28/2021 10:56 AM EDT SPECIMEN TO PATHOLOGY Routine 02/28/2021 10:56 AM EDT SPECIMEN TO PATHOLOGY Routine 02/28/2021 10:56 AM EDT SPECIMEN TO PATHOLOGY Routine 02/28/2021 10:56 AM EDT Upper Gi Endoscopy, Biopsy ([id number]) 02/28/2021 10:22 AM EDT History of Sanches's esophagus Chronic cough Choking, initial encounter Chest pain, unspecified type Throat tightness History of pneumonia UPPER GI ENDOSCOPY Routine 02/28/2021 10 :12 AM EDT documented in this encounter Results * Surgical Pathology Report (02/28/2021 10:56 AM EDT) Final Diagnosis [id number] ? Location: 4T; EA12; A The signing pathologist has (i) examined the relevant preparation(s) for the specimen(s) and (ii) rendered or confirmed the diagnosis(es). . 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 B - Stomach, ??polypectomy: Fundic gland polyp. C - Z-line, ??biopsy: Squamocolumnar junctional mucosa (cardia type) with mild chronic inflammation. There is no evidence of intestinal metaplasia. Electronically signed by: ?Ariel WRIGHT PhD, Leena Verified: ??03/06/2021 15:19 ??Pathologist Performed at: ??-[facility] Dept. of Pathology, [place], [place] SPECIMEN(S) SUBMITTED A - pyloric biopsies, biopsy (Multiple) B - gastric polyp biopsies, biopsy (Multiple) C - z line biopsies,, biopsy (Multiple) CLINICAL INFORMATION History of chronic cough, choking, history short segment Sanches's esophagus SPECIMEN PROCESSING A - Labeled/Fixativ e: Pyloric biopsies, formalin. Quantity/Size: Three, 0.3-0.4 cm. Tissue Description: Soft, simmons-pink tissues. Sections/Proces sing: Submitted en toto ??in 1 cassette labeled A1. B - Labeled/Fixativ e: Gastric polyp biopsies, formalin. Quantity/Size: Three, averaging 0.3 cm. Tissue Description: Soft, simmons tissues. Sections/Proces sing: Submitted en toto ??in 1 cassette labeled B1. C - Labeled/Fixativ e: Z line biopsies, formalin. Quantity/Size: Four, 0.1-0.3 cm. Tissue Description: Soft, simmons-white tissues. Sections/Proces sing: Submitted en toto ??in 1 cassette labeled C1. ??sarah 03/06/2021 3:19 PM EDT [facility] GI Biopsy 02/28/2021 10:5 6 AM EDT 02/28/2021 10:56 AM EDT GI Biopsy 02/28/2021 10:5 6 AM EDT 02/28/2021 10:56 AM EDT GI Biopsy 02/28/2021 10:5 6 AM EDT 02/28/2021 10:56 AM EDT Sebastián Hernandez MD PATHOLOGY/CYTOLOGY O KELY Performing Organization Address City/[facility] [place] [address] * Specimen to Pathology (02/28/2021 10:56 AM EDT) AP Specimen 02/28/2021 10:5 6 AM EDT 02/28/2021 10:56 AM EDT Narrative [facility] - 02/28/2021 10:56 AM EDT Specimen requisition ordered. ??Separate Pathology report to follow Sebastiáneula Hernandez MD PATHOLOGY/CYTOLOGY O KELY Performing Organization Address [facility] [place] [address] * Specimen to Pathology (02/28/2021 10:56 AM EDT) AP Specimen 02/28/2021 10:5 6 AM EDT 02/28/2021 10:56 AM EDT Narrative [facility] - 02/28/2021 10:56 AM EDT Specimen requisition ordered. ??Separate Pathology report to follow Sebastián Hernandez MD PATHOLOGY/CYTOLOGY O KELY Performing Organization Address [facility] Co de Phone Number [facility] [place] [address] * Specimen to Pathology (02/28/2021 10:56 AM EDT) AP Specimen 02/28/2021 10:5 6 AM EDT 02/28/2021 10:56 AM EDT Narrative [facility] - 02/28/2021 10:56 AM EDT Specimen requisition ordered. ??Separate Pathology report to follow Sebastián Hernandez MD PATHOLOGY/CYTOLOGY O RDERALALO Performing Organization Address [facility] Co de Phone Number [facility] [place] [address] * UPPER GI ENDOSCOPY (02/28/2021 10:12 AM EDT) UPPER GI ENDOSCOPY [facility] Endoscopy Procedure Date: 02/28/2021 10:12 AM ? Patient Name: Simi Severiano ? N: [id number] ? Date of : 1945 ? Age: 75 ? Order #: [id number] ? Instrument Name: [id number] ? Procedure: ? Upper GI endoscopy Indications: ? Follow-up of Sanches's esophagus Providers: ? Sebastián Hernandez MD, Nanci Obrien ? Ammon Klein MD: ?Goyo Rojo Medicines: ? Propofol per Anesthesia Complications: ? No immediate complications. Procedure: ? The procedure, indications, benefits, ? risks and alternatives were explained ? to the patient. Specifically ? discussed were potential ? complications including, but not ? limited to, bleeding, perforation, ? infection, missing a cancer, and ? adverse medication reactions. The ? Endoscope was introduced through the ? mouth, and advanced to the third part ? of duodenum. The patient tolerated ? the procedure well. The upper GI ? endoscopy was accomplished without ? difficulty. ? Findings: ? A 3 cm hiatal hernia was present from 35cm-38cm. ? There were esophageal mucosal changes consistent with ? short-segment Sanches's esophagus present in the ? lower third of the esophagus. The maximum ? longitudinal extent of these mucosal changes was 1 cm ? in length. This was biopsied with a cold forceps for ? histology. ? The exam of the esophagus was otherwise normal. ? The pylorus appeared normal, but due to prior report ? of metaplasia, biopsies were taken. ? Polyps in the gastric body with an appearance c/w ? benign fundic gland polyps. These were biopsied. ? Otherwise normal stomach. ? The examined duodenum was normal. ? Moderate Sedation: ? Not applicable - See Anesthesia documentation Impression: ?- 3 cm hiatal hernia from 35cm-38cm. ? - Esophageal mucosal changes ? consistent with short-segment ? Sanchse's esophagus. Biopsied. ? - Gastric polyps with an appearance ? consistent wtih benign fundic gland ? polyps. ? - Normal pylorus, but biopsied with ? questionable history of metaplasia on ? prior biopsies. ? - Normal examined duodenum. Recommendation: ?- Await pathology results. ? - Return to GI motility center. for ? follow-up ? Attending Participation: ? I personally performed the entire procedure. ? _ Sebastián Hernandez MD 02/28/2021 11:09:47 AM Number of Addenda: 0 Note Initiated On: 02/28/2021 10:12 AM PROVATION 02/28/2021 10:1 2 AM EDT Goyo Velasquez MD GENERAL SURGI JAEL ORDERABLES PROVATION documented in this encounter Visit Diagnoses Diagnosis History of Sanches's esophagus Chronic cough Cough Chest pain Chest pain, unspecified Throat tightness Other symptoms involving head and neck History of pneumonia Personal history of pneumonia (recurrent) Choking Foreign body in larynx documented in this encounter Admitting Diagnoses Diagnosis History of Sanches's esophagus Chronic cough Cough Chest pain Chest pain, unspecified Throat tightness Other symptoms involving head and neck History of pneumonia Personal history of pneumonia (recurrent) documented in this encounter Administered Medications Inactive Administered Medications - up to 3 most recent administrations Medication Order MAR Action Action Date Dose Rate Site lactated ringers infusion 100 mL/hr, Intravenous, CONTINUOUS, Starting on Raquel 02/28/21 at 0930, Until Raquel 02/28/21 at 1345, Endoscopy (Day of Procedure) New Bag 02/28/2021 9:30 AM EDT 100 mL/hr 100 mL/hr documented in this encounter Active and Recently Administered Medications Times are shown in EDT. Continuous Medication Order 02/26/2021 02/27/2021 02/28/2021 lactated ringers infusion 100 mL/hr, Intravenous, CONTINUOUS, Starting on Raquel 02/28/21 at 0930, Until Raquel 02/28/21 at 1345, Endoscopy (Day of Procedure) 0930 (New Bag - Prov ider: Serene Ybarra RN) documented in this encounter Care Teams Supervisor Production Relationship Specialty Start Date End Date Janessa Chand MD [address] [facility] [place] [address] PCP - General 10/22/10 documented as of this encounter
--- OUTSIDE RECORDS SUMMARY | 2024-12-29 17:31 | XMS_ITS | Encounter Summary ---
Author Organization [place] [address] Care Team Providers Care Christian Science Practitioner Name Role Phone Janessa Chand MD Primary Care Provider [phone] Encounter Details Date Type Department Care Team (Late st Contact Info) Description 05/27/2004 Orders [place] [address] Braxton Pretty MD [facility] [place] [address] Social History Tobacco Use Types Packs/Day Years [...] 10:30 AM EST Office Visit Dermatology at [place] [address] [facility] [place] [address] Ishaan Miguel MD [address] [facility] [place] [address] documented as of this encounter Procedures Procedure Name Priority Date/Time Associated Diagnosis Comments SURGICAL PATHOLOGY REPORT Routine 05/27/2004 3:52 PM EDT documented in this encounter Results * Surgical Pathology Report (05/27/2004 3:52 PM EDT) Surgical Pathology Report [id number] ? Location: The signing pathologist has (i) examined the relevant preparation(s) for the specimen(s) and (ii) rendered or confirmed the diagnosis(es). . ?Pathology Surgical Pathology Final Report Clinical Information Specimen Submitted: A - Tissue, Z line Clinical History: Chronic GERD. Failed Oumar Fundoplication. Hiatal Hernia. Z line at 34. R/O Sanches's; GERD Gross Description Labeled/Fixative: ? Z line, formalin. Qty/Size/Weight: ?Five, averaging 0.4 x 0.2 x 0.2 cm. Tissue Description: ?? Soft, simmons-pink tissue. Sections/Processi ng: ??(T1) ??aje/SNS Microscopic Description Slides reviewed, microscopic description not recorded. Diagnosis Endoscopic biopsy - ??Squamous esophageal and specialized metaplastic columnar mucosa with chronic nonspecific inflammation, consistent with specialized Sanches metaplasia if supported by corresponding endoscopic findings. ? No dysplasia is seen. CR-0 05/29/04 AAS 05/29/04 Verified by: ? Jarocho Wong MD ?Pathologist ?(Electronic Signature) The attending pathologist whose signature appears on this report has reviewed all diagnostic slides and has edited the gross and/or microscopic portion of the report in rendering the final pathologic diagnosis. CHAR OBREGON 05/27/2004 3:52 PM EDT Braxton Pretty MD PATHOLOGY/CYTOLOGY O RDERABLES CHAR OBREGON documented in this encounter Visit Diagnoses Not on filedocumented in this encounter Care Teams Christian Science Practitioner Relationship Specialty Start Date End Date Janessa Chand MD [address] [facility] [place] [address] PCP - General 10/22/10 documented as of this encounter
--- OUTSIDE RECORDS SUMMARY | 2024-12-29 17:31 | XMS_ITS | Encounter Summary ---
[place] [address] Care Team Providers Care Statistical Engineer Name Role Phone Janessa Chand MD Primary Care Provider [phone] Reason for Visit * Reason Comments Follow-up Encounter Details Date Type Department Care Team (Late st Contact Info) Description 10/28/2016 1:45 PM EST Office Visit Dermatology at [address] [address] Ishaan Miguel MD [address] [facility] [place] [address] History of malignant melanoma; Seborrheic keratosis, inflamed Social History Tobacco Use Types Packs/Day Years Used Date Smoking Tobacco: Former Cigarettes Q uit: 02/17/2003 Sex and Gender Information Value Date Recorded Sex Assigned at Female 01/28/2021 8:41 AM EST Gender Identity Not on file Sexual Orientation Straight 01/28/2021 8: 41 AM EST documented as of this encounter Progress Notes * Ishaan Miguel MD - 10/28/2016 1:45 PM EST PROBLEM: 1. Skin checkup. 2. 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 Simi follows up and has been doing well. She has some irritated moles that she would like to have removed. Physical examination reveals a seborrheic keratosis on her back, on the left upper forehead and the right upper forehead, also some small tags/seborrheic keratoses at the base of her neck, anterior, on the left and right. ASSESSMENT/PLAN: 1. Irritated seborrheic keratoses, forehead, neck, and back. a. After obtaining informed consent, sites were treated with LN2 x2. b. Patient tolerated well. c. Return to clinic p.r.n. for new lesions/concerns. 2. History of malignant melanoma. a. No evidence of recurrence. b. Patient reassured. No new cutaneous malignancies. CC: Janessa Chand MD documented in this encounter Plan of Treatment Upcoming Encounters Date Type Department Care Team (Late st Contact Info) Description 11/06/2025 10:30 AM EST Office Visit Dermatology at [address] [place] [address] Ishaan Miguel MD [address] [facility] [address] [place] [address] documented as of this encounter Visit Diagnoses Diagnosis History of malignant melanoma Personal history of malignant melanoma of skin Seborrheic keratosis, inflamed Inflamed seborrheic keratosis documented in this encounter Care Teams Statistical Engineer Relationship Specialty Start Date End Date Janessa Chand MD [address] [facility] [place] [address] PCP - General 10/22/10 documented as of this encounter
--- OUTSIDE RECORDS SUMMARY | 2024-12-29 17:31 | XMS_ITS | Encounter Summary ---
[place] [address] Care Team Providers Care Appointment Coordinator Name Role Phone Janessa Chand MD Primary Care Provider Encounter Details Date Type Department Care Team (Late st Contact Info) Description 11/28/2013 2:00 PM EST Office Visit Dermatology at [address] [phone] Ishaan Miguel MD [address] [facility], [facility] [place] [address] Seborrheic keratosis, inflamed (Primary Dx) Social History Tobacco Use Types Packs/Day Years Used Date Smoking Tobacco: Former Cigarettes Q uit: 02/17/2003 Sex and Gender Information Value Date Recorded Sex Assigned at Female 01/28/2021 8:41 AM EST Gender Identity Not on file Sexual Orientation Straight 01/28/2021 8: 41 AM EST documented as of this encounter Progress Notes * Ishaan Miguel MD - 11/28/2013 2:44 PM EST Problem: 1. Bothersome lesion, left forehead. 2. History of malignant melanoma in situ, left lateral foot, November 2006, status post excision and close margins, treated with three months of Aldara therapy. Simi follows up and states that a lesion that I had froze with liquid nitrogen last year at her last visit has recurred. She would like to have it removed. It is often rubbed and irritated. Physical examination reveals a seborrheic keratosis of the left upper forehead. She also has some small tags/sub Ks at the base of her neck anteriorly and left and right. Assessment and Plan: 1. Irritated seborrheic keratosis, left upper forehead. a. After obtaining informed consent site was anesthetized and removed with shave biopsy. Base lightly electrodesiccated. Triple antibiotic ointment and Band-Aid placed. Patient reassured about remainder of skin lesions. Return to clinic p.r.n. for new lesions/concerns. 2. History of malignant melanoma. a. No evidence of recurrence. b. Patient reassured. COPY: Janessa Chand M.D. documented in this encounter Plan of Treatment Upcoming Encounters Date Type Department Care Team (Late st Contact Info) Description 11/06/2025 10:30 AM EST Office Visit Dermatology at [place] [address] [place] [phone] Ishaan Miguel MD [address] [facility], [place] [address] documented as of this encounter Visit Diagnoses Diagnosis Seborrheic keratosis, inflamed- Primary Inflamed seborrheic keratosis documented in this encounter Care Teams Appointment Coordinator Relationship Specialty Start Date End Date Janessa Chand MD [address] [place] [address] PCP - General 10/22/10 documented as of this encounter
--- OUTSIDE RECORDS SUMMARY | 2024-12-29 17:31 | XMS_ITS | Encounter Summary ---
[place] [address] Care Team Providers Care Vest Baster Name Role Phone Janessa Chand MD Primary Care Provider [phone] Reason for Visit * Speech Therapy - Closed Specialty Diagnoses / Procedures Referred By Contmichael michaud Referred To Contact Speech Therapy Diagnoses History of Sanches's esophagus Chronic cough Choking, initial encounter Chest pain, unspecified type Throat tightness History of pneumonia Kenny Regan, INSIDE BARREL LATHE OPERATOR [facility] [place] [address] [facility] Assistant Director [place] [address] Referral ID Status Reason Start Date Expiration Date V isits Requested Visits Authorized [id number] Closed Consult Only 01/31/2021 01/31/2022 100 100 Encounter Details Date Type Department Care Team (Late st Contact Info) Description 05/13/2021 9:15 AM EDT Office [place] [address] Iris Corbett, LOSS PREVENTION AGENT Dysphagia, unspecified type Social History Tobacco Use Types Packs/Day Years [...] as of this encounter Miscellaneous Notes * Initial Evaluation - Iris Corbett, LOSS PREVENTION AGENT - 05/13/2021 9:15 AM EDT Speech-Language Pathology OP Modified Barium Swallow Evaluation Patient Name: Simi العلي Date of : 1945 Referring Provider: Kenny Regan APRN Date Seen by Provider: 01/31/2021 Diagnosis: Dysphagia Date of Onset: 3-4 years ago Date of Evaluation: 05/13/2021 Duration of Evaluation 60 minutes Certification Period: Eval Only Total Timed Code Treatment: 0 minutes S: Pt. denies pain at this time. Pt alert and cooperative with study. O: Order received and completed with this 75 y.o. female referred by Kenny Regan APRN Chief Complaint: Simi العلي is a 75 y.o. patient referred for consultation by Dr. Rojo for choking and history of Sanches's History of Present Illness: 75 y.o. female with past medical history signifcant for anemia, anxiety, ASCVD, asthma, Barretts esophagus, kidney stone, DM type II, HLD, HTN, malignant melanoma, former smoker (quit 2002). Oumar fundoplication (1994), appendectomy, tubal ligation. Current Problem / Complaint: Coughing, scary because she can't breath, sometimes w/ water, sometimes after burping, sometimes out of the blue, when she's not eating or drinking, eats regular diet, hasn't changed anything about how she eats or what she eats, no issues w/ taking pills. Relevant Medical History: 02/28/2021 EGD done: Impression: ?- 3 cm hiatal hernia from 35cm-38cm. ?- Esophageal mucosal changes ?consistent with short-segment ?Sanches's esophagus. Biopsied. ?- Gastric polyps with an appearance ?consistent wtih benign fundic gland ?polyps. ?- Normal pylorus, but biopsied with ?questionable history of metaplasia on ?prior biopsies. Past Medical History: Diagnosis Date ??? Anemia ??? Anxiety ??? ASCVD (arteriosclerotic cardiovascular disease) ??? Sanches esophagus ??? DM (diabetes mellitus) ??? Former smoker ??? HLD (hyperlipidemia) ??? HTN (hypertension) ??? Kidney stone ??? Malignant melanoma Medications: Current Outpatient Medications Medication Sig Dispense Refill ??? ascorbic acid, Vitamin C, (vitamin C) 500 mg Tablet Take 500 mg by mouth daily. ??? albuterol 90 mcg/actuation HFA Aerosol Inhaler Inhale 2 puffs into the lungs as needed. ??? amLODIPine (NORVASC) 10 mg Tablet TK 1 T PO D 4 ??? cholecalciferol, Vitamin D3, 25 mcg (1,000 unit) Capsule Take 1,000 Units by mouth. ??? TRELEGY ELLIPTA 100-62.5-25 mcg Disk with Device ??? gabapentin (NEURONTIN) 100 mg Capsule TAKE 1 CAPSULE BY MOUTH THREE TIMES A DAY IF NEEDED FOR PAIN 2 ??? hydroCHLOROthiazide (HYDRODIURIL) 25 mg Tablet ??? LANTUS SOLOSTAR U-100 INSULIN pen Inject 40 Units subcutaneously nightly. ??? insulin lispro (HUMALOG) Solution Inject 18 Units subcutaneously 3 times daily (with meals). ??? losartan (COZAAR) 50 mg Tablet ??? metoprolol succinate XL (TOPROL-XL) 100 mg Tablet Sustained Release 24 hr ??? vgsfkmos-rqsbsixoj-zkvfqiivdgspy (DEXACINE) 3.5 mg/g-10,000 unit/g-0.1 % Ointment APPLY A SMALLAMOUNT INTO BOTH EYES HS 1 ??? nitroGLYcerin (NITROSTAT) 0.4 mg Tablet, Sublingual ??? predniSONE (DELTASONE) 20 mg Tablet TK 2 TS PO QD FOR 3 DAYS THEN 1 DAILY FOR 3 DAYS THEN 1/2 DAILY FOR 4 DAYS 0 ??? SHINGRIX, PF, 50 mcg/0.5 mL Suspension for Reconstitution injection ADM 0.5ML IM UTD 0 ??? metFORMIN (GLUCOPHAGE) 500 mg tablet Take 500 mg by mouth daily. ??? escitalopram (LEXAPRO) 20 mg tablet Take 20 mg by mouth daily. ??? metoprolol tartrate (LOPRESSOR) 50 mg tablet Take 50 mg by mouth daily. ??? CALCIUM CITRATE/VITAMIN D3 (CITRACAL + D ORAL) Take by mouth. ??? fluticasone-salmeterol (ADVAIR) 250-50 mcg/dose diskus inhaler Inhale 1 puff into the lungs daily. ??? ibuprofen (ADVIL) 200 mg tablet Take 400 mg by mouth as needed. ??? losartan-hydrochlorothiazide (HYZAAR) 50-12.5 mg per tablet 1 Tablet(s), PO, Once daily (Patient not taking: No sig reported) ??? aspirin (ECOTRIN LOW STRENGTH) 81 mg EC tablet (Patient not taking: No sig reported) ??? rosuvastatin (CRESTOR) 10 mg tablet 10mg, PO, Once daily ??? esomeprazole (NEXIUM) 40 mg capsule 40M Capsule(s), PO, Twice daily ??? glipiZIDE (GLUCOTROL) 2.5 mg 24 hr tablet 2.5MG = 1 Tablet(s), PO, AM and QHS (Patient not taking: No sig reported) ??? metFORMIN (GLUCOPHAGE-XR) 750 mg 24 hr tablet 750MG = 1 Tablet(s), PO, Twice daily (Patient taking differently: Take by mouth. 500 mg night time) No current facility-administered medications for this visit. Current Diet: regular Cognitive-Linguistic Status: alert, Ox4, able to follow directions and respond to questions Respiratory Status: pt on room air Feeding / Oral Care Status: pt independent; Seating and Positioning: pt able to stand up with head midline without assistance Oral Peripheral WFL: labial, buccal, lingual, jaw ROM, strength, agility, and sensation Velar elevation and retraction adequate Intact gag reflex Adequate laryngeal elevation, retraction to palpation Volitional swallow, throat clear, cough prompt and strong Speech and voice judged to be WNL Dentition: upper dentures, some missing teeth Bolus Presentation(s) (all consistencies are mixed with Barium) ?? Thin liquid via cup ?? Rapids thick liquid via cup, via straw ?? Thick puree via spoon ?? Soft solid via spoon ?? Hard solid ?? Pill w/ water Oral Preparatory Phase WFL; adequate lip closure, no loss from oral cavity; mildly prolonged chewing w/ some tongue pumping noted, but w/ adequate bolus cohesion and A-P propulsion, no oral residue noted. Pharyngeal Phase (Lateral View) Appears to be WFL, no aspiration or significant pharyngeal dysphagia noted during evaluation. Prompt, distinct, and coordinated pharyngeal swallow without breath or vocal quality changes Difficulties Revealed: ?? Premature spillage into valleculae / Swallow triggered at vallecular spaces (considered WFL for over 65) (AP View) ?? Appearance was symmetrical ?? Bolus transit was symmetrical ?? Vocal cord adduction appeared normal Esophageal Phase WFL during this limited evaluation, no immediate intra esophageal reflux noted, normal relaxation of upper esophageal sphincter. Pt w/ c/o globus sensation in throat that appeared related to retained barium mid-esophagus rather than any pharyngeal residue) Please see Radiology Report for detailed description Difficulties Reveled: ?? Gastroesophageal Reflux ?? Dysmotility ?? Hernia Modifications Attempted: ?? No oropharyngeal swallowing strategies were attempted / needed A: Dx: ?? No significant Oropharyngeal Dysphagia noted at this time with this study. Pt reporting globus sensation in throat unrelated to pharyngeal dysphagia, appears to be referred esophageal sensation). Dry, hacking, cough noted several minutes after end of study after pt took several sips of water to clear taste of barium. Did not appear to be cough related to airway protection or clearance. ?? Aspiration / Penetration Scale Score (RosenKori rodriguez et al. Dysphagia, 1995) ??? 1 = no material enters the airway (on any trials or consistencies) ??? 2 = material enters the airway, does not touch the vocal cords, and is completely ejected ??? 3 = material enters the airway, does not touch the vocal cords, but is not ejected ??? 4 = material enters the airway, contacts the vocal cords, but is ejected ??? 5 = material enters the airway, contacts the vocal cords, but is not ejected ??? 6 = material enters the airway, passes below the vocal cords, and is ejected ??? 7 = material passes below the vocal cords, is not ejected, but there is effort made to expel material ??? 8 = material passes below the vocal cords, and there is no attempt to eject it Recommendations: Diet: regular, no modifications needed for swallowing safety GERD Recommendations: Follow MD recommendations for use of over-the counter antacids and/or prescription medications and for treatment. Eat smaller, more frequent meals. Sit upright, stand or walk after eating to help keep stomach acid from backing up into esophagus. Raise the head of bed to at least 30 degrees at all times Don't snack within 3 hours before bedtime. Reduce consumption of fatty foods, caffeinated drinks, alcoholic beverages, tomato products, citrusjuices, spicy foods, mints and cigarettes. ?? Stay away from garments that are tight fitting around the waist. P: ?? No direct Speech Pathology intervention recommended at this time ?? F/u w/ referring provider ?? Reviewed findings and recommendations after study briefly w/ pt. ?? Pt in agreement with plan of treatment. Thank you for this consult with this patient. Please feel free to contact me with any questions or concerns. Iris Corbett MA CCC-LOSS PREVENTION AGENT [facility] OP Rehabilitation Medicine [phone] Pager:# [phone] documented in this encounter Plan of Treatment Upcoming Encounters Date Type Department Care Team (Late st Contact Info) Description 11/06/2025 10:30 AM EST Office Visit Dermatology at [place] [address] [facility] [place] [address] Ishaan Miguel MD [address], [place] [address] Scheduled Referrals Name Type Priority Associated Diagnoses Orde r Schedule Referral to Speech Therapy Outpatient Referral Routine History of Sanches's esophagus Chronic cough Choking, initial encounter Chest pain, unspecified type Throat tightness History of pneumonia Ordered: 01/31/2021 documented as of this encounter Visit Diagnoses Diagnosis Dysphagia, unspecified type documented in this encounter Care Teams Vest Baster Relationship Specialty Start Date End Date Janessa Chand MD [address] [place] [address] PCP - General 10/22/10 documented as of this encounter
--- OUTSIDE RECORDS SUMMARY | 2024-12-29 17:31 | XMS_ITS | Encounter Summary ---
Author Organization [facility] [place] [address] Care Team Providers Care Detective Name Role Phone Janessa Chand MD Primary Care Provider [phone] Reason for Visit * Reason Onset Date Comments Labs Only 07/10/2011 Encounter Details Date Type Department Care Team (Late st Contact Info) Description 07/10/2011 Telephone [place] [address] Akash Thacker MD [facility] [place] [address] Labs Only Social History Tobacco Use Types Packs/Day Years Used Date Smoking Tobacco: Never Assessed Sex and Gender Information Value Date Recorded Sex Assigned at Female 01/28/2021 8:41 AM EST Gender Identity Not on file Sexual Orientation Straight 01/28/2021 8: 41 AM EST documented as of this encounter Miscellaneous Notes * Telephone Encounter - Akash Thacker MD - 07/10/2011 4:40 PM EDT ;labs documented in this encounter Plan of Treatment Upcoming Encounters Date Type Department Care Team (Late st Contact Info) Description 11/06/2025 10:30 AM EST Office Visit Dermatology at [place] [address] [place] [address] Ishaan Miguel MD [address], [place] [address] documented as of this encounter Results * Microalbumin, urine, random (02/18/2012 12:47 PM EDT) Creatinine, Urine 30 mg/dL [facility] Albumin, Urine 45.0 mg/L CERNE R [facility] Albumin / Creatinin Ratio, Urine 150 mcg/mg Cr [facility] Comment: Reference Range* Random collection (mcg/mg creatinine) Normal ?<30 Microalbuminuria ?? 30 - 300 Clinical Albuminuria ?? >300 *[place] [employer]. Diabetic Nephropathy. Diabetes Care 1997;(Suppl 1):S24-S27 Exercise within 24 hour, infection, fever, CHF, marked hyperglycemia, and marked hypertension may elevate urinary albumin excretion over baseline values. Urine specimen (specimen) 02/18/2012 12:47 PM EDT 02/18/2012 12:53 PM EDT Narrative Resulting Agency Comment Spec In Lab Akash Thacker MD URINE ORDERABLES Performing Organization Address [facility] Co de Phone Number [facility] * BUN (02/18/2012 12:41 PM EDT) Blood Urea Nitrogen 15 8 - 18 mg/dL [facility] Blood specimen (specimen) 02/18/2012 12:41 PM EDT 02/18/2012 12:53 PM EDT Narrative Resulting Agency Comment Spec In Lab Akash Thacker MD CHEMISTRY ORDERABLES Performing Organization Address [facility] Co de Phone Number [facility] * (ABNORMAL) Hemoglobin A1c (02/18/2012 12:41 PM EDT) Hemoglobin A1c 6.7(H) 4.3 - 6.1 % [facility] Estimated Average Glucose 146 mg/dL [facility] Comment: eAG equivalents for HbA1c percentages: HbA1c(%) [...] into estimated average glucose values. ??Diabetes Care 2008:31(8):9271-0216. Blood specimen (specimen) 02/18/2012 12:41 PM EDT 02/18/2012 12:53 PM EDT Narrative Resulting Agency Comment Spec In Lab Akash Thacker MD CHEMISTRY ORDERABLES [email or web address] * Creatinine, serum (02/18/2012 12:41 PM EDT) Creatinine 0.77 0.70 - 1.20 mg/dL [facility] Est Glomerular Filtration Rate >60 >=60 [facility] Comment: The National Kidney Disease Education Program [...] CHEMISTRY ORDERABLES Performing Organization Address City/State/ZIP Co pr Phone Number [facility] documented in this encounter Visit Diagnoses Diagnosis Diabetes- Primary Type II or unspecified type diabetes mellitus without mention of complication, not stated as uncontrolled documented in this encounter Care Teams Detective Relationship Specialty Start Date End Date Janessa Chand MD [address] [facility] [place] [address] PCP - General 10/22/10 documented as of this encounter
--- OUTSIDE RECORDS SUMMARY | 2024-12-29 17:31 | XMS_ITS | Encounter Summary ---
[place] [address] Care Team Providers Care Missionary Coordinator Name Role Phone Janessa Chand MD Primary Care Provider [phone] Reason for Visit * Reason Comments Follow-up Skin Check * Consultation (Routine) - Closed Specialty Diagnoses / Procedures Referred By Foster michaud Referred To Contact Dermatology Diagnoses non healing lesions on face Janessa Chand MD [address] [facility] [place] [address] [facility] Dermatology [address] [place] [phone] Referral ID Status Reason Start Date Expiration Date V isits Requested Visits Authorized [id number] Closed Consult, Test & Treat Connection [facility] 08/24/2018 08/24/2019 1 1 Encounter Details Date Type Department Care Team (Late st Contact Info) Description 12/10/2018 1:15 PM EST Office Visit Dermatology at [address] [address] Ishaan Miguel MD [address] [facility] [place] [address] Seborrheic keratosis; Stucco keratosis; Solar lentigo; History of malignant melanoma Social History Tobacco Use Types Packs/Day Years Used Date Smoking Tobacco: Former Cigarettes Q uit: 02/17/2003 Smokeless Tobacco: Never Sex and Gender Information Value Date Recorded Sex Assigned at Female 01/28/2021 8:41 AM EST Gender Identity Not on file Sexual Orientation Straight 01/28/2021 8: 41 AM EST documented as of this encounter Progress Notes * Ishaan Miguel MD - 12/10/2018 1:15 PM EST Problem: 1. New skin lesion of concern 2. History of malignant melanoma in situ, left lateral foot, November 2006, status post excision with close margins, treated with 3 months of Aldara therapy Simi follows up and has been doing well. She has some new lesions of concern. She referred backto see me again by Dr. Janessa Chand did physical Physical examination reveals a pleasant 73-year-old woman who has an actinic keratosis on the left lower lateral lip. She has solar lentigo's on the left and right lateral cheeks. She has an irritated seborrheic keratosis of the left upper forehead and a verrucous papule within the right frontal parietal scalp. She has had several irritated seborrheic keratosis, 3 on her upper back. She has numerous stucco keratoses about her ankles and on her calves. She has a well- healed 1 cm vertically oriented scar without evidence of recurrent pigmentation on the left lateral foot at the site of her melanoma excision some 12 years ago. She has a solar lentigo on the right proximal dorsal forearm which although slightly darker in pigmentation appears to be about the same size and dimensions as the other solar lentigo's present on both dorsal forearms. Assessment plan: Irritated seborrheic keratoses back and left upper forehead 1. LN 2 x 2 applied to each of 4 sites. Actinic keratosis left lower lateral lip 1. LN 2 x 2 applied to site Solar lentigo's lateral cheeks 1. Patient reassured about benign nature of these 2. No treatment necessary Solar lentigo right proximal dorsal forearm 1. Patient also reassured about this benign lentigo. History of malignant melanoma in situ left lateral foot 1. No evidence recurrence 2. Patient reassured CC: Janessa Chand MD documented in this encounter Plan of Treatment Upcoming Encounters Date Type Department Care Team (Late st Contact Info) Description 11/06/2025 10:30 AM EST Office Visit Dermatology at [place] [address] [place] [address] Ishaan Miguel MD [address], [place] [address] documented as of this encounter Visit Diagnoses Diagnosis Seborrheic keratosis Other seborrheic keratosis Stucco keratosis Acquired keratoderma Solar lentigo Other dyschromia History of malignant melanoma Personal history of malignant melanoma of skin documented in this encounter Care Teams Missionary Coordinator Relationship Specialty Start Date End Date Janessa Chand MD [address] [facility] [place] [address] PCP - General 10/22/10 documented as of this encounter
--- OUTSIDE RECORDS SUMMARY | 2024-12-29 17:31 | XMS_ITS | Encounter Summary ---
Author Organization [facility] Address [facility] [place] [address] Care Team Providers Care Net Application Architect Name Role Phone Janessa Chand MD Primary Care Provider [phone] Encounter Details Date Type Department Care Team (Late st Contact Info) Description 02/28/2021 10:00 AM EDT - 02/28/2021 10:45 AM EDT Surgery [place] [address] Sebastián Hernandez MD [facility] [place] [address] EGD WITH BIOPSY (WRVU 2.39) Social History Tobacco Use Types Packs/Day Years [...] Sign Reading Time Taken Comments Blood Pressure 162/61 02/28/2021 9:15 AM EDT Pulse 81 02/28/2021 9:15 AM EDT Temperature 36.8 ??C (98.3 ??F) 02/28/2021 9:15 AM ED T Respiratory Rate 20 02/28/2021 9:15 AM EDT Oxygen Saturation 97% 02/28/2021 9:15 AM EDT Inhaled Oxygen Concentration - - [...] the day after the procedure, use an kgtn-ykn-pbjaurt spray to numb your throat. Sucking on [...] occurs, please contact your Doctor. Please call [phone] before 8pm Mon-Fri with problems, questions or concerns. If you call after 8pm or on weekends, call the Hospital at [phone] and ask to speak to the Php Wordpress Developer party demonstrator and the 911 operator will contact that person for you. When should you call for help? Call [phone] anytime you think you may need emergency [...] any problems. Where can you learn more? [facility] View your After Visit Summary and more online at [email or web address] If you would like to provide feedback [...] cost to you. Content Version: 12.2 ?? [id number] [employer]. Care instructions adapted under license by [facility]. If you have questions about a medical condition or this instruction, always ask your healthcare professional. [employer] disclaims any warranty or liability for your [...] pen Inject 40 Units subcutaneously nightly. 09/15/2019 xkytvqci-dfkxcxiuq-mrmw methasone (DEXACINE) 3.5 mg/g-10,000 unit/g-0.1 % Ointment [...] as of this encounter H&P Notes * Sebastián Hernandez MD - 02/28/2021 10:12 AM EDT Patient [...] Hernandez MD - 02/28/2021 10:38 AM EDT [facility] [place] Patient Name: Simi العلي : [id number] MR#: [id number] Case Date: 02/28/2021 Surgeon: Surgeon(s) and Role: [...] 10:30 AM EST Office Visit Dermatology at [place] [address] [place] [address] Ishaan Miguel MD [address], [place] [address] documented as of this encounter Procedures Procedure Name Priority Date/Time Associated Diagnosis Comments SURGICAL PATHOLOGY REPORT Routine 02/28/2021 10:56 AM EDT SPECIMEN TO PATHOLOGY Routine 02/28/2021 10:56 AM EDT SPECIMEN TO PATHOLOGY Routine 02/28/2021 10:56 AM EDT SPECIMEN TO PATHOLOGY Routine 02/28/2021 10:56 AM EDT Upper Gi Endoscopy, Biopsy ([id number]) 02/28/2021 10:22 AM EDT History of Sanches's esophagus Chronic cough Choking, initial encounter Chest pain, unspecified type Throat tightness History of pneumonia UPPER GI ENDOSCOPY Routine 02/28/2021 10 :12 AM EDT documented in this encounter Results * Surgical Pathology Report (02/28/2021 10:56 AM EDT) Final Diagnosis [id number] ? Location: 4T; [facility]; A The signing pathologist has (i) examined [...] Leena Verified: ??03/06/2021 15:19 ??Pathologist Performed at: ??[place] [place], [place], [place] SPECIMEN(S) SUBMITTED A - pyloric biopsies, [...] labeled C1. ??sarah 03/06/2021 3:19 PM EDT [facility] GI Biopsy 02/28/2021 10:5 6 AM EDT 02/28/2021 10:56 AM EDT GI Biopsy 02/28/2021 10:5 6 AM EDT 02/28/2021 10:56 AM EDT GI Biopsy 02/28/2021 10:5 6 AM EDT 02/28/2021 10:56 AM EDT Sebastián Hernandez MD PATHOLOGY/CYTOLOGY O RDULICES Performing Organization Address City/[facility]/[place] [address] * Specimen to Pathology (02/28/2021 10:56 AM EDT) AP Specimen 02/28/2021 10:5 6 AM EDT 02/28/2021 10:56 AM EDT Narrative [facility] - 02/28/2021 10:56 AM EDT Specimen requisition ordered. ??Separate Pathology report to follow Sebastián Hernandez MD PATHOLOGY/CYTOLOGY O KELY Performing Organization Address [facility] [place] [address] * Specimen to Pathology (02/28/2021 10:56 AM EDT) AP Specimen 02/28/2021 10:5 6 AM EDT 02/28/2021 10:56 AM EDT Narrative [facility] - 02/28/2021 10:56 AM EDT Specimen requisition ordered. ??Separate Pathology report to follow Sebastián Hernandez MD PATHOLOGY/CYTOLOGY O KELY Performing Organization Address City/[facility]/[place] [address] * Specimen to Pathology (02/28/2021 10:56 AM EDT) AP Specimen 02/28/2021 10:5 6 AM EDT 02/28/2021 10:56 AM EDT Narrative [facility] - 02/28/2021 10:56 AM EDT Specimen requisition ordered. ??Separate Pathology report to follow Sebastián Hernandez MD PATHOLOGY/CYTOLOGY O RDERALALO Performing Organization Address City/[facility]/ZIP Co de Phone Number [facility] [place] [address] * UPPER GI ENDOSCOPY (02/28/2021 10:12 AM EDT) Pathologist [facility] UPPER GI ENDOSCOPY [facility] Endoscopy Procedure Date: 02/28/2021 10:12 AM ? Patient Name: Simi Begin ? Date of : 1945 ? Age: 75 ? Order #: [id number] ? Instrument Name: [id number] ? Procedure: ? Upper GI endoscopy Indications: ? Follow-up of Sanches's esophagus Providers: ? Sebastián Hernandez MD, Nanci Obrien ? Ammon Klein MD: ?[facility] ? Propofol per Anesthesia Complications: ? No [...] mucosal changes ? consistent with short-segment ? Sanches's esophagus. Biopsied. ? - Gastric polyps with [...] AM PROVATION 02/28/2021 10:1 2 AM EDT Babita Velasquez MD GENERAL SURGI JAEL ORDERABLES PROVATION documented in this encounter Visit Diagnoses Diagnosis History of Sanches's esophagus Chronic cough Cough Chest pain Chest pain, unspecified Throat tightness Other symptoms involving head and neck History of pneumonia Personal history of pneumonia (recurrent) Choking Foreign body in larynx History of Sanches's esophagus Chronic cough Cough Choking, initial encounter Chest pain, unspecified type Throat tightness Other symptoms involving head and neck History of pneumonia Personal history of pneumonia (recurrent) documented in this encounter Admitting Diagnoses Diagnosis [...] RN) documented in this encounter Care Teams Net Application Architect Relationship Specialty Start Date End Date Janessa Chand MD [address] [place] [address] PCP - General 10/22/10 documented as of this encounter
--- OUTSIDE RECORDS SUMMARY | 2024-12-29 17:31 | XMS_ITS | Encounter Summary ---
Author [place] [address] Care Team Providers Care Discharging Machine Operator Name Role Phone Janessa Chnad MD Primary Care Provider [phone] Reason for Visit * Reason Onset Date Comments Reminder Appointment 01/31/2021 Encounter Details Date Type Department Care Team (Late st Contact Info) Description 01/31/2021 Telephone [place] [address] Elinor Paula CMA Reminder Appointment Social History Tobacco Use Types Packs/Day Years [...] encounter Miscellaneous Notes * Telephone Encounter - Elinor Paula CMA - 01/31/2021 8:15 AM EST Called patient to review medications and allergies for their upcoming gastroenterology Type of Appointment: Telehealth appointment. Reach Patient during MA Check: Yes Notes for the provider: Notes for the nurse: documented in this encounter Plan of Treatment Upcoming Encounters Date Type Department Care Team (Late st Contact Info) Description 11/06/2025 10:30 AM EST Office Visit Dermatology at [place] [address] [place] [address] Ishaan Miguel MD [address], [place] [address] documented as of this encounter Visit Diagnoses Not on filedocumented in this encounter Care Teams Discharging Machine Operator Relationship Specialty Start Date End Date Janessa Chand MD [facility] [address] [facility] [address] [place] [address] PCP - General 10/22/10 documented as of this encounter
--- OUTSIDE RECORDS SUMMARY | 2024-12-29 17:31 | XMS_ITS | Encounter Summary ---
Author Organization [facility] [place] [address] Care Team Providers Care Firmware Architect Name Role Phone Janessa Chand MD Primary Care Provider [phone] Encounter Details Date Type Department Care Team (Late st Contact Info) Description 02/19/2011 1:30 PM EDT Office [place] [address] Akash Thacker MD [facility] [place] [address] Discharge Disposition: Home Social History Tobacco Use [...] 10:30 AM EST Office Visit Dermatology at [place] [address] [place] [address] Ishaan Miguel MD [address] [facility] [facility] [facility] [facility] [place] [address] documented as of this encounter Visit Diagnoses Not on filedocumented in this encounter Care Teams Firmware Architect Relationship Specialty Start Date End Date Janessa Chand MD [address] [facility] [address] [place] [address] PCP - General 10/22/10 documented as of this encounter
--- OUTSIDE RECORDS SUMMARY | 2024-12-29 17:31 | XMS_ITS | Encounter Summary ---
Author Organization [facility] Address [facility] [place] [address] Care Team Providers Care Block Mechanic Name Role Phone Janessa Chand MD Primary Care Provider [phone] Encounter Details Date Type Department Care Team (Late st Contact Info) Description 02/28/2021 10:21 AM EDT Anesthesia [place] [address] Christopher Hyde MD [facility] [place] [address] Anesthesia Record Procedure Summary Procedure Name Responsible Anesthesiologist Anesthesia Start Time Anesthesia Stop Time EGD WITH BIOPSY (WRVU 2.39) (Trunk) Christopher Hyde MD 02/28/21 1021 02/28/21 1058 Events Date Time Event Comment 02/28/2021 0923 1020 AN Verify 1021 Start 1021 An Start Data 1025 An Induction 1026 Anesthesia Ready 1058 an stop data 1058 Recovery or ICU Handoff Sita ent care was transferred to the destination unit staff after review of the patient's medical history, current anesthetic/surgical status and plan, according to the Provider Handoff Checklist. 1058 Stop Meds Name Total IV Lidocaine 60 mg Propofol 50 mg Propofol INF 448.84 mg Dexmedetomidine 8 mcg Lactated Ringers 0 mL * Agents Name O2 Air N2O O2 Auxiliary Flowmeter 1 * Blood No blood administrations on file. Lines, Drains, and Airways Type Details Placement Removal (RETIRED) Peripheral IV Line - Single Lumen 02/28/21; 09; cephalic vein (lateral side of arm), right; dvvz-wwi-syoavg catheter system; Anatomical Landmarks; 22 gauge; K WILLAM Ybarra; 02/28/21; 1127 02/28/21 09 by Serene Ybarra RN 02/28/21 112 by Betty Machado RN documented in this encounter Social History Tobacco Use Types Packs/Day Years [...] AM EST documented as of this encounter OR Notes * Anesthesia Postprocedure Evaluation - Christopher Hyde MD - 02/28/2021 11:45 AM EDT Department of Anesthesiology Post-procedure Note Patient: Simi العلي Procedure Summary Date: 02/28/21 Room / Location: [facility] ENDO [facility] / [facility] Anesthesia Start: 1021 Anesthesia Stop: 1058 Procedure: EGD WITH BIOPSY (WRVU 2.49) (N/A Trunk) Diagnosis: History of Sanches's esophagus Chronic cough Choking, initial encounter Chest pain, unspecified type Throat tightness History of pneumonia (chronic cough, choking, chest pain, throat tightness, history of Sanches's esophagus. Please obtain biopsies for surveillance of Sanches's esophagus. (Question of intestinal metaplasia of pyloric biopsy from last EGD pathology?)) Surgeons: Sebastián Hernandez MD Responsible Provider: Christopher Hyde MD Anesthesia Type: general ASA Status: 3 All Anesthesia Providers: Anesthesiologist: Christopher Hyde MD COMPUTER ENGINEERING TECHNOLOGIST: Renu De Leon CRNA Vitals Value Taken Time BP 141/66 02/28/21 1110 Temp Pulse 93 02/28/21 1103 Resp 16 02/28/21 1103 SpO2 96 % 02/28/21 1120 Pain Level 0 02/28/21 1103 Vitals shown include unvalidated device data. Patient Location: PACU/SDP Level of Consciousness: Awake and Alert Pain Management: Satisfactory Analgesia PONV: None Cardiovascular Status: Hemodynamically Stable and At Baseline Respiratory Status: Stable Respiratory Status and Supplemental O2 (NC or FM) Postoperative Fluid Status: Intravascular EUvolemia Possible Anesthetic Complications: NONE apparent at time of evaluation Final Primary Anesthesia Type: MAC (The anesthetic type performed was the same as planned.) Comments: * Anesthesia Preprocedure Evaluation - Christopher Hyde MD - 02/28/2021 9:21 AM EDT Pre-Anesthesia Evaluation for: Simi Downs Begin a 75 y.o. female. Procedure(s): EGD, UPPER GI ENDOSCOPY Patient Active Problem List Diagnosis ??? History of Sanches's esophagus Added automatically from request for surgery [id number] ??? Chronic cough Added automatically from request for surgery [id number] ??? Choking Added automatically from request for surgery [id number] ??? Chest pain Added automatically from request for surgery [id number] ??? Throat tightness Added automatically from request for surgery [id number] ??? History of pneumonia Added automatically from request for surgery [id number] ??? Seborrheic keratosis, inflamed ??? History of malignant melanoma ??? Seborrheic keratosis ??? CIS - gerd, s/p eulalia ??? CIS - hbp ??? CIS - type 2 dm Past Medical History: Diagnosis Date ??? Anemia ??? Anxiety ??? ASCVD (arteriosclerotic cardiovascular disease) ??? Sanches esophagus ??? DM (diabetes mellitus) ??? Former smoker ??? HLD (hyperlipidemia) ??? HTN (hypertension) ??? Kidney stone ??? Malignant melanoma Past Surgical History: Procedure Laterality Date ??? APPENDECTOMY ??? BREAST REDUCTION SURGERY ??? FOOT SURGERY Bilateral ??? GASTRIC FUNDOPLICATION 1994 ??? TUBAL LIGATION ??? UMBILICAL HERNIA REPAIR Social History Tobacco Use ??? Smoking status: Former Smoker Quit date: 02/17/2003 Years since quittin.0 ??? Smokeless tobacco: Never Used Substance Use Topics ??? Alcohol use: Yes Alcohol/week: 14.0 standard drinks Types: 14 Glasses of wine per week Comment: 2 glasses of wine a night Social History Substance and Sexual Activity Drug Use Never Allergies Allergen Reactions ??? Codeine Phosphate CIS - restlessness, CIS - restlessness ??? Milk CIS - Bronchitis, CIS - Bronchitis ??? Milk Based Formulas CIS - Bronchitis, CIS - Bronchitis ??? Amoxicillin Other (See Comments) THRUSH ??? Homatropine CIS - headache, CIS - headache ??? Hydrocodone Bitartrate CIS - headache, CIS - headache Medications: MAR and/or home medications have been reviewed. Physical Exam: Preprocedure Vitals Current as of 02/28/21 0921 BP: 162/61 Pulse: 81 Resp: 20 SpO2: 97 Temp: 36.8 ??C (98.3 ??F) Height: 161.3 cm (5' 3.5) (02/28/21) Weight: 91.6 kg (202 lb) (02/28/21) BMI: 35.22 IBW: 53.6 kg (118 lb 1.2 oz) Last edited 02/28/21914 by SAMIRA Airway Assessment: Mallampati: II TM distance: >3 FB Neck ROM: limited Cardiovascular Assessment: Rate: normal Pulmonary Assessment: unlabored breathing Dental Assessment: (+) upper dentures and lower dentures Misc Assessment: Last Filed Perioperative Cognitive Screening None Anesthesia Plan: ASA 3 general, with a(n) intravenous induction 75 y/o woman with a PMH of HTN, HLD, DM2, obesity, CAD, prior smoking, Sanches's here for EGD. Tolerated GA and sedation in the past. NPO. Plan for MAC with propofol sedation. Region - Other Informed Consent: Anesthetic plan and risks discussed with patient. Plan discussed with COMPUTER ENGINEERING TECHNOLOGIST. PAT Clinic Note documented in this encounter Plan of Treatment Upcoming Encounters Date Type Department Care Team (Late st Contact Info) Description 11/06/2025 10:30 AM EST Office Visit Dermatology at [place] [address] [place] [address] Ishaan Miguel MD [address], [place] [address] documented as of this encounter Visit Diagnoses Not on filedocumented in this encounter Administered Medications Inactive Administered Medications - up to 3 most recent administrations Medication Order MAR Action Action Date Dose Rate Site dexmedetomidine (Precedex) (4 mcg/mL) bolus injection (Anesthsia) Intravenous, PRN, Starting on Raquel 02/28/21 at 1028, Until Raquel 02/28/21 at 1058, Anesthesia Intra-op, Routine Given 02/28/2021 10:39 AM EDT 4 mcg Given 02/28/2021 10:28 AM EDT 4 mcg lactated ringers infusion Intravenous, CONTINUOUS PRN, Starting on Raquel 02/28/21 at 1020, Until Raquel 02/28/21 at 1058, Anesthesia Intra-op New Bag 02/28/2021 10:20 AM EDT lidocaine (pf) (Xylocaine) (20 mg/mL) 2% injection syringe Intravenous, PRN, Starting on Raquel 02/28/21 at 1026, Until Raquel 02/28/21 at 1058, Anesthesia Intra-op, Routine Given 02/28/2021 10:26 AM EDT 60 mg propofoL (Diprivan) 10 mg/mL bolus injection (Anesthesia) Intravenous, PRN, Starting on Raquel 4 at 1026, Until Raquel 02/28/21 at 1058, Anesthesia Intra-op Given 02/28/2021 10:26 AM EDT 50 mg propofoL (Diprivan) infusion Intravenous, CONTINUOUS PRN, Starting on Raquel 02/28/21 at 1026, Until Raquel 02/28/21 at 1058, Anesthesia Intra-op, Routine Rate/Dose Change 02/28/2021 10:37 AM EDT 200 mcg/kg/min 109.92 mL/hr Rate/Dose Change 02/28/2021 10:35 AM EDT 175 mcg/kg/min 96 .18 mL/hr New Bag 02/28/2021 10:26 AM EDT 150 mcg/kg/min 82.44 mL /hr documented in this encounter Care Teams Block Mechanic Relationship Specialty Start Date End Date Janessa Chand MD [address] [place] [address] [address] [facility] [address] [place] [address] PCP - General 10/22/10 documented as of this encounter
--- OUTSIDE RECORDS SUMMARY | 2024-12-29 17:31 | XMS_ITS | Encounter Summary ---
Author [place] [address] Care Team Providers Care Regional Operations Director Name Role Phone Janessa Chand MD Primary Care Provider [phone] Encounter Details Date Type Department Care Team (Late st Contact Info) Description 02/18/2021 Telephone [place] [address] Nanci Parks Social History Tobacco Use Types Packs/Day Years [...] encounter Miscellaneous Notes * Telephone Encounter - Nanci Parks - 02/18/2021 9:48 AM EDT Simi العلي [id number] Diagnosis/Indication: chronic cough, choking, chest pain, throat tightness, history of Sanches's esophagus. 1. Have you ever had a/an Upper Endoscopy before? Yes: Date 08/2020 AT [facility] If yes, did you have any problems with the procedure? No What type of sedation was used: Other: UNKNOWN 2. Do you take any blood thinners or have you been diagnosed with a bleeding disorder that increases your risk of bleeding with procedures? No 3. Do you have a Pacemaker or Defibrillator device? No 4. Are you a diabetic? Yes: Controlled by diet or medication? Both 5. Do you have any Allergies to Eggs, Latex or Medications? Yes: EDH 6. Do you take any Oral Iron Supplements (Including multi-vitamins)? No 7. Do you have a history of three or more abdominal surgeries? No 8. Have you had a problem with sedation or anesthesia? No 9. Do you use a c-pap machine or oxygen tank? C-Pap 10. Do you take prescription narcotic pain medications, including suboxone or methodone? No 11. Do you have a preference regarding the gender of your provider? No Preference 12. Is there any other information you would like to us to note for the provider and nursing team who will perform your case? No 13. Say to patient: You must have a responsible libertarian who will drive you to your procedure, stay [place] for the entire duration of your procedure, and drive you home from your procedure? *Please Verify the height and weight, and adjust if height and/or weight have changed* Estimated body mass index is 34.52 kg/m?? as calculated from the following: Height as of 01/31/21: 161.3 cm (5' 3.5). Weight as of 01/31/21: 89.8 kg (198 lb). Age:75 y.o. documented in this encounter Plan of Treatment Upcoming Encounters Date Type Department Care Team (Late st Contact Info) Description 11/06/2025 10:30 AM EST Office Visit Dermatology at [place] [address] [facility] [place] [address] Ishaan Miguel MD [address] [place] [address] documented as of this encounter Visit Diagnoses Not on filedocumented in this encounter Care Teams Regional Operations Director Relationship Specialty Start Date End Date Janessa Chand MD [address] [place] [address] PCP - General 10/22/10 documented as of this encounter
--- OUTSIDE RECORDS SUMMARY | 2024-12-29 17:31 | XMS_ITS | Encounter Summary ---
Author Organization Formerly [facility] [place] [address] Care Team Providers Care Occupational Medicine Officer Name Role Phone Janessa Chand MD Primary Care Provider [phone] Reason for Referral * Diagnostic Test (Routine) - Closed Specialty Diagnoses / Procedures Referred By Contac t Referred To Contact Radiology Diagnoses History of Sanches's esophagus Chronic cough Choking, initial encounter Chest pain, unspecified type Throat tightness History of pneumonia Procedures XR Fluoro Barium Swallow (Single Contrast) Kenny Regan APRN [facility] [address] [facility] Rad Xray [address] [place] [address] [place] [address] Referral ID Status Reason Start Date Expiration Date V isits Requested Visits Authorized [id number] Closed Specialty Service Requested 01/31/2021 08/03/2022 1 1 * Speech Therapy - Closed Specialty Diagnoses / Procedures Referred By Contmichael michaud Referred To Contact Speech Therapy Diagnoses History of Sanches's esophagus Chronic cough Choking, initial encounter Chest pain, unspecified type Throat tightness History of pneumonia Kenny Regan APRN [facility] [place] [address] [facility] [facility] [address] Referral ID Status Reason Start Date Expiration Date V isits Requested Visits Authorized [id number] Closed Consult Only 01/31/2021 01/31/2022 100 100 * Consultation (Routine) - Closed Specialty Diagnoses / Procedures Referred By Foster t Referred To Contact Gastroenterology Diagnoses History of Sanches's esophagus Chronic cough Choking, initial encounter Chest pain, unspecified type Throat tightness History of pneumonia HREM/pH impedance ON PPI for choking episodes, chronic cough, h/o BE Procedures HIGH RESOLUTION ESOPHAGEAL MANOMETRY PH IMPEDANCE - 24 HOUR HREM/pH impedance ON PPI for choking episodes, chronic cough, h/o BE Kenny Regan APRN [facility] [address] [facility] [place] [address] Referral ID Status Reason Start Date Expiration Date V isits Requested Visits Authorized [id number] Closed Consult, Test & Treat 01/31/2021 01/31/2022 1 1 Reason for Visit * Consultation (Routine) - Closed Specialty Diagnoses / Procedures Referred By Contac t Referred To Contact Gastroenterology Diagnoses Chronic gastritis and esophagitis on high dose PPI Procedures Consult Babita Rojo MD [address] [place] [id number] [facility] [place] [address] Referral ID Status Reason Start Date Expiration Date Visits Re quested Visits Authorized [id number] Closed 12/14/2020 12/14/2021 1 1 Encounter Details Date Type Department Care Team (Latest Contact Info) Description 01/31/2021 9:00 AM EST TH Visit (TeleHealth) [place] [address] Kenny Regan APRN [facility] [place] [address] History of Sanches's esophagus; Chronic cough; Choking, initial encounter; Chest pain, unspecified type; Throat tightness; History of pneumonia Social History Tobacco Use Types Packs/Day Years [...] Sign Reading Time Taken Comments Blood Pressure - - Pulse - - Temperature - - Respiratory Rate - - Oxygen Saturation - - Inhaled Oxygen Concentration - - Weight 89.8 kg (198 lb) 01/31/2021 9:29 AM EST Height 161.3 cm (5' 3.5) 01/31/2021 9:29 AM EST Body Mass Index 34.52 01/31/2021 9:29 AM EST documented in this encounter Patient Instructions * Patient Instructions* Kenny Regan, JW - 01/31/2021 9:00 AM EST Dear Karmen, It was nice to meet you today. I have listed the recommendations we discussed below. Please call the Radiology department to schedule imaging tests at [phone] (option 2). GI department number [phone] -Upper endoscopy -Esophageal manometry with 24-hour pH impedance on PPI -Modified barium swallow -Barium swallow -Follow-up locally for colonoscopies as recommended by local provider Therapeutics: -PCP can consider referral to Allergy Medicine for chronic cough -PCP can consider referral to cardiology for throat tightness, chest pain, tingling in upper extremities that occurs with coughing episodes. -Continue to work with pulmonary medicine team, ENT team, and speech language pathology team for cough -Continue Nexium - discussed at length with patient her concerns over [place] [facility] PPI use and that ideally she would use it for the shortest time possible, but this may be limited by the need for her disease control. It is recommended that patients with Sanches's Esophagus us PPI [place] [facility] [place] to decrease risk of esophageal cancer. Discussed that we do not have [place] [facility] [place] data to correlate with single center studies to corroborate risks of dementia or renal failure. After extensive discussion of benefits/risks, patient chose to continue therapy. RTC in 6 months with me when testing is complete to further consolidate the GI care plan for the patient's local team. Due to the consultative nature of our practice, the patient should continue to work with Dr. Chand as the primary point of contact for urgent issues, medication refills and adjustments as needed for continuity of care purposes in between visits to our center based on the recommendations above. Per their discretion, it may be beneficial for the patient to establish with a local supervisor alteration workroom for continuity of care, so that we can co-manage on a consultative basis moreeffectively. documented in this encounter Progress Notes * Kenny Regan APRN - 01/31/2021 9:00 AM EST [facility] TELEMEDICINE PRO[facility] Chief Complaint: Simi العلي is a 75 y.o. patient referred for consultation by Dr. Alia king and history of Sanches's History of Present Illness: 75 y.o. female with past medical history signifcant for anemia, anxiety, ASCVD, asthma, Barretts esophagus, kidney stone, DM type II, HLD, HTN, malignant melanoma, former smoker (quit 2002). Oumar fundoplication (1994), appendectomy, tubal ligation. Karmen Tan's joins for appointment feels tightness and has chest pain, once a month, associated with choking. Denies SOB, palpitations, diaphoresis. Not associated with exertion. Heartburn if she doesn't take Nexium, starts immediately if she misses a dose. Endorses choking once a week, which causes a coughing attack. Can choke randomly or after eating/drinking. Taking a deep breath can start choking. Denies feeling of food getting stuck or feeling of aspirating. 1-2 nights a month she will start coughing when she goes to bed and has to sleep in a recliner. Endorses excessive belching. Usually a dry cough but can produce mucus occasionally. Whenshe coughs a lot she has pins and needles feeling in both arms. Endorses getting tired easily. Has a chronic cough. Saw speech therapy and no change. PCP has been managing cough. Feels like something is on right side of throat. Had pneumonia last winter Has BE Denies nausea, vomiting, weight loss, abdominal pain, bloating and distention. Bowel movement pattern has been her norm for the past 13 years. Occasional diarrhea began after taking Metformin, not frequent. Predates colonoscopy from fall 2019. Denies bloody stool and melena. Denies constipation. Dr. Maritza Shannon pulmonary doctor at [facility]-working her up for COPD or asthma Last EGD/Colonoscopy in the fall at [facility]. Dr. Rojo 2 tubular adenomas. Repeat in 5 years Chronic gastritis- reduced dose of nexium increases symptoms. 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 Current Regimen: Nexium 40mg BID Lifestyle NSAID: Ibuprofen once in a while. 0-1 per week Caffeine/Soda/Artificial Sugar: 1 cup of coffee daily Review of systems: 14-point review of systems reviewed and negative except as above. Medications: Outpatient Medications Prior to Visit Medication Sig Dispense Refill ??? albuterol 90 mcg/actuation HFA Aerosol Inhaler Inhale 2 puffs into the lungs. ??? amLODIPine (NORVASC) 10 mg Tablet TK [...] Tablet ??? LANTUS SOLOSTAR U-100 INSULIN pen ??? insulin lispro (HUMALOG) Solution Inject 18 Units subcutaneously. ??? losartan (COZAAR) 50 mg Tablet ??? metoprolol succinate XL (TOPROL-XL) 100 mg Tablet Sustained Release 24 hr ??? noyqsptr-cnxfopbjp-skyscuifuiivj (DEXACINE) 3.5 mg/g-10,000 unit/g-0.1 % Ointment APPLY [...] per tablet 1 Tablet(s), PO, Once daily ??? aspirin (ECOTRIN LOW STRENGTH) 81 mg EC tablet ??? rosuvastatin (CRESTOR) 10 mg tablet 10mg, PO, Once daily ??? esomeprazole (NEXIUM) 40 mg capsule 40M Capsule(s), PO, Twice daily ??? glipiZIDE (GLUCOTROL) 2.5 mg 24 hr tablet 2.5MG = 1 Tablet(s), PO, AM and QHS ??? metFORMIN (GLUCOPHAGE-XR) 750 mg 24 hr tablet 750MG = 1 Tablet(s), PO, Twice daily No facility-administered medications prior to visit. Allergies: is allergic to codeine phosphate; milk; milk based formulas; amoxicillin; homatropine; and hydrocodone bitartrate. Past Medical History: has no past medical history on file. Past Surgical History: has no past surgical history on file. Family History: family history is not on file. denies family history of colon cancer, IBD, or celiac disease in mother father or other family members Social History: reports that she quit smoking about 17 years ago. She has never used smokeless tobacco. Physical exam: Constitutional: well appearing, no apparent distress Eyes: conjunctiva clear without icterus, pallor, or injection ENT: Nose without external redness or drainage. Mouth with normal dentition; moist mucous membranes CV: No lower extremity peripheral edema or signs of cyanosis Respiratory: Breathing comfortably and speaking in full sentences without evident tachypnea or signs of respiratory distress GI: Abdomen non-distended and non-tender to self-palpation Skin: No visible rashes Psych: Appropriate affect. Intact thought and speech Neuro: Alert and oriented. Moving upper extremities appropriately Questionnaire: No flowsheet data found. Laboratory studies, imaging, and procedures (in summary of my review of prior records): None Assessment/Plan: Ms. العلي is a 75 y.o. patient with past medical history signifcant for anemia, anxiety, ASCVD, asthma, Barretts esophagus, kidney stone, DM type II, HLD, HTN, malignant melanoma, former smoker ([id number]). Oumar fundoplication (1994), appendectomy, tubal ligation. Karmen states that she was referred by the Dr. Rojo, who did her upper endoscopy and colonoscopyduring the fall 2019 at [facility], referred her because there was an abnormal finding on the upper endoscopy (report unavailable) Question of intestinal metaplasia of pyloric biopsy from last EGD pathology?. #Chronic cough #Choking #Chest pain #Throat tightnesss #History of Sanches's esophagus Karmen states that she has choking episodes that occur once a week, these episodes cause a coughingattack. She can choke randomly or after eating/drinking or after taking a deep breath. She denies feeling food gets stuck when eating or feeling of aspirating. 1-2 nights a month she will start coughing when she goes to bed and has to sleep in a recliner. The cough is dry but can produce mucus occasionally. Endorses excessive belching. She had pneumonia last winter. She has seen pulmonary medicine, ENT, and speech-language pathology at [facility] for cough and is currently being worked up for COPD or asthma. Karmen occasionally feels chest tightness and pain that is associated with the choking. This occursonce a month. Denies shortness of breath, palpitations, diaphoresis. This does not occur with exertion. Occasionally experiences tingling in upper extremities. Heartburn is well controlled on Nexium BID. Endorses heartburn if she does not take her Nexium, starts immediately if she misses a dose. Denies nausea, vomiting, weight loss, abdominal pain, bloating and distention, bloody stool, melena. Recommendations: Diagnostics: -EGD with anesthesia for chronic cough, choking, chest pain, throat tightness, history of Sanches'sesophagus. Please obtain biopsies for surveillance of Sanches's esophagus. (Question of intestinal metaplasia of pyloric biopsy from last EGD pathology?) -Esophageal manometry with 24hr pH impedence ON PPI for chronic cough, choking, chest pain, throat tightness -Modified barium swallow for chronic cough, choking episodes, history of pneumonia -Barium swallow for throat tightness, choking episodes, h/o Oumar -Obtain endoscopy reports from [facility] -Follow up locally for colonoscopies as recommended by local provider Therapeutics: -PCP can consider referral to Allergy Medicine for chronic cough -PCP can consider referral to cardiology for throat tightness, chest pain, tingling in upper extremities that occurs with coughing episodes. -Continue to work with pulmonary medicine team, ENT team, and speech language pathology team for cough -Continue Nexium - discussed at length with patient her concerns over [place] [facility] PPI use and that ideally she would use it for the shortest time possible, but this may be limited by the need for her disease control. It is recommended that patients with Sanches's Esophagus us PPI lobsterman to decrease risk of esophageal cancer. Discussed that we do not have [place] data to correlate with single center studies to corroborate risks of dementia or renal failure. After extensive discussion of benefits/risks, patient chose to continue therapy. RTC in 6 months with me when testing is complete to further consolidate the GI care plan for the patient's local team. Due to the consultative nature of our practice, the patient should continue to work with Dr. Chand as the primary point of contact for urgent issues, medication refills and adjustments as needed for continuity of care purposes in between visits to our center based on the recommendations above. Per their discretion, it may be beneficial for the patient to establish with a local supervisor alteration workroom for continuity of care, so that we can co-manage on a consultative basis moreeffectively. TIME SPENT WITH PATIENT Time spent reviewing records prior to this encounter on day of appointment: 2 minutes Time spent during encounter with patient including counselin minutes Time spent documenting encounter after office visit: 15 minutes Approximate total time devoted to this single encounter: 55 minutes Kenny Regan APRN [facility] [place] [address] documented in this encounter Plan of Treatment Upcoming Encounters Date Type Department Care Team (Late st Contact Info) Description 11/06/2025 10:30 AM EST Office Visit Dermatology at [place] [address] [facility] [place] [address] Ishaan Miguel MD [address], [place] [address] Scheduled Orders Name Type Priority Associated Diagnoses Orde r Schedule ENDOSCOPY CASE REQUEST: EGD, UPPER GI ENDOSCOPY Procedures Routine History of Sanches's esophagus Chronic cough Choking, initial encounter Chest pain, unspecified type Throat tightness History of pneumonia Ordered: 01/31/2021 Scheduled Referrals Name Type Priority Associated Diagnoses Order Schedule Referral to Gastroenterology Outpatient Referral Routine History of Sanches's esophagus Chronic cough Choking, initial encounter Chest pain, unspecified type Throat tightness History of pneumonia Ordered: 01/31/2021 Referral to Speech Therapy Outpatient Referral Routine History of Sanches's esophagus Chronic cough Choking, initial encounter Chest pain, unspecified type Throat tightness History of pneumonia Ordered: 01/31/2021 documented as of this encounter Results * XR Fluoro Barium Swallow (Single Contrast) [...] who have questions please contact the health career services representative that requested your imaging first. ? Narrative 05/13/2021 10:34 AM EDT EXAMINATION: XR FLUORO BARIUM SWALLOW (SINGLE CONTRAST) CLINICAL HISTORY: esophagram for choking episodes, throat tightness, chest pain, h/ Oumar, requesting 5 minute timed, double contrast esophagram, and barium tablet. please change to both [id number] and [id number] (which are not visible in our system) [...] esophagram, andbarium tablet. please change to both [id number] and [id number] (which are not visiblein our system) TECHNIQUE: [...] patients who have questions please contactthe health career services representative that requested your imaging first. Kenny Regan [...] who have questions please contact the health career services representative that requested your imaging first. ? Narrative [...] patients who have questions please contactthe health career services representative that requested your imaging first. Kenny Regan APRN IMG FLUORO ORDERABL ES documented in this encounter Visit Diagnoses Diagnosis History of Sanches's esophagus Chronic cough Cough Choking, initial encounter Chest pain, unspecified type Throat tightness Other symptoms involving head and neck History of pneumonia Personal history of pneumonia (recurrent) History of Sanches's esophagus Chronic cough Cough Choking, initial encounter Chest pain, unspecified type Throat tightness Other symptoms involving head and neck History of pneumonia Personal history of pneumonia (recurrent) documented in this encounter Care Teams Occupational Medicine Officer Relationship Specialty Start Date End Date Janessa Chand MD [address] [place] [address] PCP - General 10/22/10 documented as of this encounter
--- OUTSIDE RECORDS SUMMARY | 2024-12-29 17:31 | XMS_ITS | Encounter Summary ---
[place] [address] Care Team Providers Care Cerner Analyst Name Role Phone Janessa Chand MD Primary Care Provider [phone] Reason for Visit * Reason Onset Date Comments Diabetes 02/17/2012 Encounter Details Date Type Department Care Team (Late st Contact Info) Description 02/17/2012 Telephone [place] [id number] Briana Elias LPN Diabetes Social History Tobacco Use Types Packs/Day Years Used Date Smoking Tobacco: Never Assessed Sex and Gender Information Value Date Recorded Sex Assigned at Female 01/28/2021 8:41 AM EST Gender Identity Not on file Sexual Orientation Straight 01/28/2021 8: 41 AM EST documented as of this encounter Miscellaneous Notes * Telephone Encounter - Briana Elias LPN - 02/17/2012 11:34 AM EDT Returning call to patient asking what her appointment tomorrow with Dr Thacker is for. She was told that if is a one year follow up for diabetes. The appointment one hour before is to have lab work done. Patient states she will be here for both appointments. documented in this encounter Plan of Treatment Upcoming Encounters Date Type Department Care Team (Late st Contact Info) Description 11/06/2025 10:30 AM EST Office Visit Dermatology at [address] [place] [address] Ishaan Miguel MD [address] [place] [address] RD, [place] [address] documented as of this encounter Visit Diagnoses Not on filedocumented in this encounter Care Teams Cerner Analyst Relationship Specialty Start Date End Date Janessa Chand MD [address] [place] [address] PCP - General 10/22/10 documented as of this encounter
--- OUTSIDE RECORDS SUMMARY | 2024-12-29 17:31 | XMS_ITS | Encounter Summary ---
[place] [address] Care Team Providers Care Book Coverer Name Role Phone Janessa Chand MD Primary Care Provider [phone] Reason for Visit * Reason Comments Skin Check Encounter Details Date Type Department Care Team (Late st Contact Info) Description 11/08/2019 9:00 AM EST Office Visit Dermatology at [address] [address] Ishaan Miguel MD [address] [facility], [facility] [place] [address] Seborrheic keratosis; Stucco keratosis; History of malignant melanoma; AK (actinic keratosis) Social History Tobacco Use Types Packs/Day Years Used Date Smoking Tobacco: Former Cigarettes Q uit: 02/17/2003 Smokeless Tobacco: Never Sex and Gender Information Value Date Recorded Sex Assigned at Female 01/28/2021 8:41 AM EST Gender Identity Not on file Sexual Orientation Straight 01/28/2021 8: 41 AM EST documented as of this encounter Progress Notes * Ishaan Miguel MD - 11/08/2019 9:00 AM EST Problem: 1. New skin lesion of concern 2. History of malignant melanoma in situ, left lateral foot, November 2006, status post excision with close margins, treated with 3 months of Aldara therapy Simi follows up is been doing reasonably well. 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 Shestates that she had had the original zoster vaccination but some years ago. Since this episode she is now had the new Shingrix vaccination as well. Physical examination reveals a pleasant 74-year-old woman who has actinic keratoses on the foreheadand dorsal hands and forearms. A total of 5 are noted. She has a well-healed vertical oriented scarwithout evidence of recurrent pigmentation the left foot at the site of her melanoma excision some 12 years ago. She has benign examination otherwise of the head and the neck the chest the back the hands the arms of forearms. Assessment and plan: Actinic keratoses facial arms 1. LN2 x2 applied to each of 5 sites. 2. Continue our once yearly visits. 3. Continue sun avoidance precautions. History of malignant melanoma in situ left lateral foot 1. No extracranial to patient reassured Cc: Janessa Chand MD documented in this encounter Plan of Treatment Upcoming Encounters Date Type Department Care Team (Late st Contact Info) Description 11/06/2025 10:30 AM EST Office Visit Dermatology at [place] [address] [place] [address] Ishaan Miguel MD [address] [place] [address] documented as of this encounter Visit Diagnoses Diagnosis Seborrheic keratosis Other seborrheic keratosis Stucco keratosis Acquired keratoderma History of malignant melanoma Personal history of malignant melanoma of skin AK (actinic keratosis) Actinic keratosis documented in this encounter Care Teams Book Coverer Relationship Specialty Start Date End Date Janessa Chand MD [address] [place] [address] PCP - General 10/22/10 documented as of this encounter
--- OUTSIDE RECORDS SUMMARY | 2024-12-29 17:31 | XMS_ITS | Encounter Summary ---
[place] [address] Care Team Providers Care County Home Demonstration Agent Name Role Phone Janessa Chand MD Primary Care Provider [phone] Reason for Visit * Reason Comments Skin Check Encounter Details Date Type Department Care Team (Late st Contact Info) Description 03/02/2012 1:45 PM EDT Office Visit Dermatology [address] [place] [address] [address] [place], [place] [address] Ishaan Miguel MD [address] [facility] [place] [address] History of malignant melanoma (Primary Dx); Seborrheic keratosis Social History Tobacco Use Types Packs/Day Years Used Date Smoking Tobacco: Former Cigarettes Q uit: 02/17/2003 Sex and Gender Information Value Date Recorded Sex Assigned at Female 01/28/2021 8:41 AM EST Gender Identity Not on file Sexual Orientation Straight 01/28/2021 8: 41 AM EST documented as of this encounter Progress Notes * Ishaan Miguel MD - 03/02/2012 2:21 PM EDT Problem: 1. Skin check. 2. History of malignant melanoma in situ, left lateral foot, November 2006, status post excision and close margins treated with three months of Aldara therapy. 3. New lesions of concern. Mitzi follows up for lesions on her arms, legs, and back. Physical examination reveals diffuse xerosis of the lower extremities with some eczema craquel?-like erythematous patches there. She has several keratoses about her ankles. She has a number of macular telangiectasias over the upper sun exposed chest, forearms, arms, sparing the face. There is no evidence of recurrent pigmentation or recurrent melanoma on the left lateral foot site. Physical examination of the head and neck, the chest, the back, hands, arms, and forearms is unremarkable. Assessment and Plan: Xerosis/eczema craquel? of legs. I recommend CeraVe cream applied b.i.d. to affected areas. It is obtained over the counter. 2. History of malignant melanoma. a. No evidence of recurrence. Patient reassured about benign examination today. c. Return to clinic in another two or three years. 3. Several keratoses/macular telangiectasias. a. Discussed the difficulty of retreating these/removing them permanently. b. Patient reassured about their benign nature. c. Do not see any evidence of any allergic drug reaction cutaneously. Return to clinic in three years. Clinic reminder for three years. Copy: Janessa Chand M.D. documented in this encounter Plan of Treatment Upcoming Encounters Date Type Department Care Team (Late st Contact Info) Description 11/06/2025 10:30 AM EST Office Visit Dermatology at [address] [phone] Ishaan Miguel MD [address] [facility] [place] [address] documented as of this encounter Visit Diagnoses Diagnosis History of malignant melanoma- Primary Personal history of malignant melanoma of skin Seborrheic keratosis Other seborrheic keratosis documented in this encounter Care Teams County Home Demonstration Agent Relationship Specialty Start Date End Date Janessa Chand MD [address] [facility] 1 [place] [address] PCP - General 10/22/10 documented as of this encounter
== END 2024-12-29 17:27 | disposition home or self-care (01) ==
LOC: LBN 17:26
PROVIDERS: PCP Family Medicine; Visit Provider Student in an Organized Health Care Education/Training Program
DX: Z96.641 Presence of right artificial hip joint (principal); T84.84XA Pain due to internal orthopedic prosthetic devices, implants and grafts, initial encounter
CPT/HCPCS: 87070; 87205; 89051

== ENCOUNTER 2025-01-04 00:30 | Outpatient (CLI) | payer MEDICARE, SELFPAY ==
--- OUTSIDE RECORDS SUMMARY | 2025-01-04 00:32 | XMS_ITS | Encounter Summary ---
Author Organization [facility] Address [address] [place] [address] Care Team Providers Care Dairy Farmer Name Role Phone Janessa Chand MD Primary Care Provider [phone] Encounter Details Date Type Department Care Team (Late st Contact Info) Description 05/17/2018 Results Only [facility]- [facility] [phone] Jeffrey Swan MD [address] [place] [address] [address] [place], [place] [address] Social History Tobacco Use Types Packs/Day Years [...] ? SIMI العلي ? Accession #: ? [id number] ? : ? 1945 (Age: 72) ??F [...] (ASCP) 05/18/2018 8:08 AM End of Report [facility] 05/17/2018 19:3 3 EDT 05/17/2018 19:33 EDT us Jeffrey Swan MD PATHOLOGY ORDERABLES Fin al Result [facility] [address] [place] [address] documented in this encounter Visit Diagnoses Not on filedocumented in this encounter Care Teams Dairy Farmer Relationship Specialty Start Date End Date Janessa Chand MD [address] [place] [address] [address] [place] [address] PCP - General 05/09/11 documented as of this encounter
--- OUTSIDE RECORDS SUMMARY | 2025-01-04 00:32 | XMS_ITS | Referral Summary ---
Author Organization [facility] Address [address] [place] [address] Care Team Providers Care Winemaker Name Role Phone Janessa Chand MD Primary Care Provider [phone] Social History Tobacco Use Types Packs/Day Years [...] file Insurance MEDICARE [place] Care Teams Winemaker Relationship Specialty Start Date End Date Janessa Chand MD [address] [place] [address] PCP - General 05/09/11
--- OUTSIDE RECORDS SUMMARY | 2025-01-04 00:32 | XMS_ITS | Encounter Summary ---
Author Organization [facility] [place] [address] Care Team Providers Care Manufacturer'S Service Representative Name Role Phone Janessa Chand MD Primary Care Provider [phone] Encounter Details Date Type Department Care Team (Late st Contact Info) Description 11/02/2024 Refill Dermatology at [address] [address] Nneka Travis LPN Social History [...] with patient. Request prescription be sent to [facility] in [facility]. Encouraged her to call the pharmacy prior to leaving to get the prescription to be surethe prescription and product are available. She voiced understanding. documented in this encounter Plan of Treatment Upcoming Encounters Date Type Department Care Team (Late st Contact Info) Description 11/06/2025 10:30 AM EST Office Visit Dermatology at [place] 580 [facility] [place] [address] Ishaan Miguel MD [address] [facility] [address] [place] [address] documented as of this encounter Visit Diagnoses Not on filedocumented in this encounter Care Teams Manufacturer'S Service Representative Relationship Specialty Start Date End Date Janessa Chand MD [address] [facility] 1 [place] [address] PCP - General 10/22/10 documented as of this encounter
--- OUTSIDE RECORDS SUMMARY | 2025-01-04 00:32 | XMS_ITS | Encounter Summary ---
Author Organization [facility] [place] [address] Care Team Providers Care Deadener Name Role Phone Janessa Chand MD Primary Care Provider [phone] Encounter Details Date Type Department Care Team (Late Contact Info) Description 10/27/2023 Refill Dermatology at [address] [address] Nneka Travis LPN Social History [...] 10:30 AM EST Office Visit Dermatology at [address] [address] Ishaan Miguel MD [address] [place] [address], [facility] DERMATOLOGY [place], [place] [address] documented as of this encounter Visit Diagnoses Not on filedocumented in this encounter Care Teams Deadener Relationship Specialty Start Date End Date Janessa Chand MD [address] [address] [address] [place] [address] PCP - General 10/22/10 documented as of this encounter
--- OUTSIDE RECORDS SUMMARY | 2025-01-04 00:32 | XMS_ITS | Encounter Summary ---
Author Organization [facility] Address [address] [place] [address] Care Team Providers Care Inspector Fuel Hose Name Role Phone Unavailable Primary Care Provider Unavailabl e Encounter Details Date Type Department Care Team (Late st Contact Info) Description 09/14/2002 Results Only [facility] - [facility] [address] [place] [address] Aamir Grajeda MD [address] [place] [address] Social History Tobacco Use Types Packs/Day Years [...] ? SIMI العلي ? Accession #: ? [id number] ? : ? 1945 (Age: 57) ??F [...] is entirely submitted in one cassette. ??(Lenard Sanabria)/[facility] End of Report [facility] 09/14/2002 09/14/2002 15: 02 EDT us Aamir Grajeda MD PATHOLOGY ORDERABLES Final Res ult [facility] [address] [place] [address] documented in this encounter Visit Diagnoses Not on filedocumented in this encounter
--- OUTSIDE RECORDS SUMMARY | 2025-01-04 00:32 | XMS_ITS | Encounter Summary ---
Author Organization [facility] Address [address] [place] [address] Care Team Providers Care Beef Cattle Specialist Name Role Phone Janessa Chand MD Primary Care Provider [phone] Encounter Details Date Type Department Care Team (Late st Contact Info) Description 02/23/2012 Results Only [facility] - [facility] ([facility] [address] [place], [place] [address] Janessa Chand MD [facility] [address] [place] [address] Social History Tobacco Use Types [...] when reading/interpreti ng unformatted reports. Name: ? MILISIMI Himanshu ? Accession #: ? [id number] ? : ? 1945 (Age: 66) ??F [...] PATHOLOGY ORDERABLES Final Result Performing Organization Address City/State/[facility] Co de Phone Number [facility] [address] [place] [address] documented in this encounter Visit Diagnoses Not on filedocumented in this encounter Care Teams Beef Cattle Specialist Relationship Specialty Start Date End Date Janessa Chand MD [address] [facility] [address] [place] [phone] PCP - General 05/09/11 documented as of this encounter
--- OUTSIDE RECORDS SUMMARY | 2025-01-04 00:32 | XMS_ITS | Encounter Summary ---
Author Organization [facility] [place] [address] Care Team Providers Care Cardiac Nurse Practitioner Name Role Phone Janessa Chand MD Primary Care Provider Encounter Details Date Type Department Care Team (Late st Contact Info) Description 09/28/2023 Refill Dermatology at [address] [address] Mee Jeffrey RN Social History [...] 10:30 AM EST Office Visit Dermatology at [address] [address] Ishaan Miguel MD [address] [place] [address], [facility] DERMATOLOGY [place], [place] [address] documented as of this encounter Visit Diagnoses Not on filedocumented in this encounter Care Teams Cardiac Nurse Practitioner Relationship Specialty Start Date End Date Janessa Chand MD [address] [place] [address] PCP - General 10/22/10 documented as of this encounter
--- OUTSIDE RECORDS SUMMARY | 2025-01-04 00:32 | XMS_ITS | Encounter Summary ---
[place] [address] Care Team Providers Care Parts Puller Name Role Phone Janessa Chand MD Primary Care Provider [phone] Reason for Visit * Reason Comments Skin Check * Consultation (Routine) - Closed Specialty Diagnoses / Procedures Referred By Contmichael michaud Referred To Contact Dermatology Diagnoses Disorder of the skin and subcutaneous tissue, unspecified Skin Lesion; Est. Patient-Notes Received Procedures Consult Janessa Chand MD [address] [facility] [address] [facility] 1 [place] [address] Ishaan Miguel MD [address] [place] [address], [facility] [place] [address] Referral ID Status Reason Start Date Expiration Date Visits Re quested Visits Authorized [id number] Closed 05/22/2022 05/22/2023 1 1 Encounter Details Date Type Department Care Team (Late st Contact Info) Description 06/27/2022 3:00 PM EDT Office Visit Dermatology at [address] [address] Ishaan Miguel MD [address] [place] [address], [facility] DERMATOLOGY [place], [place] [id number] Pruritus Social History Tobacco Use Types Packs/Day [...] 10:30 AM EST Office Visit Dermatology at [place] [address] [facility] [place] [address] Ishaan Miguel MD 580 [facility], [place] [address] documented as of this encounter Visit Diagnoses Diagnosis Pruritus Unspecified pruritic disorder documented in this encounter Care Teams Parts Puller Relationship Specialty Start Date End Date Janessa Chand MD [address] [place] [address] PCP - General 10/22/10 documented as of this encounter
--- OUTSIDE RECORDS SUMMARY | 2025-01-04 00:32 | XMS_ITS | Encounter Summary ---
[place] [address] Care Team Providers Care Boring Mill Set Up Operator Name Role Phone Janessa Chand MD Primary Care Provider [phone] Encounter Details Date Type Department Care Team [...] 10:30 AM EST Office Visit Dermatology at [place] 580 [facility] [place] [address] Ishaan Miguel MD 580 [facility], [place] [address] documented as of this encounter Visit Diagnoses Not on filedocumented in this encounter Care Teams Boring Mill Set Up Operator Relationship Specialty Start Date End Date Janessa Chand MD [address] [place] [address] PCP - General 10/22/10 documented as of this encounter
--- OUTSIDE RECORDS SUMMARY | 2025-01-04 00:32 | XMS_ITS | Encounter Summary ---
[place] [address] Care Team Providers Care Beverage Inspection Machine Tender Name Role Phone Janessa Chand MD Primary Care Provider [phone] Encounter Details Date Type Department Care Team [...] 10:30 AM EST Office Visit Dermatology at [place] 580 [facility] [place] [address] Ishaan Miguel MD 580 [facility], [place] [address] documented as of this encounter Visit Diagnoses Not on filedocumented in this encounter Care Teams Beverage Inspection Machine Tender Relationship Specialty Start Date End Date Janessa Chand MD [address] [place] [address] PCP - General 10/22/10 documented as of this encounter
--- OUTSIDE RECORDS SUMMARY | 2025-01-04 00:32 | XMS_ITS | Encounter Summary ---
Author Organization [facility] [place] [address] Care Team Providers Care Music Therapy Specialist Name Role Phone Janessa Chand MD Primary Care Provider [phone] Encounter Details Date Type Department Care Team (Late Contact Info) Description 06/27/2022 Refill Dermatology at [address] [address] Nneka Travis LPN Social History [...] 10:30 AM EST Office Visit Dermatology at [address] [address] Ishaan Miguel MD [address] [place] [address], [facility] DERMATOLOGY [place], [place] [address] documented as of this encounter Visit Diagnoses Not on filedocumented in this encounter Care Teams Music Therapy Specialist Relationship Specialty Start Date End Date Janessa Chand MD [address] [facility] [address] [place] [address] PCP - General 10/22/10 documented as of this encounter
--- OUTSIDE RECORDS SUMMARY | 2025-01-04 00:32 | XMS_ITS | Clinical Summary ---
Author Organization [facility] Address [address] [place] [address] Care Team Providers Care Licensing Engineer Name Role Phone Janessa Chand MD Primary Care Provider [phone] Social History Tobacco Use Types Packs/Day Years [...] season) [address] [place] [id number] Care Teams Licensing Engineer Relationship Specialty Start Date End Date Janessa Chand MD [address] [place] [address] [address] [place] [address] PCP - General 05/09/11
--- OUTSIDE RECORDS SUMMARY | 2025-01-04 00:32 | XMS_ITS | Encounter Summary ---
[place] [address] Care Team Providers Care Filtration Supervisor Name Role Phone Janessa Chand MD Primary Care Provider [phone] Reason for Visit * Reason Comments Annual Exam Encounter Details Date Type Department Care Team (Late st Contact Info) Description 11/01/2024 10:30 AM EST Office Visit Dermatology at [address] [address] Ishaan Miguel MD [address] [place] [address], [facility] [place] [address] Seborrheic keratosis; Inflamed acrochordon; History of malignant [...] 10:30 AM EST Office Visit Dermatology at [place] 580 [facility] [place] [address] Ishaan Miguel MD 580 [facility], [place] [address] documented as of this encounter Visit Diagnoses Diagnosis Seborrheic keratosis Other seborrheic keratosis Inflamed acrochordon Unspecified hypertrophic and atrophic condition of skin History of malignant melanoma Personal history of malignant melanoma of skin documented in this encounter Care Teams Filtration Supervisor Relationship Specialty Start Date End Date Janessa Chand MD [address] [facility] [address] [place] [address] PCP - General 10/22/10 documented as of this encounter
--- OUTSIDE RECORDS SUMMARY | 2025-01-04 00:32 | XMS_ITS | Encounter Summary ---
Author Organization [facility] Address [address] [place] [address] Care Team Providers Care Music Librarian Name Role Phone Janessa Marquez MD Primary Care Provider [phone] Encounter Details Date Type Department Care Team (Late st Contact Info) Description 08/22/2013 Results Only [facility] Laboratory Services - [facility] ([facility]) [address] [place], [place] [address] [place] [address] [place] [address] Social History Tobacco Use Types Packs/Day Years [...] ? SIMI العلي ? Accession #: ? [id number] ? : ? 1945 (Age: 68) ??F [...] Final Resul t [facility] [address] [place] [address] documented in this encounter Visit Diagnoses Not on filedocumented in this encounter Care Teams Music Librarian Relationship Specialty Start Date End Date Janessa Marquez MD [address] [place] [address] PCP - General 05/09/11 documented as of this encounter
--- OUTSIDE RECORDS SUMMARY | 2025-01-04 00:32 | XMS_ITS | Encounter Summary ---
Author Organization [facility] Address [address] [place] [address] Care Team Providers Care Manager Image Name Role Phone Janessa Chand MD Primary Care Provider [phone] Encounter Details Date Type Department Care Team (Late st Contact Info) Description 07/16/2015 Results Only [facility]- [facility] [phone] Jeffrey Swan MD [address] [place] [address] [address] [place], [place] [address] Social History Tobacco Use Types Packs/Day Years [...] SIMI العلي Himanshu ? Accession #: ? [id number] ? : ? 1945 (Age: 69) ??F [...] 9:08 PM End of Report [facility] 07/16/2015 17:1 9 EDT 07/16/2015 17:19 EDT us Jeffrey Swan MD PATHOLOGY ORDERABLES Fin al Result Performing Organization Address City/State/[facility] Co de Phone Number [facility] [address] [place] [address] documented in this encounter Visit Diagnoses Not on filedocumented in this encounter Care Teams Manager Image Relationship Specialty Start Date End Date Janessa Chand MD [address] [place] [address] PCP - General 05/09/11 documented as of this encounter
--- OUTSIDE RECORDS SUMMARY | 2025-01-04 00:32 | XMS_ITS | Encounter Summary ---
Author Organization [facility] Address [address] [place] [address] Care Team Providers Care Watch Leader Name Role Phone Janessa Chand MD Primary Care Provider [phone] Encounter Details Date Type Department Care Team (Latest Contact Info) Description 07/16/2015 16:51 EDT - 07/16/2015 23:59 EDT Hospital Encounter [address] [address] Unknown, Provider, MD Discharge Disposition: Home or [...] Code Departure Means Destination Home or Self Longterm documented in this encounter Plan of Treatment Not on file documented as of this encounter Visit Diagnoses Not on filedocumented in this encounter Care Teams Watch Leader Relationship Specialty Start Date End Date Janessa Chand MD [address] [place] [address] PCP - General 05/09/11 documented as of this encounter
--- OUTSIDE RECORDS SUMMARY | 2025-01-04 00:32 | XMS_ITS | Encounter Summary ---
Author Organization [facility] Address [address] [place] [address] Care Team Providers Care Plywood Patcher Name Role Phone Janessa Chand MD Primary Care Provider [phone] Encounter Details Date Type Department Care Team (Late st Contact Info) Description 11/14/2020 Lab Requisition [facility] Pathology & Laboratory Medicine - [address] [address] Babita Rojo MD [address] [place] [address] [address] [place], [place] [address] Encounter for other general examination Social History [...] mucosa with focal hyperplastic change. 11/15/2020 17:08 [facility] Attestation By the signature below, the attending physician certifies that they have 1) personally conducted a gross and/or microscopic examination of the described specimen(s), and/or personally interpreted the results of laboratory testing of the described specimen(s), and 2) personally rendered or confirmed the above diagnosis. 11/15/2020 17:08 [facility] at 1708 Clinical History Polyps; Sanches's esophagus 11/15/2020 17:08 [facility] Gross Description A. Received [...] RJ ZEPEDA(ASCP) 11/15/2020 8:04 11/15/2020 17:08 EST [facility] Performing Lab [facility] 11/15/2020 17:08 EST [facility] Scanned Images 11/15/2020 17:08 EST [facility] Tissue SPECIMEN FROM RECTUM / [...] Rojo MD PATHOLOGY ORDERABLES Fin al Result [facility] [address] [place] [address] documented in this encounter Visit Diagnoses Diagnosis Encounter for other general examination documented in this encounter Care Teams Plywood Patcher Relationship Specialty Start Date End Date Janessa Chand MD [address] [place] [address] [address] [place] [phone] PCP - General 05/09/11 documented as of this encounter
--- OUTSIDE RECORDS SUMMARY | 2025-01-04 00:32 | XMS_ITS | Encounter Summary ---
[place] [address] Care Team Providers Care Ribbon Tier Name Role Phone Janessa Chand MD Primary Care Provider [phone] Reason for Visit * Speech Therapy - Closed Specialty Diagnoses / Procedures Referred By Contmichael michaud Referred To Contact Speech Therapy Diagnoses History of Sanches's esophagus Chronic cough Choking, initial encounter Chest pain, unspecified type Throat tightness History of pneumonia Kenny Regan, NUCLEAR PHYSICIAN [facility] [place] [address] [facility] [place] [address] Referral ID Status Reason Start Date Expiration Date V isits Requested Visits Authorized [id number] Closed Consult Only 01/31/2021 01/31/2022 100 100 Encounter Details Date Type Department Care Team (Late st Contact Info) Description 05/13/2021 9:15 AM EDT Office [place] [address] Iris Corbett, PODIATRIC TECHNICIAN Dysphagia, unspecified type Social History Tobacco Use [...] Notes * Initial Evaluation - Iris Corbett, PODIATRIC TECHNICIAN - 05/13/2021 9:15 AM EDT Speech-Language Pathology [...] mg Tablet Sustained Release 24 hr ??? fahrwlom-atkfylswg-fwfrlaabegqsu (DEXACINE) 3.5 mg/g-10,000 unit/g-0.1 % Ointment APPLY [...] Barium) ?? Thin liquid via cup ?? [place] thick liquid via cup, via straw ?? [...] any questions or concerns. Iris Corbett MA CCC-PODIATRIC TECHNICIAN [facility] OP Rehabilitation Medicine [phone] Pager:# [phone] documented in this encounter Plan of Treatment Upcoming Encounters Date Type Department Care Team (Late st Contact Info) Description 11/06/2025 10:30 AM EST Office Visit Dermatology at [place] [address] [facility] [place] [address] Ishaan Miguel MD [address], [place] [address] Scheduled Referrals Name Type Priority Associated Diagnoses Orde r Schedule Referral to Speech Therapy Outpatient Referral Routine History of Sanches's esophagus Chronic cough Choking, initial encounter Chest pain, unspecified type Throat tightness History of pneumonia Ordered: 01/31/2021 documented as of this encounter Visit Diagnoses Diagnosis Dysphagia, unspecified type documented in this encounter Care Teams Ribbon Tier Relationship Specialty Start Date End Date Janessa Chand MD [address] [place] [address] PCP - General 10/22/10 documented as of this encounter
--- OUTSIDE RECORDS SUMMARY | 2025-01-04 00:32 | XMS_ITS | Encounter Summary ---
Author Organization [facility] Address [address] [place] [address] Care Team Providers Care Nursing Admin Name Role Phone Unavailable Primary Care Provider Unavailabl e Encounter Details Date Type Department Care Team (Late st Contact Info) Description 09/23/2005 Results Only [facility] - Maple conversion [address] [place] [address] Puja Calvin, [facility] [address] [place] [address] [place] [address] Social History Tobacco Use Types [...] ? SIMI العلي ? Accession #: ? [id number] : ? 1945 (Age: 60) ??F ?Collect Date: ? 09/23/2005 Location: ? [facility] ? Receive Date: ? 09/24/2005 Provider: ?PUJA CALVIN FILM SOUND ENGINEER Copy to: ? Specimen/Source: ?ThinPrep Pap Test, [...] [facility] 09/23/2005 09/24/2005 us Puja Calvin FILM SOUND ENGINEER PATHOLOGY ORDERABLES Final R esult [facility] [address] [place] [address] documented in this encounter Visit Diagnoses Not on filedocumented in this encounter
--- OUTSIDE RECORDS SUMMARY | 2025-01-04 00:32 | XMS_ITS | Encounter Summary ---
[place] [address] Care Team Providers Care Global Climate Change Researcher Name Role Phone Janessa Chand MD Primary Care Provider [phone] Reason for Visit * Reason Comments Skin Check Encounter Details Date Type Department Care Team (Late st Contact Info) Description 09/24/2023 4:00 PM EDT Office Visit Dermatology at [address] [address] Ishaan Miguel MD [address] [place] [address], [facility] [place] [address] [place] (actinic keratosis); Seborrheic keratosis; Inflamed acrochordon [...] that need attention. We did our last hqdf-mu-fdje visit in May 2022. In June of [...] facial seborrheic keratosis of the left upper forehead/religious and the left medial canthus with LN2 2. If these do not resolve return to clinic in 1 month for light C&D removal of these CC: Janessa Chand MD documented in this encounter Plan of Treatment Upcoming Encounters Date Type Department Care Team (Late st Contact Info) Description 11/06/2025 10:30 AM EST Office Visit Dermatology at [place] [address] [facility] [place] [address] Ishaan Miguel MD [address] [facility], [place] [address] documented as of this encounter Visit Diagnoses Diagnosis [place] (actinic keratosis) Actinic keratosis Seborrheic keratosis Other seborrheic keratosis Inflamed acrochordon Unspecified hypertrophic and atrophic condition of skin documented in this encounter Care Teams Global Climate Change Researcher Relationship Specialty Start Date End Date Janessa Chand MD [address] [place] [address] PCP - General 10/22/10 documented as of this encounter
--- OUTSIDE RECORDS SUMMARY | 2025-01-04 00:32 | XMS_ITS | Encounter Summary ---
Author Organization [facility] Address [address] [place] [address] Care Team Providers Care Sign Fabricator Name Role Phone Unavailable Primary Care Provider Unavailabl e Encounter Details Date Type Department Care Team (Late st Contact Info) Description 07/07/2002 Results Only [facility] - Maple conversion [address] [place] [address] Liliana Collado, STOPER [facility] [address] [place] [address] Social History Tobacco Use Types [...] ? SIMI العلي ? Accession #: ? [id number] : ? 1945 (Age: 56) ??F ?Collect Date: ? 07/07/2002 Location: ? [facility] ? Receive Date: ? 07/11/2002 Provider: ?LILIANA COLLADO STOPER Copy to: ? Specimen/Source: ?ThinPrep Pap Test, [...] ORDERABLES Final Result [facility] [address] [place] [address] documented in this encounter Visit Diagnoses Not on filedocumented in this encounter
--- OUTSIDE RECORDS SUMMARY | 2025-01-04 00:32 | XMS_ITS | Encounter Summary ---
[place] [address] Care Team Providers Care Senior Applications Analyst Name Role Phone Janessa Chand MD Primary Care Provider [phone] Encounter Details Date Type Department Care Team (Late st Contact Info) Description 06/11/2021 Telephone [place] [address] Percy Szymanski Social History Tobacco Use Types [...] calls can be handled by: [facility] Fruit Vendor documented in this encounter Plan of Treatment Upcoming Encounters Date Type Department Care Team (Late st Contact Info) Description 11/06/2025 10:30 AM EST Office Visit Dermatology at [place] [address] [place] [address] Ishaan Miguel MD [address], [place] [address] documented as of this encounter Visit Diagnoses Not on filedocumented in this encounter Care Teams Senior Applications Analyst Relationship Specialty Start Date End Date Janessa Chand MD [address] [facility] 1 [place] [address] PCP - General 10/22/10 documented as of this encounter
--- OUTSIDE RECORDS SUMMARY | 2025-01-04 00:32 | XMS_ITS | Patient Health Record ---
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 Problem 89483504 Hypertension, unspecified type (I10) Active confirmed Problem 82900185 Pseudophakia (Z96.1) Active confirmed Problem 643399065 Posterior vitreous detachment, unspecified laterality (H43.819) Active confirmed Plan Of Treatment No Information Insurance Providers Payer Name Payer Address Payer Phone Subscriber Number Group Number Insured Name Patient Relationship to Insured Coverage Start Date Coverage End Date [place]ARE [place] PART B [address] [facility] RJ SHAW [id number] [phone] [id number] Simi العلي Self - patient is the insured 9 9 AARP UHC MEDICARE SUPP ALL [facility] [address] [place], [place] [id number] Simi العلي Self - patient is the insured 9 Medical (General) History Medical History History ICD Code HTN asthma sleep apnea heartburn DM type 2 neuropathy anemia Sanches's esophagus Hiatal hernia Surgical History Surgery Date(Month/Year) hip replacement cataracts breast reduction Hospitalization History Reason Date(Month/Year) Enetai- shingles in Left ear 12/2018
--- OUTSIDE RECORDS SUMMARY | 2025-01-04 00:32 | XMS_ITS | Encounter Summary ---
Author Organization [facility] Address [address] [place] [address] Care Team Providers Care Outsole Paraffiner Name Role Phone Unavailable Primary Care Provider Unavailabl e Encounter Details Date Type Department Care Team (Late st Contact Info) Description 03/15/2009 Orders Only [facility] Laboratory Services - [facility] ([facility]) [address] [place], [place] [phone] Janessa Chand MD [facility] [address] [place] [address] Social History Tobacco Use Types Packs/Day Years [...] QUEZADA Final Result [facility] [address] [place] [address] * CYTOPATHOLOGY (03/15/2009 0:00 EDT) Pathology Report: CYTOPATHOLOGY REPORT ? Reports generated via electronic interface contain original data; ? however they are lacking the format of the original report. ? Caution should be taken when reading/interpreti ng unformatted reports. ? Name: ? BEGIN, SIMI ? Accession #: ? [id number] ? : ? 1945 (Age: 63) ??F ?Collect Date: ? 03/15/2009 ? Location: ? [facility] ? Receive Date: ? 03/16/2009 ? Provider: ?JANESSA M DOBBERTIN MD ? Copy to: ? Specimen/Source: ?Pap Test, Endocervix, ThinPrep Imaging System with ? manual evaluation ? Last Menstrual Period: ? LAMP CLEAN[address] STRE[address] LIGHT ? Hormonal/Contracep tive Status: ? Yes: Vagifem [...] PATHOLOGY ORDERABLES Final Result Performing Organization Address City/State/[facility] Co de Phone Number [facility] [address] [place] [address] documented in this encounter Visit Diagnoses Not on filedocumented in this encounter
--- OUTSIDE RECORDS SUMMARY | 2025-01-04 00:32 | XMS_ITS | Encounter Summary ---
Author Organization [facility] Address [address] [place] [address] Care Team Providers Care Shove Up Name Role Phone Unavailable Primary Care Provider Unavailabl e Encounter Details Date Type Department Care Team (Late st Contact Info) Description 10/04/[address] [facility] - Maple conversion [address] [place] [address] Janessa Chand MD [address] [place] [address] Social History Tobacco Use Types Packs/Day Years [...] ? SIMI العلي ? Accession #: ? [id number] : ? 1945 (Age: 62) ??F ?Collect Date: ? 10/04/2007 Location: ? [facility] ? Receive Date: ? 10/05/2007 Provider: ?JANESSA CHAND MD Copy to: ? Specimen/Source: ?ThinPrep Pap Test, Endocervix, processed on [employer] ThinPrep Imaging System, with manual evaluation Last [...] PATHOLOGY ORDERABLES Final Result [facility] [address] [place] [address] documented in this encounter Visit Diagnoses Not on filedocumented in this encounter
--- OUTSIDE RECORDS SUMMARY | 2025-01-04 00:32 | XMS_ITS | Encounter Summary ---
Author Organization [facility] Address [address] [place] [address] Care Team Providers Care Facilities Management Executive Name Role Phone Unavailable Primary Care Provider Unavailabl e Encounter Details Date Type Department Care Team (Late st Contact Info) Description 05/07/2011 Results Only [facility] Laboratory Services - [facility] ([facility]) [address] [place], [place] [id number] Jorge Echavarria MD [address] [place], [place] [address] Social History Tobacco Use Types Packs/Day Years [...] BEGIN, SIMI Downs ? Accession #: ? [id number] ? : ? 1945 (Age: 65) ??F [...] Final Resul t [facility] [address] [place] [address] documented in this encounter Visit Diagnoses Not on filedocumented in this encounter
--- OUTSIDE RECORDS SUMMARY | 2025-01-04 00:32 | XMS_ITS | Encounter Summary ---
Author Organization [facility] Address [address] [place] [address] Care Team Providers Care Route Process Administrator Name Role Phone Unavailable Primary Care Provider Unavailabl e Encounter Details Date Type Department Care Team (Late st Contact Info) Description 05/03/2003 Results Only [facility] - Maple conversion [address] [place] [address] Aamir Grajeda MD [address] [place] [address] Social History Tobacco Use Types Packs/Day Years [...] ? SIMI العلي ? Accession #: ? [id number] ? : ? 1945 (Age: 57) ??F ? Collect Date: ? 05/03/2003 ? Location: ? [facility] ? Receive Date: ? 05/04/2003 ? Provider: ALISTAIR GRAJEDA MD Copy to: [...] Final Res ult [facility] [address] [place] [address] documented in this encounter Visit Diagnoses Not on filedocumented in this encounter
--- OUTSIDE RECORDS SUMMARY | 2025-01-04 00:32 | XMS_ITS | Encounter Summary ---
[place] [address] Care Team Providers Care Dynamometer Mechanic Name Role Phone Janessa Chand MD Primary Care Provider [phone] Encounter Details Date Type Department Care Team (Late st Contact Info) Description 07/15/2022 8:00 AM EDT TH Visit (TeleHealth) Dermatology at [place] [address] [facility] [place] [address] Ishaan Miguel MD [address] [facility], [address] [place] [address] Pruritus Social History Tobacco Use Types Packs/Day [...] 10:30 AM EST Office Visit Dermatology at [place] [address] [facility] [place] [address] Ishaan Miguel MD [address], [place] [address] documented as of this encounter Visit Diagnoses Diagnosis Pruritus Unspecified pruritic disorder documented in this encounter Care Teams Dynamometer Mechanic Relationship Specialty Start Date End Date Janessa Chand MD [address] [place] [address] PCP - General 10/22/10 documented as of this encounter
--- OUTSIDE RECORDS SUMMARY | 2025-01-04 00:32 | XMS_ITS | Encounter Summary ---
Author Organization [facility] Address [address] [place] [address] Care Team Providers Care Station Jailer Name Role Phone Unavailable Primary Care Provider Unavailabl e Encounter Details Date Type Department Care Team (Late st Contact Info) Description 06/29/2000 Results Only [facility] - Maple conversion [address] [place] [address] Aamir Grajeda MD [address] [place] [address] Social History Tobacco Use Types Packs/Day Years [...] ? SIMI العلي ? Accession #: ? [id number] ? : ? 1945 (Age: 54) ??F [...] filled with pasty white material. ??A single players club representative section is submitted as (A). Received [...] (B). ??(SEUN Dennis-CHAVA)/jo End of Report [facility] 06/29/2000 07/01/2000 7:5 7 EDT us Aamir Grajeda MD PATHOLOGY ORDERABLES Final Res ult [facility] [address] [place] [address] documented in this encounter Visit Diagnoses Not on filedocumented in this encounter
--- OUTSIDE RECORDS SUMMARY | 2025-01-04 00:32 | XMS_ITS | Encounter Summary ---
Author Organization [facility] Address [address] [place] [address] Care Team Providers Care Magazine Journalist Name Role Phone Janessa Chand MD Primary Care Provider [phone] Encounter Details Date Type Department Care Team (Latest Contact Info) Description 05/17/2018 11:07 EDT - 05/17/2018 23:59 EDT Hospital Encounter [address] [address] Unknown, Provider, MD Discharge Disposition: Home or [...] Code Departure Means Destination Home or Self Nursing Home documented in this encounter Plan of Treatment Not on file documented as of this encounter Visit Diagnoses Not on filedocumented in this encounter Care Teams Magazine Journalist Relationship Specialty Start Date End Date Janessa Chand MD [address] [place] [address] PCP - General 05/09/11 documented as of this encounter
--- OUTSIDE RECORDS SUMMARY | 2025-01-04 00:32 | XMS_ITS | Encounter Summary ---
Author Organization [facility] Address [address] [place] [address] Care Team Providers Care Administrative Services Specialist Name Role Phone Unavailable Primary Care Provider Unavailabl e Encounter Details Date Type Department Care Team (Late st Contact Info) Description 07/13/2001 Results Only [facility] - Maple conversion [address] [place] [address] Liliana Collado, PLASTER MACHINE TENDER [facility] [address] [place] [address] Social History Tobacco Use Types [...] ? SIMI العلي ? Accession #: ? [id number] : ? 1945 (Age: 55) ??F ?Collect Date: ? 07/13/2001 Location: ? [facility] ? Receive Date: ? 07/15/2001 Provider: ?LILIANA COLLADO PLASTER MACHINE TENDER Copy to: ? Specimen/Source: ?ThinPrep Pap Test, Cervix/Endocervix Last Menstrual Period: ? 3 years ? SPECIMEN ADEQUACY ? Satisfactory for evaluation. GENERAL CATEGORIZATION ? Within Normal Limits ? Document reviewed and electronically signed by: ? FLORENTIN Hayes(ASCP) ? Report Date: ??07/20/2001 13:12 End of Report [facility] 07/13/2001 07/15/2001 us Liliana Collado NP PATHOLOGY ORDERABLES Final Result [facility] [address] [place] [address] documented in this encounter Visit Diagnoses Not on filedocumented in this encounter
--- OUTSIDE RECORDS SUMMARY | 2025-01-04 00:32 | XMS_ITS | Encounter Summary ---
Author Organization [facility] Address [address] [place] [address] Care Team Providers Care Cup Trimming Machine Operator Name Role Phone Janessa Chand MD Primary Care Provider [phone] Encounter Details Date Type Department Care Team (Late st Contact Info) Description 11/09/2020 Lab Requisition [facility] Pathology & Laboratory Medicine - [address] [address] Outr Resulting Lab, Provider Social History Tobacco [...] in accordance with CLIA regulations, [employer] (CAP) guidelines (Feb 16, 2020), and FDA guidance (Jan 28, 2020). This test is only for use under the Food and Drug Administration's Emergency Use Authorization. Swab ENTIRE NASOPHARYNX / Unknown 11/09/2020 9:26 EST 11/09/2020 16:11 EST us Provider Outr Resulting Lab MICROBIOLOGY - GENER AL ORDERABLES Final Result [facility] [place] * COVID-19 TESTING (11/09/2020 9:26 EST) COVID-19 rt-PCR Result NEGATIVE Negative 11/11/2020 16:47 EST [facility] Comment: 2019-novel Coronavirus (2019-nCoV) not [...] in accordance with CLIA regulations, [employer] (CAP) guidelines (Feb 16, 2020), and FDA guidance (Jan 28, 2020). This test is only for use under the Food and Drug Administration's Emergency Use Authorization. Performing Lab [facility] 11/11/2020 16:47 EST [facility] Swab 11/09/2020 9:26 EST 11/09/2020 16:11 EST us Provider Outr Resulting Lab MICROBIOLOGY - GENER AL ORDERABLES Final Result [facility] [address] [place] [address] [facility] [place] documented in this encounter Visit Diagnoses Not on filedocumented in this encounter Care Teams Cup Trimming Machine Operator Relationship Specialty Start Date End Date Janessa Chand MD [address] [place] [address] PCP - General 05/09/11 documented as of this encounter
--- OUTSIDE RECORDS SUMMARY | 2025-01-04 00:32 | XMS_ITS | Encounter Summary ---
Author Organization [facility] [place] [address] Care Team Providers Care Polysomnography Technologist Name Role Phone Janessa Chand MD Primary Care Provider Encounter Details Date Type Department Care Team (Late st Contact Info) Description 04/03/2021 Orders [place] [address] Sebastián Hernandez MD [facility] [place] [address] Gastritis with intestinal metaplasia of stomach Social [...] 10:30 AM EST Office Visit Dermatology at [place] [address] [facility] [place] [address] Ishaan Miguel MD [address] [facility], [place] [address] documented as of this encounter Visit Diagnoses Diagnosis Gastritis with intestinal metaplasia of stomach documented in this encounter Care Teams Polysomnography Technologist Relationship Specialty Start Date End Date Janessa Chand MD [address] [facility] [address] [place] [address] PCP - General 10/22/10 documented as of this encounter
--- OUTSIDE RECORDS SUMMARY | 2025-01-04 00:32 | XMS_ITS | Encounter Summary ---
[place] [address] Care Team Providers Care Retail Sales Associate Bilingual Name Role Phone Janessa Chand MD Primary Care Provider [phone] Encounter Details Date Type Department Care Team [...] 10:30 AM EST Office Visit Dermatology at [place] [address] [facility] [place] [address] Ishaan Miguel MD [address] [facility], [place] [address] documented as of this encounter Visit Diagnoses Not on filedocumented in this encounter Care Teams Retail Sales Associate Bilingual Relationship Specialty Start Date End Date Janessa Chand MD [address] [place] [address] PCP - General 10/22/10 documented as of this encounter
--- OUTSIDE RECORDS SUMMARY | 2025-01-04 00:32 | XMS_ITS | Clinical Summary ---
Author Organization [facility] [place] [address] Care Team Providers Care Schedule Supervisor Name Role Phone Janessa Chand MD Primary Care Provider [phone] Allergies Active Allergy Reactions Criticality Noted Date [...] Inject 40 Units subcutaneously nightly. 09/15/2019 Active mbwexktu-tctowizsn-c examethasone (DEXACINE) 3.5 mg/g-10,000 unit/g-0.1 % Ointment [...] (01/31/2021): Added automatically from request for surgery [id number] Chronic cough 01/31/2021 Overview (01/31/2021): Added automatically from request for surgery [id number] Choking 01/31/2021 Overview (01/31/2021): Added automatically from request for surgery [id number] Chest pain 01/31/2021 Overview (01/31/2021): Added automatically from request for surgery [id number] Throat tightness 01/31/2021 Overview (01/31/2021): Added automatically from request for surgery [id number] History of pneumonia 01/31/2021 Overview (01/31/2021): Added automatically from request for surgery [id number] Seborrheic keratosis, inflamed 11/28/2013 History of malignant melanoma 03/02/2012 Seborrheic keratosis 03/02/2012 CIS - gerd, s/p eulaila 02/19/2011 CIS - hbp 02/19/2011 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 Encounters Date Type Department Care Team Description 11/02/2024 Refill Dermatology at [address] [place] [address] Nneka Travis, DAYSI 11/01/2024 10:30 AM EST Office Visit Dermatology at [address] [place] [phone] Ishaan Miguel MD Seborrheic keratosis; Inflamed acrochordon; [...] 10:30 AM EST Office Visit Dermatology at [address] [place] [address] Ishaan Miguel MD [address] [place] [address], [place] [address] Health Maintenance Due Date Last Done Comments [...] Influenza standard series) 07/31/2024 12/04/2006 Care Teams Schedule Supervisor Relationship Specialty Start Date End Date Janessa Chand MD [address] [place] [address] [place] [address] PCP - General 10/22/10
--- OUTSIDE RECORDS SUMMARY | 2025-01-04 00:32 | XMS_ITS | Encounter Summary ---
[place] [address] Care Team Providers Care Satellite Communications Operator Name Role Phone Janessa Chand MD Primary Care Provider [phone] Reason for Visit * Reason Comments Follow-up Encounter Details Date Type Department Care Team (Late st Contact Info) Description 10/27/2023 9:45 AM EST Office Visit Dermatology at [address] [phone] sIhaan Miguel MD [address] [place] [address], [facility] [address] Seborrheic keratosis; Inflamed acrochordon Social History Tobacco [...] AM EST Office Visit Dermatology at [address] [address] Ishaan Miguel MD [address] [facility], [place] [address] documented as of this encounter Visit Diagnoses Diagnosis Seborrheic keratosis Other seborrheic keratosis Inflamed acrochordon Unspecified hypertrophic and atrophic condition of skin documented in this encounter Care Teams Satellite Communications Operator Relationship Specialty Start Date End Date Janessa Chand MD [address] [place] [address] PCP - General 10/22/10 documented as of this encounter
--- OUTSIDE RECORDS SUMMARY | 2025-01-04 00:32 | XMS_ITS | Encounter Summary ---
Author Organization [facility] Address One [facility] [place] [address] Care Team Providers Care Court Messenger Name Role Phone Janessa Chand MD Primary Care Provider [phone] Reason for Referral * Diagnostic Test (Routine) - Closed Specialty Diagnoses / Procedures Referred By Contac t Referred To Contact Radiology Diagnoses History of Sanches's esophagus Chronic cough Choking, initial encounter Chest pain, unspecified type Throat tightness History of pneumonia Procedures XR Fluoro Barium Swallow (Single Contrast) Kenny Regan APRN [facility] [place] [address] [facility] [address] [place] [address] [place] [address] Referral ID Status Reason Start Date Expiration Date V isits Requested Visits Authorized [id number] Closed Specialty Service Requested 01/31/2021 08/03/2022 1 1 Reason for Visit * Diagnostic Test (Routine) - Closed Specialty Diagnoses / Procedures Referred By Contac t Referred To Contact Radiology Diagnoses History of Sanches's esophagus Chronic cough Choking, initial encounter Chest pain, unspecified type Throat tightness History of pneumonia Procedures XR Fluoro Barium Swallow (Single Contrast) Kenny Regan APRN [facility] [place] [address] [facility] [address] [place] [address] [place] [address] Referral ID Status Reason Start Date Expiration Date V isits Requested Visits Authorized [id number] Closed Specialty Service Requested 01/31/2021 08/03/2022 1 1 Encounter Details Date Type Department Care Team (Latest Contact Info) Description 05/13/2021 8:52 AM EDT - 05/13/2021 11:59 PM EDT Hospital Encounter XRay at [address] [place] [phone] Kenny Regan, SENIOR STACK ENGINEER [facility] [place] [address] History of Sanches's esophagus; Chronic cough; Choking, [...] pen Inject 40 Units subcutaneously nightly. 09/15/2019 gxakgdqs-cioqxdiwf-tdja methasone (DEXACINE) 3.5 mg/g-10,000 unit/g-0.1 % Ointment [...] 10:30 AM EST Office Visit Dermatology at [place] [address] [place] [address] Ishaan Miguel MD [address], [place] [address] documented as of this encounter Procedures Procedure [...] who have questions please contact the health associate director career services that requested your imaging first. ? Narrative 05/13/2021 10:27 AM EDT EXAMINATION: XR FLUORO BARIUM SWALLOW (5 MINUTE TIMED) CLINICAL HISTORY: esophagram for choking episodes, throat tightness, chest pain, h/ Oumar, requesting 5 minute timed, double contrast esophagram, and barium tablet. please change to both [id number] and [id number] (which are not visible in our system) [...] esophagram, andbarium tablet. please change to both [id number] and [id number] (which are not visiblein our system) TECHNIQUE: [...] patients who have questions please contactthe health associate director career services that requested your imaging first. Kenny Regan [...] who have questions please contact the health associate director career services that requested your imaging first. ? Narrative 05/13/2021 10:34 AM EDT EXAMINATION: XR FLUORO BARIUM SWALLOW (SINGLE CONTRAST) CLINICAL HISTORY: esophagram for choking episodes, throat tightness, chest pain, h/ Oumar, requesting 5 minute timed, double contrast esophagram, and barium tablet. please change to both [id number] and [id number] (which are not visible in our system) [...] esophagram, andbarium tablet. please change to both [id number] and [id number] (which are not visiblein our system) TECHNIQUE: [...] patients who have questions please contactthe health associate director career services that requested your imaging first. Kenny Vincent [...] who have questions please contact the health associate director career services that requested your imaging first. ? Narrative [...] patients who have questions please contactthe health associate director career services that requested your imaging first. Kenny Regan [...] AM EDT 155 mLs barium sulfate (Varibar [place]) 40% (w/v) oral liquid 480 mL 480 [...] mLs documented in this encounter Care Teams Court Messenger Relationship Specialty Start Date End Date Janessa Chand MD [address] [place] [address] PCP - General 10/22/10 documented as of this encounter
--- OUTSIDE RECORDS SUMMARY | 2025-01-04 00:33 | XMS_ITS | Encounter Summary ---
Author Organization [facility] [place] [address] Care Team Providers Care Geospatial Information Technologist Name Role Phone Janessa Chand MD Primary Care Provider [phone] Reason for Visit * Reason Onset Date Comments Labs Only 07/10/2011 Encounter Details Date Type Department Care Team (Late st Contact Info) Description 07/10/2011 Telephone [place] [address] Akash Thacker MD [facility] [place] [address] Labs Only Social History Tobacco Use Types Packs/Day Years Used Date Smoking Tobacco: Never Assessed Sex and Gender Information Value Date Recorded Sex Assigned at Female 01/28/2021 8:41 AM EST Gender Identity Not on file Sexual Orientation Straight 01/28/2021 8: 41 AM EST documented as of this encounter Miscellaneous Notes * Telephone Encounter - Aksah Thacker MD - 07/10/2011 4:40 PM EDT ;labs documented in this encounter Plan of Treatment Upcoming Encounters Date Type Department Care Team (Late st Contact Info) Description 11/06/2025 10:30 AM EST Office Visit Dermatology at [place] [address] [place] [address] Ishaan Miguel MD [address], [place] [address] documented as of this encounter Results * Microalbumin, urine, random (02/18/2012 12:47 PM EDT) Creatinine, Urine 30 mg/dL CE RNER [facility] Albumin, Urine 45.0 mg/L CERNE R MILLENNIUM Albumin / Creatinin Ratio, Urine 150 mcg/mg Cr CERNER [facility] Comment: Reference Range* Random collection (mcg/mg creatinine) Normal ?<30 Microalbuminuria ?? 30 - 300 Clinical Albuminuria ?? >300 *[place] Diabetes Association. Diabetic Nephropathy. Diabetes Care 1997;(Suppl 1):S24-S27 Exercise within 24 hour, infection, fever, CHF, marked hyperglycemia, and marked hypertension may elevate urinary albumin excretion over baseline values. Urine specimen (specimen) 02/18/2012 12:47 PM EDT 02/18/2012 12:53 PM EDT Narrative Resulting Agency Comment Spec In Lab Akash Thacker MD URINE ORDERABLES Performing Organization Address [facility] Co de Phone Number [facility] * BUN (02/18/2012 12:41 PM EDT) Blood Urea Nitrogen 15 8 - 18 mg/dL [facility] Blood specimen (specimen) 02/18/2012 12:41 PM EDT 02/18/2012 12:53 PM EDT Narrative Resulting Agency Comment Spec In Lab Akash Thacker MD CHEMISTRY ORDERABLES Performing Organization Address [facility] Co de Phone Number [facility] * (ABNORMAL) Hemoglobin A1c (02/18/2012 12:41 PM EDT) Hemoglobin A1c 6.7(H) 4.3 - 6.1 % [facility] MILLENNIUM Estimated Average Glucose 146 mg/dL [facility] Comment: eAG equivalents for HbA1c percentages: [...] into estimated average glucose values. ??Diabetes Care 2008:31(8):1799-3666. Blood specimen (specimen) 02/18/2012 12:41 PM EDT 02/18/2012 12:53 PM EDT Narrative Resulting Agency Comment Spec In Lab Akash Thacker MD CHEMISTRY ORDERABLES [facility] * Creatinine, serum (02/18/2012 12:41 PM EDT) Creatinine 0.77 0.70 - 1.20 mg/dL [facility] Est Glomerular Filtration Rate >60 >=60 [facility] Comment: The National Kidney Disease Education Program [...] Narrative Resulting Agency Comment Spec In Lab Aksah Thacker MD CHEMISTRY ORDERABLES Performing Organization Address City/State/ZIP Co vt Phone Number [facility] documented in this encounter Visit Diagnoses Diagnosis Diabetes- Primary Type II or unspecified type diabetes mellitus without mention of complication, not stated as uncontrolled documented in this encounter Care Teams Geospatial Information Technologist Relationship Specialty Start Date End Date Janessa Chand MD [address] [facility] [place] [address] [place] [address] PCP - General 10/22/10 documented as of this encounter
--- OUTSIDE RECORDS SUMMARY | 2025-01-04 00:33 | XMS_ITS | Encounter Summary ---
[place] [address] Care Team Providers Care Scout Name Role Phone Janessa Chand MD Primary Care Provider [phone] Reason for Visit * Reason Comments Follow-up Encounter Details Date Type Department Care Team (Late st Contact Info) Description 10/28/2016 1:45 PM EST Office Visit Dermatology at [address] [address] Ishaan Miguel MD [address] [facility], [facility] [place] [address] History of malignant melanoma; Seborrheic keratosis, inflamed [...] AM EST Office Visit Dermatology at [address] [place] [address] Ishaan Miguel MD [address], [place] [address] documented as of this encounter Visit Diagnoses Diagnosis History of malignant melanoma Personal history of malignant melanoma of skin Seborrheic keratosis, inflamed Inflamed seborrheic keratosis documented in this encounter Care Teams Scout Relationship Specialty Start Date End Date Janessa Chand MD [address] [facility] [place] [address] [place] [address] PCP - General 10/22/10 documented as of this encounter
--- OUTSIDE RECORDS SUMMARY | 2025-01-04 00:33 | XMS_ITS | Encounter Summary ---
[place] [address] Care Team Providers Care Basketball Commentator Name Role Phone Janessa Chand MD Primary Care Provider [phone] Encounter Details Date Type Department Care Team (Late st Contact Info) Description 02/15/2021 Telephone [place] [phone] Jeff Nixon Social History Tobacco Use Types [...] it can be handled by: [facility] Import/Export Freight Forwarder documented in this encounter Plan of Treatment Upcoming Encounters Date Type Department Care Team (Late st Contact Info) Description 11/06/2025 10:30 AM EST Office Visit Dermatology at [place] [address] [place] [address] Ishaan Miguel MD [address], [place] [address] documented as of this encounter Visit Diagnoses Not on filedocumented in this encounter Care Teams Basketball Commentator Relationship Specialty Start Date End Date Janessa Chand MD [facility] [address] [facility] 1 [place] [address] PCP - General 10/22/10 documented as of this encounter
--- OUTSIDE RECORDS SUMMARY | 2025-01-04 00:33 | XMS_ITS | Encounter Summary ---
[place] [address] Care Team Providers Care Wood Dowel Machine Operator Name Role Phone Janessa Chand MD Primary Care Provider [phone] Encounter Details Date Type Department Care Team (Late st Contact Info) Description 11/28/2013 2:00 PM EST Office Visit Dermatology at [address] [address] Ishaan Miguel MD [address] [facility], [facility] [place] [address] Seborrheic keratosis, inflamed (Primary Dx) Social History [...] 10:30 AM EST Office Visit Dermatology at [place] [address] [place] [address] Ishaan Miguel MD [address] [facility], [place] [address] documented as of this encounter Visit Diagnoses Diagnosis Seborrheic keratosis, inflamed- Primary Inflamed seborrheic keratosis documented in this encounter Care Teams Wood Dowel Machine Operator Relationship Specialty Start Date End Date Janessa Chand MD [address] [facility] 1 [place] [address] PCP - General 10/22/10 documented as of this encounter
--- OUTSIDE RECORDS SUMMARY | 2025-01-04 00:33 | XMS_ITS | Encounter Summary ---
[place] [address] Care Team Providers Care Fruit Press Operator Name Role Phone Janessa Chand MD Primary Care Provider [phone] Reason for Visit * Reason Comments Skin Check Encounter Details Date Type Department Care Team (Late st Contact Info) Description 11/08/2019 9:00 AM EST Office Visit Dermatology at [address] [address] Ishaan Miguel MD [address] [facility], [facility] [place] [address] Seborrheic keratosis; Stucco keratosis; History of malignant [...] 10:30 AM EST Office Visit Dermatology at [place] [address] [place] [place] [address] Ishaan Miguel MD [address], [place] [address] documented as of this encounter Visit Diagnoses Diagnosis Seborrheic keratosis Other seborrheic keratosis Stucco keratosis Acquired keratoderma History of malignant melanoma Personal history of malignant melanoma of skin AK (actinic keratosis) Actinic keratosis documented in this encounter Care Teams Fruit Press Operator Relationship Specialty Start Date End Date Janessa Chand MD [address] [place] [address] PCP - General 10/22/10 documented as of this encounter
--- OUTSIDE RECORDS SUMMARY | 2025-01-04 00:33 | XMS_ITS | Encounter Summary ---
Author [facility] [place] [address] Care Team Providers Care Catalytic Converter Operator Name Role Phone Janessa Chand MD Primary Care Provider [phone] Encounter Details Date Type Department Care Team (Late st Contact Info) Description 11/26/2006 Orders Only Dermatology at [address] [address] Ishaan Miguel MD [address] [place] [address], [place] [address] Social History Tobacco Use Types Packs/Day Years [...] 10:30 AM EST Office Visit Dermatology at [address] [phone] Ishaan Miguel MD [address] [place] [id number] documented as of this encounter Procedures Procedure Name Priority Date/Time Associated Diagnosis Comments SURGICAL PATHOLOGY REPORT Routine 11/26/2006 6:10 PM EST documented in this encounter Results * Surgical Pathology Report (11/26/2006 6:10 PM EST) Surgical Pathology Report [id number] ? Location: The signing pathologist has (i) examined the relevant preparation(s) for the specimen(s) and (ii) rendered or confirmed the diagnosis(es). . ?Pathology Surgical Pathology Final Report Clinical Information Specimen Submitted: A - Lt lateral foot: ??excision. Clinical History: Atypical mole. Ishaan Miguel MD, III [facility] Dermatology [place], [place] [address] Clinical Diagnosis: Atypical nevus. Gross Description Labeled/Fixative: [...] Ishaan Miguel MD PATHOLOGY/CYTOLOGY O [facility]LES [facility] documented in this encounter Visit Diagnoses Not on filedocumented in this encounter Care Teams Catalytic Converter Operator Relationship Specialty Start Date End Date Janessa Chand MD [address] [place] [address] PCP - General 10/22/10 documented as of this encounter
--- OUTSIDE RECORDS SUMMARY | 2025-01-04 00:33 | XMS_ITS | Encounter Summary ---
[place] [address] Care Team Providers Care Mule Driver Name Role Phone Janessa Chand MD Primary Care Provider [phone] Reason for Visit * Reason Onset Date Comments Reminder Appointment 01/31/2021 Encounter Details Date Type Department Care Team (Late st Contact Info) Description 01/31/2021 Telephone [place] [address] Elinor Paula CMA Reminder Appointment Social History [...] 10:30 AM EST Office Visit Dermatology at [place] [address] [place] [address] Ishaan Miguel MD [address], [place] [address] documented as of this encounter Visit Diagnoses Not on filedocumented in this encounter Care Teams Mule Driver Relationship Specialty Start Date End Date Janessa Chand MD [facility] [address] [facility] 1 [place] [address] PCP - General 10/22/10 documented as of this encounter
--- OUTSIDE RECORDS SUMMARY | 2025-01-04 00:33 | XMS_ITS | Encounter Summary ---
[place] [address] Care Team Providers Care Fur Comber Name Role Phone Janessa Chand MD Primary Care Provider [phone] Reason for Visit * Reason Comments Follow-up Skin Check * Consultation (Routine) - Closed Specialty Diagnoses / Procedures Referred By Foster michaud Referred To Contact Dermatology Diagnoses non healing lesions on face Janessa Chand MD [address] [facility] 1 [place] [address] [facility] Dermatology [address] [place] [address] Referral ID Status Reason Start Date Expiration Date V isits Requested Visits Authorized [id number] Closed Consult, Test & Treat Connection [facility] 08/24/2018 08/24/2019 1 1 Encounter Details Date Type Department Care Team (Late st Contact Info) Description 12/10/2018 1:15 PM EST Office Visit Dermatology at [address] [address] Ishaan Miguel MD 580 [facility], [facility] [place] [address] Seborrheic keratosis; Stucco keratosis; Solar [...] 10:30 AM EST Office Visit Dermatology at [place] [address] [place] [address] Ishaan Miguel MD [address], [place] [address] documented as of this encounter Visit Diagnoses Diagnosis Seborrheic keratosis Other seborrheic keratosis Stucco keratosis Acquired keratoderma Solar lentigo Other dyschromia History of malignant melanoma Personal history of malignant melanoma of skin documented in this encounter Care Teams Fur Comber Relationship Specialty Start Date End Date Janessa Chand MD [address] [facility] 1 [place] [address] PCP - General 10/22/10 documented as of this encounter
--- OUTSIDE RECORDS SUMMARY | 2025-01-04 00:33 | XMS_ITS | Encounter Summary ---
Author Organization Formerly [facility] Address [facility] [place] [address] Care Team Providers Care Grinding Wheel Facer Name Role Phone Janessa Chand MD Primary Care Provider [phone] Encounter Details Date Type Department Care Team (Late st Contact Info) Description 02/28/2021 10:00 AM EDT - 02/28/2021 10:45 AM EDT Surgery [place] [address] Sebastián Hernandez MD [facility] [address] EGD WITH BIOPSY (WRVU 2.39) Social History [...] the day after the procedure, use an pila-njr-xymsvmt spray to numb your throat. Sucking on [...] occurs, please contact your Doctor. Please call [phone] before 8pm Mon-Fri with problems, questions or concerns. If you call after 8pm or on weekends, call the Hospital at [phone] and ask to speak to the Extruder Tender production editor and the high density press operator will contact that person for you. When should you call for help? Call [phone] anytime you think you may need emergency [...] any problems. Where can you learn more? [facility] View your After Visit Summary and more online at [email or web address] If you would like to provide feedback [...] cost to you. Content Version: 12.2 ?? 8627-4717 Brandle. Care instructions adapted under license by [facility]. If you have questions about a medical condition or this instruction, always ask your healthcare professional. Brandle disclaims any warranty or liability for your [...] pen Inject 40 Units subcutaneously nightly. 09/15/2019 sqtrucek-gxtxlyauz-kpjn methasone (DEXACINE) 3.5 mg/g-10,000 unit/g-0.1 % Ointment [...] Hernandez MD - 02/28/2021 10:38 AM EDT [facility] Operative Note Patient Name: Simi العلي : [id number] MR#: [id number] Case Date: 02/28/2021 Surgeon: Surgeon(s) and Role: [...] 10:30 AM EST Office Visit Dermatology at [place] [address] [place] [address] Ishaan Miguel MD [address], [place] [address] documented as of this encounter Procedures Procedure Name Priority Date/Time Associated Diagnosis Comments SURGICAL PATHOLOGY REPORT Routine 02/28/2021 10:56 AM EDT SPECIMEN TO PATHOLOGY Routine 02/28/2021 10:56 AM EDT SPECIMEN TO PATHOLOGY Routine 02/28/2021 10:56 AM EDT SPECIMEN TO PATHOLOGY Routine 02/28/2021 10:56 AM EDT Upper Gi Endoscopy, Biopsy ([id number]) 02/28/2021 10:22 AM EDT History of Sanches's esophagus Chronic cough Choking, initial encounter Chest pain, unspecified type Throat tightness History of pneumonia UPPER GI ENDOSCOPY Routine 02/28/2021 10 :12 AM EDT documented in this encounter Results * Surgical Pathology Report (02/28/2021 10:56 AM EDT) Final Diagnosis [id number] ? Location: 4T; [facility]; A The signing pathologist has (i) examined [...] Leena Verified: ??03/06/2021 15:19 ??Pathologist Performed at: ??-[facility] Dept. of Pathology, [place], [place] SPECIMEN(S) SUBMITTED A - pyloric biopsies, [...] labeled C1. ??sarah 03/06/2021 3:19 PM EDT [facility] GI Biopsy 02/28/2021 10:5 6 AM EDT 02/28/2021 10:56 AM EDT GI Biopsy 02/28/2021 10:5 6 AM EDT 02/28/2021 10:56 AM EDT GI Biopsy 02/28/2021 10:5 6 AM EDT 02/28/2021 10:56 AM EDT Sebastián Hernandez MD PATHOLOGY/CYTOLOGY O RDULICES Performing Organization Address City/[facility]/[place] [address] * Specimen to Pathology (02/28/2021 10:56 AM EDT) AP Specimen 02/28/2021 10:5 6 AM EDT 02/28/2021 10:56 AM EDT Narrative [facility] - 02/28/2021 10:56 AM EDT Specimen requisition ordered. ??Separate Pathology report to follow Sebastián Hernandez MD PATHOLOGY/CYTOLOGY O KELY Performing Organization Address [facility] [place] [address] * Specimen to Pathology (02/28/2021 10:56 AM EDT) AP Specimen 02/28/2021 10:5 6 AM EDT 02/28/2021 10:56 AM EDT Narrative [facility] - 02/28/2021 10:56 AM EDT Specimen requisition ordered. ??Separate Pathology report to follow Sebastián Hernandez MD PATHOLOGY/CYTOLOGY O KELY Performing Organization Address City/[facility]/[place] [address] * Specimen to Pathology (02/28/2021 10:56 AM EDT) AP Specimen 02/28/2021 10:5 6 AM EDT 02/28/2021 10:56 AM EDT Narrative [facility] - 02/28/2021 10:56 AM EDT Specimen requisition ordered. ??Separate Pathology report to follow Sebastián Hernandez MD PATHOLOGY/CYTOLOGY O RDERALALO Performing Organization Address City/[facility]/ZIP Co [place] [address] * UPPER GI ENDOSCOPY (02/28/2021 10:12 AM EDT) Pathologist [facility] UPPER GI ENDOSCOPY [facility] Endoscopy Procedure Date: 02/28/2021 10:12 AM ? Patient Name: Simi Begin ? Date of : 1945 ? Age: 75 ? Order #: [id number] ? Instrument Name: [id number] ? Procedure: ? Upper GI endoscopy Indications: ? Follow-up of Sanches's esophagus Providers: ? Sebastián Hernandez MD, Nanci Obrien ? Ammon Klein MD: ?[facility] ? Propofol per Anesthesia Complications: ? No [...] RN) documented in this encounter Care Teams Grinding Wheel Facer Relationship Specialty Start Date End Date Janessa Chand MD [address] [place] [address] PCP - General 10/22/10 documented as of this encounter
--- OUTSIDE RECORDS SUMMARY | 2025-01-04 00:33 | XMS_ITS | Encounter Summary ---
Author Organization Formerly [facility] [place] [address] Care Team Providers Care Tire Repairman Name Role Phone Janessa Chand MD Primary Care Provider [phone] Encounter Details Date Type Department Care Team (Late st Contact Info) Description 05/27/2004 Orders [place] [address] Braxton Pretty MD [facility] [address] [place] [address] Social History Tobacco Use Types Packs/Day Years [...] 10:30 AM EST Office Visit Dermatology at [place] [address] [facility] [place] [address] Ishaan Miguel MD [address] [facility] [place] [address] documented as of this encounter Procedures Procedure Name Priority Date/Time Associated Diagnosis Comments SURGICAL PATHOLOGY REPORT Routine 05/27/2004 3:52 PM EDT documented in this encounter Results * Surgical Pathology Report (05/27/2004 3:52 PM EDT) Surgical Pathology Report [id number] ? Location: The signing pathologist has (i) [...] on filedocumented in this encounter Care Teams Tire Repairman Relationship Specialty Start Date End Date Janessa Chand MD [address] [facility] 1 [place] [address] PCP - General 10/22/10 documented as of this encounter
--- OUTSIDE RECORDS SUMMARY | 2025-01-04 00:33 | XMS_ITS | Encounter Summary ---
[place] [address] Care Team Providers Care Balance Engineer Name Role Phone Janessa Chand MD Primary Care Provider [phone] Encounter Details Date Type Department Care Team (Late st Contact Info) Description 02/18/2021 [place] [address] Nanci Parks Social History Tobacco Use Types [...] - 02/18/2021 9:48 AM EDT Simi العلي [id number] Diagnosis/Indication: chronic cough, choking, chest pain, throat tightness, history of Sanches's esophagus. 1. Have you ever had a/an Upper Endoscopy before? Yes: Date 08/2020 AT [facility] If yes, did you have any problems [...] to patient: You must have a responsible constitution party who will drive you to your procedure, [...] 10:30 AM EST Office Visit Dermatology at [place] [address] [facility] [place] [address] Ishaan Miguel MD [address], [place] [address] documented as of this encounter Visit Diagnoses Not on filedocumented in this encounter Care Teams Balance Engineer Relationship Specialty Start Date End Date Janessa Chand MD [address] [place] [address] PCP - General 10/22/10 documented as of this encounter
--- OUTSIDE RECORDS SUMMARY | 2025-01-04 00:33 | XMS_ITS | Encounter Summary ---
[place] [address] Care Team Providers Care Compensator Name Role Phone Janessa Chand MD Primary Care Provider [phone] Reason for Visit * Reason Comments Skin Check Encounter Details Date Type Department Care Team (Late st Contact Info) Description 03/02/2012 1:45 PM EDT Office Visit Dermatology [address] [place] [address] [address] [place], [place] [address] Ishaan Miguel MD [address] [facility], [place] [address] History of malignant melanoma (Primary Dx); Seborrheic [...] 10:30 AM EST Office Visit Dermatology at [address] [address] Ishaan Miguel MD [address] [facility], [place] [address] documented as of this encounter Visit Diagnoses Diagnosis History of malignant melanoma- Primary Personal history of malignant melanoma of skin Seborrheic keratosis Other seborrheic keratosis documented in this encounter Care Teams Compensator Relationship Specialty Start Date End Date Janessa Chand MD [address] [facility] 1 [place] [address] PCP - General 10/22/10 documented as of this encounter
--- OUTSIDE RECORDS SUMMARY | 2025-01-04 00:33 | XMS_ITS | Encounter Summary ---
Author Organization [facility] [place] [address] Care Team Providers Care Technical Adjuster Name Role Phone Janessa Chand MD Primary Care Provider [phone] Encounter Details Date Type Department Care Team (Late st Contact Info) Description 02/19/2011 1:30 PM EDT Office Visit [place] [address] Akash Thacker MD [facility] [place] [address] Discharge Disposition: Home Social History Tobacco Use [...] 10:30 AM EST Office Visit Dermatology at [place] [address] [place] [address] Ishaan Miguel MD [address] [facility], [facility] [place] [address] documented as of this encounter Visit Diagnoses Not on filedocumented in this encounter Care Teams Technical Adjuster Relationship Specialty Start Date End Date Janessa Chand MD [address] [facility] 1 [place] [address] PCP - General 10/22/10 documented as of this encounter
--- OUTSIDE RECORDS SUMMARY | 2025-01-04 00:33 | XMS_ITS | Encounter Summary ---
Author Organization [facility] [place] [address] Care Team Providers Care Central Office Worker Name Role Phone Janessa Chand MD Primary Care Provider Reason for Visit * Reason Comments Diabetes Encounter Details Date Type Department Care Team (Late st Contact Info) Description 02/18/2012 1:00 PM EDT Office Visit [place] [address] Akash Thacker MD [facility] [address] Diabetes mellitus (Primary Dx); Diabetes Discharge Disposition: [...] documented in this encounter Progress Notes * Aaksh Thacker MD - 02/18/2012 2:08 PM EDT [...] Steak Potato beans Sn Apple Exercise In [place] for 2 mo - did a lot of walking complications eyes none feet sensitive kidneys none autonomic: no gastroparesis But has heartburn bladder hypo unaware tachycardia cardiac no chest pain on exertion ++ shortness of breath on 1 flight of stairs -= history of stent cabg chf prevention: last eye exam: within the year last microalbumin : last Cr: last lipid panel: regular casting carrier: yes special shoes: flu shot : yes [...] lesions. I recommended that she see a vice president of nursing. 4) HBP - needs to lose weight [...] 10:30 AM EST Office Visit Dermatology at [place] [address] [place] [address] Ishaan Miguel MD [address], [place] [address] documented as of this encounter Procedures Procedure [...] 30 - 300 Clinical Albuminuria ?? >300 *[place] [employer]. Diabetic Nephropathy. Diabetes Care 1997;(Suppl 1):S24-S27 Exercise within 24 hour, infection, fever, CHF, marked hyperglycemia, and marked hypertension may elevate urinary albumin excretion over baseline values. Urine specimen (specimen) 02/18/2012 12:47 PM EDT 02/18/2012 12:53 PM EDT Narrative Resulting Agency Comment Spec In Lab Akash Thacker MD URINE ORDERABLES Performing Organization Address [facility]/ZIP Co de Phone Number [facility] * Creatinine, serum (02/18/2012 12:41 PM EDT) Creatinine 0.77 0.70 - 1.20 mg/dL [facility] Est Glomerular Filtration Rate >60 >=60 [facility] Comment: The National Kidney Disease Education Program [...] Thacker MD CHEMISTRY ORDERABLES Performing Organization Address City/[facility]/ZIP Co de Phone Number [facility] * BUN (02/18/2012 12:41 PM EDT) Blood Urea Nitrogen 15 8 - 18 mg/dL [facility] Blood specimen (specimen) 02/18/2012 12:41 PM EDT 02/18/2012 12:53 PM EDT Narrative Resulting Agency Comment Spec In Lab Akash Thacker MD CHEMISTRY ORDERABLES [facility] * (ABNORMAL) Hemoglobin A1c (02/18/2012 12:41 PM EDT) Hemoglobin A1c 6.7(H) 4.3 - 6.1 % [facility] Estimated Average Glucose 146 mg/dL [facility] Comment: eAG equivalents for HbA1c percentages: [...] into estimated average glucose values. ??Diabetes Care 2008:31(8):0131-6203. Blood specimen (specimen) 02/18/2012 12:41 PM EDT 02/18/2012 12:53 PM EDT Narrative Resulting Agency Comment Spec In Lab Akash Thacker MD CHEMISTRY ORDERABLES Performing Organization Address City/State/ZIP Co ak Phone Number [facility] documented in this encounter Visit Diagnoses Diagnosis Diabetes mellitus- Primary Type II or unspecified type diabetes mellitus without mention of complication, not stated as uncontrolled Diabetes Type II or unspecified type diabetes mellitus without mention of complication, not stated as uncontrolled documented in this encounter Care Teams Central Office Worker Relationship Specialty Start Date End Date Janessa Chand MD [address] [place] [address] PCP - General 10/22/10 documented as of this encounter
--- OUTSIDE RECORDS SUMMARY | 2025-01-04 00:33 | XMS_ITS | Encounter Summary ---
Author Organization [facility] Address [facility] [place] [address] Care Team Providers Care Rehabilitation Technician Name Role Phone Janessa Chand MD Primary Care Provider [phone] Encounter Details Date Type Department Care Team (Latest Contact Info) Description 02/28/2021 8:55 AM EDT - 02/28/2021 11:45 AM EDT Hospital Encounter [place] [address] Sebastián Hernandez MD [facility] [place] [address] History of Sanches's esophagus; Chronic cough; Chest [...] the day after the procedure, use an kqkt-uxj-keekysc spray to numb your throat. Sucking on [...] occurs, please contact your Doctor. Please call [phone] before 8pm Mon-Fri with problems, questions or concerns. If you call after 8pm or on weekends, call the Hospital at [phone] and ask to speak to the Wood Stainer media reconciliation specialist and the double head machine operator will contact that person for you. When should you call for help? Call [phone] anytime you think you may need emergency [...] any problems. Where can you learn more? [facility] View your After Visit Summary and more online at [email or web address] If you would like to provide feedback [...] cost to you. Content Version: 12.2 ?? 3422-6427 Vtap. Care instructions adapted under license by [facility]. If you have questions about a medical condition or this instruction, always ask your healthcare professional. Vtap disclaims any warranty or liability for your [...] pen Inject 40 Units subcutaneously nightly. 09/15/2019 ggsoiytw-dsezinkhe-seqp methasone (DEXACINE) 3.5 mg/g-10,000 unit/g-0.1 % Ointment [...] Hernandez MD - 02/28/2021 10:38 AM EDT [facility] Operative Note Patient Name: Simi العلي : [id number] MR#: [id number] Case Date: 02/28/2021 Surgeon: Surgeon(s) and Role: [...] 10:30 AM EST Office Visit Dermatology at [place] [address] [facility] [place] [address] Ishaan Miguel MD [address] [facility], [place] [address] documented as of this encounter Procedures Procedure Name Priority Date/Time Associated Diagnosis Comments SURGICAL PATHOLOGY REPORT Routine 02/28/2021 10:56 AM EDT SPECIMEN TO PATHOLOGY Routine 02/28/2021 10:56 AM EDT SPECIMEN TO PATHOLOGY Routine 02/28/2021 10:56 AM EDT SPECIMEN TO PATHOLOGY Routine 02/28/2021 10:56 AM EDT Upper Gi Endoscopy, Biopsy ([id number]) 02/28/2021 10:22 AM EDT History of Sanches's esophagus Chronic cough Choking, initial encounter Chest pain, unspecified type Throat tightness History of pneumonia UPPER GI ENDOSCOPY Routine 02/28/2021 10 :12 AM EDT documented in this encounter Results * Surgical Pathology Report (02/28/2021 10:56 AM EDT) Final Diagnosis [id number] ? Location: 4T; EA12; A The signing [...] Leena Verified: ??03/06/2021 15:19 ??Pathologist Performed at: ??-[facility] Dept. of Pathology, [place], [place] SPECIMEN(S) SUBMITTED A - pyloric biopsies, [...] labeled C1. ??sarah 03/06/2021 3:19 PM EDT [facility] GI Biopsy 02/28/2021 10:5 6 AM EDT 02/28/2021 10:56 AM EDT GI Biopsy 02/28/2021 10:5 6 AM EDT 02/28/2021 10:56 AM EDT GI Biopsy 02/28/2021 10:5 6 AM EDT 02/28/2021 10:56 AM EDT Sebastián Hernandez MD PATHOLOGY/CYTOLOGY O KELY Performing Organization Address City/[facility] [place] [address] * Specimen to Pathology (02/28/2021 10:56 AM EDT) AP Specimen 02/28/2021 10:5 6 AM EDT 02/28/2021 10:56 AM EDT Narrative [facility] - 02/28/2021 10:56 AM EDT Specimen requisition ordered. ??Separate Pathology report to follow Sebastiáneula Hernandez MD PATHOLOGY/CYTOLOGY O KELY Performing Organization Address [facility] [place] [address] * Specimen to Pathology (02/28/2021 10:56 AM EDT) AP Specimen 02/28/2021 10:5 6 AM EDT 02/28/2021 10:56 AM EDT Narrative [facility] - 02/28/2021 10:56 AM EDT Specimen requisition ordered. ??Separate Pathology report to follow Sebastián Hernandez MD PATHOLOGY/CYTOLOGY O KELY Performing Organization Address [facility] Co de Phone Number [facility] [place] [address] * Specimen to Pathology (02/28/2021 10:56 AM EDT) AP Specimen 02/28/2021 10:5 6 AM EDT 02/28/2021 10:56 AM EDT Narrative [facility] - 02/28/2021 10:56 AM EDT Specimen requisition ordered. ??Separate Pathology report to follow Sebastián Hernandez MD PATHOLOGY/CYTOLOGY O RDERALALO Performing Organization Address City/[facility] Co de Phone Number [facility] [place] [address] * UPPER GI ENDOSCOPY (02/28/2021 10:12 AM EDT) UPPER GI ENDOSCOPY [facility] Endoscopy Procedure Date: 02/28/2021 10:12 AM ? Patient Name: Simi Severinao ? N: [id number] ? Date of : 1945 ? Age: 75 ? Order #: [id number] ? Instrument Name: [id number] ? Procedure: ? Upper GI endoscopy Indications: [...] RN) documented in this encounter Care Teams Rehabilitation Technician Relationship Specialty Start Date End Date Janessa Chand MD [address] [facility] [place] [address] PCP - General 10/22/10 documented as of this encounter
--- OUTSIDE RECORDS SUMMARY | 2025-01-04 00:33 | XMS_ITS | Encounter Summary ---
[place] [address] Care Team Providers Care Verification Lead Name Role Phone Janessa Chand MD Primary Care Provider [phone] Reason for Visit * Reason Onset Date Comments Diabetes 02/17/2012 Encounter Details Date Type Department Care Team (Late st Contact Info) Description 02/17/2012 Telephone [place] [address] Briana Elias LPN Diabetes Social History Tobacco [...] 10:30 AM EST Office Visit Dermatology at [address] [place] [address] Ishaan Miguel MD [address] [place] [address] RD, [place] [address] documented as of this encounter Visit Diagnoses Not on filedocumented in this encounter Care Teams Verification Lead Relationship Specialty Start Date End Date Jnaessa Chand MD [address] [place] [address] PCP - General 10/22/10 documented as of this encounter
--- OUTSIDE RECORDS SUMMARY | 2025-01-04 00:33 | XMS_ITS | Encounter Summary ---
Author Organization [facility] Address [facility] [place] [address] Care Team Providers Care Train Controller Name Role Phone Janessa Chand MD Primary Care Provider [phone] Encounter Details Date Type Department Care Team (Late st Contact Info) Description 02/28/2021 10:21 AM EDT Anesthesia Event [place] [address] Christopher Hyde MD [facility] [place] [address] Anesthesia Record Procedure Summary Procedure Name Responsible [...] cephalic vein (lateral side of arm), right; jaea-nid-zmtbqa catheter system; Anatomical Landmarks; 22 gauge; K [...] Procedure Summary Date: 02/28/21 Room / Location: [facility]O 3 / [facility] Anesthesia Start: 1021 Anesthesia Stop: [...] All Anesthesia Providers: Anesthesiologist: Christopher Hyde MD DIESEL TECHNICIAN MECHANIC: Renu De Leon CRNA Vitals Value Taken [...] esophagus Added automatically from request for surgery [id number] ??? Chronic cough Added automatically from request for surgery [id number] ??? Choking Added automatically from request for surgery [id number] ??? Chest pain Added automatically from request for surgery [id number] ??? Throat tightness Added automatically from request for surgery [id number] ??? History of pneumonia Added automatically from request for surgery [id number] ??? Seborrheic keratosis, inflamed ??? History of [...] risks discussed with patient. Plan discussed with DIESEL TECHNICIAN MECHANIC. PAT Clinic Note documented in this encounter Plan of Treatment Upcoming Encounters Date Type Department Care Team (Late st Contact Info) Description 11/06/2025 10:30 AM EST Office Visit Dermatology at [place] [address] [facility] [place] [address] Ishaan Miguel MD [address] [facility] [address], [place] [address] documented as of this encounter Visit Diagnoses [...] /hr documented in this encounter Care Teams Train Controller Relationship Specialty Start Date End Date Janessa Chand MD [address] [place] [address] [address] [facility] 1 [place] [address] PCP - General 10/22/10 documented as of this encounter
--- OUTSIDE RECORDS SUMMARY | 2025-01-04 00:33 | XMS_ITS | Encounter Summary ---
Author Organization [facility] [place] [address] Care Team Providers Care Electronic Publishing Specialist Name Role Phone Janessa Chand MD Primary Care Provider [phone] Reason for Referral * Diagnostic Test (Routine) - Closed Specialty Diagnoses / Procedures Referred By Contac t Referred To Contact Radiology Diagnoses History of Sanches's esophagus Chronic cough Choking, initial encounter Chest pain, unspecified type Throat tightness History of pneumonia Procedures XR Fluoro Barium Swallow (Single Contrast) Kenny Regan APRN [facility] [place] [address] [facility] Rad Xray [address] [place] [address] [place] [address] Referral ID Status Reason Start Date Expiration Date V isits Requested Visits Authorized [id number] Closed Specialty Service Requested 01/31/2021 08/03/2022 1 1 * Speech Therapy - Closed Specialty Diagnoses / Procedures Referred By Contmichael michaud Referred To Contact Speech Therapy Diagnoses History of Sanches's esophagus Chronic cough Choking, initial encounter Chest pain, unspecified type Throat tightness History of pneumonia Kenny Regan APRN [facility] [place] [address] [facility] Pumping Supervisor [facility] [place] [address] Referral ID Status Reason Start Date Expiration Date V isits Requested Visits Authorized [id number] Closed Consult Only 01/31/2021 01/31/2022 100 100 [...] chronic cough, h/o BE Kenny Regan APRN [facility] [place] [address] [facility] [place] [address] Referral ID Status Reason Start Date Expiration Date V isits Requested Visits Authorized [id number] Closed Consult, Test & Treat 01/31/2021 01/31/2022 1 1 Reason for Visit * Consultation (Routine) - Closed Specialty Diagnoses / Procedures Referred By Contac t Referred To Contact Gastroenterology Diagnoses Chronic gastritis and esophagitis on high dose PPI Procedures Consult Babita Rojo MD [address] [place] [address] [facility] [place] [address] Referral ID Status Reason Start Date Expiration Date Visits Re quested Visits Authorized [id number] Closed 12/14/2020 12/14/2021 1 1 Encounter Details Date Type Department Care Team (Latest Contact Info) Description 01/31/2021 9:00 AM EST TH Visit (TeleHealth) [place] [address] Kenny Regan APRN [facility] [place] [address] History of Sanches's esophagus; Chronic cough; Choking, [...] Radiology department to schedule imaging tests at [phone] (option 2). GI department number [phone] -Upper endoscopy -Esophageal manometry with 24-hour pH [...] the patient to establish with a local business management consultant for continuity of care, so that we [...] constipation. Dr. Maritza Shannon pulmonary doctor at [facility]-working her up for COPD or asthma Last EGD/Colonoscopy in the fall at [facility]. Dr. Rojo 2 tubular adenomas. Repeat [...] mg Tablet Sustained Release 24 hr ??? rzzmzrbd-ezhgskscl-sgjidhwujydpp (DEXACINE) 3.5 mg/g-10,000 unit/g-0.1 % Ointment APPLY [...] II, HLD, HTN, malignant melanoma, former smoker ([id number]). Oumar fundoplication (1994), appendectomy, tubal ligation. Karmen states that she was referred by the Dr. Rojo, who did her upper endoscopy and colonoscopyduring the fall 2019 at [facility], referred her because there was an abnormal [...] pulmonary medicine, ENT, and speech-language pathology at [facility] for cough and is currently being worked [...] episodes, h/o Oumar -Obtain endoscopy reports from [facility] -Follow up locally for colonoscopies as [...] that patients with Sanches's Esophagus us PPI computer terminal operator to decrease risk of esophageal cancer. Discussed [...] the patient to establish with a local business management consultant for continuity of care, so that we can co-manage on a consultative basis moreeffectively. TIME SPENT WITH PATIENT Time spent reviewing records prior to this encounter on day of appointment: 2 minutes Time spent during encounter with patient including counselin minutes Time spent documenting encounter after office visit: 15 minutes Approximate total time devoted to this single encounter: 55 minutes Kenny Regan APR[place] [facility] [place] [address] documented in this encounter Plan of Treatment Upcoming Encounters Date Type Department Care Team (Late st Contact Info) Description 11/06/2025 10:30 AM EST Office Visit Dermatology at [place] [address] [facility] [place] [address] Ishaan Miguel MD [address], [place] [address] Scheduled Orders Name Type Priority Associated Diagnoses [...] who have questions please contact the health life care planner that requested your imaging first. ? Narrative 05/13/2021 10:34 AM EDT EXAMINATION: XR FLUORO BARIUM SWALLOW (SINGLE CONTRAST) CLINICAL HISTORY: esophagram for choking episodes, throat tightness, chest pain, h/ Oumar, requesting 5 minute timed, double contrast esophagram, and barium tablet. please change to both [id number] and [id number] (which are not visible in our system) [...] esophagram, andbarium tablet. please change to both [id number] and [id number] (which are not visiblein our system) TECHNIQUE: [...] patients who have questions please contactthe health life care planner that requested your imaging first. Kneny Regan APRN IMG FLUORO ORDERABL ES * [...] who have questions please contact the health life care planner that requested your imaging first. ? Narrative [...] patients who have questions please contactthe health life care planner that requested your imaging first. Kenny Rgean APRN IMG FLUORO ORDERABL ES documented in [...] (recurrent) documented in this encounter Care Teams Electronic Publishing Specialist Relationship Specialty Start Date End Date Janessa Chand MD [address] [place] [address] PCP - General 10/22/10 documented as of this encounter
--- NOTE | 2025-01-04 07:15 | DI.CT_ITS ---
Exam(s) CT LOWER EXTREMITY RT WO EXAM: CT LOWER EXTREMITY RT WO CLINICAL HISTORY: PAIN, ?LOOSENING rt hip prosthesis, m25.551,T84.84xa. TECHNIQUE: Imaging Protocol: Axial computed tomography images with coronal and sagittal reformatted images were created and reviewed. IMAR utilized. CONTRAST MATERIAL: Noncontrast COMPARISON: CR XR HIP RT COMPLETE AP PELVIS from 12/12/2024 FINDINGS: Right hip prosthesis causes artifact Bones: There is no evidence of fracture or dislocation. No cellulitic or osteomyelitic changes are identified. No lytic or sclerotic lesions are identified. Joints: Right hip prosthesis which appears grossly unchanged in alignment when compared with prior pl ain films. No abnormal surrounding lucencies.. Soft Tissues: Normal. IMPRESSION: No evidence of loosening of the right hip prosthesis. RADIATION DOSE DELIVERED: 448.11mGy.cm Total DLP DATA REPOSITORY: All CT scans at this facility are submitted to the National Radiology Data Registry (NRDR) Dose Index Registry (DIR) with the [employer] (A[employer]). RADIATION OPTIMIZATION: All CT scans at this facility use at least one of these dose optimization te chniques: automated exposure control; mA and/or kV adjustment per patient size (includes targeted exa ms where dose is matched to clinical indication); or iterative reconstruction.
== END 2025-01-04 00:50 ==
LOC: DI 00:30
PROVIDERS: PCP Family Medicine; Visit Provider Student in an Organized Health Care Education/Training Program
DX: T84.84XA Pain due to internal orthopedic prosthetic devices, implants and grafts, initial encounter (principal); Z96.641 Presence of right artificial hip joint
CPT/HCPCS: 73700

== ENCOUNTER → 2025-01-09 13:48 | Outpatient (BNVA) | payer MEDICARE, SELFPAY | PROVIDERS: PCP Family Medicine; Referring Provider Family Medicine; Visit Provider Student in an Organized Health Care Education/Training Program | DX: M70.61 Trochanteric bursitis, right hip (principal); M76.31 Iliotibial band syndrome, right leg; Z96.641 Presence of right artificial hip joint | CPT/HCPCS: 99213 ==

== ENCOUNTER 2025-01-16 15:58 | Outpatient (CLI) | payer MEDICARE, SELFPAY ==
--- NOTE | 2025-01-16 15:00 | DI.RAD_ITS ---
Exam(s) XR CHEST 2V PA LATERAL EXAM: XR CHEST 2V PA LATERAL CLINICAL HISTORY: Cough, R05.9, eval PNA TECHNIQUE: 2D digital imaging was performed of the chest. Two images were obtained. PA and lateral views were obtained. COMPARISON: CR XR CHEST 2V PA LATERAL from 12/24/2022 FINDINGS: MEDIASTINUM: Normal. HEART: Normal. PULMONARY VASCULATURE: Normal. LUNGS: Clear. PLEURAL SPACE: No pleural effusion or pneumothorax. BONE:Within normal limits for the patient's age. OTHER FINDINGS:Normal. IMPRESSION: No acute pulmonary findings. DATA REPOSITORY: RADIATION DOSE DELIVERED:
== END 2025-01-16 16:18 ==
LOC: DI 16:03
PROVIDERS: PCP Family Medicine; Visit Provider Nurse Practitioner Family
DX: R05.9 Cough, unspecified (principal)
CPT/HCPCS: 71046

== ENCOUNTER 2025-01-24 07:58 | Outpatient (CLI) | payer MEDICARE, SELFPAY ==
[2025-01-24 10:07] LABS: Lab Add On Test DONE
[2025-01-24 13:18] LABS: ALT 35 U/L (14-59); AST 31 U/L (15-37); Albumin 3.5 g/dL (3.4-5.0); Alkaline Phosphatase 92 U/L (46-116); Anion Gap 6.8 mmol/L (3-11); BUN 26 mg/dL (7-18); Bilirubin, Total 0.53 mg/dL (0.2-1.0); CO2 30.2 mmol/L (21.0-32.0); CREATININE 1.2 mg/dL (0.55-1.02); Calcium 9.5 mg/dL (8.5-10.1); Calculated LDL 47 mg/dL (<100); Chloride 103 mmol/L (98-107); Cholesterol 162 mg/dL (<200); Estimated GFR 46.05 (mL/min/1.73m2); Glucose 109 mg/dL (74-106); HDL Cholesterol 61 mg/dL (40-60); Potassium 4.2 mmol/L (3.5-5.1); Sodium 140 mmol/L (136-145); Triglyceride 272 mg/dL (<150)
[2025-01-24 13:33] LABS: Microalb ug/mg Crea 192.9 ug/mg Cr
[2025-01-24 13:39] LABS: Vitamin B12 282 pg/mL (193-986)
[2025-01-24 17:25] LABS: Hemoglobin A1C 6.5 % (<5.7)
[2025-01-25 11:49] LABS: Hepatitis C Ab w Rflx HCV PCR Negative (Negative)
== END 2025-01-24 07:59 | disposition home or self-care (01) ==
PROVIDERS: PCP Family Medicine; Referring Provider Family Medicine; Visit Provider Family Medicine
DX: Z11.59 Encounter for screening for other viral diseases (principal); E11.9 Type 2 diabetes mellitus without complications; I10 Essential (primary) hypertension; R53.83 Other fatigue
CPT/HCPCS: 36415; 80053; 80061; 86803; 82043; 82570; 82607; 83036

== ENCOUNTER → 2025-03-06 13:37 | Outpatient (BNVA) | payer MEDICARE, SELFPAY | PROVIDERS: PCP Family Medicine; Referring Provider Family Medicine; Visit Provider Student in an Organized Health Care Education/Training Program | DX: M70.61 Trochanteric bursitis, right hip (principal); M76.31 Iliotibial band syndrome, right leg; Z96.641 Presence of right artificial hip joint | CPT/HCPCS: 99213 ==

== ENCOUNTER → 2025-04-12 14:09 | Outpatient (BNVA) | payer MEDICARE, SELFPAY | PROVIDERS: PCP Family Medicine; Referring Provider Family Medicine; Visit Provider Physician Assistant Surgical | DX: J44.9 Chronic obstructive pulmonary disease, unspecified (principal); G47.33 Obstructive sleep apnea (adult) (pediatric) | CPT/HCPCS: 99214 ==

== ENCOUNTER 2025-08-01 09:55 | Outpatient (CLI) | payer MEDICARE, SELFPAY ==
[2025-08-01 13:31] LABS: Hemoglobin A1C 5.9 % (<5.7)
[2025-08-01 14:24] LABS: ALT 20 U/L (14-59); AST 17 U/L (15-37); Albumin 3.5 g/dL (3.4-5.0); Alkaline Phosphatase 98 U/L (46-116); Anion Gap 5.4 mmol/L (3-11); BUN 23 mg/dL (7-18); Bilirubin, Total 0.6 mg/dL (0.2-1.0); CO2 32.6 mmol/L (21.0-32.0); Calcium 9.3 mg/dL (8.5-10.1); Chloride 102 mmol/L (98-107); Estimated GFR 50.80 (mL/min/1.73m2); Glucose 122 mg/dL (74-106); Potassium 4.4 mmol/L (3.5-5.1); Sodium 140 mmol/L (136-145); Total Protein 6.9 g/dL (6.4-8.2); Vitamin B12 182 pg/mL (193-986)
== END 2025-08-01 09:56 | disposition home or self-care (01) ==
LOC: LOS 09:55
PROVIDERS: PCP Family Medicine; Visit Provider Family Medicine
DX: I10 Essential (primary) hypertension (principal); R79.89 Other specified abnormal findings of blood chemistry; E11.9 Type 2 diabetes mellitus without complications
CPT/HCPCS: 36415; 80053; 82607; 83036

== ENCOUNTER 2025-08-17 15:29 | Outpatient (CLI) | payer MEDICARE, SELFPAY ==
--- NOTE | 2025-08-17 13:47 | DI.RAD_ITS ---
Exam(s) XR HIP RT AP LAT ONLY EXAM: XR HIP RT AP LAT ONLY CLINICAL HISTORY: ANNUAL F/U R NAS. TECHNIQUE: 2D digital imaging was performed. COMPARISON: CR XR HIP RT COMPLETE AP PELVIS from 12/12/2024 FINDINGS: Two views There is satisfactory position alignment of the components of right hip prosthesis. No fracture or loosening evident. IMPRESSION: Stable satisfactory appearance of the right hip prosthesis, unchanged from 12/12/2024 DATA REPOSITORY: RADIATION DOSE DELIVERED:
== END 2025-08-17 15:30 | disposition home or self-care (01) ==
LOC: DIORS 15:31
PROVIDERS: PCP Family Medicine; Visit Provider Physician Assistant
DX: Z47.1 Aftercare following joint replacement surgery (principal); Z96.641 Presence of right artificial hip joint; M70.61 Trochanteric bursitis, right hip
CPT/HCPCS: 99213; 73502